=== PATIENT | male | born 1955 | race Caucasian/White ===

== ENCOUNTER 2016-09-17 04:06 | Outpatient (CLI) | payer BC | END 2016-09-17 04:07 | disposition critical access hospital (66) | DX: R06.02 Shortness of breath (principal) | CPT/HCPCS: A0425; A0427 ==

== ENCOUNTER 2016-09-17 04:28 | Observation (INO) | payer BC ==
[2016-09-17] MEDS ORDERED: NITROGLYCERIN 2% PASTE TOP STA (05:05)
[2016-09-17] MEDS ORDERED: FUROSEMIDE 40 MG/4 ML VIAL IVP STA (05:05)
[2016-09-17] MEDS ORDERED: SODIUM CHLORIDE FLUSH 0.9% 10 ML SYRINGE IVP PRN (07:44)
[2016-09-17] MEDS ORDERED: ONDANSETRON 4 MG/2 ML VIAL IVP PRN (07:44)
[2016-09-17] MEDS ORDERED: ZOLPIDEM 5 MG TABLET PO PRN (07:44)
[2016-09-17] MEDS ORDERED: ACETAMINOPHEN 325 MG TABLET PO PRN (07:44)
[2016-09-17] MEDS ORDERED: oxyCODONE 5 MG TABLET PO PRN (07:44)
[2016-09-17] MEDS: INSULIN ASPART 300 UNIT/3 ML PEN SUBQ SCH ×6 (09:00→21:22)
[2016-09-17] MEDS: METOPROLOL TARTRATE 50 MG TABLET PO SCH ×2 (09:17→21:21)
[2016-09-17] MEDS: cloNIDine 0.1 MG TABLET PO SCH ×2 (09:18→21:21)
[2016-09-17] MEDS: POLYETHYLENE GLYCOL 3350 17 GM PACKET PO SCH (09:18)
[2016-09-17] MEDS: FUROSEMIDE 40 MG/4 ML VIAL IVP SCH ×2 (09:19→13:16)
[2016-09-17] MEDS: SODIUM CHLORIDE FLUSH 0.9% 10 ML SYRINGE IVP SCH ×2 (09:19→13:16)
[2016-09-17] MEDS: ENOXAPARIN 40 MG/0.4 ML SYRINGE SUBQ SCH (09:23)
[2016-09-17] MEDS: LOSARTAN 50 MG TABLET PO SCH (09:30)
[2016-09-17] MEDS: POTASSIUM CHLORIDE 20 MEQ TABLET PO SCH (11:50)
[2016-09-17] MEDS: INSULIN GLARGINE 300 UNIT/3 ML PEN SUBQ SCH ×3 (14:46→21:22)
[2016-09-17] MEDS: amLODIPine 5 MG TABLET PO SCH (14:46)
[2016-09-17] MEDS ORDERED: INSULIN ASPART 300 UNIT/3 ML PEN SUBQ SCH (15:00)
[2016-09-17] MEDS ORDERED: INSULIN GLARGINE 300 UNIT/3 ML PEN SUBQ SCH (21:00)
[2016-09-18] MEDS: SODIUM CHLORIDE FLUSH 0.9% 10 ML SYRINGE IVP SCH (06:25)
[2016-09-18] MEDS ORDERED: PANTOPRAZOLE 40 MG TABLET PO SCH (07:00)
[2016-09-18] MEDS: INSULIN ASPART 300 UNIT/3 ML PEN SUBQ SCH (08:09)
[2016-09-18] MEDS: ENOXAPARIN 40 MG/0.4 ML SYRINGE SUBQ SCH (08:19)
[2016-09-18] MEDS: METOPROLOL TARTRATE 50 MG TABLET PO SCH (08:19)
[2016-09-18] MEDS: cloNIDine 0.1 MG TABLET PO SCH (08:19)
[2016-09-18] MEDS: amLODIPine 5 MG TABLET PO SCH (08:19)
[2016-09-18] MEDS: POTASSIUM CHLORIDE 20 MEQ TABLET PO SCH (08:20)
[2016-09-18] MEDS: LOSARTAN 50 MG TABLET PO SCH (08:20)
[2016-09-18] MEDS: POLYETHYLENE GLYCOL 3350 17 GM PACKET PO SCH (11:38)
== END 2016-09-18 11:29 | disposition home or self-care (01) ==
DX: I16.1 Hypertensive emergency (principal); I11.0 Hypertensive heart disease with heart failure; I50.33 Acute on chronic diastolic (congestive) heart failure; E11.65 Type 2 diabetes mellitus with hyperglycemia; E11.42 Type 2 diabetes mellitus with diabetic polyneuropathy; E87.6 Hypokalemia; R09.02 Hypoxemia; Z79.84 Long term (current) use of oral hypoglycemic drugs; Z77.22 Contact with and (suspected) exposure to environmental tobacco smoke (acute) (chronic)
CPT/HCPCS: 36415; 71010; 80048; 83036; 83880; 84484; 85025; 85379; 93005; 93010; 93306; 96372; 96374; 96376; 99217; 99218; 99284; 99285; A9270; J1650; J1815

== ENCOUNTER 2017-02-10 08:00 | Outpatient (CLI) | payer BC ==
[2017-02-10 12:42] LABS: BASOPHILS # (AUTO) 0.1 10^3/uL (0.0-0.1); BASOPHILS % (AUTO) 1.3 %; EOSINOPHILS # (AUTO) 0.1 10^3/uL (0.0-0.7); EOSINOPHILS % (AUTO) 2.1 %; HCT - HEMATOCRIT 33.3 % (42.0-52.0); HGB - HEMOGLOBIN 11.5 g/dL (14.0-18.0); LYMPHOCYTES # (AUTO) 1.3 10^3/uL (1.5-3.5); LYMPHOCYTES % (AUTO) 22.6 %; MEAN CORPUSCULAR HEMOGLOBIN 30.6 pg (27.0-31.0); MEAN CORPUSCULAR HGB CONC 34.5 g/dL (32.0-36.0); MEAN CORPUSCULAR VOLUME 88.9 fL (80.0-94.0); MEAN PLATELET VOLUME 11.4 fL (7.4-11.4); MONOCYTES # (AUTO) 0.4 10^3/uL (0.0-1.0); MONOCYTES % (AUTO) 7.4 %; NEUTROPHILS # (AUTO) 3.9 10^3/uL (1.5-6.6); NEUTROPHILS % (AUTO) 66.6 %; NUCLEATED RED BLOOD CELLS AUTO 0.1 /100WBC; RED BLOOD COUNT 3.75 10^6/uL (4.70-6.10); RED CELL DISTRIBUTION WIDTH 13.3 % (12.0-15.0); UNCORRECTED WHITE BLOOD COUNT 5.8 x10^3/uL; WHITE BLOOD COUNT 5.8 x10^3/uL (4.8-10.8)
[2017-02-10 13:09] LABS: ALBUMIN/GLOBULIN RATIO 1.6 (1.0-2.2); BILIRUBIN,TOTAL 0.6 mg/dL (0.2-1.0); BUN - BLOOD UREA NITROGEN 36 mg/dL (6-20); CALCIUM 9.4 mg/dL (8.5-10.3); CARBON DIOXIDE - CO2 29 mmol/L (21-32); CHLORIDE 102 mmol/L (101-111); CHOL/HDL RATIO 3.1 (<5.0); CHOLESTEROL 208 mg/dL; CREATININE 1.4 mg/dL (0.6-1.2); GFR - MDRD 51 (>89); GLUCOSE 231 mg/dL (70-100); HDL CHOLESTEROL 68 mg/dL; LDL/HDL RATIO 1.9 (<3.6); POTASSIUM 4.7 mmol/L (3.5-5.0); SODIUM 136 mmol/L (135-145); TOTAL PROTEIN 6.2 g/dL (6.7-8.2); TRIGLYCERIDES 54 mg/dL; VLDL CHOLESTEROL 11 mg/dL
[2017-02-10 13:28] LABS: HEMOGLOBIN A1C 0.92 g/dL
== END 2017-02-10 08:01 | disposition home or self-care (01) ==
LOC: LAB.N 08:00
PROVIDERS: ATTEND Family Medicine
DX: D64.9 Anemia, unspecified (principal); I10 Essential (primary) hypertension; E11.65 Type 2 diabetes mellitus with hyperglycemia; Z51.81 Encounter for therapeutic drug level monitoring; Z79.899 Other long term (current) drug therapy
CPT/HCPCS: 36415; 80053; 80061; 83036; 84443; 85025

== ENCOUNTER 2017-04-30 14:01 | Outpatient (CLI) | payer BC ==
[2017-04-30 19:42] LABS: CALCIUM 9.1 mg/dL (8.5-10.3); CREATININE 1.4 mg/dL (0.6-1.2); POTASSIUM 4.6 mmol/L (3.5-5.0)
== END 2017-04-30 14:02 | disposition home or self-care (01) ==
LOC: LAB.N 14:01
PROVIDERS: ATTEND Family Medicine
DX: J81.1 Chronic pulmonary edema (principal)
CPT/HCPCS: 36415; 80048

== ENCOUNTER 2017-07-13 08:00 | Outpatient (CLI) | payer BC ==
[2017-07-13 19:24] LABS: CALCIUM 8.7 mg/dL (8.5-10.3); CREATININE 1.3 mg/dL (0.6-1.2)
[2017-07-13 19:25] LABS: HB2 TOTAL 11.5 g/dL; HEMOGLOBIN A1C 0.78 g/dL; HEMOGLOBIN A1C % 8.4 % (4.6-6.2)
== END 2017-07-13 08:01 | disposition home or self-care (01) ==
LOC: LAB.N 08:00
PROVIDERS: ATTEND Family Medicine
DX: I10 Essential (primary) hypertension (principal); E11.9 Type 2 diabetes mellitus without complications
CPT/HCPCS: 36415; 80048; 83036

== ENCOUNTER 2017-07-16 10:00 | Outpatient (CLI) | payer BC | END 2017-07-16 10:15 | LOC: RT.N 10:00 | PROVIDERS: ATTEND Family Medicine | DX: I10 Essential (primary) hypertension (principal) | CPT/HCPCS: 93005 ==

== ENCOUNTER 2017-11-25 06:28 | Day surgery (SDC) | payer BC ==
[2017-11-25] MEDS ORDERED: KETOROLAC 0.45% OPHTH DROPS ONE (06:38)
[2017-11-25] MEDS ORDERED: PROPARACAINE 0.5% OPHTH DROPS 15 ML ONE (06:38)
[2017-11-25] MEDS ORDERED: CYCLOPENTOLATE 1% OPHTH DROPS 2 ML ONE (06:38)
[2017-11-25] MEDS ORDERED: PHENYLEPHRINE 2.5% OPHTH 2 ML DROPS ONE (06:38)
[2017-11-25] MEDS ORDERED: EPINEPHrine 1 MG/ML AMP ONE (07:09)
[2017-11-25] MEDS ORDERED: TRIAMCIN/MOXIFLOX OPHTHALMIC 0.6 ML VIAL IO ONE (07:09)
[2017-11-25] MEDS ORDERED: BRIMONIDINE 0.2% OPHTH DROPS 5 ML ONE (07:10)
[2017-11-25] MEDS ORDERED: BSS/LIDOCAINE/EPINEPHRINE 1 ML SYRINGE ONE (07:10)
[2017-11-25] MEDS ORDERED: VANCOMYCIN OPHTHALMI 8MG/0.8ML 8 MG/0.8 ML SYRINGE IO ONE (07:10)
[2017-11-25] MEDS ORDERED: TIMOLOL 0.5% OPHTH DROPS ONE (07:10)
[2017-11-25] MEDS: PROPARACAINE 0.5% OPHTH DROPS 15 ML LEFTEYE ONE ×2 (07:20→07:58)
[2017-11-25] MEDS: PHENYLEPHRINE 2.5% OPHTH 2 ML DROPS LEFTEYE ONE (07:20)
[2017-11-25] MEDS: KETOROLAC 0.45% OPHTH DROPS LEFTEYE ONE (07:20)
[2017-11-25] MEDS: CYCLOPENTOLATE 1% OPHTH DROPS 2 ML LEFTEYE ONE (07:20)
[2017-11-25] MEDS: LACTATED RINGERS 500 ML IV ONE (07:29)
[2017-11-25] MEDS: EPINEPHrine 1 MG/ML AMP IVP ONE (08:01)
[2017-11-25] MEDS: BRIMONIDINE 0.2% OPHTH DROPS 5 ML OPTH ONE (08:01)
[2017-11-25] MEDS: CHONDR SULF/HYALURONATE SYRINGE IO ONE (08:02)
[2017-11-25] MEDS: TIMOLOL 0.5% OPHTH DROPS OPTH ONE (08:02)
[2017-11-25] MEDS: BSS/LIDOCAINE/EPINEPHRINE 1 ML SYRINGE IO ONE (08:02)
[2017-11-25] MEDS ORDERED: hydrALAZINE INJ 20 MG/ML VIAL IVP ONE (08:03)
[2017-11-25] MEDS: TRIAMCIN/MOXIFLOX/VANCO 1 ML VIAL IO ONE ×2 (08:03)
[2017-11-25] MEDS ORDERED: MIDAZOLAM 2 MG/2 ML VIAL IVP ONE (08:03)
[2017-11-25 08:22] VITALS: BP 139/72
--- NOTE | 2017-11-25 09:34 | OPERATIVE REPORT ---
DATE OF SERVICE: 11/25/2017 Physician: Wyatt Rothman MD PREOPERATIVE DIAGNOSIS: Visually significant cataract, left eye. This was his first cataract surgery. 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 He is a high myope with -12 refraction, however, due to the density of the cataract, fully characterizing his retina was difficult, which is part of the reason for cataract surgery. This was also complex cataract due to small pupil requiring pupil expansion with a Malyugin ring. POSTOPERATIVE DIAGNOSIS: Visually significant cataract, left eye. This was his first cataract surgery. 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 He is a high myope with -12 refraction, however, due to the density of the cataract, fully characterizing his retina was difficult, which is part of the reason for cataract surgery. This was also complex cataract due to small pupil requiring pupil expansion with a Malyugin ring. PROCEDURE: Phacoemulsification with posterior chamber intraocular lens implant, left eye. SURGEON: Wyatt Rothman M.D. ANESTHESIA: Monitored anesthesia care. COMPLICATIONS: None. INDICATIONS: The patient is a 62-year-old male with progressive vision loss in the left eye due to 4+ nuclear sclerotic cataract. Best corrected visual acuity was 20/60, with glare to hand motion vision in the left eye. INDICATIONS FOR SURGERY: Overall decrease in vision, difficulty seeing words on a computer screen, difficulty reading, difficulty seeing words, closed captions or games scores on TV, difficulty seeing street signs, difficulty driving in low light or at night, and difficulty driving at night because of head lights from other vehicles, difficulty with glare or bright lights in any situation, and difficulty tracking a golf ball. He was consented at length concerning risks and benefits of cataract surgery, after which he expressed a desire to proceed with surgery. OPERATIVE PROCEDURE: The patient was taken to OR #3 and placed under monitored anesthesia care. A surgical timeout was conducted to confirm the correct patient and correct procedure, and correct surgical site. He was given topical anesthesia, and then prepped and draped in the usual sterile fashion. The eye was entered at the 6 and 3 o'clock positions. Intracameral Shugarcaine was injected into the anterior chamber, followed by Viscoat. A Malyugin ring was inserted into the anterior chamber, and engaged the pupil at 4 points to expand the pupil. Then, a continuous-tear curvilinear capsulorrhexis was performed. The nucleus was hydrodissected and phacoemulsified. The cortex was evacuated using automated infusion and aspiration. Provisc was injected in the capsular bag, and a 13.5 diopter intraocular lens inserted in the bag. The Malyugin ring was then disengaged from the pupil margin, and removed from the anterior chamber. I and A was used to evacuate the viscoelastic materials. Approximately 0.7 mL of a mixture of triamcinolone, moxifloxacin and vancomycin was injected subconjunctivally in the superior quadrant for infection and inflammation prophylaxis. The eye was inflated to physiologic pressure using balanced salt solution, and found to be watertight. The patient was taken from the operating room in good condition and given postop instructions. TD: 11/25/2017 08:39
== END 2017-11-25 06:29 | disposition home or self-care (01) ==
LOC: SDS 06:28
PROVIDERS: ATTEND Ophthalmology
PROC: 08RK3JZ Replacement of Left Lens with Synthetic Substitute, Percutaneous Approach (ICD-10-PCS; principal; 2017-11-25 08:30)
DX: H25.12 Age-related nuclear cataract, left eye (principal); E11.3291 Type 2 diabetes mellitus with mild nonproliferative diabetic retinopathy without macular edema, right eye; Z79.84 Long term (current) use of oral hypoglycemic drugs; I10 Essential (primary) hypertension; H40.9 Unspecified glaucoma
CPT/HCPCS: 66982; A9270; J3490; V2632

== ENCOUNTER 2017-12-02 06:20 | Day surgery (SDC) | payer BC ==
[2017-12-02] MEDS ORDERED: PROPARACAINE 0.5% OPHTH DROPS 15 ML ONE (06:53)
[2017-12-02] MEDS ORDERED: CYCLOPENTOLATE 1% OPHTH DROPS 2 ML ONE (06:53)
[2017-12-02] MEDS ORDERED: PHENYLEPHRINE 2.5% OPHTH 2 ML DROPS ONE (06:53)
[2017-12-02] MEDS ORDERED: KETOROLAC 0.45% OPHTH DROPS ONE (06:53)
[2017-12-02] MEDS ORDERED: PROPARACAINE 0.5% OPHTH DROPS 15 ML RIGHTEYE ONE ×2 (07:05→08:35)
[2017-12-02] MEDS ORDERED: CYCLOPENTOLATE 1% OPHTH DROPS 2 ML RIGHTEYE ONE (07:05)
[2017-12-02] MEDS ORDERED: PHENYLEPHRINE 2.5% OPHTH 2 ML DROPS RIGHTEYE ONE (07:05)
[2017-12-02] MEDS ORDERED: KETOROLAC 0.45% OPHTH DROPS RIGHTEYE ONE (07:05)
[2017-12-02] MEDS ORDERED: BRIMONIDINE 0.2% OPHTH DROPS 5 ML ONE (07:14)
[2017-12-02] MEDS ORDERED: VANCOMYCIN OPHTHALMI 8MG/0.8ML 8 MG/0.8 ML SYRINGE IO ONE (07:14)
[2017-12-02] MEDS ORDERED: EPINEPHrine 1 MG/ML AMP ONE (07:14)
[2017-12-02] MEDS ORDERED: TRIAMCIN/MOXIFLOX OPHTHALMIC 0.6 ML VIAL IO ONE (07:14)
[2017-12-02] MEDS ORDERED: BSS/LIDOCAINE/EPINEPHRINE 1 ML SYRINGE ONE (07:14)
[2017-12-02] MEDS ORDERED: TIMOLOL 0.5% OPHTH DROPS ONE (07:14)
[2017-12-02] MEDS ORDERED: LACTATED RINGERS 500 ML IV ONE (07:21)
[2017-12-02] MEDS ORDERED: MIDAZOLAM 2 MG/2 ML VIAL IVP ONE (08:15)
[2017-12-02] MEDS ORDERED: BRIMONIDINE 0.2% OPHTH DROPS 5 ML OPTH ONE (08:35)
[2017-12-02] MEDS ORDERED: TIMOLOL 0.5% OPHTH DROPS OPTH ONE (08:35)
[2017-12-02] MEDS ORDERED: CHONDR SULF/HYALURONATE SYRINGE IO ONE (08:35)
[2017-12-02] MEDS ORDERED: EPINEPHrine 1 MG/ML AMP IR ONE (08:35)
[2017-12-02] MEDS ORDERED: BSS/LIDOCAINE/EPINEPHRINE 1 ML SYRINGE IO ONE (08:35)
[2017-12-02 08:52] VITALS: BP 208/96
--- NOTE | 2017-12-02 10:41 | OPERATIVE REPORT ---
DATE OF SERVICE: 12/02/2017 Physician: Wyatt Rothman MD PREOPERATIVE DIAGNOSIS: Visually significant cataract, right eye. Cataract surgery was performed on the left eye on 11/25/2017. POSTOPERATIVE DIAGNOSIS: Visually significant cataract, right eye. Cataract surgery was performed on the left eye on 11/25/2017. PROCEDURE: Phacoemulsification with posterior chamber intraocular lens implant , right eye. SURGEON: Wyatt Rothman MD ANESTHESIA: Monitored anesthesia care. COMPLICATIONS: On trying to inject the preloaded lens, no lens came out of the cartridge, so we went to another 13.5 preloaded J&J (formerly JESSE) lens, and again no lens came out of the cartridge. Since there were no more 13.5 preloaded IOLs, I opted to go with the backup lens, a J&J [id number] with a power of 13.0 instead of 13.5, which I loaded in the proper cartridge and injector and injected into the capsular bag. OPERATIVE INDICATIONS: This is a 62-year-old man with progressive vision loss in the right eye due to 4+ nuclear sclerotic cataract. Best corrected visual acuity was 20/60 with glare to hand motion vision in the right eye. Overall decrease in vision, difficulty seeing words on the computer screen, difficulty reading, difficulty seeing words on closed captions or game scores on TV, difficulty seeing street signs, difficulty driving in low light or night, difficulty driving at night because of head lights from other vehicles, difficulty with glare or bright lights in any situation, and difficulty tracking a golf ball. He was consented at length concerning risks and benefits of cataract surgery, after which, he expressed a desire to proceed with surgery. OPERATIVE PROCEDURE: The patient was taken to OR #3 and placed under monitored anesthesia care. A surgical timeout was conducted confirming correct patient, correct procedure, and correct surgical site. He was given topical anesthesia and prepped and draped in the usual sterile fashion. The eye was entered at the 12 and 9 o'clock positions. Intracameral Shugarcaine was injected into the anterior chamber, followed by Viscoat. A continuous-tear curvilinear capsulorrhexis was performed. The nucleus was hydrodissected and phacoemulsified. The cortex was evacuated using automated infusion and aspiration. Provisc was injected in the capsular bag and a 13.0 diopter 3-piece intraocular lens was inserted into the bag. That was after 2 attempts to load a 13.5 diopter single piece lens, where no lens came out of the cartridges. Approximately 0.9 mL of a mixture of triamcinolone, moxifloxacin, vancomycin was injected subconjunctivally in the superior quadrant for infection and inflammation prophylaxis. I and A was used to evacuate the viscoelastic material. The eye was inflated to physiologic pressure using balanced salt solution, and found to be watertight. The patient was taken from the Operating Room in good condition, given postoperative instructions, and advised of the IOL change. TD: 12/02/2017 09:05 BOWEN
== END 2017-12-02 06:21 | disposition home or self-care (01) ==
LOC: SDS 06:20
PROVIDERS: ATTEND Ophthalmology
PROC: 08RJ3JZ Replacement of Right Lens with Synthetic Substitute, Percutaneous Approach (ICD-10-PCS; principal; 2017-12-02 08:00)
DX: H25.11 Age-related nuclear cataract, right eye (principal); I10 Essential (primary) hypertension; E11.42 Type 2 diabetes mellitus with diabetic polyneuropathy; E11.3293 Type 2 diabetes mellitus with mild nonproliferative diabetic retinopathy without macular edema, bilateral
CPT/HCPCS: 66984; A9270; J3490; V2632

== ENCOUNTER 2018-01-19 11:34 | Outpatient (CLI) | payer BC ==
[2018-01-19 19:00] LABS: CALCIUM 9.2 mg/dL (8.5-10.3); CREATININE 1.9 mg/dL (0.6-1.2)
[2018-01-19 19:15] LABS: HB2 TOTAL 10.2 g/dL; HEMOGLOBIN A1C 0.73 g/dL; HEMOGLOBIN A1C % 8.7 % (4.6-6.2)
== END 2018-01-19 11:35 | disposition home or self-care (01) ==
LOC: LAB.N 11:34
PROVIDERS: ATTEND Family Medicine
DX: E11.65 Type 2 diabetes mellitus with hyperglycemia (principal)
CPT/HCPCS: 36415; 80048; 83036

== ENCOUNTER 2018-06-29 16:20 | Emergency (ER) | payer MEDICAID ==
[2018-06-29] MEDS ORDERED: TROPICAMIDE 1% OPHTH 2 ML DROPS LEFTEYE STA (16:47)
[2018-06-29] MEDS ORDERED: PROPARACAINE 0.5% OPHTH DROPS 15 ML LEFTEYE STA (17:31)
--- NOTE | 2018-06-29 17:56 | ED Physician Documentation ---
PD HPI OPHTHO - Stated complaint Stated Complaint: VISION CHANGES - Chief complaint Chief Complaint: Heent - History obtained from History obtained from: Patient, Family (spouse) - History of Present Illness Timing - onset: How many days ago (several) Timing - details: Gradual onset Location: Both Associated symptoms: Decreased vision - Additional information Additional information: The patient is a 62-year-old male with a history of hypertension, type 2 diabetes, glaucoma, and vitreous edema, who presents with visual impairment that has gradually become worse over the past several days. He was seen by his quiller hand 9 days ago at which time his steroid medication was stopped because of elevated intraocular pressures of 42. He continues to take timolol and brimonidine ophthalmic drops. His visual acuity 9 days ago was 20/40 in his left eye and 20/200 in his right. He states that the visual acuity in his left eye currently is now even worse than that in his right. He denies headache, nausea or vomiting. He is status post bilateral cataract surgery in October 2017. Review of Systems Constitutional: denies: Fever Eyes: reports: Decreased vision Nose: denies: Congestion Cardiac: denies: Chest pain / pressure Respiratory: denies: Dyspnea, Cough GI: denies: Nausea, Vomiting Skin: denies: Rash Neurologic: denies: Focal weakness, Numbness, Headache PD PAST MEDICAL HISTORY - Past Medical History Past Medical History: Yes Cardiovascular: Hypertension, Other Respiratory: Other Neuro: None Endocrine/Autoimmune: Type 2 diabetes GI: None : Frequency HEENT: Chronic vision loss, Glaucoma Psych: Claustrophobia Musculoskeletal: None Derm: Other - Past Surgical History Past Surgical History: Yes HEENT: Cataracts - Present Medications Home Medications: Ambulatory Orders Medication Instructions Recorded Confirmed Losartan [Cozaar] 50 mg PO BID 09/17/16 06/29/18 Metformin HCl [Metformin HCl ER] 1,000 mg PO BID 09/17/16 06/29/18 cloNIDine [Catapres] 0.2 mg PO BID 09/17/16 06/29/18 Furosemide [Lasix] 20 mg PO DAILY 11/25/17 06/29/18 Brimonidine 0.2% Ophth Drops 1 drops OPTH TID 06/29/18 06/29/18 [Alphagan P 0.2% Ophth Drops] Carvedilol 25 mg PO DAILY 06/29/18 06/29/18 Timolol Maleate 5 ml OP DAILY 06/29/18 06/29/18 acetaZOLAMIDE [Diamox] 500 mg PO DAILY #10 tablet 06/29/18 - Allergies Allergies/Adverse Reactions: Allergies Allergy/AdvReac Type Severity Reaction Status Date / Time No Known Drug Allergies Allergy Verified 06/29/18 16:27 - Social History Does the pt smoke?: No Smoking Status: Never smoker Does the pt drink ETOH?: No Does the pt have substance abuse?: No - Immunizations Immunizations are current?: Yes Immunizations: TDAP >10years/unknown - POLST Patient has POLST: No PD ED PE NORMAL - Vitals Vital signs reviewed: Yes (hypertensive) - General General: Alert and oriented X 3, Well developed/nourished - HEENT HEENT: Atraumatic, EOMI, Other (Pupils equal round, and minimally reactive to light. Visual acuity is count fingers in the right eye and motion detection in the left. Extraocular pressures are elevated at 55 in the right eye and 51 in the left.) - Neck Neck: No adenopathy - Cardiac Cardiac: RRR - Respiratory Respiratory: No respiratory distress - Derm Derm: No rash - Extremities Extremities: No edema, No calf tenderness / cord - Neuro Neuro: Alert and oriented X 3, No motor deficit, No sensory deficit Results - Vitals Vitals: Vital Signs - 24 hr 06/29/18 06/29/18 06/29/18 16:23 16:57 19:07 Temperature 36.1 C L Heart Rate 81 73 Respiratory 20 16 Rate Blood Pressure 228/115 H 197/88 H 220/98 H O2 Saturation 99 98 06/29/18 19:44 Temperature Heart Rate 73 Respiratory 18 Rate Blood Pressure 211/102 H O2 Saturation 98 Oxygen O2 Source Room air - Labs Labs: Laboratory Tests 06/29/18 18:46 POC Whole Bld Glucose 230 H Procedures - Bedside sono Bedside sono by EMP: Bedside ocular ultrasound reveals no evidence of vitreous hemorrhage. PD MEDICAL DECISION MAKING - ED course Complexity details: reviewed old records, reviewed results, re-evaluated patient, considered differential, d/w patient, d/w family, d/w [employer] sales consultant ED course: The patient's presentation is significant for exacerbation of chronically elevated intraocular pressures, with vitreous edema. Retinal vessels were not able to be visualized on funduscopic exam due to edema. Mydriacyl was instilled in the left eye, but there was minimal mydriatic response. I discussed his condition with Dr. Huynh who is on-call for Dr. Rothman, the patient's quiller hand. She advises resuming steroid ophthalmic drops, ensuring that the patient continues to take timolol drops twice daily and brimonidine 3 times daily, and adding Diamox. Each of these drops was administered bilaterally, and Diamox 500 mg is administered orally. Fingerstick blood sugar is elevated at 230. He was observed in the emergency department for an additional 30 minutes during which time his blood pressure was monitored, and his blood sugar was rechecked. He is being discharged with prescription for Diamox. I discussed with him and his the dosing for his medication, the importance of follow-up with ophthalmology tomorrow, as well as potentially worrisome signs or symptoms that should prompt reevaluation in the emergency department. Departure - Departure Disposition: Home, Self Care Clinical Impression: Visual impairment Glaucoma (increased eye pressure) Qualifiers: Glaucoma type: unspecified Laterality: bilateral Qualified Code(s): H40.9 - Unspecified glaucoma Diabetes mellitus with hyperglycemia Qualifiers: Diabetes mellitus type: type 2 Diabetes mellitus residential insulin use: without residential use Qualified Code(s): E11.65 - Type 2 diabetes mellitus with hyperglycemia Hypertension Qualifiers: Hypertension type: unspecified Qualified Code(s): I10 - Essential (primary) hypertension Condition: Stable Instructions: ED Glaucoma Open Angle Chronic Follow-Up: Wyatt Rothman MD [Provider Admit Priv/Credential] - Prescriptions: acetaZOLAMIDE [Diamox] 500 mg PO DAILY #10 tablet Comments: Take your timolol drops (the yellow cap bottle) twice daily. Take the brimonidine drops (the purple cap bottle) 3 times daily. Take the steroid medication (the pink cap bottle) twice daily. Take Diamox daily as prescribed. Follow-up with Dr. Rothman tomorrow if possible. If not, you should contact the [place] office. Return to the emergency department if you develop significant headache, persistent nausea or vomiting, or otherwise worsening symptoms. Discharge Date/Time: 06/29/18 19:48
[2018-06-29] MEDS ORDERED: acetaZOLAMIDE 250 MG TABLET PO STA (18:59)
[2018-06-29 19:48] VITALS: BP 211/102
[2018-06-30] MEDS ORDERED: acetaZOLAMIDE 250 MG TABLET PO SCH (09:00)
== END 2018-06-29 19:48 | disposition home or self-care (01) ==
LOC: ED 16:20
DX: H54.7 Unspecified visual loss (principal); H40.9 Unspecified glaucoma; E11.65 Type 2 diabetes mellitus with hyperglycemia; I10 Essential (primary) hypertension; Z79.84 Long term (current) use of oral hypoglycemic drugs
CPT/HCPCS: 99283; A9270; J3490

== ENCOUNTER 2018-09-07 09:01 | Outpatient (CLI) | payer MEDICAID ==
[2018-09-07 13:06] LABS: BASOPHILS # (AUTO) 0.1 10^3/uL (0.0-0.1); BASOPHILS % (AUTO) 2.1 %; EOSINOPHILS # (AUTO) 0.5 10^3/uL (0.0-0.7); HGB - HEMOGLOBIN 9.9 g/dL (14.0-18.0); LYMPHOCYTES % (AUTO) 14.8 %; MEAN CORPUSCULAR HEMOGLOBIN 29.5 pg (27.0-31.0); MEAN CORPUSCULAR HGB CONC 32.6 g/dL (32.0-36.0); MEAN CORPUSCULAR VOLUME 90.5 fL (80.0-94.0); MEAN PLATELET VOLUME 11.3 fL (7.4-11.4); MONOCYTES # (AUTO) 0.5 10^3/uL (0.0-1.0); MONOCYTES % (AUTO) 7.7 %; NEUTROPHILS # (AUTO) 4.6 10^3/uL (1.5-6.6); NEUTROPHILS % (AUTO) 67.4 %; PLT - PLATELET COUNT 256 10^3/uL (130-450); RED BLOOD COUNT 3.35 10^6/uL (4.70-6.10); RED CELL DISTRIBUTION WIDTH 15.1 % (12.0-15.0); WHITE BLOOD COUNT 6.8 x10^3/uL (4.8-10.8)
[2018-09-07 13:30] LABS: ALBUMIN 3.3 g/dL (3.2-5.5); BILIRUBIN,TOTAL 0.5 mg/dL (0.2-1.0); CALCIUM 9.1 mg/dL (8.5-10.3); TOTAL PROTEIN 6.5 g/dL (6.7-8.2)
[2018-09-07 13:34] LABS: HB2 TOTAL 10.1 g/dL; HEMOGLOBIN A1C 0.76 g/dL
[2018-09-07 13:37] LABS: THYROID STIMULATING HORMONE 2.57 uIU/mL (0.34-5.60)
[2018-09-07 13:45] LABS: FOLATE 23.34 ng/mL (5.90 - >24.8)
[2018-09-07 15:21] LABS: CREATININE,URINE 97.1 mg/dL; MICROALBUM/CREATININE RATIO,UR 1300.7 ug/mg (<30.0); MICROALBUMIN,URINE 126.3 mg/dL (0-300.0)
== END 2018-09-07 23:59 | disposition home or self-care (01) ==
LOC: LAB.N 09:01
PROVIDERS: ATTEND Nurse Practitioner
DX: E11.65 Type 2 diabetes mellitus with hyperglycemia (principal); E55.9 Vitamin D deficiency, unspecified; R53.83 Other fatigue
CPT/HCPCS: 36415; 80050; 82043; 82306; 82570; 82607; 82746; 83036; 83721

== ENCOUNTER 2018-11-01 15:14 | Outpatient (CLI) | payer MEDICARE ==
--- NOTE | 2018-11-02 10:47 | Ultrasound Report ---
Reason: CHRONIC KIDNEY DISEASE, STAGE 3 (MODERATE) Procedure Date: 11/01/2018 Accession Number: [id number] / [id number] Procedure: US - Retroperitoneal CPT Code: FULL RESULT: EXAM: RENAL ULTRASOUND EXAM DATE: 11/01/2018 03:28 PM. CLINICAL HISTORY: Chronic kidney disease, stage 3 (moderate). COMPARISON: None. TECHNIQUE: Real-time scanning was performed with static images obtained. FINDINGS: Right Kidney: 11.0 cm. Normal echotexture with no stones, contour-deforming masses, or hydronephrosis. Left Kidney: 10.2 cm. Normal echotexture with no stones, contour-deforming masses, or hydronephrosis. Bladder: Bilateral jets seen. The prevoid bladder volume was 256 cc. The postvoid bladder volume was 192 cc. Other: None. IMPRESSION: Bilateral increased cortical echogenicity. RADIA
== END 2018-11-01 15:15 | disposition home or self-care (01) ==
LOC: DI 15:14
PROVIDERS: ATTEND Internal Medicine Nephrology
DX: N18.3 Chronic kidney disease, stage 3 (moderate) (principal)
CPT/HCPCS: 76770

== ENCOUNTER 2019-02-02 08:00 | Outpatient (CLI) | payer MEDICARE ==
[2019-02-02 19:13] LABS: HB2 TOTAL 9.1 g/dL; HEMOGLOBIN A1C 0.42 g/dL; HEMOGLOBIN A1C % 6.4 % (4.6-6.2)
== END 2019-02-02 23:59 | disposition home or self-care (01) ==
LOC: LAB.N 08:00
PROVIDERS: ATTEND Nurse Practitioner Gerontology
DX: E11.65 Type 2 diabetes mellitus with hyperglycemia (principal)
CPT/HCPCS: 36415; 83036

== ENCOUNTER 2019-05-27 16:00 | Outpatient (CLI) | payer MEDICARE | END 2019-05-27 16:01 | disposition critical access hospital (66) | LOC: EMS 16:00 | PROVIDERS: ATTEND Surgery | DX: R46.89 Other symptoms and signs involving appearance and behavior (principal); R47.81 Slurred speech; R73.09 Other abnormal glucose | CPT/HCPCS: A0425; A0427 ==

== ENCOUNTER 2019-05-27 16:16 | Inpatient (IN) | payer MEDICARE ==
[2019-05-27] MEDS ORDERED: DEXTROSE 5%-0.45% NACL 1,000 ML IV ONE (16:21)
[2019-05-27] MEDS ORDERED: SODIUM CHLORIDE 0.9% 1,000 ML IV ONE (16:21)
[2019-05-27 16:51] LABS: BASOPHILS % (AUTO) 0.2 %; HGB - HEMOGLOBIN 10.5 g/dL (14.0-18.0); LYMPHOCYTES # (AUTO) 0.3 10^3/uL (1.5-3.5); LYMPHOCYTES % (AUTO) 2.3 %; MEAN CORPUSCULAR HEMOGLOBIN 30.3 pg (27.0-31.0); MEAN CORPUSCULAR HGB CONC 32.5 g/dL (32.0-36.0); MEAN CORPUSCULAR VOLUME 93.4 fL (80.0-94.0); MEAN PLATELET VOLUME 12.3 fL (7.4-11.4); MONOCYTES # (AUTO) 0.8 10^3/uL (0.0-1.0); MONOCYTES % (AUTO) 6.4 %; NEUTROPHILS # (AUTO) 11.8 10^3/uL (1.5-6.6); NEUTROPHILS % (AUTO) 90.6 %; PLT - PLATELET COUNT 264 10^3/uL (130-450); RED BLOOD COUNT 3.46 10^6/uL (4.70-6.10); RED CELL DISTRIBUTION WIDTH 14.1 % (12.0-15.0); WHITE BLOOD COUNT 13.1 x10^3/uL (4.8-10.8)
--- NOTE | 2019-05-27 17:01 | ED Physician Documentation ---
History of Present Illness - Stated complaint Stated Complaint: AMS/HYPOGLYCEMIA - Chief complaint Chief Complaint: Neuro - History obtained from History obtained from: Patient, Family, EMS - History of Present Illness Timing: Today Pain level max: 0 Pain level now: 0 - Additonal information Additional information: Patient was altered at home today, called 911. EMS found him to have a blood sugar in the 40s upon arrival. He takes Lantus at home. He states he took 10 units today. He improved with D50. 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 Left pupil is normally enlarged. Review of Systems Unable to obtain: AMS Constitutional: denies: Fever, Chills GI: denies: Vomiting, Diarrhea Skin: denies: Rash Musculoskeletal: denies: Neck pain, Back pain Neurologic: reports: Confused. denies: Seizure PD PAST MEDICAL HISTORY - Past Medical History Cardiovascular: Hypertension, Other Respiratory: Other Neuro: None Endocrine/Autoimmune: Type 2 diabetes GI: GERD : Frequency HEENT: Chronic vision loss, Glaucoma Psych: Claustrophobia Musculoskeletal: None Derm: Other - Past Surgical History Past Surgical History: Yes HEENT: Cataracts - Present Medications Home Medications: Ambulatory Orders Medication Instructions Recorded Confirmed Losartan [Cozaar] 100 mg PO DAILY 09/17/16 05/27/19 Metformin HCl [Metformin HCl ER] 1,000 mg PO BID 09/17/16 05/27/19 Brimonidine 0.2% Ophth Drops 1 drops OPTH TID 06/29/18 05/27/19 [Alphagan P 0.2% Ophth Drops] Timolol Maleate 5 ml OP DAILY 06/29/18 05/27/19 Amlodipine Besylate 10 mg PO DAILY 05/27/19 05/27/19 Carvedilol Phosphate [Carvedilol 40 mg PO DAILY PM 05/27/19 05/27/19 ER] Insulin Glargine [Lantus Solostar] 10 units SQ DAILY 05/27/19 05/27/19 acetaZOLAMIDE [Diamox] 500 mg PO BID 05/27/19 05/27/19 hydroCHLOROthiazide 25 mg PO DAILY 05/27/19 05/27/19 [Hydrochlorothiazide] - Allergies Allergies/Adverse Reactions: Allergies Allergy/AdvReac Type Severity Reaction Status Date / Time No Known Drug Allergies Allergy Verified 06/29/18 16:27 - Social History Does the pt smoke?: No Smoking Status: Never smoker Does the pt drink ETOH?: No Does the pt have substance abuse?: No - Immunizations Immunizations are current?: Yes Immunizations: TDAP >10years/unknown - POLST Patient has POLST: No PD ED PE NORMAL - Vitals Vital signs reviewed: Yes - General General: No acute distress, Other (drowsy, but arousable) - HEENT HEENT: Atraumatic, Ears normal, Other (dry lips and tongue. L pupil is fully dilated (chronic per )) - Neck Neck: Supple, no meningeal sign - Cardiac Cardiac: RRR - Respiratory Respiratory: No respiratory distress, Clear bilaterally - Abdomen Abdomen: Soft, Non tender, Non distended - Derm Derm: Warm and dry - Extremities Extremities: No edema - Neuro Neuro: Other (drowsy) Results - Vitals Vitals: Vital Signs - 24 hr 05/27/19 05/27/19 05/27/19 16:26 16:50 17:14 Temperature 37.0 C 37.2 C Heart Rate 91 90 90 Respiratory 20 12 14 Rate Blood Pressure 174/81 H 157/90 H 145/79 H O2 Saturation 98 98 99 05/27/19 05/27/19 05/27/19 17:58 18:32 19:15 Temperature 36.9 C Heart Rate 91 86 88 Respiratory 17 11 L 16 Rate Blood Pressure 157/77 H 139/73 H 141/76 H O2 Saturation 98 98 97 Oxygen O2 Source Room air - Labs Labs: Laboratory Tests 05/27/19 05/27/19 05/27/19 16:30 16:30 16:30 WBC 13.1 H RBC 3.46 L Hgb 10.5 L Hct 32.3 L MCV 93.4 MCH 30.3 MCHC 32.5 RDW 14.1 Plt Count 264 MPV 12.3 H Neut # (Auto) 11.8 H Lymph # (Auto) 0.3 L [place] # (Auto) 0.8 Eos # (Auto) 0.0 Baso # (Auto) 0.0 Absolute Nucleated RBC 0.00 Nucleated RBC % 0.0 VBG pH VBG pCO2 VBG pO2 VBG HCO3 VBG Total CO2 VBG O2 Saturation VBG Base Excess Sodium 141 Potassium 3.7 Chloride 115 H Carbon Dioxide 11 L* Anion Gap 15.0 H BUN 85 H* Creatinine 2.9 H Estimated GFR (MDRD) 22 L Glucose 104 H Calcium 8.5 Total Bilirubin 0.8 AST 30 ALT 15 Alkaline Phosphatase 46 Ammonia Total Protein 6.1 L Albumin 3.4 Globulin 2.7 Albumin/Globulin Ratio 1.3 Lipase 22 Urine Color Urine Clarity Urine pH Ur Specific [place] Urine Protein Urine Glucose (UA) Urine Ketones Urine Occult Blood Urine Nitrite Urine Bilirubin Urine Urobilinogen Ur Leukocyte Esterase Urine RBC Urine WBC Ur Squamous Epith Cells Urine Bacteria Ur Microscopic Review Urine Culture Comments Salicylates Urine Opiates Screen Ur Oxycodone Screen Urine Methadone Screen Ur Propoxyphene Screen Acetaminophen Ur Barbiturates Screen Ur Tricyclics Screen Ur Phencyclidine Scrn Ur Amphetamine Screen U Methamphetamines Scrn U Benzodiazepines Scrn Urine Cocaine Screen U Cannabinoids Screen Ethyl Alcohol < 5.0 Serum Ketones NEGATIVE 05/27/19 05/27/19 05/27/19 16:30 17:30 17:30 WBC RBC Hgb Hct MCV MCH MCHC RDW Plt Count MPV Neut # (Auto) Lymph # (Auto) [place] # (Auto) Eos # (Auto) Baso # (Auto) Absolute Nucleated RBC Nucleated RBC % VBG pH VBG pCO2 VBG pO2 VBG HCO3 VBG Total CO2 VBG O2 Saturation VBG Base Excess Sodium Potassium Chloride Carbon Dioxide Anion Gap BUN Creatinine Estimated GFR (MDRD) Glucose Calcium Total Bilirubin AST ALT Alkaline Phosphatase Ammonia Total Protein Albumin Globulin Albumin/Globulin Ratio Lipase Urine Color YELLOW Urine Clarity HAZY Urine pH 5.0 Ur Specific [place] >=1.030 H Urine Protein 100 H Urine Glucose (UA) NEGATIVE Urine Ketones NEGATIVE Urine Occult Blood NEGATIVE Urine Nitrite NEGATIVE Urine Bilirubin NEGATIVE Urine Urobilinogen 0.2 (NORMAL) Ur Leukocyte Esterase SMALL H Urine RBC 0-5 Urine WBC 6-10 H Ur Squamous Epith Cells FEW Squamous Urine Bacteria Many H Ur Microscopic Review INDICATED Urine Culture Comments INDICATED Salicylates < 6.0 Urine Opiates Screen NEGATIVE Ur Oxycodone Screen NEGATIVE Urine Methadone Screen NEGATIVE Ur Propoxyphene Screen NEGATIVE Acetaminophen < 10 L Ur Barbiturates Screen NEGATIVE Ur Tricyclics Screen NEGATIVE Ur Phencyclidine Scrn NEGATIVE Ur Amphetamine Screen NEGATIVE U Methamphetamines Scrn NEGATIVE U Benzodiazepines Scrn NEGATIVE Urine Cocaine Screen NEGATIVE U Cannabinoids Screen NEGATIVE Ethyl Alcohol Serum Ketones 05/27/19 05/27/19 17:39 17:39 WBC RBC Hgb Hct MCV MCH MCHC RDW Plt Count MPV Neut # (Auto) Lymph # (Auto) [place] # (Auto) Eos # (Auto) Baso # (Auto) Absolute Nucleated RBC Nucleated RBC % VBG pH 7.255 L VBG pCO2 21.6 L VBG pO2 83.4 H VBG HCO3 9.4 L VBG Total CO2 10.0 L VBG O2 Saturation 95.4 H VBG Base Excess -16.0 L Sodium Potassium Chloride Carbon Dioxide Anion Gap BUN Creatinine Estimated GFR (MDRD) Glucose Calcium Total Bilirubin AST ALT Alkaline Phosphatase Ammonia 20.4 Total Protein Albumin Globulin Albumin/Globulin Ratio Lipase Urine Color Urine Clarity Urine pH Ur Specific [place] Urine Protein Urine Glucose (UA) Urine Ketones Urine Occult Blood Urine Nitrite Urine Bilirubin Urine Urobilinogen Ur Leukocyte Esterase Urine RBC Urine WBC Ur Squamous Epith Cells Urine Bacteria Ur Microscopic Review Urine Culture Comments Salicylates Urine Opiates Screen Ur Oxycodone Screen Urine Methadone Screen Ur Propoxyphene Screen Acetaminophen Ur Barbiturates Screen Ur Tricyclics Screen Ur Phencyclidine Scrn Ur Amphetamine Screen U Methamphetamines Scrn U Benzodiazepines Scrn Urine Cocaine Screen U Cannabinoids Screen Ethyl Alcohol Serum Ketones - Rads (name of study) head CT Radiology: Prelim report reviewed, EMP read contemporaneously, See rad report (No significant intracranial abnormality. ) PD MEDICAL DECISION MAKING - ED course Complexity details: reviewed old records, reviewed results, re-evaluated patient, considered differential, d/w family, d/w tax consultant ED course: Patient with altered mental status. He was hypoglycemic on scene. Appears to have a metabolic acidosis here with significant uremia and dehydration. Also has acute kidney injury. Was maintained on a D5 drip and given IV fluids. He does have a history of CHF, unknown what his ejection fraction is like currently. Therefore we will rehydrate slowly. He is on diuretics at home as well. Patient will require admission for further care. Discussed the case with Dr. Singer, hospitalist who accepts. This document was made in part using voice recognition software. While efforts are made to proofread this document, sound alike and grammatical errors may occur. Departure - Departure Disposition: 66 [facility] DC/Xfer Clinical Impression: Uremia, Hypoglycemia, Acute kidney injury, Dehydration, Metabolic acidosis Altered mental status Qualifiers: Altered mental status type: unspecified Qualified Code(s): R41.82 - Altered mental status, unspecified Condition: Stable Discharge Date/Time: 05/27/19 19:57
[2019-05-27 17:23] LABS: ALBUMIN 3.4 g/dL (3.2-5.5); ALBUMIN/GLOBULIN RATIO 1.3 (1.0-2.2); BILIRUBIN,TOTAL 0.8 mg/dL (0.2-1.0); CALCIUM 8.5 mg/dL (8.5-10.3); CREATININE 2.9 mg/dL (0.6-1.2); TOTAL PROTEIN 6.1 g/dL (6.7-8.2)
[2019-05-27 17:44] LABS: VBG PCO2 21.6 mmHg (41-51); VBG PH 7.255 (7.31-7.41); VBG PO2 83.4 mmHg (25-47)
[2019-05-27 17:49] LABS: MUDS CUTOFF CONCENTRATIONS CUTOFF CONC BELOW:
[2019-05-27 17:52] LABS: KETONES, SERUM (ACETEST) NEGATIVE (NEGATIVE)
[2019-05-27 18:00] LABS: BILIRUBIN,URINE NEGATIVE (NEGATIVE); GLUCOSE, URINE (UA) NEGATIVE (NEGATIVE); KETONES,URINE (UA) NEGATIVE (NEGATIVE); LEUKOCYTE ESTERASE, URINE SMALL (NEGATIVE); NITRITE,URINE NEGATIVE (NEGATIVE); OCCULT BLOOD,URINE NEGATIVE (NEGATIVE); PROTEIN,URINE 100 mg/dL (NEGATIVE); UROBILINOGEN,URINE 0.2 (NORMAL) E.U./dL (NORMAL)
[2019-05-27 18:01] LABS: CLARITY,URINE HAZY (CLEAR)
[2019-05-27 18:08] LABS: COCAINE SCREEN URINE NEGATIVE (NEGATIVE)
[2019-05-27 18:09] LABS: AMPHETAMINE SCREEN,URINE NEGATIVE (NEGATIVE); BENZODIAZEPINES SCREEN, URINE NEGATIVE (NEGATIVE); METHADONE SCREEN, URINE NEGATIVE (NEGATIVE); METHAMPHETAMINES SCREEN, URINE NEGATIVE (NEGATIVE); OPIATE SCREEN, URINE NEGATIVE (NEGATIVE); OXYCODONE SCREEN, URINE NEGATIVE (NEGATIVE); PROPOXYPHENE SCREEN, URINE NEGATIVE (NEGATIVE); TRICYCLIC ANTIDEPRESSANT,URINE NEGATIVE (NEGATIVE)
[2019-05-27 18:14] LABS: BACTERIA,URINE Many /HPF (None Seen); RBC,URINE 0-5 /HPF (0-5); SQUAMOUS EPITHELIAL CELL,UR FEW Squamous (<= Few)
[2019-05-27 18:18] LABS: ACETAMINOPHEN < 10 ug/mL (10-30); SALICYLATE < 6.0 mg/dL
--- NOTE | 2019-05-27 18:30 | CT Report ---
Reason: altered mental status Procedure Date: 05/27/2019 Accession Number: [id number] / [id number] Procedure: CT - HEAD WO CPT Code: Final Report FULL RESULT: EXAM: CT HEAD EXAM DATE: 05/27/2019 05:57 PM. CLINICAL HISTORY: Altered mental status. COMPARISON: None. TECHNIQUE: Multiaxial CT images were obtained from the foramen magnum to the vertex. Reformats: Sagittal and coronal. IV contrast: None. In accordance with CT protocol optimization, one or more of the following dose reduction techniques were utilized for this exam: automated exposure control, adjustment of mA and/or KV based on patient size, or use of iterative reconstructive technique. FINDINGS: Parenchyma: No intraparenchymal hemorrhage. No evidence of mass, midline shift, or CT findings of infarction. Flaherty-white differentiation is distinct. Extraaxial Spaces: Normal for age. No subdural or epidural collections identified. Ventricles: Normal in size and position. Sinuses and Orbits: Imaged paranasal sinuses, orbits, and mastoids show no significant abnormality. Bones: No evidence of fracture or calvarial defect. Other: None. IMPRESSION: No significant intracranial abnormality. RADIA
[2019-05-27] MEDS ORDERED: cefTRIAXone 1 GM in SODIUM CHLORIDE 0.9% MINIBAG 100 ML IV SCH (19:25)
[2019-05-27] MEDS ORDERED: SODIUM CHLORIDE FLUSH 0.9% 10 ML SYRINGE IVP PRN (19:26)
--- NOTE | 2019-05-27 19:53 | HISTORY & PHYSICAL EXAMINATION ---
Chief Complaint - Chief Complaint Chief Complaint: Altered mental status History of Present Illness - Admitted From Admitted From:: Home - History Obtained From Records Reviewed: Yes History obtained from: Patient, Family, ER Physician, EMR Exam Limitations: Patient is altered and poor historian - History of Present Illness HPI Comment/Other: This is a 63-year-old male with a past medical history significant for hypertension, type 2 diabetes on insulin, heart failure with preserved ejection fraction, glaucoma who presents today due to worsening mental status. Most of the history is obtained from his who is at bedside as the patient is altered and currently a poor historian with delayed speech. His tells me that he had been in his usual state of health up until about a few days ago. She said a couple days ago he was more confused than usual and was being quite vulgar to her which was new and not his usual behavior. She states he has become increasingly more fatigued and lethargic and that he has been sleeping a lot. Yesterday he was also more confused than usual but today she became concerned when he had difficulty speaking and so she called EMS. Upon arrival, EMS found him to have a blood glucose in the 40s. The patient does take insulin which he is able to confirm. He does take 10 units of Lantus and he took it last night. He does not check his blood glucose but continues to take insulin and metformin. His states his appetite has been okay this past few days. He reports no nausea or vomiting although his states he did have a couple episodes of vomiting a few days ago. He reports no chest pain, dyspnea, dysuria, abdominal pain. He also states he is also taking all of his home medications as previously prescribed. His is concerned that his speech is quite delayed and that he is quite tremulous which is new. Patient does report feeling thirsty and that he has a metallic taste in his mouth. His also states that he has been complaining of rotten egg taste in his mouth. Both he and his deny alcohol or tobacco use. In the emergency department, he was found to be afebrile temperature of 37.2. Heart rate was in the 90s. Blood pressure was 157/90. He was not tachypneic and saturating well on room air. Labs were significant for a chloride of 115, bicarbonate of 11, anion gap of 15, BUN of 85, and creatinine of 2.9. VBG showed a pH 7.255, PCO2 of 21.6 and HCO3 of 9.4. Salicylates, acetaminophen, alcohol level were all negative. His urine toxicology screen was also negative. Given his altered mental status and lab abnormalities, medicine was consulted for admission. I did discuss goals of care with both the patient and his and he would like to be a full code. History - Past Medical History Cardiovascular: reports: Congestive heart failure, Hypertension Neuro: reports: None Endocrine/Autoimmune: reports: Type 2 diabetes GI: reports: GERD : reports: Frequency HEENT: reports: Chronic vision loss, Glaucoma Psych: reports: Claustrophobia Musculoskeletal: reports: None Derm: reports: Other MRSA Hx?: No - Past Surgical History HEENT: reports: Cataracts - Family & Social History Family History Comment/Other: He reports both of his parents from cancer. He believes his mother had pancreatic cancer and his father had lung cancer. Living arrangement: At home Living Situation: With spouse/s.o. Social History Notes: He lives at home with his . He is not currently employed. He was unable to tell me what he did for living in the past. Both he and his deny alcohol or tobacco use. - Substance History Use: Uses substance without health or social issues: NONE - POLST Patient has POLST: No Meds/Allgy - Home Medications Home Medications: Ambulatory Orders Medication Instructions Recorded Confirmed Losartan [Cozaar] 100 mg PO DAILY 09/17/16 05/27/19 Metformin HCl [Metformin HCl ER] 1,000 mg PO BID 09/17/16 05/27/19 Brimonidine 0.2% Ophth Drops 1 drops OPTH TID 06/29/18 05/27/19 [Alphagan P 0.2% Ophth Drops] Timolol Maleate 5 ml OP DAILY 06/29/18 05/27/19 Amlodipine Besylate 10 mg PO DAILY 05/27/19 05/27/19 Carvedilol Phosphate [Carvedilol 40 mg PO DAILY PM 05/27/19 05/27/19 ER] Insulin Glargine [Lantus Solostar] 10 units SQ DAILY 05/27/19 05/27/19 acetaZOLAMIDE [Diamox] 500 mg PO BID 05/27/19 05/27/19 hydroCHLOROthiazide 25 mg PO DAILY 05/27/19 05/27/19 [Hydrochlorothiazide] - Allergies Allergies/Adverse Reactions: Allergies Allergy/AdvReac Type Severity Reaction Status Date / Time No Known Drug Allergies Allergy Verified 06/29/18 16:27 Review of Systems - Constitutional Constitutional: reports: Weakness. denies: Poor appetite - Cardiovascular Cariovascular: denies: Chest pain - Respiratory Respiratory: denies: SOB at rest - Gastrointestinal Gastrointestinal: denies: Abdominal pain, Nausea, Vomiting - Genitourinary Genitourinary: denies: Dysuria - Neurological Neurological: reports: General weakness. denies: Numbness - All Other Systems All Other Systems: reports: Other (Review of systems is limited given his altered mental status.) Prior Level of Functionality: His states he has had difficulty ambulating for the past year but that he ambulates on his own with her assistance. He does not use a cane or walker. Exam - Vital Signs Reviewed Vital Signs: Yes Vital Signs: Vital Signs x48h Temp Pulse Resp BP Pulse Ox 05/27/19 19:15 88 16 141/76 H 97 05/27/19 18:32 86 11 L 139/73 H 98 05/27/19 17:58 36.9 C 91 17 157/77 H 98 05/27/19 17:14 90 14 145/79 H 99 05/27/19 16:50 37.2 C 90 12 157/90 H 98 05/27/19 16:26 37.0 C 91 20 174/81 H 98 - Physical Exam General Appearance: positive: Alert, Mild distress Eyes Bilateral: positive: Normal inspection, Conjunctivae nml, No scleral icterus ENT: positive: ENT inspection nml, Dry mucous membranes Neck: positive: Nml inspection Respiratory: positive: No respiratory distress. negative: Wheezes, Rales Cardiovascular: positive: Regular rate & rhythm, No murmur. negative: Tachycardia, Bradycardia, Systolic murmur, Diastolic murmur Abdomen: positive: Non-tender, No distention. negative: Tenderness, Guarding, Rebound Skin: positive: No rash, Warm, Dry Extremities: positive: No pedal edema Neurologic/Psychiatric: positive: Disoriented to place, Disoriented to time (He is oriented to month and knows it is [place] but cannot tell me the year), Slurred/abnml speech (His speech is slowed and delayed but not slurred.), Other (He has no focal motor deficits and is able to move all 4 extremities. He is quite tremulous when extending his upper extremities. No clonus present.). negative: Disoriented to person Conclusion/Plan - Problem List (1) Encephalopathy Conclusion/Plan: Suspect this is secondary to uremia given his elevated BUN. He was initially hypoglycemic but this has improved with dextrose but his mental status has remained stable. He is oriented to self, his , month and he knows it is [place]. His speech is quite delayed. His ammonia level was normal and the CT of the head was unremarkable. His urine toxicology was also negative. At this time, we will avoid medications which may worsen his delirium. We are hopeful that his mental status will improve as he is hydrated and his renal function improves. (2) Metabolic acidosis Conclusion/Plan: He has a mixed anion gap acidosis as well as a non-anion gap acidosis. His delta-delta is negative 10. His anion gap may be elevated secondary to lactic acid or uremia given his elevated BUN. Lactic acid is pending. He does not appear to have DKA as he is hypoglycemic and he is not on any oral hypoglycemics which may cause DKA without hyperglycemia. His non-anion gap acidosis is likely exacerbated from the use of Diamox. We will hydrate him with D5 half-normal and monitor his basic metabolic panel. Hold Diamox. (3) Acute kidney injury superimposed on CKD Conclusion/Plan: His creatinine is elevated at 2.9 from a baseline of 1.5-2. Suspect this is prerenal injury given he appears hypovolemic. Continue to hydrate him with IV fluids and monitor his renal function. His BUN is elevated in the 80s and suspect this is contributing to his altered mental status. His BUN should decrease as his renal function improves with IV hydration. Hold Losartan in setting of CON. If there is no improvement with IV hydration, will obtain urine electrolytes and renal ultrasound to rule out obstruction. (4) Uremia Conclusion/Plan: Suspect that this is the cause of his altered mental status given his BUN is elevated in the 80s and he has asterixis on exam as well as reporting a metallic taste in his mouth. This should improve with IV hydration as his renal function improves. Fortunately, there are no indications at this time for renal replacement therapy at this time. (5) Hypoglycemia Conclusion/Plan: He was initially found to have blood glucose in the 40s which improved to greater than 100 after receiving dextrose. He is on Lantus as well as metformin at home. Suspect hypoglycemia may have been secondary to his insulin use in the setting of acute kidney injury. We will hold his home Lantus and metformin for the time being. We will continue him on D5 half-normal and monitor his blood glucose. (6) Heart failure with preserved ejection fraction Conclusion/Plan: He has heart failure with preserved ejection fraction and grade 2 diastolic dysfunction on his last echocardiogram. He appears hypervolemic at this time and we will hold his home diuretics and continue with judicious IV hydration. We will monitor his respiratory status and volume status. As his renal function improves, we will reinitiate his diuretics. Qualifiers: Heart failure chronicity: chronic Qualified Code(s): I50.32 - Chronic diastolic (congestive) heart failure (7) Type 2 diabetes mellitus Conclusion/Plan: He has type 2 diabetes and his last hemoglobin A1c was 6.4%. He is on Lantus 10 units and metformin at home. He presented with hypoglycemia and therefore we will hold his home insulin regimen for the time being. We will recheck an hemoglobin A1c and if it is less than 7, will discontinue his Lantus on discharge. His metformin may potentially be need to be discontinued as well if his renal function does not return to baseline. Qualifiers: Diabetes mellitus care home insulin use: with care home use (8) Hypertension Conclusion/Plan: He is currently hypertensive with a systolic blood pressure in the 140s. He is on losartan, hydrochlorothiazide, Norvasc, carvedilol at home. We will resume these once he is taking p.o.Will use IV hydralazine as needed for the time being. (9) Glaucoma (increased eye pressure) Conclusion/Plan: We will resume his home eyedrops. Qualifiers: Glaucoma type: unspecified Laterality: bilateral Qualified Code(s): H40.9 - Unspecified glaucoma - Lab Results Lab results reviewed: Yes Giuseppe Bones: 05/28/19 05:25 05/28/19 05:25 - Diagnostic Imaging Results Diagnostic Imaging Results: positive: Final report reviewed Core Measures - Anticipated LOS I expect patient to be DC'd or transferred within 96 hours.: Yes - Issues Hospital Issues and Management Plan: 63-year-old male with altered mental status found to have metabolic acidosis, hypoglycemia, and acute kidney injury. He will be admitted for IV hydration and further work-up of his altered mental status.
[2019-05-27] MEDS ORDERED: DEXTROSE 5%-0.45% NACL 1,000 ML IV SCH (20:00)
[2019-05-27] MEDS: LACTATED RINGERS 1,000 ML IV SCH (23:25)
[2019-05-27] MEDS: SODIUM CHLORIDE FLUSH 0.9% 10 ML SYRINGE IVP SCH (23:25)
[2019-05-28 05:42] LABS: VBG BASE EXCESS -13.5 mmol/L (-2 - +2); VBG PCO2 22.8 mmHg (41-51); VBG PH 7.309 (7.31-7.41); VBG TOTAL CO2 11.9 mmol/L (24-29)
[2019-05-28 05:43] LABS: BASOPHILS % (AUTO) 0.2 %; EOSINOPHILS # (AUTO) 0.1 10^3/uL (0.0-0.7); EOSINOPHILS % (AUTO) 0.5 %; LYMPHOCYTES # (AUTO) 0.6 10^3/uL (1.5-3.5); LYMPHOCYTES % (AUTO) 3.2 %; MEAN CORPUSCULAR HEMOGLOBIN 30.6 pg (27.0-31.0); MEAN CORPUSCULAR HGB CONC 33.8 g/dL (32.0-36.0); MEAN CORPUSCULAR VOLUME 90.5 fL (80.0-94.0); MEAN PLATELET VOLUME 12.1 fL (7.4-11.4); MONOCYTES % (AUTO) 5.6 %; NEUTROPHILS # (AUTO) 15.4 10^3/uL (1.5-6.6); NEUTROPHILS % (AUTO) 89.9 %; PLT - PLATELET COUNT 252 10^3/uL (130-450); RED BLOOD COUNT 2.94 10^6/uL (4.70-6.10); RED CELL DISTRIBUTION WIDTH 14.3 % (12.0-15.0); WHITE BLOOD COUNT 17.2 x10^3/uL (4.8-10.8)
[2019-05-28 05:57] LABS: CALCIUM 8.1 mg/dL (8.5-10.3); CREATININE 2.7 mg/dL (0.6-1.2); HB2 TOTAL 9.1 g/dL; HEMOGLOBIN A1C 0.4 g/dL; HEMOGLOBIN A1C % 6.2 % (4.6-6.2); MAGNESIUM 1.9 mg/dL (1.7-2.8); PHOSPHORUS 5.1 mg/dL (2.5-4.6)
[2019-05-28] MEDS: LACTATED RINGERS 1,000 ML IV SCH ×3 (07:14→22:19)
--- NOTE | 2019-05-28 07:53 | PHARMACY PROGRESS NOTE ---
- Best Possible Medication History Admit Date and Time: 05/27/191925 Processed by: Pharmacy Medication History completed: Yes Patient Interview: Pt unable to participate Secondary Source(s): Spouse/Significant other, Pharmacy records, Insurance re cords As the person ultimately responsible for medication therapy, providers are able to order a medication from an existing home medication list in [facility] via the "Reconcile Routine" prior to Confirmation of that medication by support team member. Such practice is discouraged except when the physician, in their clinical judgment, deems that a medical need exists for a medication without regard to pr evious use.
[2019-05-28] MEDS: cefTRIAXone 1 GM in SODIUM CHLORIDE 0.9% MINIBAG 100 ML IV SCH (08:20)
[2019-05-28] MEDS: HEPARIN 5,000 UNIT/ML VIAL SUBQ SCH ×2 (08:26→20:59)
[2019-05-28] MEDS: SODIUM CHLORIDE FLUSH 0.9% 10 ML SYRINGE IVP SCH ×2 (08:26→17:30)
[2019-05-28] MEDS: POTASSIUM CHLOR 10 MEQ/100 ML 10 MEQ/100 ML BAG IV SCH ×3 (08:58→11:19)
--- NOTE | 2019-05-28 09:31 | XRAY Report ---
Reason: Leukocytosis. Altered. Procedure Date: 05/28/2019 Accession Number: [id number] / [id number] Procedure: XR - Chest 1 View X-Ray CPT Code: 54044 Final Report FULL RESULT: EXAM: CHEST RADIOGRAPHY EXAM DATE: 05/28/2019 07:42 AM. CLINICAL HISTORY: Leukocytosis. Altered. COMPARISON: Chest radiograph from 04/02/2017. TECHNIQUE: 1 view. FINDINGS: Lungs/Pleura: There are patchy left perihilar opacities, greatest in the left base. The right lung is clear. No pleural effusion or pneumothorax. Mediastinum: Cardiomediastinal silhouette is within normal limits for patient rotation. Other: None. IMPRESSION: Multifocal patchy left lung opacities, suspicious for pneumonia. RADIA
--- NOTE | 2019-05-28 12:12 | PROVIDER PROGRESS NOTE ---
Assessment/Plan - Problem List (1) Metabolic encephalopathy Assessment/Plan: He has very slow speech but it is clear, not slurred. He has very bradykinetic movements of his head and his arms. This is not his baseline according to the , who has his bedside. Continue to treat the acidosis, UTI and dehydration and follow with neuro checks (2) E. coli UTI Assessment/Plan: Urine culture turned positive on less than 12 hours. He was started on empiric iv Ceftriaxone. Await culture sensitivities He will need imaging to eval for obstr or stone, etc. Renal ultrasound will be obtained, if he needs CT scan, must wait til creat normalized. (3) Metabolic acidosis Assessment/Plan: pH on VBG was 7.3, up from 7.2 Continue IV rehydration. Remain off Diamox and other meds. Follow BMP daily (4) Acute kidney injury superimposed on CKD Assessment/Plan: Continue iv fluid for rehydration. Follow BMP daily (5) Uremia Assessment/Plan: Follow BUN/creat as rehydrating, which appears to be improving with fluids (6) Hypoglycemia Assessment/Plan: Continue glu supplements. Follow glu fingerstick checks. (7) Hypokalemia Assessment/Plan: Correct iv. follow BMP daily (8) Type 2 diabetes mellitus Qualifiers: Diabetes mellitus residential insulin use: with manager terminal use Assessment/Plan: His DM management needs adjusting. Will request a [place] consult. (9) Chronic diastolic heart failure Assessment/Plan: he is volume depleted, off diuretic currently. No Echo can be repeated here until a tech is available on 06/01/19, if needed. (10) Hx of essential hypertension Assessment/Plan: Meds on hold due to dehydration and "soft" BPs. (11) Glaucoma (increased eye pressure) Qualifiers: Glaucoma type: unspecified Laterality: bilateral Qualified Code(s): H40.9 - Unspecified glaucoma Assessment/Plan: Continue eye drops, when meds reconciled by Pharmacist. 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 - Current Meds Current Meds: Current Medications Generic Name Dose Route Start Last Admin Trade Name Freq PRN Reason Stop Dose Admin Heparin Sodium (Porcine) 5,000 unit 05/28/19 09:00 05/28/19 08:26 SUBQ 5,000 unit BID MATEUSZ Administration Lactated Ringer's 1,000 mls @ 125 mls/hr 05/27/19 23:00 05/28/19 07:14 Lr IV 125 mls/hr .Q8H MATEUSZ Administration Ceftriaxone Sodium 1 gm/ 100 mls @ 200 mls/hr 05/28/19 09:00 05/28/19 08:58 Sodium Chloride IV Infused DAILY MATEUSZ Infusion Sodium Chloride 10 ml 05/28/19 01:00 05/28/19 08:26 Normal Saline Flush 0.9% IVP 10 ml 0100,0900,1700 MATEUSZ Administration - Lab Result Fish Bone Diagrams: 05/28/19 05:25 05/28/19 05:25 - Additional Planning My Orders: My Active Orders 05/28/19 Breakfast Clear Liquid Diet [DIET] Subjective - Subjective Patient Reports: Resting Comfortably Objective Vital Signs: Vital Signs - 24 hr 05/27/19 05/27/19 05/27/19 16:26 16:50 17:14 Temperature 37.0 C 37.2 C Heart Rate 91 90 90 Heart Rate [ Brachial] Respiratory 20 12 14 Rate Blood Pressure 174/81 H 157/90 H 145/79 H Blood Pressure [Right Brachial artery] O2 Saturation 98 98 99 05/27/19 05/27/19 05/27/19 17:58 18:32 19:15 Temperature 36.9 C Heart Rate 91 86 88 Heart Rate [ Brachial] Respiratory 17 11 L 16 Rate Blood Pressure 157/77 H 139/73 H 141/76 H Blood Pressure [Right Brachial artery] O2 Saturation 98 98 97 05/27/19 05/27/19 05/28/19 20:00 23:28 04:53 Temperature 37.1 C 36.6 C 36.6 C Heart Rate 92 Heart Rate [ 93 92 Brachial] Respiratory 16 16 16 Rate Blood Pressure Blood Pressure 153/85 H 165/80 H [Right Brachial artery] O2 Saturation 97 96 96 05/28/19 05/28/19 05/28/19 05:00 07:50 11:40 Temperature 37.2 C 36.7 C 36.6 C Heart Rate Heart Rate [ 93 87 87 Brachial] Respiratory 18 11 L 11 L Rate Blood Pressure Blood Pressure 171/85 H 168/80 H 171/79 H [Right Brachial artery] O2 Saturation 98 96 97 Oxygen O2 Source Room air I&O (Last 24 Hrs): Intake and Output Totals x24h 05/26/19 05/27/19 05/28/19 23:59 23:59 23:59 Intake Total 2251.667 1277.083 Output Total 125 Balance 2251.667 1152.083 General: Other (Lethargic) HEENT: Atraumatic, Other (Dry mucosa) Neck: Supple, No JVD Neuro: Oriented Times 3, Other (Slow but clear speech, bradykinetic) Cardiovascular: Regular rate, No murmurs Respiratory: No respiratory distress, Breath sounds nml Abdomen: Soft Extremities: No edema, Other ((+) skin tenting) - Results Results: Laboratory Results WBC 17.2 x10^3/uL (4.8-10.8) H 05/28/19 05:25 RBC 2.94 10^6/uL (4.70-6.10) L 05/28/19 05:25 Hgb 9.0 g/dL (14.0-18.0) L 05/28/19 05:25 Hct 26.6 % (42.0-52.0) L 05/28/19 05:25 MCV 90.5 fL (80.0-94.0) 05/28/19 05:25 MCH 30.6 pg (27.0-31.0) 05/28/19 05:25 MCHC 33.8 g/dL (32.0-36.0) 05/28/19 05:25 RDW 14.3 % (12.0-15.0) 05/28/19 05:25 Plt Count 252 10^3/uL (130-450) 05/28/19 05:25 MPV 12.1 fL (7.4-11.4) H 05/28/19 05:25 Neut # (Auto) 15.4 10^3/uL (1.5-6.6) H 05/28/19 05:25 Lymph # (Auto) 0.6 10^3/uL (1.5-3.5) L 05/28/19 05:25 Sampson # (Auto) 1.0 10^3/uL (0.0-1.0) 05/28/19 05:25 Eos # (Auto) 0.1 10^3/uL (0.0-0.7) 05/28/19 05:25 Baso # (Auto) 0.0 10^3/uL (0.0-0.1) 05/28/19 05:25 Absolute Nucleated RBC 0.00 x10^3/uL 05/28/19 05:25 Nucleated RBC % 0.0 /100WBC 05/28/19 05:25 VBG pH 7.309 (7.31-7.41) L 05/28/19 05:25 VBG pCO2 22.8 mmHg (41-51) L 05/28/19 05:25 VBG pO2 121.0 mmHg (25-47) H 05/28/19 05:25 VBG HCO3 11.2 mmol/L (23-28) L 05/28/19 05:25 VBG Total CO2 11.9 mmol/L (24-29) L 05/28/19 05:25 VBG O2 Saturation 98.1 % (60-80) H 05/28/19 05:25 VBG Base Excess -13.5 mmol/L (-2 - +2) L 05/28/19 05:25 Sodium 139 mmol/L (135-145) 05/28/19 05:25 Potassium 3.3 mmol/L (3.5-5.0) L 05/28/19 05:25 Chloride 117 mmol/L (101-111) H 05/28/19 05:25 Carbon Dioxide 12 mmol/L (21-32) L* 05/28/19 05:25 Anion Gap 10.0 (6-13) 05/28/19 05:25 BUN 80 mg/dL (6-20) H* 05/28/19 05:25 Creatinine 2.7 mg/dL (0.6-1.2) H 05/28/19 05:25 Estimated GFR (MDRD) 24 (>89) L 05/28/19 05:25 Glucose 168 mg/dL (70-100) H 05/28/19 05:25 Glycated Hemoglobin 6.2 % (4.6-6.2) 05/28/19 05:25 Estim Average Glucose 131 (70-100) H 05/28/19 05:25 Lactic Acid 1.4 mmol/L (0.5-2.2) 05/27/19 19:35 Calcium 8.1 mg/dL (8.5-10.3) L 05/28/19 05:25 Phosphorus 5.1 mg/dL (2.5-4.6) H 05/28/19 05:25 Magnesium 1.9 mg/dL (1.7-2.8) 05/28/19 05:25 Total Bilirubin 0.8 mg/dL (0.2-1.0) 05/27/19 16:30 AST 30 IU/L (10-42) 05/27/19 16:30 ALT 15 IU/L (10-60) 05/27/19 16:30 Alkaline Phosphatase 46 IU/L (42-121) 05/27/19 16:30 Ammonia 20.4 umol/L (7-35) 05/27/19 17:39 Total Creatine Kinase 841 IU/L (22-269) H 05/27/19 19:35 Troponin I High Sens 41.2 ng/L (2.3-19.7) H* 05/28/19 10:10 Total Protein 6.1 g/dL (6.7-8.2) L 05/27/19 16:30 Albumin 3.4 g/dL (3.2-5.5) 05/27/19 16:30 Globulin 2.7 g/dL (2.1-4.2) 05/27/19 16:30 Albumin/Globulin Ratio 1.3 (1.0-2.2) 05/27/19 16:30 Lipase 22 U/L (22-51) 05/27/19 16:30 Urine Color YELLOW 05/27/19 17:30 Urine Clarity HAZY (CLEAR) 05/27/19 17:30 Urine pH 5.0 PH (5.0-7.5) 05/27/19 17:30 Ur Specific [place] >=1.030 (1.002-1.030) H 05/27/19 17:30 Urine Protein 100 mg/dL (NEGATIVE) H 05/27/19 17:30 Urine Glucose (UA) NEGATIVE mg/dL (NEGATIVE) 05/27/19 17:30 Urine Ketones NEGATIVE mg/dL (NEGATIVE) 05/27/19 17:30 Urine Occult Blood NEGATIVE (NEGATIVE) 05/27/19 17:30 Urine Nitrite NEGATIVE (NEGATIVE) 05/27/19 17:30 Urine Bilirubin NEGATIVE (NEGATIVE) 05/27/19 17:30 Urine Urobilinogen 0.2 (NORMAL) E.U./dL (NORMAL) 05/27/19 17:30 Ur Leukocyte Esterase SMALL (NEGATIVE) H 05/27/19 17:30 Urine RBC 0-5 /HPF (0-5) 05/27/19 17:30 Urine WBC 6-10 /HPF (0-3) H 05/27/19 17:30 Ur Squamous Epith Cells FEW Squamous (<= Few) 05/27/19 17:30 Urine Bacteria Many /HPF (None Seen) H 05/27/19 17:30 Ur Microscopic Review INDICATED 05/27/19 17:30 Urine Culture Comments INDICATED 05/27/19 17:30 Ur Random Chloride 53 mmol/L 05/28/19 06:45 Urine Sodium 41.0 mmol/L 05/28/19 06:45 Salicylates < 6.0 mg/dL 05/27/19 16:30 Urine Opiates Screen NEGATIVE (NEGATIVE) 05/27/19 17:30 Ur Oxycodone Screen NEGATIVE (NEGATIVE) 05/27/19 17:30 Urine Methadone Screen NEGATIVE (NEGATIVE) 05/27/19 17:30 Ur Propoxyphene Screen NEGATIVE (NEGATIVE) 05/27/19 17:30 Acetaminophen < 10 ug/mL (10-30) L 05/27/19 16:30 Ur Barbiturates Screen NEGATIVE (NEGATIVE) 05/27/19 17:30 Ur Tricyclics Screen NEGATIVE (NEGATIVE) 05/27/19 17:30 Ur Phencyclidine Scrn NEGATIVE (NEGATIVE) 05/27/19 17:30 Ur Amphetamine Screen NEGATIVE (NEGATIVE) 05/27/19 17:30 U Methamphetamines Scrn NEGATIVE (NEGATIVE) 05/27/19 17:30 U Benzodiazepines Scrn NEGATIVE (NEGATIVE) 05/27/19 17:30 Urine Cocaine Screen NEGATIVE (NEGATIVE) 05/27/19 17:30 U Cannabinoids Screen NEGATIVE (NEGATIVE) 05/27/19 17:30 Ethyl Alcohol < 5.0 mg/dL 05/27/19 16:30 Serum Ketones NEGATIVE (NEGATIVE) 05/27/19 16:30 - Procedures Procedures: Procedures REPLACEMENT OF LEFT LENS WITH SYNTH SUB, PERC APPROACH (11/25/17) REPLACEMENT OF RIGHT LENS WITH SYNTH SUB, PERC APPROACH (12/02/17)
[2019-05-28] MEDS: amLODIPine 5 MG TABLET PO SCH (19:34)
[2019-05-29] MEDS: SODIUM CHLORIDE FLUSH 0.9% 10 ML SYRINGE IVP SCH ×3 (00:42→17:41)
[2019-05-29] MEDS: LACTATED RINGERS 1,000 ML IV SCH ×2 (06:09→19:29)
[2019-05-29 06:31] LABS: BASOPHILS # (AUTO) 0.1 10^3/uL (0.0-0.1); BASOPHILS % (AUTO) 0.5 %; EOSINOPHILS # (AUTO) 0.1 10^3/uL (0.0-0.7); EOSINOPHILS % (AUTO) 1.1 %; HGB - HEMOGLOBIN 8.6 g/dL (14.0-18.0); LYMPHOCYTES # (AUTO) 1.3 10^3/uL (1.5-3.5); LYMPHOCYTES % (AUTO) 10.4 %; MEAN CORPUSCULAR HGB CONC 32.5 g/dL (32.0-36.0); MEAN CORPUSCULAR VOLUME 92.3 fL (80.0-94.0); MEAN PLATELET VOLUME 12.3 fL (7.4-11.4); MONOCYTES # (AUTO) 0.7 10^3/uL (0.0-1.0); MONOCYTES % (AUTO) 5.8 %; NEUTROPHILS # (AUTO) 10.1 10^3/uL (1.5-6.6); NEUTROPHILS % (AUTO) 81.7 %; PLT - PLATELET COUNT 248 10^3/uL (130-450); RED BLOOD COUNT 2.87 10^6/uL (4.70-6.10); RED CELL DISTRIBUTION WIDTH 14.6 % (12.0-15.0); WHITE BLOOD COUNT 12.4 x10^3/uL (4.8-10.8)
[2019-05-29 06:45] LABS: CALCIUM 8.7 mg/dL (8.5-10.3); CREATININE 1.8 mg/dL (0.6-1.2); MAGNESIUM 1.9 mg/dL (1.7-2.8); PHOSPHORUS 3.3 mg/dL (2.5-4.6)
[2019-05-29] MEDS: amLODIPine 5 MG TABLET PO SCH (08:33)
[2019-05-29] MEDS: cefTRIAXone 1 GM in SODIUM CHLORIDE 0.9% MINIBAG 100 ML IV SCH (08:36)
[2019-05-29] MEDS: HEPARIN 5,000 UNIT/ML VIAL SUBQ SCH ×2 (08:41→21:46)
[2019-05-29] MEDS ORDERED: TIMOLOL MALEATE OP SCH (09:00)
[2019-05-29] MEDS: POTASSIUM CHLOR 10 MEQ/100 ML 10 MEQ/100 ML BAG IV SCH ×4 (10:08→12:14)
[2019-05-29] MEDS: TIMOLOL 0.5% OPHTH DROPS EACHEYE SCH ×2 (10:20→21:51)
[2019-05-29] MEDS: BRIMONIDINE 0.2% OPHTH DROPS 5 ML EACHEYE SCH ×2 (10:26→21:51)
[2019-05-29] MEDS: INSULIN ASPART 300 UNIT/3 ML PEN SUBQ SCH ×3 (13:26→21:48)
[2019-05-29] MEDS: MULTIVITAMIN W/MINERALS TABLET PO SCH (17:40)
[2019-05-29] MEDS: LACTOBACILLUS RHAMNOSUS GG CAPSULE PO SCH (17:41)
[2019-05-29] MEDS: LOSARTAN 50 MG TABLET PO SCH (18:03)
--- NOTE | 2019-05-29 18:33 | PROVIDER PROGRESS NOTE ---
Assessment/Plan - Problem List (1) Metabolic encephalopathy Assessment/Plan: He is alert but appears sleepy. He is oriented x3. He swallowed well. He was able to stand with PT. Gait is poor, partly due to blindness. Continue rehydration, treating infection and working with PT. (2) E. coli UTI Assessment/Plan: He is on iv Ceftriaxone and is afebrile. (3) Metabolic acidosis Assessment/Plan: Serum bicarb imroving as he is getting iv rehydration. (4) Acute kidney injury superimposed on CKD Assessment/Plan: Daily improvement in BUN/creat with rehydration, plus resumption of some of his BP meds. (5) Uremia Assessment/Plan: The BUN is still elevated, but not severely, and uremia may be adding to bradykinesis. (6) Hypokalemia Assessment/Plan: Replace gently since the creat is improving. Follow BMP daily (7) Type 2 diabetes mellitus Qualifiers: Diabetes mellitus intermediate card tender insulin use: with intermediate card tender use Assessment/Plan: Diet is advancing to solid. Will add ss Insulin. (8) Chronic diastolic heart failure Assessment/Plan: No volume overload, in fact severe dehydration this admission. No diuretics restarted yet. he will not be put on Diamox at all. (9) Malnutrition of moderate degree Assessment/Plan: The patient has reduced functional capacity and has had a weight loss of over 1 to 2% in 1 week (He has lost 18% in the last 11 months) as documented by the RD, who saw him today. (10) Hx of essential hypertension Assessment/Plan: BP is climbing into 170-180' as he is rehydrating. Will start resuming his BP meds: amldipine first, then Losartan, then (generic) Carvedilol (11) Glaucoma (increased eye pressure) Qualifiers: Glaucoma type: unspecified Laterality: bilateral Qualified Code(s): H40.9 - Unspecified glaucoma Assessment/Plan: Continue eye drops (12) Visual impairment Assessment/Plan: He is legally blind in L eye and the R eye needs glasses and he reads but has poor distance and peripheral vision. (13) Hypoglycemia Assessment/Plan: Resolved. It was likely due to poor po intake for the 3 days that he was weak and not talking. - Current Meds Current Meds: Current Medications Generic Name Dose Route Start Last Admin Trade Name Freq PRN Reason Stop Dose Admin Brimonidine Tartrate 1 drops 05/29/19 09:00 05/29/19 10:26 Alphagan P 0.2% Ophth Drops EACHEYE 1 drops BID MATEUSZ Administration Heparin Sodium (Porcine) 5,000 unit 05/28/19 09:00 05/29/19 08:41 SUBQ 5,000 unit BID MATEUSZ Administration Lactated Ringer's 1,000 mls @ 125 mls/hr 05/27/19 23:00 05/29/19 06:09 Lr IV 125 mls/hr .Q8H MATEUSZ Administration Ceftriaxone Sodium 1 gm/ 100 mls @ 200 mls/hr 05/28/19 09:00 05/29/19 09:30 Sodium Chloride IV Infused DAILY MATEUSZ Infusion Insulin Aspart 1 - 5 unit 05/29/19 12:50 05/29/19 17:42 Novolog SUBQ 1 unit 0800,1200,1700,2100 MATEUSZ Administration Protocol Lactobacillus Rhamnosus 1 cap 05/29/19 16:00 05/29/19 17:41 Culturelle PO 1 cap DAILY MATEUSZ Administration Losartan Potassium 100 mg 05/29/19 17:30 05/29/19 18:03 Cozaar PO 100 mg DAILY MATEUSZ Administration Multivitamins/Minerals 1 tab 05/29/19 16:00 05/29/19 17:40 Theragran M PO 1 tab DAILYWM MATEUSZ Administration Sodium Chloride 10 ml 05/28/19 01:00 05/29/19 17:41 Normal Saline Flush 0.9% IVP 10 ml 0100,0900,1700 MATEUSZ Administration Timolol Maleate 1 drops 05/29/19 09:30 05/29/19 10:20 Timoptic 0.5% Ophth Drops EACHEYE 1 drops BID MATEUSZ Administration - Lab Result Fish Bone Diagrams: 05/30/19 05:36 05/30/19 05:36 - Additional Planning My Orders: My Active Orders 05/29/19 Evaluate and Treat OT [OT] Routine Evaluate and Treat PT [PT] Routine 05/29/19 09:00 Brimonidine 0.2% Ophth Drops [Alphagan P 0.2% Ophth Drops] 1 drops EACHEYE BID 05/29/19 09:09 Telemetry-Discontinue [RC] .ONCE 05/29/19 09:30 Timolol 0.5% Ophth Drops [Timoptic 0.5% Ophth Drops] 1 drops EACHEYE BID 05/29/19 12:31 Blood Glucose Checks - Eating [RC] 0800,1200,1700,2100 Initiate Hypoglycemia Protocol [RC] .protocol 05/29/19 12:50 Insulin Aspart [NovoLOG] 1 - 5 unit SUBQ 0800,1200,1700,2100 05/29/19 16:00 Lactobacillus Rhamnosus GG [Culturelle] 1 cap PO DAILY Multivitamin W/Minerals [Theragran M] 1 tab PO DAILYWM 05/29/19 17:30 Losartan [Cozaar] 100 mg PO DAILY 05/29/19 Lunch Dysphagia Mechanically Altered Diet [DIET] 05/30/19 05:00 A1C [CHEM] Routine 05/30/19 09:00 Insulin Glargine [Lantus Solostar] 5 unit SUBQ DAILY amLODIPine [Norvasc] 10 mg PO DAILY Subjective - Subjective Patient Reports: Feeling Better, Resting Comfortably Nursing Reports: Other (He still has very slow however clear speech) Objective Vital Signs: Vital Signs - 24 hr 05/28/19 05/28/19 05/29/19 18:57 21:32 00:05 Temperature 37.0 C 37.3 C Heart Rate [ 85 85 Brachial] Heart Rate [ Sitting] Heart Rate [ Supine] Respiratory 12 16 Rate Blood Pressure 196/87 H 169/85 H 159/79 H [Right Brachial artery] Blood Pressure [Sitting] Blood Pressure [Supine] O2 Saturation 96 96 05/29/19 05/29/19 05/29/19 05:00 09:00 11:40 Temperature 36.9 C 36.9 C 36.6 C Heart Rate [ 84 87 76 Brachial] Heart Rate [ Sitting] Heart Rate [ Supine] Respiratory 16 16 14 Rate Blood Pressure 163/80 H 171/82 H 159/84 H [Right Brachial artery] Blood Pressure [Sitting] Blood Pressure [Supine] O2 Saturation 96 99 97 05/29/19 05/29/19 05/29/19 11:45 11:47 16:18 Temperature 36.5 C Heart Rate [ 83 Brachial] Heart Rate [ 78 78 Sitting] Heart Rate [ 77 77 Supine] Respiratory 20 Rate Blood Pressure 172/95 H [Right Brachial artery] Blood Pressure 148/83 H 148/83 H [Sitting] Blood Pressure 161/81 H 161/81 H [Supine] O2 Saturation 98 Oxygen O2 Source Room air I&O (Last 24 Hrs): Intake and Output Totals x24h 05/27/19 05/28/19 05/29/19 23:59 23:59 23:59 Intake Total 2251.667 3962.500 2030.834 Output Total 125 Balance 2251.667 3837.500 2030.834 General: Alert, Oriented x3 HEENT: Other (Dry mucosa, poor dentition) Neck: Supple, No JVD Neuro: Alert, Other (Very slow but clear speech, not slurred. He was able to stand with physical therapy today) Cardiovascular: Regular rate Respiratory: No respiratory distress, Breath sounds nml Abdomen: Normal bowel sounds, Soft Extremities: No edema, Other (Still has skin tenting) - Results Results: Laboratory Results WBC 12.4 x10^3/uL (4.8-10.8) H 05/29/19 06:05 RBC 2.87 10^6/uL (4.70-6.10) L 05/29/19 06:05 Hgb 8.6 g/dL (14.0-18.0) L 05/29/19 06:05 Hct 26.5 % (42.0-52.0) L 05/29/19 06:05 MCV 92.3 fL (80.0-94.0) 05/29/19 06:05 MCH 30.0 pg (27.0-31.0) 05/29/19 06:05 MCHC 32.5 g/dL (32.0-36.0) 05/29/19 06:05 RDW 14.6 % (12.0-15.0) 05/29/19 06:05 Plt Count 248 10^3/uL (130-450) 05/29/19 06:05 MPV 12.3 fL (7.4-11.4) H 05/29/19 06:05 Neut # (Auto) 10.1 10^3/uL (1.5-6.6) H 05/29/19 06:05 Lymph # (Auto) 1.3 10^3/uL (1.5-3.5) L 05/29/19 06:05 [place] # (Auto) 0.7 10^3/uL (0.0-1.0) 05/29/19 06:05 Eos # (Auto) 0.1 10^3/uL (0.0-0.7) 05/29/19 06:05 Baso # (Auto) 0.1 10^3/uL (0.0-0.1) 05/29/19 06:05 Absolute Nucleated RBC 0.00 x10^3/uL 05/29/19 06:05 Nucleated RBC % 0.0 /100WBC 05/29/19 06:05 VBG pH 7.309 (7.31-7.41) L 05/28/19 05:25 VBG pCO2 22.8 mmHg (41-51) L 05/28/19 05:25 VBG pO2 121.0 mmHg (25-47) H 05/28/19 05:25 VBG HCO3 11.2 mmol/L (23-28) L 05/28/19 05:25 VBG Total CO2 11.9 mmol/L (24-29) L 05/28/19 05:25 VBG O2 Saturation 98.1 % (60-80) H 05/28/19 05:25 VBG Base Excess -13.5 mmol/L (-2 - +2) L 05/28/19 05:25 Sodium 143 mmol/L (135-145) 05/29/19 06:05 Potassium 3.2 mmol/L (3.5-5.0) L 05/29/19 06:05 Chloride 119 mmol/L (101-111) H 05/29/19 06:05 Carbon Dioxide 16 mmol/L (21-32) L 05/29/19 06:05 Anion Gap 8.0 (6-13) 05/29/19 06:05 BUN 61 mg/dL (6-20) H 05/29/19 06:05 Creatinine 1.8 mg/dL (0.6-1.2) H 05/29/19 06:05 Estimated GFR (MDRD) 38 (>89) L 05/29/19 06:05 Glucose 137 mg/dL (70-100) H 05/29/19 06:05 Glycated Hemoglobin 6.2 % (4.6-6.2) 05/28/19 05:25 Estim Average Glucose 131 (70-100) H 05/28/19 05:25 Lactic Acid 1.4 mmol/L (0.5-2.2) 05/27/19 19:35 Calcium 8.7 mg/dL (8.5-10.3) 05/29/19 06:05 Phosphorus 3.3 mg/dL (2.5-4.6) 05/29/19 06:05 Magnesium 1.9 mg/dL (1.7-2.8) 05/29/19 06:05 Total Bilirubin 0.8 mg/dL (0.2-1.0) 05/27/19 16:30 AST 30 IU/L (10-42) 05/27/19 16:30 ALT 15 IU/L (10-60) 05/27/19 16:30 Alkaline Phosphatase 46 IU/L (42-121) 05/27/19 16:30 Ammonia 20.4 umol/L (7-35) 05/27/19 17:39 Total Creatine Kinase 841 IU/L (22-269) H 05/27/19 19:35 Troponin I High Sens 41.2 ng/L (2.3-19.7) H* 05/28/19 10:10 Total Protein 6.1 g/dL (6.7-8.2) L 05/27/19 16:30 Albumin 3.4 g/dL (3.2-5.5) 05/27/19 16:30 Globulin 2.7 g/dL (2.1-4.2) 05/27/19 16:30 Albumin/Globulin Ratio 1.3 (1.0-2.2) 05/27/19 16:30 Lipase 22 U/L (22-51) 05/27/19 16:30 Urine Color YELLOW 05/27/19 17:30 Urine Clarity HAZY (CLEAR) 05/27/19 17:30 Urine pH 5.0 PH (5.0-7.5) 05/27/19 17:30 Ur Specific [place] >=1.030 (1.002-1.030) H 05/27/19 17:30 Urine Protein 100 mg/dL (NEGATIVE) H 05/27/19 17:30 Urine Glucose (UA) NEGATIVE mg/dL (NEGATIVE) 05/27/19 17:30 Urine Ketones NEGATIVE mg/dL (NEGATIVE) 05/27/19 17:30 Urine Occult Blood NEGATIVE (NEGATIVE) 05/27/19 17:30 Urine Nitrite NEGATIVE (NEGATIVE) 05/27/19 17:30 Urine Bilirubin NEGATIVE (NEGATIVE) 05/27/19 17:30 Urine Urobilinogen 0.2 (NORMAL) E.U./dL (NORMAL) 05/27/19 17:30 Ur Leukocyte Esterase SMALL (NEGATIVE) H 05/27/19 17:30 Urine RBC 0-5 /HPF (0-5) 05/27/19 17:30 Urine WBC 6-10 /HPF (0-3) H 05/27/19 17:30 Ur Squamous Epith Cells FEW Squamous (<= Few) 05/27/19 17:30 Urine Bacteria Many /HPF (None Seen) H 05/27/19 17:30 Ur Microscopic Review INDICATED 05/27/19 17:30 Urine Culture Comments INDICATED 05/27/19 17:30 Ur Random Chloride 53 mmol/L 05/28/19 06:45 Urine Sodium 41.0 mmol/L 05/28/19 06:45 Salicylates < 6.0 mg/dL 05/27/19 16:30 Urine Opiates Screen NEGATIVE (NEGATIVE) 05/27/19 17:30 Ur Oxycodone Screen NEGATIVE (NEGATIVE) 05/27/19 17:30 Urine Methadone Screen NEGATIVE (NEGATIVE) 05/27/19 17:30 Ur Propoxyphene Screen NEGATIVE (NEGATIVE) 05/27/19 17:30 Acetaminophen < 10 ug/mL (10-30) L 05/27/19 16:30 Ur Barbiturates Screen NEGATIVE (NEGATIVE) 05/27/19 17:30 Ur Tricyclics Screen NEGATIVE (NEGATIVE) 05/27/19 17:30 Ur Phencyclidine Scrn NEGATIVE (NEGATIVE) 05/27/19 17:30 Ur Amphetamine Screen NEGATIVE (NEGATIVE) 05/27/19 17:30 U Methamphetamines Scrn NEGATIVE (NEGATIVE) 05/27/19 17:30 U Benzodiazepines Scrn NEGATIVE (NEGATIVE) 05/27/19 17:30 Urine Cocaine Screen NEGATIVE (NEGATIVE) 05/27/19 17:30 U Cannabinoids Screen NEGATIVE (NEGATIVE) 05/27/19 17:30 Ethyl Alcohol < 5.0 mg/dL 05/27/19 16:30 Serum Ketones NEGATIVE (NEGATIVE) 05/27/19 16:30 - Procedures Procedures: Procedures REPLACEMENT OF LEFT LENS WITH SYNTH SUB, PERC APPROACH (11/25/17) REPLACEMENT OF RIGHT LENS WITH SYNTH SUB, PERC APPROACH (12/02/17)
[2019-05-29] MEDS ORDERED: MIN OIL/DIMETHICON/COCONUT OIL 92 GM TUBE TOP PRN (22:22)
[2019-05-30] MEDS: carvediloL 12.5 MG TABLET PO SCH ×3 (00:33→21:13)
[2019-05-30] MEDS: SODIUM CHLORIDE FLUSH 0.9% 10 ML SYRINGE IVP SCH ×3 (00:33→17:18)
[2019-05-30] MEDS: LACTATED RINGERS 1,000 ML IV SCH ×3 (03:08→21:22)
[2019-05-30 05:57] LABS: BASOPHILS # (AUTO) 0.1 10^3/uL (0.0-0.1); BASOPHILS % (AUTO) 0.5 %; EOSINOPHILS # (AUTO) 0.2 10^3/uL (0.0-0.7); EOSINOPHILS % (AUTO) 2.3 %; HGB - HEMOGLOBIN 8.6 g/dL (14.0-18.0); LYMPHOCYTES # (AUTO) 1.1 10^3/uL (1.5-3.5); LYMPHOCYTES % (AUTO) 12.1 %; MEAN CORPUSCULAR HEMOGLOBIN 30.7 pg (27.0-31.0); MEAN CORPUSCULAR HGB CONC 33.1 g/dL (32.0-36.0); MEAN CORPUSCULAR VOLUME 92.9 fL (80.0-94.0); MEAN PLATELET VOLUME 12.3 fL (7.4-11.4); MONOCYTES # (AUTO) 0.5 10^3/uL (0.0-1.0); MONOCYTES % (AUTO) 5.4 %; NEUTROPHILS # (AUTO) 7.4 10^3/uL (1.5-6.6); NEUTROPHILS % (AUTO) 79.2 %; PLT - PLATELET COUNT 239 10^3/uL (130-450); WHITE BLOOD COUNT 9.3 x10^3/uL (4.8-10.8)
[2019-05-30 06:13] LABS: CALCIUM 8.4 mg/dL (8.5-10.3); CREATININE 1.5 mg/dL (0.6-1.2); MAGNESIUM 1.8 mg/dL (1.7-2.8); PHOSPHORUS 2.3 mg/dL (2.5-4.6)
[2019-05-30 06:18] LABS: HB2 TOTAL 8.4 g/dL; HEMOGLOBIN A1C 0.4 g/dL; HEMOGLOBIN A1C % 6.5 % (4.6-6.2)
[2019-05-30 08:23] LABS: ALBUMIN 2.8 g/dL (3.2-5.5); BILIRUBIN,DIRECT 0.1 mg/dL (0.1-0.5); BILIRUBIN,TOTAL 0.5 mg/dL (0.2-1.0); TOTAL PROTEIN 5.5 g/dL (6.7-8.2)
[2019-05-30] MEDS: HEPARIN 5,000 UNIT/ML VIAL SUBQ SCH ×2 (08:45→21:14)
[2019-05-30] MEDS: INSULIN ASPART 300 UNIT/3 ML PEN SUBQ SCH ×4 (08:45→21:15)
[2019-05-30] MEDS: amLODIPine 5 MG TABLET PO SCH (08:45)
[2019-05-30] MEDS: LOSARTAN 50 MG TABLET PO SCH (08:45)
[2019-05-30] MEDS: cefTRIAXone 1 GM in SODIUM CHLORIDE 0.9% MINIBAG 100 ML IV SCH (08:46)
[2019-05-30] MEDS: MULTIVITAMIN W/MINERALS TABLET PO SCH (08:46)
[2019-05-30] MEDS: LACTOBACILLUS RHAMNOSUS GG CAPSULE PO SCH (08:46)
[2019-05-30] MEDS: TIMOLOL 0.5% OPHTH DROPS EACHEYE SCH ×2 (08:47→21:15)
[2019-05-30] MEDS: BRIMONIDINE 0.2% OPHTH DROPS 5 ML EACHEYE SCH ×2 (08:47→21:16)
[2019-05-30] MEDS ORDERED: INSULIN GLARGINE 300 UNIT/3 ML PEN SUBQ SCH (09:00)
[2019-05-30] MEDS: INSULIN GLARGINE 300 UNIT/3 ML PEN SUBQ SCH (09:00)
--- NOTE | 2019-05-30 17:04 | PROVIDER PROGRESS NOTE ---
Assessment/Plan - Problem List (1) Metabolic encephalopathy Assessment/Plan: There is daily slow improvement. He continues to get gentle IV hydration because of the CON. No diuretics currently. The E. coli UTI is being treated Continue to work with PT and he will be a SNF candidate (2) E. coli UTI Assessment/Plan: Will transition from IV ceftriaxone to p.o. Cipro starting tomorrow and plan a 2 to 3-week course of this for good prostate penetration (3) Acute kidney injury superimposed on CKD Assessment/Plan: Continued slow improvement. Follow BMP daily (4) Uremia Assessment/Plan: There may still be a joe of the elevated BUN, causing the bradykinesis (5) Hypokalemia Assessment/Plan: Replace since the creatinine is improving. 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 He will not be on Diamox. We have no echo service available until 06/01/2019. We will plan transition to his usual cardiac meds in several more days (8) Malnutrition of moderate degree Assessment/Plan: Despite having malnutrition, he has a very good appetite here and states "I do not like wasting food", which makes me concerned about financial reasons for limited intake on the outside. (9) Hx of essential hypertension Assessment/Plan: His blood pressure is uncontrolled even as we are resuming amlodipine, losartan and carvedilol. This is probably related to the saline hydration that he is getting. Will add hydralazine as needed (10) Glaucoma (increased eye pressure) Qualifiers: Glaucoma type: unspecified Laterality: bilateral Qualified Code(s): H40.9 - Unspecified glaucoma Assessment/Plan: Eye drops continue (11) Visual impairment Assessment/Plan: PT aware, it impacts his walking (12) Hypoglycemia Assessment/Plan: Resolved (13) Metabolic acidosis Assessment/Plan: Resolved - Current Meds Current Meds: Current Medications Generic Name Dose Route Start Last Admin Trade Name Freq PRN Reason Stop Dose Admin Amlodipine Besylate 10 mg 05/30/19 09:00 05/30/19 08:45 Norvasc PO 10 mg DAILY MATEUSZ Administration Brimonidine Tartrate 1 drops 05/29/19 09:00 05/30/19 08:47 Alphagan P 0.2% Ophth Drops EACHEYE 1 drops BID MATEUSZ Administration Carvedilol 12.5 mg 05/29/19 23:45 05/30/19 08:46 Coreg PO 12.5 mg BID MATEUSZ Administration Heparin Sodium (Porcine) 5,000 unit 05/28/19 09:00 05/30/19 08:45 SUBQ 5,000 unit BID MATEUSZ Administration Lactated Ringer's 1,000 mls @ 125 mls/hr 05/27/19 23:00 05/30/19 16:12 Lr IV 125 mls/hr .Q8H MATEUSZ Infusion Ceftriaxone Sodium 1 gm/ 100 mls @ 200 mls/hr 05/28/19 09:00 05/30/19 13:49 Sodium Chloride IV Infused DAILY MATEUSZ Infusion Insulin Aspart 1 - 5 unit 05/29/19 12:50 05/30/19 13:00 Novolog SUBQ 3 unit 0800,1200,1700,2100 MATEUSZ Administration Protocol Insulin Glargine 5 unit 05/30/19 09:00 05/30/19 09:00 Lantus Solostar SUBQ 5 unit DAILY MATEUSZ Administration Lactobacillus Rhamnosus 1 cap 05/29/19 16:00 05/30/19 08:46 Culturelle PO 1 cap DAILY MATEUSZ Administration Losartan Potassium 100 mg 05/29/19 17:30 05/30/19 08:45 Cozaar PO 100 mg DAILY MATEUSZ Administration Multivitamins/Minerals 1 tab 05/29/19 16:00 05/30/19 08:46 Theragran M PO 1 tab DAILYWM MATEUSZ Administration Sodium Chloride 10 ml 05/28/19 01:00 05/30/19 09:01 Normal Saline Flush 0.9% IVP Not Given 0100,0900,1700 MATEUSZ Timolol Maleate 1 drops 05/29/19 09:30 05/30/19 08:47 Timoptic 0.5% Ophth Drops EACHEYE 1 drops BID MATEUSZ Administration - Lab Result Fish Bone Diagrams: 05/30/19 05:36 05/30/19 05:36 - Additional Planning My Orders: My Active Orders 05/31/19 05:00 BMP - BASIC METABOLIC PANEL [CHEM] DAILYLAB CBC - COMP BLD CT W/AUTO DIFF [HEME] DAILYLAB 06/01/19 05:00 BMP - BASIC METABOLIC PANEL [CHEM] DAILYLAB CBC - COMP BLD CT W/AUTO DIFF [HEME] DAILYLAB 05/29/19 17:30 Losartan [Cozaar] 100 mg PO DAILY 05/29/19 22:22 Min Oil/Dimeth/Coconut Oil Crm [Cavilon] 1 applic TOP PRN PRN 05/30/19 09:00 Insulin Glargine [Lantus Solostar] 5 unit SUBQ DAILY amLODIPine [Norvasc] 10 mg PO DAILY Subjective - Subjective Patient Reports: Feeling Better, Resting Comfortably Objective Vital Signs: Vital Signs - 24 hr 05/29/19 05/30/19 05/30/19 22:30 00:45 05:00 Temperature 36.9 C 36.9 C Heart Rate [ 80 82 76 Brachial] Respiratory 16 16 Rate Blood Pressure 191/88 H 186/87 H 164/88 H [Right Brachial artery] O2 Saturation 97 97 05/30/19 05/30/19 08:44 12:53 Temperature 36.7 C 36.4 C L Heart Rate [ 81 72 Brachial] Respiratory 16 18 Rate Blood Pressure 171/84 H 137/77 H [Right Brachial artery] O2 Saturation 97 99 Oxygen O2 Source Room air I&O (Last 24 Hrs): Intake and Output Totals x24h 05/28/19 05/29/19 05/30/19 23:59 23:59 23:59 Intake Total 3962.500 3030.834 3163.333 Output Total 125 Balance 3837.500 3030.834 3163.333 General: Alert, Oriented x3, Other (Cachectic) HEENT: Atraumatic, Mucous membr. moist/pink, Other (Disheveled) Neck: Supple, No JVD Neuro: Alert, Oriented Times 3, Other (Speech is clear and articulate but very bradykinetic) Cardiovascular: Regular rate, No murmurs Respiratory: No respiratory distress, Breath sounds nml Abdomen: Normal bowel sounds, Soft Extremities: No edema - Results Results: Laboratory Results WBC 9.3 x10^3/uL (4.8-10.8) 05/30/19 05:36 RBC 2.80 10^6/uL (4.70-6.10) L 05/30/19 05:36 Hgb 8.6 g/dL (14.0-18.0) L 05/30/19 05:36 Hct 26.0 % (42.0-52.0) L 05/30/19 05:36 MCV 92.9 fL (80.0-94.0) 05/30/19 05:36 MCH 30.7 pg (27.0-31.0) 05/30/19 05:36 MCHC 33.1 g/dL (32.0-36.0) 05/30/19 05:36 RDW 14.0 % (12.0-15.0) 05/30/19 05:36 Plt Count 239 10^3/uL (130-450) 05/30/19 05:36 MPV 12.3 fL (7.4-11.4) H 05/30/19 05:36 Neut # (Auto) 7.4 10^3/uL (1.5-6.6) H 05/30/19 05:36 Lymph # (Auto) 1.1 10^3/uL (1.5-3.5) L 05/30/19 05:36 [place] # (Auto) 0.5 10^3/uL (0.0-1.0) 05/30/19 05:36 Eos # (Auto) 0.2 10^3/uL (0.0-0.7) 05/30/19 05:36 Baso # (Auto) 0.1 10^3/uL (0.0-0.1) 05/30/19 05:36 Absolute Nucleated RBC 0.00 x10^3/uL 05/30/19 05:36 Nucleated RBC % 0.0 /100WBC 05/30/19 05:36 VBG pH 7.309 (7.31-7.41) L 05/28/19 05:25 VBG pCO2 22.8 mmHg (41-51) L 05/28/19 05:25 VBG pO2 121.0 mmHg (25-47) H 05/28/19 05:25 VBG HCO3 11.2 mmol/L (23-28) L 05/28/19 05:25 VBG Total CO2 11.9 mmol/L (24-29) L 05/28/19 05:25 VBG O2 Saturation 98.1 % (60-80) H 05/28/19 05:25 VBG Base Excess -13.5 mmol/L (-2 - +2) L 05/28/19 05:25 Sodium 139 mmol/L (135-145) 05/30/19 05:36 Potassium 3.6 mmol/L (3.5-5.0) 05/30/19 05:36 Chloride 116 mmol/L (101-111) H 05/30/19 05:36 Carbon Dioxide 18 mmol/L (21-32) L 05/30/19 05:36 Anion Gap 5.0 (6-13) L 05/30/19 05:36 BUN 40 mg/dL (6-20) H 05/30/19 05:36 Creatinine 1.5 mg/dL (0.6-1.2) H 05/30/19 05:36 Estimated GFR (MDRD) 47 (>89) L 05/30/19 05:36 Glucose 146 mg/dL (70-100) H 05/30/19 05:36 Glycated Hemoglobin 6.5 % (4.6-6.2) H 05/30/19 05:36 Estim Average Glucose 140 (70-100) H 05/30/19 05:36 Lactic Acid 1.4 mmol/L (0.5-2.2) 05/27/19 19:35 Calcium 8.4 mg/dL (8.5-10.3) L 05/30/19 05:36 Phosphorus 2.3 mg/dL (2.5-4.6) L 05/30/19 05:36 Magnesium 1.8 mg/dL (1.7-2.8) 05/30/19 05:36 Total Bilirubin 0.5 mg/dL (0.2-1.0) 05/30/19 05:36 Direct Bilirubin 0.1 mg/dL (0.1-0.5) 05/30/19 05:36 AST 23 IU/L (10-42) 05/30/19 05:36 ALT 17 IU/L (10-60) 05/30/19 05:36 Alkaline Phosphatase 48 IU/L (42-121) 05/30/19 05:36 Ammonia 20.4 umol/L (7-35) 05/27/19 17:39 Total Creatine Kinase 127 IU/L (22-269) 05/30/19 05:36 Troponin I High Sens 41.2 ng/L (2.3-19.7) H* 05/28/19 10:10 Total Protein 5.5 g/dL (6.7-8.2) L 05/30/19 05:36 Albumin 2.8 g/dL (3.2-5.5) L 05/30/19 05:36 Globulin 2.7 g/dL (2.1-4.2) 05/30/19 05:36 Albumin/Globulin Ratio 1.3 (1.0-2.2) 05/27/19 16:30 Lipase 22 U/L (22-51) 05/27/19 16:30 Urine Color YELLOW 05/27/19 17:30 Urine Clarity HAZY (CLEAR) 05/27/19 17:30 Urine pH 5.0 PH (5.0-7.5) 05/27/19 17:30 Ur Specific [place] >=1.030 (1.002-1.030) H 05/27/19 17:30 Urine Protein 100 mg/dL (NEGATIVE) H 05/27/19 17:30 Urine Glucose (UA) NEGATIVE mg/dL (NEGATIVE) 05/27/19 17:30 Urine Ketones NEGATIVE mg/dL (NEGATIVE) 05/27/19 17:30 Urine Occult Blood NEGATIVE (NEGATIVE) 05/27/19 17:30 Urine Nitrite NEGATIVE (NEGATIVE) 05/27/19 17:30 Urine Bilirubin NEGATIVE (NEGATIVE) 05/27/19 17:30 Urine Urobilinogen 0.2 (NORMAL) E.U./dL (NORMAL) 05/27/19 17:30 Ur Leukocyte Esterase SMALL (NEGATIVE) H 05/27/19 17:30 Urine RBC 0-5 /HPF (0-5) 05/27/19 17:30 Urine WBC 6-10 /HPF (0-3) H 05/27/19 17:30 Ur Squamous Epith Cells FEW Squamous (<= Few) 05/27/19 17:30 Urine Bacteria Many /HPF (None Seen) H 05/27/19 17:30 Ur Microscopic Review INDICATED 05/27/19 17:30 Urine Culture Comments INDICATED 05/27/19 17:30 Ur Random Chloride 53 mmol/L 05/28/19 06:45 Urine Sodium 41.0 mmol/L 05/28/19 06:45 Salicylates < 6.0 mg/dL 05/27/19 16:30 Urine Opiates Screen NEGATIVE (NEGATIVE) 05/27/19 17:30 Ur Oxycodone Screen NEGATIVE (NEGATIVE) 05/27/19 17:30 Urine Methadone Screen NEGATIVE (NEGATIVE) 05/27/19 17:30 Ur Propoxyphene Screen NEGATIVE (NEGATIVE) 05/27/19 17:30 Acetaminophen < 10 ug/mL (10-30) L 05/27/19 16:30 Ur Barbiturates Screen NEGATIVE (NEGATIVE) 05/27/19 17:30 Ur Tricyclics Screen NEGATIVE (NEGATIVE) 05/27/19 17:30 Ur Phencyclidine Scrn NEGATIVE (NEGATIVE) 05/27/19 17:30 Ur Amphetamine Screen NEGATIVE (NEGATIVE) 05/27/19 17:30 U Methamphetamines Scrn NEGATIVE (NEGATIVE) 05/27/19 17:30 U Benzodiazepines Scrn NEGATIVE (NEGATIVE) 05/27/19 17:30 Urine Cocaine Screen NEGATIVE (NEGATIVE) 05/27/19 17:30 U Cannabinoids Screen NEGATIVE (NEGATIVE) 05/27/19 17:30 Ethyl Alcohol < 5.0 mg/dL 05/27/19 16:30 Serum Ketones NEGATIVE (NEGATIVE) 05/27/19 16:30 - Procedures Procedures: Procedures REPLACEMENT OF LEFT LENS WITH SYNTH SUB, PERC APPROACH (11/25/17) REPLACEMENT OF RIGHT LENS WITH SYNTH SUB, PERC APPROACH (12/02/17)
[2019-05-30] MEDS: hydrALAZINE INJ 20 MG/ML VIAL IVP SCH (21:13)
[2019-05-31] MEDS: hydrALAZINE INJ 20 MG/ML VIAL IVP SCH ×3 (04:46→21:08)
[2019-05-31] MEDS: SODIUM CHLORIDE FLUSH 0.9% 10 ML SYRINGE IVP SCH ×3 (04:46→16:51)
[2019-05-31 05:07] LABS: BASOPHILS # (AUTO) 0.1 10^3/uL (0.0-0.1); BASOPHILS % (AUTO) 0.6 %; EOSINOPHILS # (AUTO) 0.3 10^3/uL (0.0-0.7); EOSINOPHILS % (AUTO) 3.3 %; HGB - HEMOGLOBIN 8.7 g/dL (14.0-18.0); LYMPHOCYTES # (AUTO) 0.9 10^3/uL (1.5-3.5); LYMPHOCYTES % (AUTO) 11.3 %; MEAN CORPUSCULAR HEMOGLOBIN 29.9 pg (27.0-31.0); MEAN CORPUSCULAR HGB CONC 32.1 g/dL (32.0-36.0); MEAN CORPUSCULAR VOLUME 93.1 fL (80.0-94.0); MEAN PLATELET VOLUME 11.9 fL (7.4-11.4); MONOCYTES # (AUTO) 0.5 10^3/uL (0.0-1.0); MONOCYTES % (AUTO) 6.6 %; NEUTROPHILS # (AUTO) 6.1 10^3/uL (1.5-6.6); NEUTROPHILS % (AUTO) 77.4 %; PLT - PLATELET COUNT 241 10^3/uL (130-450); RED BLOOD COUNT 2.91 10^6/uL (4.70-6.10); RED CELL DISTRIBUTION WIDTH 13.7 % (12.0-15.0); WHITE BLOOD COUNT 7.8 x10^3/uL (4.8-10.8)
[2019-05-31 05:16] LABS: CALCIUM 8.3 mg/dL (8.5-10.3); CREATININE 1.2 mg/dL (0.6-1.2)
[2019-05-31] MEDS: LACTATED RINGERS 1,000 ML IV SCH (06:25)
[2019-05-31] MEDS: CIPROFLOXACIN 250 MG TABLET PO SCH ×2 (08:29→21:09)
[2019-05-31] MEDS: carvediloL 12.5 MG TABLET PO SCH ×2 (08:29→21:10)
[2019-05-31] MEDS: BRIMONIDINE 0.2% OPHTH DROPS 5 ML EACHEYE SCH ×2 (08:29→21:09)
[2019-05-31] MEDS: TIMOLOL 0.5% OPHTH DROPS EACHEYE SCH ×2 (08:29→21:09)
[2019-05-31] MEDS: LACTOBACILLUS RHAMNOSUS GG CAPSULE PO SCH (08:29)
[2019-05-31] MEDS: LOSARTAN 50 MG TABLET PO SCH (08:29)
[2019-05-31] MEDS: amLODIPine 5 MG TABLET PO SCH (08:29)
[2019-05-31] MEDS: INSULIN ASPART 300 UNIT/3 ML PEN SUBQ SCH ×4 (08:29→21:12)
[2019-05-31] MEDS: HEPARIN 5,000 UNIT/ML VIAL SUBQ SCH ×2 (08:30→21:12)
[2019-05-31] MEDS: INSULIN GLARGINE 300 UNIT/3 ML PEN SUBQ SCH (08:30)
[2019-05-31] MEDS ORDERED: LACTATED RINGERS 1,000 ML IV SCH (09:02)
[2019-05-31 09:59] LABS: FOLATE 16.48 ng/mL (5.90 - >24.8)
[2019-05-31 10:44] LABS: % IRON SATURATION 18 % (20-50); IRON 35 ug/dL (45-182); TOTAL IRON BINDING CAPACITY 190 ug/dL (250-450); TRANSFERRIN 136 mg/dL (180-329)
[2019-05-31] MEDS: hydrALAZINE 25 MG TABLET PO SCH ×2 (11:18→21:10)
[2019-05-31] MEDS: MULTIVITAMIN W/MINERALS TABLET PO SCH (12:01)
--- NOTE | 2019-05-31 18:02 | PROVIDER PROGRESS NOTE ---
Assessment/Plan - Problem List (1) Metabolic encephalopathy Assessment/Plan: Etiology was felt to be multifactorial: From severe dehydration, uremia, infection and poor eyesight. His strength is better, he can walk down the [place] with with PT. He is eyesight is poor this is what makes feeding somewhat difficult. His speech remains slow but is articulate. I have not seen the to ask if he is back to his baseline yet with his speech (2) E. coli UTI Assessment/Plan: He has changed from IV antibiotics to Cipro p.o. and tolerating this, will plan a 21-day course (3) Acute kidney injury superimposed on CKD Assessment/Plan: He has continued further improvement in BUN and creatinine every day. 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 intake (7) Hx of essential hypertension Assessment/Plan: Blood pressure still elevated on his losartan dose, his amlodipine dose, the equivalent of his long-acting Coreg dose therefore we will add hydralazine (8) Glaucoma (increased eye pressure) Qualifiers: Glaucoma type: unspecified Laterality: bilateral Qualified Code(s): H40.9 - Unspecified glaucoma Assessment/Plan: Continue eyedrops (9) Visual impairment Assessment/Plan: As above (10) Hypoglycemia Assessment/Plan: resolved (11) Metabolic acidosis Assessment/Plan: Resolved (12) Uremia Assessment/Plan: resolved. The BUN is now in a range where he would not be uremic. (13) Hypokalemia Assessment/Plan: Resolved after replacement - Current Meds Current Meds: Current Medications Generic Name Dose Route Start Last Admin Trade Name Freq PRN Reason Stop Dose Admin Amlodipine Besylate 10 mg 05/30/19 09:00 05/31/19 08:29 Norvasc PO 10 mg DAILY MATEUSZ Administration Brimonidine Tartrate 1 drops 05/29/19 09:00 05/31/19 08:29 Alphagan P 0.2% Ophth Drops EACHEYE 1 drops BID MATEUSZ Administration Carvedilol 12.5 mg 05/29/19 23:45 05/31/19 08:29 Coreg PO 12.5 mg BID MATEUSZ Administration Ciprofloxacin 500 mg 05/31/19 09:00 05/31/19 08:29 Cipro PO 500 mg BID MATEUSZ Administration Heparin Sodium (Porcine) 5,000 unit 05/28/19 09:00 05/31/19 08:30 SUBQ 5,000 unit BID MATEUSZ Administration Hydralazine HCl 10 mg 05/30/19 20:00 05/31/19 11:54 Apresoline Inj IVP 10 mg Q8H MATEUSZ Administration Hydralazine HCl 25 mg 05/31/19 10:00 05/31/19 11:18 Apresoline PO 25 mg BID MATEUSZ Administration Lactated Ringer's 1,000 mls @ 60 mls/hr 05/31/19 09:02 05/31/19 09:50 Lr IV 60 mls/hr .[id number] MATEUSZ Administration Insulin Aspart 1 - 5 unit 05/29/19 12:50 05/31/19 17:18 Novolog SUBQ 2 unit 0800,1200,1700,2100 MATEUSZ Administration Protocol Insulin Glargine 5 unit 05/30/19 09:00 05/31/19 08:30 Lantus Solostar SUBQ 5 unit DAILY MATEUSZ Administration Lactobacillus Rhamnosus 1 cap 05/29/19 16:00 05/31/19 08:29 Culturelle PO 1 cap DAILY MATEUSZ Administration Losartan Potassium 100 mg 05/29/19 17:30 05/31/19 08:29 Cozaar PO 100 mg DAILY MATEUSZ Administration Multivitamins/Minerals 1 tab 05/31/19 12:00 05/31/19 12:01 Theragran M PO 1 tab DAILY@1200 MATEUSZ Administration Sodium Chloride 10 ml 05/28/19 01:00 05/31/19 16:51 Normal Saline Flush 0.9% IVP Not Given 0100,0900,1700 MATEUSZ Timolol Maleate 1 drops 05/29/19 09:30 05/31/19 08:29 Timoptic 0.5% Ophth Drops EACHEYE 1 drops BID MATEUSZ Administration - Lab Result Fish Bone Diagrams: 05/31/19 04:50 05/31/19 04:50 - Additional Planning My Orders: My Active Orders 05/31/19 09:00 Ciprofloxacin [Cipro] 500 mg PO BID 05/31/19 09:02 Lactated Ringers [Lr] 1,000 ml IV 60 mls/hr 05/31/19 10:00 hydrALAZINE [Apresoline] 25 mg PO BID 05/31/19 12:00 Multivitamin W/Minerals [Theragran M] 1 tab PO DAILY@1200 06/01/19 05:00 BMP - BASIC METABOLIC PANEL [CHEM] DAILYLAB CBC - COMP BLD CT W/AUTO DIFF [HEME] DAILYLAB 05/30/19 20:00 hydrALAZINE INJ [Apresoline Inj] 10 mg IVP Q8H Subjective - Subjective Patient Reports: Fatigue Objective Vital Signs: Vital Signs - 24 hr 05/30/19 05/30/19 05/31/19 21:07 21:13 00:54 Temperature 36.9 C 36.5 C Heart Rate [ 90 80 Brachial] Respiratory 18 16 Rate Blood Pressure 171/88 H Blood Pressure 167/88 H [Left Brachial artery] Blood Pressure 171/88 H [Right Brachial artery] O2 Saturation 97 97 05/31/19 05/31/19 05/31/19 04:35 04:45 04:46 Temperature 37 C Heart Rate [ 88 Brachial] Respiratory 18 Rate Blood Pressure 170/92 H Blood Pressure 186/91 H [Left Brachial artery] Blood Pressure 170/92 H [Right Brachial artery] O2 Saturation 96 05/31/19 05/31/19 05/31/19 08:05 11:54 16:00 Temperature 36.6 C 36.6 C Heart Rate [ 79 81 Brachial] Respiratory 11 L 16 Rate Blood Pressure 180/96 H Blood Pressure [Left Brachial artery] Blood Pressure 188/94 H 169/79 H [Right Brachial artery] O2 Saturation 97 97 Oxygen O2 Source Room air I&O (Last 24 Hrs): Intake and Output Totals x24h 05/29/19 05/30/19 05/31/19 23:59 23:59 23:59 Intake Total 3030.834 4186.666 2207.5 Balance 3030.834 4186.666 2207.5 General: Alert, Other (Sleeping most of day) HEENT: Mucous membr. moist/pink, Other (Poor dentition, L eye blind, R eye vision impaired) Neck: Supple Neuro: Other (Fatigued, speech still slow but is clear and articulate) Cardiovascular: Regular rate Respiratory: Chest non-tender, No respiratory distress Abdomen: Normal bowel sounds, Soft Extremities: No edema - Results Results: Laboratory Results WBC 7.8 x10^3/uL (4.8-10.8) 05/31/19 04:50 RBC 2.91 10^6/uL (4.70-6.10) L 05/31/19 04:50 Hgb 8.7 g/dL (14.0-18.0) L 05/31/19 04:50 Hct 27.1 % (42.0-52.0) L 05/31/19 04:50 MCV 93.1 fL (80.0-94.0) 05/31/19 04:50 MCH 29.9 pg (27.0-31.0) 05/31/19 04:50 MCHC 32.1 g/dL (32.0-36.0) 05/31/19 04:50 RDW 13.7 % (12.0-15.0) 05/31/19 04:50 Plt Count 241 10^3/uL (130-450) 05/31/19 04:50 MPV 11.9 fL (7.4-11.4) H 05/31/19 04:50 Neut # (Auto) 6.1 10^3/uL (1.5-6.6) 05/31/19 04:50 Lymph # (Auto) 0.9 10^3/uL (1.5-3.5) L 05/31/19 04:50 [place] # (Auto) 0.5 10^3/uL (0.0-1.0) 05/31/19 04:50 Eos # (Auto) 0.3 10^3/uL (0.0-0.7) 05/31/19 04:50 Baso # (Auto) 0.1 10^3/uL (0.0-0.1) 05/31/19 04:50 Absolute Nucleated RBC 0.00 x10^3/uL 05/31/19 04:50 Nucleated RBC % 0.0 /100WBC 05/31/19 04:50 VBG pH 7.309 (7.31-7.41) L 05/28/19 05:25 VBG pCO2 22.8 mmHg (41-51) L 05/28/19 05:25 VBG pO2 121.0 mmHg (25-47) H 05/28/19 05:25 VBG HCO3 11.2 mmol/L (23-28) L 05/28/19 05:25 VBG Total CO2 11.9 mmol/L (24-29) L 05/28/19 05:25 VBG O2 Saturation 98.1 % (60-80) H 05/28/19 05:25 VBG Base Excess -13.5 mmol/L (-2 - +2) L 05/28/19 05:25 Sodium 140 mmol/L (135-145) 05/31/19 04:50 Potassium 3.6 mmol/L (3.5-5.0) 05/31/19 04:50 Chloride 114 mmol/L (101-111) H 05/31/19 04:50 Carbon Dioxide 20 mmol/L (21-32) L 05/31/19 04:50 Anion Gap 6.0 (6-13) 05/31/19 04:50 BUN 28 mg/dL (6-20) H 05/31/19 04:50 Creatinine 1.2 mg/dL (0.6-1.2) 05/31/19 04:50 Estimated GFR (MDRD) 61 (>89) L 05/31/19 04:50 Glucose 154 mg/dL (70-100) H 05/31/19 04:50 Glycated Hemoglobin 6.5 % (4.6-6.2) H 05/30/19 05:36 Estim Average Glucose 140 (70-100) H 05/30/19 05:36 Lactic Acid 1.4 mmol/L (0.5-2.2) 05/27/19 19:35 Calcium 8.3 mg/dL (8.5-10.3) L 05/31/19 04:50 Phosphorus 2.3 mg/dL (2.5-4.6) L 05/30/19 05:36 Magnesium 1.8 mg/dL (1.7-2.8) 05/30/19 05:36 Iron 35 ug/dL (45-182) L 05/31/19 04:52 TIBC 190 ug/dL (250-450) L 05/31/19 04:52 % Saturation 18 % (20-50) L 05/31/19 04:52 Transferrin 136 mg/dL (180-329) L 05/31/19 04:52 Total Bilirubin 0.5 mg/dL (0.2-1.0) 05/30/19 05:36 Direct Bilirubin 0.1 mg/dL (0.1-0.5) 05/30/19 05:36 AST 23 IU/L (10-42) 05/30/19 05:36 ALT 17 IU/L (10-60) 05/30/19 05:36 Alkaline Phosphatase 48 IU/L (42-121) 05/30/19 05:36 Ammonia 20.4 umol/L (7-35) 05/27/19 17:39 Total Creatine Kinase 127 IU/L (22-269) 05/30/19 05:36 Troponin I High Sens 41.2 ng/L (2.3-19.7) H* 05/28/19 10:10 Total Protein 5.5 g/dL (6.7-8.2) L 05/30/19 05:36 Albumin 2.8 g/dL (3.2-5.5) L 05/30/19 05:36 Globulin 2.7 g/dL (2.1-4.2) 05/30/19 05:36 Albumin/Globulin Ratio 1.3 (1.0-2.2) 05/27/19 16:30 Lipase 22 U/L (22-51) 05/27/19 16:30 Vitamin B12 449 pg/mL (180-914) 05/31/19 04:52 Folate 16.48 ng/mL (5.90 - >24.8) 05/31/19 04:52 Urine Color YELLOW 05/27/19 17:30 Urine Clarity HAZY (CLEAR) 05/27/19 17:30 Urine pH 5.0 PH (5.0-7.5) 05/27/19 17:30 Ur Specific [place] >=1.030 (1.002-1.030) H 05/27/19 17:30 Urine Protein 100 mg/dL (NEGATIVE) H 05/27/19 17:30 Urine Glucose (UA) NEGATIVE mg/dL (NEGATIVE) 05/27/19 17:30 Urine Ketones NEGATIVE mg/dL (NEGATIVE) 05/27/19 17:30 Urine Occult Blood NEGATIVE (NEGATIVE) 05/27/19 17:30 Urine Nitrite NEGATIVE (NEGATIVE) 05/27/19 17:30 Urine Bilirubin NEGATIVE (NEGATIVE) 05/27/19 17:30 Urine Urobilinogen 0.2 (NORMAL) E.U./dL (NORMAL) 05/27/19 17:30 Ur Leukocyte Esterase SMALL (NEGATIVE) H 05/27/19 17:30 Urine RBC 0-5 /HPF (0-5) 05/27/19 17:30 Urine WBC 6-10 /HPF (0-3) H 05/27/19 17:30 Ur Squamous Epith Cells FEW Squamous (<= Few) 05/27/19 17:30 Urine Bacteria Many /HPF (None Seen) H 05/27/19 17:30 Ur Microscopic Review INDICATED 05/27/19 17:30 Urine Culture Comments INDICATED 05/27/19 17:30 Ur Random Chloride 53 mmol/L 05/28/19 06:45 Urine Sodium 41.0 mmol/L 05/28/19 06:45 Salicylates < 6.0 mg/dL 05/27/19 16:30 Urine Opiates Screen NEGATIVE (NEGATIVE) 05/27/19 17:30 Ur Oxycodone Screen NEGATIVE (NEGATIVE) 05/27/19 17:30 Urine Methadone Screen NEGATIVE (NEGATIVE) 05/27/19 17:30 Ur Propoxyphene Screen NEGATIVE (NEGATIVE) 05/27/19 17:30 Acetaminophen < 10 ug/mL (10-30) L 05/27/19 16:30 Ur Barbiturates Screen NEGATIVE (NEGATIVE) 05/27/19 17:30 Ur Tricyclics Screen NEGATIVE (NEGATIVE) 05/27/19 17:30 Ur Phencyclidine Scrn NEGATIVE (NEGATIVE) 05/27/19 17:30 Ur Amphetamine Screen NEGATIVE (NEGATIVE) 05/27/19 17:30 U Methamphetamines Scrn NEGATIVE (NEGATIVE) 05/27/19 17:30 U Benzodiazepines Scrn NEGATIVE (NEGATIVE) 05/27/19 17:30 Urine Cocaine Screen NEGATIVE (NEGATIVE) 05/27/19 17:30 U Cannabinoids Screen NEGATIVE (NEGATIVE) 05/27/19 17:30 Ethyl Alcohol < 5.0 mg/dL 05/27/19 16:30 Serum Ketones NEGATIVE (NEGATIVE) 05/27/19 16:30 - Procedures Procedures: Procedures REPLACEMENT OF LEFT LENS WITH SYNTH SUB, PERC APPROACH (11/25/17) REPLACEMENT OF RIGHT LENS WITH SYNTH SUB, PERC APPROACH (12/02/17)
[2019-05-31] MEDS ORDERED: diphenhydrAMINE 25 MG CAPSULE PO STA (21:37)
[2019-06-01] MEDS: SODIUM CHLORIDE FLUSH 0.9% 10 ML SYRINGE IVP SCH ×2 (01:01→09:12)
[2019-06-01] MEDS: hydrALAZINE INJ 20 MG/ML VIAL IVP SCH ×2 (04:23→11:58)
[2019-06-01 05:56] LABS: BASOPHILS # (AUTO) 0.1 10^3/uL (0.0-0.1); BASOPHILS % (AUTO) 0.7 %; EOSINOPHILS # (AUTO) 0.2 10^3/uL (0.0-0.7); EOSINOPHILS % (AUTO) 3.6 %; HGB - HEMOGLOBIN 8.3 g/dL (14.0-18.0); LYMPHOCYTES % (AUTO) 15.5 %; MEAN CORPUSCULAR HEMOGLOBIN 30.1 pg (27.0-31.0); MEAN CORPUSCULAR HGB CONC 32.9 g/dL (32.0-36.0); MEAN CORPUSCULAR VOLUME 91.3 fL (80.0-94.0); MEAN PLATELET VOLUME 12.4 fL (7.4-11.4); MONOCYTES # (AUTO) 0.6 10^3/uL (0.0-1.0); MONOCYTES % (AUTO) 8.6 %; NEUTROPHILS # (AUTO) 4.8 10^3/uL (1.5-6.6); NEUTROPHILS % (AUTO) 70.7 %; PLT - PLATELET COUNT 240 10^3/uL (130-450); RED BLOOD COUNT 2.76 10^6/uL (4.70-6.10); RED CELL DISTRIBUTION WIDTH 13.7 % (12.0-15.0); WHITE BLOOD COUNT 6.7 x10^3/uL (4.8-10.8)
[2019-06-01 06:03] LABS: CALCIUM 8.4 mg/dL (8.5-10.3); CREATININE 1.3 mg/dL (0.6-1.2)
[2019-06-01] MEDS ORDERED: FERROUS GLUCONATE 324 MG TABLET PO SCH (08:00)
--- NOTE | 2019-06-01 08:41 | Discharge Plan ---
"Discharge Plan for SNF / SUN - Discharge Plan And Transition Orders Problem Reviewed?: Yes Disposition: 03 SNF DC/Xfer Condition: Stable Allergies and Adverse Reactions: Allergies Allergy/AdvReac Type Severity Reaction Status Date / Time No Known Drug Allergies Allergy Verified 06/29/18 16:27 Health Concerns: Patient was admitted with confusion, severe weakness, severe dehydration, metabolic acidosis, CON and UTI in a diabetic. Plan of Treatment: Many medications have been adjusted after rehydration. He needs PT and OT before return home. Care Goals: Improvement in strength and stabilization are the goals. Assessment: The patient and are agreeable with the plan. - SNF / CUSTODIAL Transition Orders Admit to (Facility): [facility] Under the care of (Name): Dr Mani Pedroza or covering doctor Discharge Diagnosis: (1) Metabolic encephalopathy (2) Hypoglycemia (3) Metabolic acidosis (4) Uremia (5) Acute kidney injury superimposed on CKD (6) E. coli UTI (7) Hypokalemia (8) Type 2 diabetes mellitus (9) Hypertension (10) Malnutrition of moderate degree (11) Anemia, iron deficiency. (12) Chronic diastolic heart failure (13) Glaucoma (increased eye pressure) (14) Visual impairment (15) Code Status: Full Code Medicare Certification Statement: I certify that Post Hospital fpc care is medically necessary on a continuing basis for any of the conditions for which she/he is receiving care during hospitalization. Notify PCP of admission and forward orders to primary provider for signature. Weight on admission and: Weekly Call PCP immediately if weight increases by: 5 kg Other Notification Orders: Call PCP immediately if patient develops dyspnea, chest pain/tightness or edema. House Bowel Program: Yes Additional Bowel Program Orders: If no BM after 2 days, nurse may give M.O.M. 30ml PO PRN and/or ducolax Supp 1 DE and/or JORGE LUIS 250mg P.O., and/or senna 1-2 tabs PO. On day 3 nurse may give repeat above order until residents constipation is resolved. Annual Influenza Vaccine (between Jan 29 and August 28): Yes Two-step PPD per [facility] [id number] or approved exception documents: Yes Treatments & Other Orders: Daily PT, OT and Speech Therapy Lab Tests or X-ray Orders: Weekly BMP Medication Orders: PLEASE REFER TO THE DISCHARGE MEDICATION LIST. Insulin Orders?: Yes - Medications New Prescriptions: Ciprofloxacin [Cipro] 500 mg PO BID #56 tablet Ferrous Gluconate 240 mg PO DAILY #30 tablet hydrALAZINE [Apresoline] 25 mg PO BID #60 tablet Insulin Aspart [NovoLOG] 1 - 9 unit SUBQ 0800,1200,1700,2100 #2 pen Lactobacillus Rhamnosus GG [Culturelle] 1 cap PO DAILY #14 capsule Multivitamin W/Minerals [Theragran M] 1 tab PO DAILY@1200 #30 tablet - Diet Type: Geriatric Texture: Dysphagia mech Liquids: Thin May have monthly special meal: Yes - Therapies | Activity Therapy: Evaluation | Treat if indicated: Speech, PT, OT Rehabilitation Potential: Maximize functional status Activity: Activity as Tolerated Weight Bearing: Full Weight Assistance Devices: Walker Follow Up: See PCP after discharge from [facility]. Insulin Orders - SNF Basal | Correction | Custom Orders: Diagnosis: Diabetes Initiate hypo and hyperglycemia protocols for BG <70 and BG >375. May check BG PRN for signs/symptoms of dysglycemia. Frequency of BG checks: [AC/HS] Basal Insulin: [X] Lantus 5 units / ml inject subq as follows: daily in a.m. Correction Insulin: - Select the type of insulin below [Choose: Novolog/Humalog]100 units /ml insulin inject subq per orders indicate below [] LOW DOSE [X] MODERATE DOSE [] MODERATE/HIGH DOSE [] HIGH DOSE GB UNITS GB UNITS GB UNITS GB UNITS 61-140 0 UNITS 61-140 0 UNITS 61-140 0 UNITS 61-140 0 UNITS 141-175 1 UNITS 141-175 1 UNITS 141-175 2 UNITS 141-175 3 UNITS 176-225 2 UNITS 176-225 3 UNITS 176-225 4 UNITS 176-225 5 UNITS 226-275 3 UNITS 226-275 5 UNITS 226-275 6 UNITS 226-275 7 UNITS 276-325 4 UNITS 276-325 7 UNITS 276-325 8 UNITS 276-325 9 UNITS 326-375 5 UNITS 326-375 9 UNITS 326-375 10 UNITS 326-375 11 UNITS >375 CONTACT MD >375 CONTACT MD >375 CONTACT MD >375 CONTACT MD"
--- NOTE | 2019-06-01 08:42 | DISCHARGE SUMMARY ---
Discharge Summary Admit Date: 05/27/19 Discharge Date: 06/01/19 Discharging Provider: Dr Sima Leslie Primary Care Provider: Rosalie Victor NP Code Status: Attempt Resuscitation Condition at Discharge: Stable Discharge Disposition: 03 [facility] DC/Xfer - DIAGNOSES Admission Diagnoses: (1) Metabolic encephalopathy (2) Metabolic acidosis (3) Acute kidney injury superimposed on CKD (4) Uremia (5) Hypoglycemia (6) Heart failure with preserved ejection fraction (7) Type 2 diabetes mellitus (8) Hypertension (9) Glaucoma (increased eye pressure) Discharge Diagnoses with Status of Each Condition: See below - HPI History of Present Illness: Fro the admission H&P of Dr Loyd Singer: This is a 63-year-old male with a past medical history significant for hypertension, type 2 diabetes on insulin, heart failure with preserved ejection fraction, glaucoma who presents today due to worsening mental status. Most of the history is obtained from his who is at bedside as the patient is alter ed and currently a poor historian with delayed speech. His tells me that he had been in his usual state of health up until about a few days ago. She said a couple days ago he was more confused than usual and was being quite vulgar to her which was new and not his usual behavior. She states he has become increasingly more fatigued and lethargic and that he has been sleeping a lot. Yesterday he was also more confused than usual but today she became concerned when he had difficulty speaking and so she called EMS. Upon arrival, EMS found him to have a blood glucose in the 40s. The patient does take insulin which he is able to confirm. He does take 10 units of Lantus and he took it la night. He does not check his blood glucose but continues to take insulin and metformin. His states his appetite has been okay this past few days. He reports no nausea or vomiting although his states he did have a couple episodes of vomiting a few days ago. He reports no chest pain, dyspnea, dysuria, abdominal pain. He also states he is also taking all of his home medications as previously prescribed. His is concerned that his speech is quite delayed and that he is quite tremulous which is new. Patient does report feeling thirsty and that he has a metallic taste in his mouth. His also states that he has been complaining of rotten egg taste in his mouth. Both he and his deny alcohol or tobacco use. In the emergency department, he was found to be afebrile temperature of 37.2. Heart rate was in the 90s. Blood pressure was 157/90. He was not tachypneic and saturating well on room air. Labs were significant for a chloride of 115, bicarbonate of 11, anion gap of 15, BUN of 85, and creatinine of 2.9. VBG showed a pH 7.255, PCO2 of 21.6 and HCO3 of 9.4. Salicylates, acetaminophen, alcohol level were all negative. His urine toxicology screen was also negative. He was admitted due to altered mental status and metabolic derangements. - HOSPITAL COURSE Hospital Course: (1) Metabolic encephalopathy Etiology was felt to be multifactorial: from severe dehydration, uremia, infection and poor eyesight. His strength becam slowly better, he could walk down the [place] with with PT. His eyesight is poor and this is what made feeding somewhat difficult. His speech remained slow but is articulate. He was discharged to SNF for further PT, OT and speech therapy. (2) Hypoglycemia He received IV D5 solutions and D10 pushes. Eventually has fluids were stopped and he was able to eat with adequate glucose levels. (3) Metabolic acidosis He did not have ketones. His metabolic acidosis was felt to be on the basis of Diamox use. All his diuretics were stopped. Volume replacement with saline, corrected the metabolic acidosis after 1 day. (4) Uremia The significantly elevated BUN of 85 at admission, made uremia a likely cause of his confusion. He was kept on gentle fluids through the entire course and had a very slow improvement of BUN/creatinine. They were 30/1.3 on the day of discharge. (5) Acute kidney injury superimposed on CKD As above in #4 (6) E. coli UTI The urinalysis was abnormal. He was started on empiric IV ceftriaxone. Urine cultures quickly grew E. coli. This was changed from IV antibiotics to Cipro p.o. and he tolerated this. He was discharge with a plan for a 21-day total course, for good prostate penetration and probiotics. (7) Hypokalemia Resolved after replacement (8) Type 2 diabetes mellitus He was on low-dose of Lantus, a carb controlled diet and sliding scale insulin coverage. Metformin was stopped due to CON and acidosis and not restarted at discharge. (9) HTN After the first few days of treating his dehydration, blood pressure became hypertensive. His meds were resumed one by one. BP was still elevated on his losartan dose, his amlodipine dose, the equivalent of his long-acting Coreg dose therefore we added hydralazine, and continued this at discharge. He was not discharged on Lasix or Diamox. (10) Malnutrition of moderate degree Patient stated to me that "he does not like to see food go to waste" therefore I suspected there is financial problem as part of the reason for poor p.o. intake (11) Anemia, iron deficiency He had significant positive fluid balance since admission therefore hemodilution was partly the cause. Because of his malnutrition he was checked for B12, folate levels and iron stores. He was started on oral iron replacement because of poor iron stores. (12) Chronic diastolic heart failure No signs of volume overload, his home diuretic doses were on hold and IV hydration continued since admission, due to CKD. 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 - ALLERGIES Allergies/Adverse Reactions: Allergies Allergy/AdvReac Type Severity Reaction Status Date / Time No Known Drug Allergies Allergy Verified 06/29/18 16:27 - MEDICATIONS Home Medications: Ambulatory Orders Medication Instructions Recorded Confirmed Losartan [Cozaar] 100 mg PO DAILY 09/17/16 05/27/19 Brimonidine 0.2% Ophth Drops 1 drops EACHEYE BID 06/29/18 05/28/19 [Alphagan P 0.2% Ophth Drops] Timolol Maleate 5 ml OP DAILY 06/29/18 05/27/19 Amlodipine Besylate 10 mg PO DAILY 05/27/19 05/27/19 Carvedilol Phosphate [Carvedilol 40 mg PO QPM 05/27/19 05/28/19 ER] Insulin Glargine [Lantus Solostar] 10 units SQ DAILY 05/27/19 05/27/19 Ciprofloxacin [Cipro] 500 mg PO BID #56 tablet 06/01/19 Ferrous Gluconate 240 mg PO DAILY #30 tablet 06/01/19 Insulin Aspart [NovoLOG] 1 - 9 unit SUBQ 06/01/19 0800,1200,1700,2100 #2 pen Lactobacillus Rhamnosus GG 1 cap PO DAILY #14 capsule 06/01/19 [Culturelle] Multivitamin W/Minerals [Theragran 1 tab PO DAILY@1200 #30 tablet 06/01/19 M] hydrALAZINE [Apresoline] 25 mg PO BID #60 tablet 06/01/19 - PHYSICAL EXAM AT DISCHARGE General Appearance: positive: No acute distress, Alert, Other (Cachectic with temporal wasting) Eyes Bilateral: positive: Other (Blind in the left eye, marked impairment in the right eye) ENT: positive: ENT inspection nml, No signs of dehydration Neck: positive: Nml inspection, No JVD Respiratory: positive: No respiratory distress, Breath sounds nml Cardiovascular: positive: Regular rate & rhythm, No murmur Abdomen: positive: Non-tender, No organomegaly, Nml bowel sounds, No distention Skin: positive: Color nml, Warm Extremities: positive: No pedal edema Neurologic/Psychiatric: positive: Oriented x3, Other (Generalized weakness, poor vision.) - LABS Result Diagrams: 06/01/19 05:19 06/01/19 05:19 - DIAGNOSTIC IMAGING Diagnostic Imaging Results: Final report reviewed - FOLLOW UP Follow Up: This will be determined after his stay at SNF. - TIME SPENT Time Spent in Discharge (Minutes): 60
[2019-06-01] MEDS: INSULIN ASPART 300 UNIT/3 ML PEN SUBQ SCH ×2 (09:08→12:03)
[2019-06-01] MEDS: LACTOBACILLUS RHAMNOSUS GG CAPSULE PO SCH (09:09)
[2019-06-01] MEDS: amLODIPine 5 MG TABLET PO SCH (09:09)
[2019-06-01] MEDS: hydrALAZINE 25 MG TABLET PO SCH (09:11)
[2019-06-01] MEDS: carvediloL 12.5 MG TABLET PO SCH (09:11)
[2019-06-01] MEDS: LOSARTAN 50 MG TABLET PO SCH (09:11)
[2019-06-01] MEDS: INSULIN GLARGINE 300 UNIT/3 ML PEN SUBQ SCH (09:12)
[2019-06-01] MEDS: BRIMONIDINE 0.2% OPHTH DROPS 5 ML EACHEYE SCH (09:12)
[2019-06-01] MEDS: TIMOLOL 0.5% OPHTH DROPS EACHEYE SCH (09:14)
[2019-06-01] MEDS: CIPROFLOXACIN 250 MG TABLET PO SCH (09:18)
[2019-06-01] MEDS: HEPARIN 5,000 UNIT/ML VIAL SUBQ SCH (09:19)
[2019-06-01 11:58] VITALS: BP 171/74
[2019-06-01] MEDS: MULTIVITAMIN W/MINERALS TABLET PO SCH (11:59)
== END 2019-06-01 15:05 | DRG 682 ==
LOC: EDUNIT# → ED 16:16 → MS2 19:26
PROVIDERS: ADMIT Internal Medicine; ATTEND Internal Medicine
DX: N17.9 Acute kidney failure, unspecified (principal); G93.41 Metabolic encephalopathy; N39.0 Urinary tract infection, site not specified; I13.0 Hypertensive heart and chronic kidney disease with heart failure and stage 1 through stage 4 chronic kidney disease, or unspecified chronic kidney disease; I11.0 Hypertensive heart disease with heart failure; I50.9 Heart failure, unspecified; I50.32 Chronic diastolic (congestive) heart failure; H57.04 Mydriasis; E44.0 Moderate protein-calorie malnutrition; Z79.84 Long term (current) use of oral hypoglycemic drugs; Z68.1 Body mass index [BMI] 19.9 or less, adult; E87.2 Acidosis; E86.0 Dehydration; E86.1 Hypovolemia; E87.6 Hypokalemia; T50.2X5A Adverse effect of carbonic-anhydrase inhibitors, benzothiadiazides and other diuretics, initial encounter; Y92.009 Unspecified place in unspecified non-institutional (private) residence as the place of occurrence of the external cause; E11.649 Type 2 diabetes mellitus with hypoglycemia without coma; E11.22 Type 2 diabetes mellitus with diabetic chronic kidney disease; N18.9 Chronic kidney disease, unspecified; B96.20 Unspecified Escherichia coli [E. coli] as the cause of diseases classified elsewhere; R25.8 Other abnormal involuntary movements; D50.9 Iron deficiency anemia, unspecified; H54.8 Legal blindness, as defined in USA; H40.9 Unspecified glaucoma; Z79.4 Long term (current) use of insulin; Z79.899 Other long term (current) drug therapy; Z59.6 Low income
CPT/HCPCS: 36415; 70450; 71045; 80048; 80053; 80076; 81001; 82009; 82140; 82436; 82550; 82607; 82746; 82803; 83036; 83540; 83605; 83690; 83735; 84100; 84300; 84466; 84484; 85025; 87040; 87086; 87181; 96360; 96361; 97110; 97161; 97166; 97530; 99285; A6250; A9270; J1815; J7120; 80306; 80307; 80320; 80329; 81003

== ENCOUNTER 2019-06-05 11:15 | Outpatient (CLI) | payer MEDICARE ==
[2019-06-05 12:49] LABS: BASOPHILS # (AUTO) 0.1 10^3/uL (0.0-0.1); BASOPHILS % (AUTO) 0.9 %; EOSINOPHILS # (AUTO) 0.2 10^3/uL (0.0-0.7); EOSINOPHILS % (AUTO) 2.8 %; HGB - HEMOGLOBIN 7.6 g/dL (14.0-18.0); LYMPHOCYTES # (AUTO) 0.8 10^3/uL (1.5-3.5); LYMPHOCYTES % (AUTO) 15.5 %; MEAN CORPUSCULAR HEMOGLOBIN 30.5 pg (27.0-31.0); MEAN CORPUSCULAR HGB CONC 31.7 g/dL (32.0-36.0); MEAN CORPUSCULAR VOLUME 96.4 fL (80.0-94.0); MEAN PLATELET VOLUME 12.1 fL (7.4-11.4); MONOCYTES # (AUTO) 0.4 10^3/uL (0.0-1.0); NEUTROPHILS # (AUTO) 3.8 10^3/uL (1.5-6.6); NEUTROPHILS % (AUTO) 72.2 %; PLT - PLATELET COUNT 285 10^3/uL (130-450); RED BLOOD COUNT 2.49 10^6/uL (4.70-6.10); RED CELL DISTRIBUTION WIDTH 13.9 % (12.0-15.0); WHITE BLOOD COUNT 5.3 x10^3/uL (4.8-10.8)
[2019-06-05 13:12] LABS: CALCIUM 8.2 mg/dL (8.5-10.3); CREATININE 1.3 mg/dL (0.6-1.2)
== END 2019-06-05 11:16 | disposition home or self-care (01) ==
LOC: LAB.R 11:15
DX: D64.9 Anemia, unspecified (principal); B96.29 Other Escherichia coli [E. coli] as the cause of diseases classified elsewhere; G93.41 Metabolic encephalopathy; I50.32 Chronic diastolic (congestive) heart failure; E44.0 Moderate protein-calorie malnutrition
CPT/HCPCS: 80048; 82728; 85025

== ENCOUNTER 2019-06-23 21:25 | Outpatient (CLI) | payer MEDICARE | END 2019-06-23 21:26 | disposition critical access hospital (66) | LOC: EMS 21:25 | PROVIDERS: ATTEND Surgery | DX: R53.1 Weakness (principal); R53.83 Other fatigue; R46.4 Slowness and poor responsiveness | CPT/HCPCS: A0425; A0427 ==

== ENCOUNTER 2019-06-23 21:42 | Inpatient (IN) | payer MEDICARE ==
--- NOTE | 2019-06-23 21:46 | ED Physician Documentation ---
History of Present Illness - Stated complaint Stated Complaint: LETHARGIC - Chief complaint Chief Complaint: Neuro - History obtained from History obtained from: Family (The patient was brought in by EMS with a chief complaint of altered mental status the patient was found more altered and confused and lethargic and not responding per the patient's patient's report reports he recently was discharged from the hospital for C. diffi cile and hematogenous E. coli infection. EMS reports his blood sugar was 110 prior to arrival the remainder history is obtained from previous medical records looking at his most recent discharge summary he recently was admitted for #1 metabolic encephalopathy #2 metabolic acidosis #3 acute kidney injury #4 uremia #5 hyperglycemia #6 heart failure with preserved ejection fraction #7 type 2 diabetes #8 hypertension #9 glaucoma.) Review of Systems Unable to obtain: Unresponsive PD PAST MEDICAL HISTORY - Past Medical History Cardiovascular: Congestive heart failure, Hypertension Respiratory: Other Neuro: None Endocrine/Autoimmune: Type 2 diabetes GI: GERD : Frequency HEENT: Chronic vision loss, Glaucoma Psych: Claustrophobia Musculoskeletal: None Derm: Other - Past Surgical History Past Surgical History: Yes HEENT: Cataracts - Present Medications Home Medications: Ambulatory Orders Medication Instructions Recorded Confirmed Losartan [Cozaar] 100 mg PO DAILY 09/17/16 05/27/19 Brimonidine 0.2% Ophth Drops 1 drops EACHEYE BID 06/29/18 05/28/19 [Alphagan P 0.2% Ophth Drops] Timolol Maleate 5 ml OP DAILY 06/29/18 05/27/19 Amlodipine Besylate 10 mg PO DAILY 05/27/19 05/27/19 Insulin Glargine [Lantus Solostar] 4 units SQ DAILY 05/27/19 05/27/19 Ciprofloxacin [Cipro] 500 mg PO BID #56 tablet 06/01/19 Insulin Aspart [NovoLOG] 1 - 9 unit SUBQ 06/01/19 0800,1200,1700,2100 #2 pen Lactobacillus Rhamnosus GG 1 cap PO DAILY #14 capsule 06/01/19 [Culturelle] Multivitamin W/Minerals [Theragran 1 tab PO DAILY@1200 #30 tablet 06/01/19 M] hydrALAZINE [Apresoline] 25 mg PO BID #60 tablet 06/01/19 Metformin HCl 1 tab BID 06/23/19 06/23/19 acetaZOLAMIDE [Acetazolamide] 2 tab BID 06/23/19 06/23/19 hydroCHLOROthiazide 1 tab DAILY 06/23/19 06/23/19 [Hydrochlorothiazide] - Allergies Allergies/Adverse Reactions: Allergies Allergy/AdvReac Type Severity Reaction Status Date / Time No Known Drug Allergies Allergy Verified 06/29/18 16:27 - Social History Does the pt smoke?: No Smoking Status: Never smoker Does the pt drink ETOH?: No Does the pt have substance abuse?: No - Immunizations Immunizations are current?: Yes Immunizations: TDAP >10years/unknown - POLST Patient has POLST: No PD ED PE NORMAL - Vitals Vital signs reviewed: Yes - General General: Other (The patient's unresponsive) - HEENT HEENT: Other (The right pupil is abnormal compared to the left pupil there is anisocoria the patient's not following commands there is no signs of trauma there is no acute missing teeth currently he is protecting his airway is dry mucous membranes) - Neck Neck: Supple, no meningeal sign, No adenopathy, Thyroid normal - Cardiac Cardiac: RRR - Respiratory Respiratory: No respiratory distress - Abdomen Abdomen: Normal bowel sounds - Male Male : Deferred - Rectal Rectal: Deferred - Back Back: No CVA TTP, No spinal TTP - Derm Derm: Other (Pale cap refill less than 3 seconds) - Extremities Extremities: No deformity - Neuro Neuro: Other Eye Opening: To Voice Motor: Obeys Commands Verbal: Incomprehensible GCS Score: 11 Results - Vitals Vitals: Vital Signs - 24 hr 06/23/19 06/23/19 06/23/19 21:44 22:31 23:00 Temperature 34.5 C L 34.6 C L Heart Rate 58 L 60 Respiratory 12 10 L 11 L Rate Blood Pressure 84/56 L 113/62 113/59 L O2 Saturation 100 100 98 06/23/19 23:30 Temperature Heart Rate 65 Respiratory 13 Rate Blood Pressure 106/53 L O2 Saturation 99 Oxygen O2 Source Nasal cannula Oxygen Flow Rate 2 - EKG (time done) 21:45 Rate: Other (No STEMI Compared to previous EKGSimilar in appearance.There is rate of 61 FL interval 296 QRS 111 QTc 447 P waves are upright in leads I to III inverted in aVR no FL depression or elevation leads II aVR respectively there is normal axis there is poor R wave progression there is inverted T waves in leads V4, V5 and V6 that seen on prior EKG. There is no acute ST segment elevation or depression is a nonspecific and abnormal EKG.) - Labs Labs: Laboratory Tests 06/23/19 06/23/19 06/23/19 22:16 22:16 22:16 WBC 3.3 L RBC 2.66 L Hgb 8.1 L Hct 26.3 L MCV 98.9 H MCH 30.5 MCHC 30.8 L RDW 13.6 Plt Count 246 MPV 11.8 H Neut # (Auto) 2.1 Lymph # (Auto) 0.7 L [place] # (Auto) 0.4 Eos # (Auto) 0.1 Baso # (Auto) 0.1 Absolute Nucleated RBC 0.00 Nucleated RBC % 0.0 PT 11.0 INR 1.0 APTT 32.6 VBG pH VBG pCO2 VBG pO2 VBG HCO3 VBG Total CO2 VBG O2 Saturation VBG Base Excess Sodium 143 Potassium 3.3 L Chloride 117 H Carbon Dioxide 15 L Anion Gap 11.0 BUN 55 H Creatinine 2.4 H Estimated GFR (MDRD) 27 L Glucose 106 H Lactic Acid Calcium 8.4 L Phosphorus 4.5 Magnesium 2.2 Total Bilirubin 0.5 AST 14 ALT 10 Alkaline Phosphatase 44 Total Creatine Kinase 59 Troponin I High Sens B-Natriuretic Peptide Total Protein 5.8 L Albumin 3.0 L Globulin 2.8 Albumin/Globulin Ratio 1.1 Lipase 35 TSH Urine Color Urine Clarity Urine pH Ur Specific Page Urine Protein Urine Glucose (UA) Urine Ketones Urine Occult Blood Urine Nitrite Urine Bilirubin Urine Urobilinogen Ur Leukocyte Esterase Urine RBC Urine WBC Ur Squamous Epith Cells Amorphous Sediment Urine Bacteria Urine Casts Ur Microscopic Review Urine Culture Comments Salicylates < 6.0 Urine Opiates Screen Ur Oxycodone Screen Urine Methadone Screen Ur Propoxyphene Screen Acetaminophen < 10 L Ur Barbiturates Screen Ur Tricyclics Screen Ur Phencyclidine Scrn Ur Amphetamine Screen U Methamphetamines Scrn U Benzodiazepines Scrn Urine Cocaine Screen U Cannabinoids Screen Ethyl Alcohol < 5.0 Serum Ketones NEGATIVE 06/23/19 06/23/19 06/23/19 22:16 22:16 22:16 WBC RBC Hgb Hct MCV MCH MCHC RDW Plt Count MPV Neut # (Auto) Lymph # (Auto) [place] # (Auto) Eos # (Auto) Baso # (Auto) Absolute Nucleated RBC Nucleated RBC % PT INR APTT VBG pH VBG pCO2 VBG pO2 VBG HCO3 VBG Total CO2 VBG O2 Saturation VBG Base Excess Sodium Potassium Chloride Carbon Dioxide Anion Gap BUN Creatinine Estimated GFR (MDRD) Glucose Lactic Acid Calcium Phosphorus Magnesium Total Bilirubin AST ALT Alkaline Phosphatase Total Creatine Kinase Troponin I High Sens 9.3 B-Natriuretic Peptide 192 H Total Protein Albumin Globulin Albumin/Globulin Ratio Lipase TSH 1.26 Urine Color Urine Clarity Urine pH Ur Specific Page Urine Protein Urine Glucose (UA) Urine Ketones Urine Occult Blood Urine Nitrite Urine Bilirubin Urine Urobilinogen Ur Leukocyte Esterase Urine RBC Urine WBC Ur Squamous Epith Cells Amorphous Sediment Urine Bacteria Urine Casts Ur Microscopic Review Urine Culture Comments Salicylates Urine Opiates Screen Ur Oxycodone Screen Urine Methadone Screen Ur Propoxyphene Screen Acetaminophen Ur Barbiturates Screen Ur Tricyclics Screen Ur Phencyclidine Scrn Ur Amphetamine Screen U Methamphetamines Scrn U Benzodiazepines Scrn Urine Cocaine Screen U Cannabinoids Screen Ethyl Alcohol Serum Ketones 06/23/19 06/23/19 06/23/19 22:16 22:21 22:51 WBC RBC Hgb Hct MCV MCH MCHC RDW Plt Count MPV Neut # (Auto) Lymph # (Auto) [place] # (Auto) Eos # (Auto) Baso # (Auto) Absolute Nucleated RBC Nucleated RBC % PT INR APTT VBG pH 7.235 L VBG pCO2 35.4 L VBG pO2 61.7 H VBG HCO3 14.7 L VBG Total CO2 15.7 L VBG O2 Saturation 91.2 H VBG Base Excess -11.8 L Sodium Potassium Chloride Carbon Dioxide Anion Gap BUN Creatinine Estimated GFR (MDRD) Glucose Lactic Acid 3.1 H* Calcium Phosphorus Magnesium Total Bilirubin AST ALT Alkaline Phosphatase Total Creatine Kinase Troponin I High Sens B-Natriuretic Peptide Total Protein Albumin Globulin Albumin/Globulin Ratio Lipase TSH Urine Color YELLOW Urine Clarity CLEAR Urine pH 5.5 Ur Specific Page 1.025 Urine Protein 100 H Urine Glucose (UA) NEGATIVE Urine Ketones NEGATIVE Urine Occult Blood NEGATIVE Urine Nitrite NEGATIVE Urine Bilirubin NEGATIVE Urine Urobilinogen 0.2 (NORMAL) Ur Leukocyte Esterase NEGATIVE Urine RBC None Seen Urine WBC 0-3 Ur Squamous Epith Cells NONE SEEN Amorphous Sediment Rare Urine Bacteria None Seen Urine Casts 3-5 Hyaline Casts Ur Microscopic Review INDICATED Urine Culture Comments NOT INDICATED Salicylates Urine Opiates Screen NEGATIVE Ur Oxycodone Screen NEGATIVE Urine Methadone Screen NEGATIVE Ur Propoxyphene Screen NEGATIVE Acetaminophen Ur Barbiturates Screen NEGATIVE Ur Tricyclics Screen NEGATIVE Ur Phencyclidine Scrn NEGATIVE Ur Amphetamine Screen NEGATIVE U Methamphetamines Scrn NEGATIVE U Benzodiazepines Scrn POSITIVE H Urine Cocaine Screen NEGATIVE U Cannabinoids Screen NEGATIVE Ethyl Alcohol Serum Ketones Departure - Departure Disposition: 66 [facility] DC/Xfer Clinical Impression: Weakness, Lactic acidosis, CON (acute kidney injury), Hypothermia Altered mental status Qualifiers: Altered mental status type: disorientation Qualified Code(s): R41.0 - Dis orientation, unspecified Condition: Critical
[2019-06-23] MEDS ORDERED: PIPERACILLIN/TAZOBACTAM 3.375 GM in SODIUM CHLORIDE 0.9% MINIBAG 100 ML IV STA (22:02)
[2019-06-23] MEDS ORDERED: SODIUM CHLORIDE 0.9% 1,000 ML IV ONE ×3 (22:03→23:15)
[2019-06-23] MEDS ORDERED: VANCOMYCIN INJ 1 GM in SODIUM CHLORIDE 0.9% 500 ML IV STA (22:03)
[2019-06-23 22:32] LABS: BASOPHILS # (AUTO) 0.1 10^3/uL (0.0-0.1); BASOPHILS % (AUTO) 1.5 %; EOSINOPHILS # (AUTO) 0.1 10^3/uL (0.0-0.7); EOSINOPHILS % (AUTO) 2.1 %; HGB - HEMOGLOBIN 8.1 g/dL (14.0-18.0); LYMPHOCYTES # (AUTO) 0.7 10^3/uL (1.5-3.5); MEAN CORPUSCULAR HEMOGLOBIN 30.5 pg (27.0-31.0); MEAN CORPUSCULAR HGB CONC 30.8 g/dL (32.0-36.0); MEAN CORPUSCULAR VOLUME 98.9 fL (80.0-94.0); MEAN PLATELET VOLUME 11.8 fL (7.4-11.4); MONOCYTES # (AUTO) 0.4 10^3/uL (0.0-1.0); MONOCYTES % (AUTO) 10.8 %; NEUTROPHILS # (AUTO) 2.1 10^3/uL (1.5-6.6); NEUTROPHILS % (AUTO) 63.3 %; PLT - PLATELET COUNT 246 10^3/uL (130-450); RED BLOOD COUNT 2.66 10^6/uL (4.70-6.10); RED CELL DISTRIBUTION WIDTH 13.6 % (12.0-15.0); VBG BASE EXCESS -11.8 mmol/L (-2 - +2); VBG PCO2 35.4 mmHg (41-51); VBG PH 7.235 (7.31-7.41); VBG PO2 61.7 mmHg (25-47); VBG TOTAL CO2 15.7 mmol/L (24-29); WHITE BLOOD COUNT 3.3 x10^3/uL (4.8-10.8)
--- NOTE | 2019-06-23 22:33 | CT Report ---
Reason: ams Procedure Date: 06/23/2019 Accession Number: [id number] / [id number] Procedure: CT - HEAD WO CPT Code: Final Report FULL RESULT: EXAM: CT HEAD EXAM DATE: 06/23/2019 10:09 PM. CLINICAL HISTORY: Altered mental status. Lethargic a few days. Unresponsive for past few hours. COMPARISON: CT HEAD W/O 05/27/2019 5:47 PM. TECHNIQUE: Multiaxial CT images were obtained from the foramen magnum to the vertex. Reformats: Sagittal and coronal. IV contrast: None. In accordance with CT protocol optimization, one or more of the following dose reduction techniques were utilized for this exam: automated exposure control, adjustment of mA and/or KV based on patient size, or use of iterative reconstructive technique. FINDINGS: Parenchyma: No intraparenchymal hemorrhage. No evidence of mass, midline shift, or CT findings of infarction. Flaherty-white differentiation is distinct. Mild to moderate chronic microvascular change in the deep white matter appears stable. Small chronic lacunar infarcts in bilateral basal ganglia are unchanged. Extraaxial Spaces: Normal for age. No subdural or epidural collections identified. Ventricles: Normal in size and position. Sinuses and Orbits: Mild mucosal thickening is partially visualized in the left maxillary sinus. Visualized sinuses and mastoid air cells are otherwise clear. Orbits are unremarkable. Bones: No evidence of fracture or calvarial defect. Other: None. IMPRESSION: 1. No acute intracranial abnormality. No significant change compared to 05/27/2019. 2. No intracranial mass, mass-effect, or hydrocephalus. 3. Stable chronic microvascular ischemic change and small chronic bilateral basal ganglia lacunar infarcts. RADIA
--- NOTE | 2019-06-23 22:34 | XRAY Report ---
Reason: AMS Procedure Date: 06/23/2019 Accession Number: [id number] / [id number] Procedure: XR - Chest 1 View X-Ray CPT Code: 97124 Final Report FULL RESULT: EXAM: CHEST RADIOGRAPHY EXAM DATE: 06/23/2019 10:12 PM. CLINICAL HISTORY: Altered mental status. COMPARISON: CHEST 1 VIEW 05/28/2019 7:22 AM. TECHNIQUE: 1 view. FINDINGS: Lungs/Pleura: No focal opacities evident. No pleural effusion. No pneumothorax. Mediastinum: Within exam limitations, the cardiomediastinal contour is normal. Other: None. IMPRESSION: Normal single view chest. RADIA
[2019-06-23 22:39] LABS: KETONES, SERUM (ACETEST) NEGATIVE (NEGATIVE); PARTIAL THROMBOPLASTIN TIME 32.6 secs (24.9-33.3)
[2019-06-23 22:43] LABS: ACETAMINOPHEN < 10 ug/mL (10-30); ALBUMIN/GLOBULIN RATIO 1.1 (1.0-2.2); ALKALINE PHOSPHATASE 44 IU/L (42-121); ALT ALANINE AMINOTRANSFERASE 10 IU/L (10-60); AST ASPARTATE AMINOTRANSFERASE 14 IU/L (10-42); BILIRUBIN,TOTAL 0.5 mg/dL (0.2-1.0); BUN - BLOOD UREA NITROGEN 55 mg/dL (6-20); CALCIUM 8.4 mg/dL (8.5-10.3); CARBON DIOXIDE - CO2 15 mmol/L (21-32); CHLORIDE 117 mmol/L (101-111); CK- CREATINE KINASE 59 IU/L (22-269); CREATININE 2.4 mg/dL (0.6-1.2); GFR - MDRD 27 (>89); GLUCOSE 106 mg/dL (70-100); LIPASE 35 U/L (22-51); MAGNESIUM 2.2 mg/dL (1.7-2.8); PHOSPHORUS 4.5 mg/dL (2.5-4.6); SALICYLATE < 6.0 mg/dL; SODIUM 143 mmol/L (135-145); TOTAL PROTEIN 5.8 g/dL (6.7-8.2)
[2019-06-23 22:57] LABS: BILIRUBIN,URINE NEGATIVE (NEGATIVE); GLUCOSE, URINE (UA) NEGATIVE (NEGATIVE); KETONES,URINE (UA) NEGATIVE (NEGATIVE); LEUKOCYTE ESTERASE, URINE NEGATIVE (NEGATIVE); MUDS CUTOFF CONCENTRATIONS CUTOFF CONC BELOW:; NITRITE,URINE NEGATIVE (NEGATIVE); OCCULT BLOOD,URINE NEGATIVE (NEGATIVE); PH,URINE 5.5 PH (5.0-7.5); PROTEIN,URINE 100 mg/dL (NEGATIVE); UROBILINOGEN,URINE 0.2 (NORMAL) E.U./dL (NORMAL)
[2019-06-23 23:02] LABS: CLARITY,URINE CLEAR (CLEAR)
[2019-06-23 23:08] LABS: AMORPHOUS SEDIMENT,UR Rare /LPF; BACTERIA,URINE None Seen /HPF (None Seen); CASTS, URINE 3-5 Hyaline Casts /LPF; RBC,URINE None Seen /HPF (0-5); SQUAMOUS EPITHELIAL CELL,UR NONE SEEN (<= Few)
[2019-06-23 23:10] LABS: AMPHETAMINE SCREEN,URINE NEGATIVE (NEGATIVE); BENZODIAZEPINES SCREEN, URINE POSITIVE (NEGATIVE); COCAINE SCREEN URINE NEGATIVE (NEGATIVE); METHADONE SCREEN, URINE NEGATIVE (NEGATIVE); METHAMPHETAMINES SCREEN, URINE NEGATIVE (NEGATIVE); OPIATE SCREEN, URINE NEGATIVE (NEGATIVE); OXYCODONE SCREEN, URINE NEGATIVE (NEGATIVE); PROPOXYPHENE SCREEN, URINE NEGATIVE (NEGATIVE); TRICYCLIC ANTIDEPRESSANT,URINE NEGATIVE (NEGATIVE)
[2019-06-24] MEDS ORDERED: SODIUM CHLORIDE FLUSH 0.9% 10 ML SYRINGE IVP PRN (00:01)
[2019-06-24] MEDS ORDERED: ONDANSETRON 4 MG/2 ML VIAL IVP PRN (00:01)
[2019-06-24] MEDS ORDERED: ACETAMINOPHEN 325 MG TABLET PO PRN (00:01)
[2019-06-24] MEDS ORDERED: oxyCODONE 5 MG TABLET PO PRN (00:01)
[2019-06-24] MEDS ORDERED: ONDANSETRON ODT 4 MG TABLET TL PRN (00:01)
--- NOTE | 2019-06-24 00:23 | HISTORY & PHYSICAL EXAMINATION ---
Chief Complaint - Chief Complaint Chief Complaint: increasing lethargy >2 days History of Present Illness - Admitted From Admitted From:: home/ER - History Obtained From [facility] History obtained from: Dr. Khan and patient's Exam Limitations: lethargy - History of Present Illness HPI Comment/Other: After reviewing the medical record, this is a 63-year-old gentleman who is been gradually failing for 2 years. Probably closer to 3. He has had weight loss, fatigue, increasing leg weakness, falls. His maximum weight in 2016 was 160 and is down to 138 in March. There have been no fevers, sweats. Food has tasted bad and has had a "metallic" taste to it but his states he "has been eating good" with is frozen foods and meals on wheels. His diabetes has been uncontrolled and has resulted in chronic kidney disease, macular degeneration. He was 9% A1c in the past, and has come down to 6.4% this fall 2018. His feels that he has been minimizing his deterioration. She worries about them. But he keeps on telling her that "he is fine". She has noted his weight loss, weakness, but feels that they have never really directed themselves toward figuring out why. He was admitted May 27 with lethargy, confusion. He had severe dehydration, cachexia, and urine cultures grew out E. coli. Blood cultures were negative. He was sent home on prolonged ciprofloxacin therapy with the presumption that he may have prostate infection causing UTI. He was discharged to a long-term facility because of his weakness, inability to ambulate. He has been home for a few days, and now returns with another episode of confusion, lethargy, and having less and less response to his . When EMS got to the house, his glucose was 110. Since being here he is not really able to give a history to the emergency room physician. Temperature is 34.5 and he was placed in a bear hugger. Heart rate is bradycardic. Respirations are slow at 10-12. Initial blood pressure 84/56. White cell count is low at 3.3. BUN is again elevated at 55 and creatinine is again elevated at 2.4. With his last hospitalization in April his BUN was in the 80s and creatinine was 3. His u rine tox remain is negative other than for benzodiazepines. He does not have them on his discharge medication list from the hospital June 01. I will verify if he started those in the long-term facility. Lactic acid is elevated at 3.1. BNP is 192. He continues to be malnourished with a total protein of 5.8 and albumin of 3. Troponin is 9. He has a severely depressed white cell count of 3.3. His discharge white cell count was 6.7. He continues to have a chronic anemia of 8.1 g of hemoglobin with an MCV that is 98. Chest x-ray is negative for pneumonia. Patient is now admitted for his metabolic encephalopathy with con commitment renal failure, lactic acidosis.He has received 3 L of IV fluid resuscitation in the emergency room as well as empiric Zosyn and vancomycin. In speaking to his , he started deteriorating about 2 days ago. When he was at the long-term facility he really did not do a lot of exercising because "it just really was not offered". She also thinks that he may not have complied with what they did offer. When he got back home, he does use a walker. But there [employer] wheel hallways are too narrow for him to use a walker so he "hugs the valdez". He does not walk very far. His legs are too weak and numb to support him for any great distance. She gives him his medications. His pills are in a glass bowl with the plastic wrap over it. She also takes her pills in a similar bowl. She is adamant that he is not getting any of her medications. She takes clonazepam. He does not have any benzodiazepines on his list. History - Past Medical History Cardiovascular: reports: Congestive heart failure (flash pulmonary edema w HFpEF from uncontrolled HTN 2017, ECHO 2017), Hypertension Respiratory: reports: Other (extensive second hand smoke exposure in life) Neuro: reports: Peripheral neuropathy (and leg weakness for over 2 years. PT December 2018 for gait ataxia and gen muscle weakness. ) Endocrine/Autoimmune: reports: Type 2 diabetes, Other (Secondary hyperparathyroidism) GI: reports: GERD, Other (anorexia since summer 2018. Nephrology consuslt worried and noted severe cachexia and work up deferred to "Ms Rosalie Victor" Has had 20 lb weight loss from 9514-1230. Fall bc of it. ) : reports: Frequency, Other (CKD III w US 10/2018 showing b/l cortical echogenicity. Saw MD Bhargav at [facility] 09/2018. 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 Gets Avastin OD. ), Glaucoma Psych: reports: Claustrophobia Musculoskeletal: reports: None Derm: reports: Other MRSA Hx?: No Other Past Medical History: Anemia of chronic disease from CKD. Hbg is 9s. - Past Surgical History HEENT: reports: Cataracts (done), Other (wisdom teeth) - Family & Social History Family History Comment/Other: He reports both of his parents from cancer. He believes his mother had pancreatic cancer and diabetes. Father had lung cancer and diabetes. 1 sister in [place] is healthy. One brother in [place] is healthy. One brother in [place] is healthy. 2 sons. He has not seen one son in over 8 years and does not know how he is doing. The other son lives in [place] and is healthy. Living arrangement: At home Living Situation: With spouse/s.o. Social History Notes: He lives at home with his . They have been for 42 years. They met in a bus stop in [place] and have been inseparable ever since. He is not currently employed.His last job was working at the [employer] in the [place]. 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 His denies alcohol or tobacco use. Never smoked. No recreational substance use.They live in a [facility]. They are getting ready to leave it because the inside of the valdez are covered in mold. The kitchen sink no longer works. A bathroom pipe does not work. They have no heat. They were forced to wear winter close" all the time. They do have a new home health care case manager with [facility]. They are looking at new housing options. Meals are either frozen food, or Meals on Wheels. - Substance History Use: Uses substance without health or social issues: NONE Abuse: Recurrent use of substance despite neg consequences: NONE Dependence: Experiences withdrawal or developed tolerances: NONE - POLST Patient has POLST: No POLST Status: Full Code (She is speaking for her . She states that he would want everything done.) Meds/Allgy - Home Medications Home Medications: Ambulatory Orders Medication Instructions Recorded Confirmed Losartan [Cozaar] 100 mg PO DAILY 09/17/16 05/27/19 Brimonidine 0.2% Ophth Drops 1 drops EACHEYE BID 06/29/18 05/28/19 [Alphagan P 0.2% Ophth Drops] Timolol Maleate 5 ml OP DAILY 06/29/18 05/27/19 Amlodipine Besylate 10 mg PO DAILY 05/27/19 05/27/19 Insulin Glargine [Lantus Solostar] 4 units SQ DAILY 05/27/19 05/27/19 Ciprofloxacin [Cipro] 500 mg PO BID #56 tablet 06/01/19 Insulin Aspart [NovoLOG] 1 - 9 unit SUBQ 06/01/19 0800,1200,1700,2100 #2 pen Lactobacillus Rhamnosus GG 1 cap PO DAILY #14 capsule 06/01/19 [Culturelle] Multivitamin W/Minerals [Theragran 1 tab PO DAILY@1200 #30 tablet 06/01/19 M] hydrALAZINE [Apresoline] 25 mg PO BID #60 tablet 06/01/19 Metformin HCl 1 tab BID 06/23/19 06/23/19 acetaZOLAMIDE [Acetazolamide] 2 tab BID 06/23/19 06/23/19 hydroCHLOROthiazide 1 tab DAILY 06/23/19 06/23/19 [Hydrochlorothiazide] - Allergies Allergies/Adverse Reactions: Allergies Allergy/AdvReac Type Severity Reaction Status Date / Time No Known Drug Allergies Allergy Verified 06/29/18 16:27 Review of Systems - Constitutional Constitutional: reports: Fatigue, Weakness, Poor appetite (That is recently improved. She feels that he has been eating better since coming home from the long-term facility.), Weight loss (Weight 138 (11/2018), 141 (08/2018), 155 (03/2018), 166 (03/2017)) - Eyes Eyes: reports: Vision loss (Chronic And blind in both eyes. Right eye worse than left eye.) - Ears, Nose & Throat Ears, Nose & Throat: reports: Hearing loss, Tinnitus, Dental decay. denies: Nasal pain, Nasal discharge - Cardiovascular Cariovascular: reports: Exertional dyspnea, Decr. exercise tolerance. denies: Irregular heart rate, Palpitations, Chest pain, Edema - Respiratory Respiratory: reports: SOB with exertion. denies: Cough, Sputum production, Wheezing, SOB at rest - Gastrointestinal Gastrointestinal: reports: Reflux/heartburn, Poor appetite. denies: Abdominal pain, Abdominal distention, Constipation, Diarrhea, Change in bowel habits - Genitourinary Genitourinary: reports: Frequency, Urgency, Incontinence. denies: Dysuria, Hematuria, Flank pain, Nocturia, Urethral discharge - Musculoskeletal Musculoskeletal: reports: Muscle weakness (Mainly in his legs to the point that he has been falling off and on. Had physical therapy this summer 2018). denies: Muscle pain, Stiffness - Integumentary Integumentary: denies: Rash, Pruritis - Neurological Neurological: reports: General weakness, Numbness, Pre-existing deficit, Abnormal gait, Slurred speech. denies: Focal weakness, Headache, Memory problems, Seizures - Psychiatric Psychiatric: denies: Depression, Anxiety, Suicidal, Delusions, Hallucinations - Endocrine Endocrine: reports: Other (A1c was 9% 08/2018 and 6.4% 01/2019). denies: Polyuria, Polydypsia, Polyphagia - Hematologic/Lymphatic Hematologic/Lymphatic: reports: Anemia. denies: Bruising, Petechiae - All Other Systems All Other Systems: reports: Other (Review of systems obtained from the . He is unable to speak for himself.) Prior Level of Functionality: Uses a walker when outside of his trailer. Able to walk down the hallway hugging the wall. Able to dress himself and feed himself. feels he does not have any cognitive problems. Exam - Vital Signs Reviewed Vital Signs: Yes Vital Signs: Vital Signs x48h Temp Pulse Resp BP Pulse Ox 06/24/19 00:05 34.1 C L 06/23/19 23:30 65 13 106/53 L 99 06/23/19 23:00 34.6 C L 60 11 L 113/59 L 98 06/23/19 22:31 34.5 C L 58 L 10 L 113/62 100 06/23/19 21:44 12 84/56 L 100 - Physical Exam General Appearance: positive: No acute distress, Other (Cachectic white male with a mcfarland, mouth open breathing, poor dentition, responsive only to sternal rub. Seen in the emergency room. is currently not at the bedside) Eyes Bilateral: positive: PERRL, EOMI ENT: positive: Dry mucous membranes Neck: positive: No JVD, Lymphadenopathy (R) (Shotty), Lymphadenopathy (L) (Shotty). negative: Stiff neck Respiratory: positive: Chest non-tender, No respiratory distress, Other (Sonorous, mouth open breathing). negative: Wheezes, Rales, Rhonchi Cardiovascular: positive: Regular rate & rhythm, Systolic murmur. negative: Gallop/S4, Friction rub Abdomen: positive: Non-tender, No organomegaly, No distention, Other (Hypoactive bowel sounds). negative: Guarding, Rebound Skin: positive: Dry, Pallor, Other (Cold to touch) Extremities: positive: Non-tender, No pedal edema Neurologic/Psychiatric: positive: Disoriented to person, Disoriented to place, Disoriented to time Sepsis Event Note (H) - Evaluation Current Stage of Sepsis: Sepsis Possible source of Sepsis: positive: Unknown - Sepsis Criteria Sepsis Criteria: Recorded Temperature greater than 38.3C or Less than 36C, LIEN SEARCHER: altered consciousness (unrelated to primary neuro pathology), SBP less than 90 mmHg, Metabolic: lactate > 2 mmol/L Conclusion/Plan - Problem List (1) Toxic metabolic encephalopathy Conclusion/Plan: This will be the second admission for this gentleman for altered mental status. There is a notable history of failure to thrive over the last 2 years with weight loss, leg weakness, gait ataxia, falls. He has anemia of chronic disease. 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 To his 's knowledge, he has not had a colonoscopy, EGD, PSA. With his last admission we attributed his metabolic encephalopathy to his sepsis with UTI, and resultant acute on chronic kidney failure with uremia. With this admission there is no evidence of UTI. Chest x-ray is negative. Urine tox are negative except for benzodiazepines. He does not take benzodiazepines on his medication list, and the is pretty sure that she is not giving him any of hers (she takes clonazepam). This gentleman is on metformin with chronic kidney disease he may have lactic acidosis and encephalopathy from metformin induced toxicity in a patient with weight loss and CKD. Plan: Inpatient admission Withhold metformin Supportive care with IV fluids Verify his medication list to see where he got the benzos. Empiric therapy for infection (2) Lactic acidosis Conclusion/Plan: At this time I am going to attribute that to either sepsis with lactic acidosis versus lactic acidosis from metformin. Plan is as above.Normal anion gap. Repeat lactic acid in 4 hours (3) Sepsis associated hypotension Conclusion/Plan: He does meet criteria: hypothermia, altered mental status, hypotension. However this could be easily from metformin. Nevertheless he will get empiric therapy with broad-spectrum anabiotic's per sepsis protocol. WBC is low Already received 3 L in the emergency room, and antibiotics. Will repeat lactic acid in 4 hours to assess resuscitation Plan: ICU Levophed drip if his blood pressure continues to stay low If he needs Levophed drip, emergency room physician has agreed to put in a central line. (4) Weight loss, abnormal Conclusion/Plan: Once his pressure stabilized, he is more alert, I would recommend a CT of chest abdomen and pelvis. Also check CEA, PSA, stool for fecal occult blood There seems to be a disconnect with how much he is failing to thrive, and their desire to work it up. She said it has been a background problem but never really brought forward to the point that I am bringing it up to her. I have carefully explained to her that if he does not stop losing weight, get strength, he will continue to fail and his life expectancy will be much shorter. (5) Acute worsening of stage 3 chronic kidney disease Conclusion/Plan: Most likely due to prerenal azotemia from hypotension. As well as dehydration. A repeat of last admission. Monitor daily and his response to IV hydration. Avoid nephrotoxic medication such as metformin. He is also on Aceta Sulamyd for his glaucoma. Trying to verify of its drops or p.o. That may also need to be stopped. (6) Type 2 diabetes mellitus with complication, with group home current use of insulin pump Conclusion/Plan: Complications include retinopathy, nephropathy, and neuropathy. Plan: At this point he is normoglycemic. If his glucose starts to come up I will start sliding scale with meals. We will hold off on long-acting insulin and I have told his not to give him anymore metformin, even when he goes home. (7) Hypokalemia Conclusion/Plan: Initiate electrolyte protocol for supplementation (8) Anemia in chronic kidney disease (CKD) Conclusion/Plan: Usual hemoglobin is 9 to 9.9 g of hemoglobin. Starting this last hospitalization he has drifted below 9. No transfusion needed at this time. It is unclear, from his nephrology consult, if he is to be on iron or PhosLo. They were doing a secondary hyperparathyroid work-up, serum protein electrophoresis, etc. with his last visit. I do not have access to the final work-up or recommendations. Qualifiers: Chronic kidney disease stage: stage 3 (moderate) Qualified Code(s): N18.3 - Chronic kidney disease, stage 3 (moderate); D63.1 - Anemia in chronic kidney disease (9) Hx of essential hypertension Conclusion/Plan: His is startled about how his low blood pressure is present. She used to his blood pressure being high. He is usually on hydralazine, losartan, and amlodipine. At this time we will hold off on resuming those medications until his blood pressure has come up. (10) Full code status Conclusion/Plan: He is not able to speak for himself. She states that he would want everything done. I carefully explained that with his failure to thrive, he would have a poor prognosis with regards to recovery from a resuscitative event. Usually we resuscitate patients at the very end of their life. We have done everything possible up until that point including intubation, pressors, blood products, antibiotics, etc. In spite of that they go on to fail and eventually . In that moment in time we usually do not recommend full CODE STATUS. Nevertheless, she states that she is not ready to let them go. She loves him very much. And they have never really discussed this to understand what resuscitation means. She promises to sit down and have a discussion with him when he is more alert and awake. - Lab Results Lab results reviewed: Yes Fish Bones: 06/23/19 22:16 06/23/19 22:16 - Diagnostic Imaging Results Diagnostic Imaging Results: positive: Final report reviewed Diagnostic Imaging Results Comments: Chest x-ray negative for infiltrate Core Measures - Anticipated LOS I expect patient to be DC'd or transferred within 96 hours.: Yes - DVT/VTE - Prophylaxis VTE/DVT Device ordered at admit?: Yes
[2019-06-24] MEDS: CEFEPIME 2 GM in SODIUM CHLORIDE 0.9% MINIBAG 100 ML IV SCH ×2 (01:25→09:08)
[2019-06-24 05:20] LABS: BASOPHILS # (AUTO) 0.1 10^3/uL (0.0-0.1); BASOPHILS % (AUTO) 1.1 %; EOSINOPHILS # (AUTO) 0.1 10^3/uL (0.0-0.7); EOSINOPHILS % (AUTO) 1.7 %; HGB - HEMOGLOBIN 7.2 g/dL (14.0-18.0); LYMPHOCYTES # (AUTO) 1.2 10^3/uL (1.5-3.5); LYMPHOCYTES % (AUTO) 22.2 %; MEAN CORPUSCULAR HEMOGLOBIN 29.9 pg (27.0-31.0); MEAN CORPUSCULAR VOLUME 99.6 fL (80.0-94.0); MEAN PLATELET VOLUME 11.6 fL (7.4-11.4); MONOCYTES # (AUTO) 0.6 10^3/uL (0.0-1.0); MONOCYTES % (AUTO) 11.7 %; NEUTROPHILS # (AUTO) 3.3 10^3/uL (1.5-6.6); NEUTROPHILS % (AUTO) 62.9 %; PLT - PLATELET COUNT 231 10^3/uL (130-450); RED BLOOD COUNT 2.41 10^6/uL (4.70-6.10); RED CELL DISTRIBUTION WIDTH 13.7 % (12.0-15.0); WHITE BLOOD COUNT 5.3 x10^3/uL (4.8-10.8)
[2019-06-24 05:34] LABS: ALBUMIN 2.7 g/dL (3.2-5.5); ALBUMIN/GLOBULIN RATIO 1.1 (1.0-2.2); ALKALINE PHOSPHATASE 40 IU/L (42-121); ALT ALANINE AMINOTRANSFERASE < 10 IU/L (10-60); AST ASPARTATE AMINOTRANSFERASE 11 IU/L (10-42); BILIRUBIN,TOTAL 0.4 mg/dL (0.2-1.0); BUN - BLOOD UREA NITROGEN 51 mg/dL (6-20); CALCIUM 7.9 mg/dL (8.5-10.3); CARBON DIOXIDE - CO2 16 mmol/L (21-32); CREATININE 2.3 mg/dL (0.6-1.2); GFR - MDRD 29 (>89); GLUCOSE 110 mg/dL (70-100); SODIUM 144 mmol/L (135-145); TOTAL PROTEIN 5.2 g/dL (6.7-8.2)
[2019-06-24 05:36] LABS: CHLORIDE 123 mmol/L (101-111)
[2019-06-24] MEDS: SODIUM CHLORIDE FLUSH 0.9% 10 ML SYRINGE IVP SCH ×3 (06:56→16:56)
[2019-06-24 07:23] LABS: PHOSPHORUS 4.9 mg/dL (2.5-4.6)
--- NOTE | 2019-06-24 08:13 | PHARMACY PROGRESS NOTE ---
- Therapy Status Vancomycin regimen day #: 2 Therapy status: Awaiting steady state Basis for treatment: Empirical Treatment indication: SEPSIS Trough goal: 15-20 Concurrent antibiotics: CEFEPIME - CON Risk Acute Kidney Injury risk factors: Goal trough >15, Chronic baseline hypertension, Diabetes, Admission to ICU, Acute hypotensive event - Monitoring and Recommendation Clinical response to treatment: I&O Previous 24 hours 06/22/19 06/23/19 06/24/19 23:59 23:59 23:59 Intake Total 2100 1100 Output Total 290 Balance 2100 810 Lab Results 06/24/19 06/23/19 06/23/19 05:03 22:16 22:16 ESR 32 H BUN 51 H 55 H Creatinine 2.3 H 2.4 H Estimated GFR (MDRD) 29 L 27 L Monitoring plan: Daily serum creatinine Next trough due prior to maintenance dose #: 4 Areas for additional monitoring: IV to PO when appropriate, Therapy de- escalation based on culture results, Acute Kidney Injury Pharmacy recommendation: Continue current regime
[2019-06-24] MEDS: LACTATED RINGERS 1,000 ML IV SCH ×2 (09:24→16:55)
--- NOTE | 2019-06-24 12:28 | PHARMACY PROGRESS NOTE ---
- Best Possible Medication History Admit Date and Time: 06/24/19 0001 Processed by: Pharmacy Medication History completed: Yes Patient Interview: Pt unable to participate Secondary Source(s): Physician records, Pharmacy records, Insurance records, Previous admit records, Facility MAR as ONLY source As the person ultimately responsible for medication therapy, providers are able to order a medication from an existing home medication list in [facility] via the "Reconcile Routine" prior to Confirmation of that medication by director of operations support. Such practice is discouraged except when the physician, in their clinical judgment, deems that a medical need exists for a medication without regard to previous use.
--- NOTE | 2019-06-24 14:07 | PROVIDER PROGRESS NOTE ---
Hospitalist Cross-cover Note - Cross-Cover Note Cross-Cover Note: I evaluated the patient at bedside with his present. She states that the patient had been doing well after being discharged from a [facility] facility. She states he had no complaints and that he had been eating and drinking well. She reports yesterday he suddenly became unresponsive. She does not believe that he could have taken any of her medications as his urine drug screen shows benzodiazepines and she does take Klonopin. Total the patient was also found to be hypothermic initially and she is unsure why as she reports having heat at home. I did discuss with the patient's son regarding his medical condition. The son, Regulo, states that his parents did not have a very good living situation there have been episodes of time where they did not have heat at home. He states that also their home has pillboxes everywhere and given that his father is blind, he believes that he may have very well taken a medication by accident as his mother is on many sedatives at home. He states they did they do not know which medications they take and there is no organization of their medications. The patient is now a little more awake and does respond to sternal rub as well as to his name. He is able to open his eyes but he does not say any words when asked. He has not required vasopressors. Given there is no obvious source of infection, I discontinue the IV antibiotics. His lactic acid is now normal after IV hydration. His renal function is also improving. His hemoglobin was low this morning at 7.2 so a type and screen was obtained. We will trend his hemoglobin and transfuse if his hemoglobin decreases less than 7. At this time, we will continue with IV fluids with lactated Ringer's given his elevated chloride and low bicarbonate. We will trend his basic metabolic panel and adjust fluids as needed. I suspect his encephalopathy is multifactorial in nature and likely secondary to dehydration and medication use that is incorrect such as benzodiazepine or any other sedative. He will hopefully continue to improve with hydration and time.
[2019-06-24] MEDS ORDERED: VANCOMYCIN INJ 1 GM in SODIUM CHLORIDE 0.9% 250 ML IV SCH (22:00)
[2019-06-24] MEDS ORDERED: VANCOMYCIN PER PHARMACY 10 GM in SODIUM CHLORIDE 0.9% 250 ML IV SCH (22:00)
[2019-06-25] MEDS: SODIUM CHLORIDE FLUSH 0.9% 10 ML SYRINGE IVP SCH ×3 (00:53→16:25)
[2019-06-25] MEDS: LACTATED RINGERS 1,000 ML IV SCH ×3 (00:53→18:37)
[2019-06-25 04:59] LABS: BASOPHILS # (AUTO) 0.1 10^3/uL (0.0-0.1); BASOPHILS % (AUTO) 1.6 %; EOSINOPHILS # (AUTO) 0.2 10^3/uL (0.0-0.7); EOSINOPHILS % (AUTO) 5.5 %; HGB - HEMOGLOBIN 8.1 g/dL (14.0-18.0); LYMPHOCYTES # (AUTO) 0.9 10^3/uL (1.5-3.5); LYMPHOCYTES % (AUTO) 21.5 %; MEAN CORPUSCULAR HEMOGLOBIN 30.5 pg (27.0-31.0); MEAN CORPUSCULAR HGB CONC 31.6 g/dL (32.0-36.0); MEAN CORPUSCULAR VOLUME 96.2 fL (80.0-94.0); MEAN PLATELET VOLUME 11.4 fL (7.4-11.4); MONOCYTES # (AUTO) 0.5 10^3/uL (0.0-1.0); MONOCYTES % (AUTO) 10.3 %; NEUTROPHILS # (AUTO) 2.6 10^3/uL (1.5-6.6); NEUTROPHILS % (AUTO) 60.4 %; PLT - PLATELET COUNT 224 10^3/uL (130-450); RED BLOOD COUNT 2.66 10^6/uL (4.70-6.10); RED CELL DISTRIBUTION WIDTH 13.9 % (12.0-15.0); WHITE BLOOD COUNT 4.4 x10^3/uL (4.8-10.8)
[2019-06-25 05:56] LABS: PSA FREE 0.55 ng/mL (0.16-2.81)
[2019-06-25 05:57] LABS: PSA TOTAL 1.73 ng/mL (0.000-2.000)
[2019-06-25 07:37] LABS: CALCIUM 8.6 mg/dL (8.5-10.3); PHOSPHORUS 4.2 mg/dL (2.5-4.6)
[2019-06-25] MEDS: FERROUS SULFATE 325 MG TABLET PO SCH (08:27)
--- NOTE | 2019-06-25 09:19 | PROVIDER PROGRESS NOTE ---
Subjective - Prog Note Date Prog Note Date: 06/25/19 - Subjective Subjective: Patient is much more awake this morning. He reports feeling well and has no acute complaints. He denies chest pain, dyspnea, abdominal pain. He reports feeling a little thirsty. He is complaining of no weakness in his extremities. He states he cannot recall what brought him to the hospital. States had been eating well prior to admission but that he could have been drinking a little more water. He states he had been doing well since he was home from a longterm facility. Current Medications - Current Medications Current Medications: Active Medications Acetaminophen (Tylenol) 650 mg PO Q4HR PRN PRN Reason: Pain 1 to 4 Ferrous Sulfate (Feosol) 325 mg PO DAILYWM [facility] Last Admin: 06/25/19 08:27 Dose: 325 mg Lactated Ringer's (Lr) 1,000 mls @ 125 mls/hr IV .Q8H [facility] Last Admin: 06/25/19 08:27 Dose: 125 mls/hr Ondansetron HCl (Zofran Inj) 4 mg IVP Q6HR PRN PRN Reason: Nausea / Vomiting Ondansetron HCl (Zofran Odt) 4 mg TL Q6HR PRN PRN Reason: Nausea / Vomiting Oxycodone HCl (Roxicodone) 5 mg PO Q4HR PRN PRN Reason: Pain 5 to 7 Sodium Chloride (Normal Saline Flush 0.9%) 10 ml IVP PRN PRN PRN Reason: NEEDED PER PROVIDER ORDERS Last Admin: 06/24/19 10:09 Dose: 10 ml Sodium Chloride (Normal Saline Flush 0.9%) 10 ml IVP 0100,0900,1700 [facility] Last Admin: 06/25/19 00:53 Dose: 10 ml Losartan [Cozaar] 100 mg PO DAILY 09/17/16 Brimonidine 0.2% Ophth Drops [Alphagan P 0.2% Ophth Drops] 1 drops EACHEYE BID 06/29/18 Timolol Maleate 1 drops EACHEYE DAILY 06/29/18 Amlodipine Besylate 10 mg PO DAILY 05/27/19 Insulin Glargine [Lantus Solostar] 10 units SQ DAILY 05/27/19 Metformin HCl 1,000 mg PO BID 06/23/19 acetaZOLAMIDE [Acetazolamide] 500 tab BID 06/23/19 hydroCHLOROthiazide [Hydrochlorothiazide] 25 mg PO DAILY 06/23/19 Objective - Vital Signs/Intake & Output Vital Signs: Vital Signs x48h Temp Pulse Resp BP Pulse Ox 06/25/19 07:00 37.0 C 83 8 L 156/80 H 100 06/25/19 06:00 37.4 C 75 10 L 150/77 H 700 H 06/25/19 05:00 38.0 C H 85 8 L 159/89 H 100 06/25/19 04:00 37.8 C H 85 8 L 168/78 H 100 06/25/19 03:00 37.2 C 83 10 L 155/78 H 100 06/25/19 02:00 36.4 C L 74 9 L 134/65 H 100 Intake & Output: Intake & Output 06/22/19 06/23/19 06/24/19 06/25/19 23:59 23:59 23:59 23:59 Intake Total 2100 2900.000 1681.250 Output Total [id number] Balance 2100 980.000 -293.750 - Objective General Appearance: positive: No acute distress, Alert Eyes Bilateral: positive: Conjunctivae nml, Other (Anisocoria noted. Left pupil is dilated.) ENT: positive: ENT inspection nml, Dry mucous membranes. negative: No signs of dehydration Neck: positive: Nml inspection Respiratory: positive: No respiratory distress. negative: Wheezes, Rales, Rhonchi Cardiovascular: positive: Regular rate & rhythm, No murmur. negative: Tachycardia, Bradycardia, Systolic murmur Abdomen: positive: Non-tender, No distention. negative: Tenderness, Guarding, Rebound Skin: positive: No rash, Warm, Dry Extremities: positive: Full ROM, No pedal edema Neurologic/Psychiatric: positive: Oriented x3, Other (He has no focal motor deficits.). negative: Disoriented to person, Disoriented to place, Disoriented to time - Lab Results Fish Bones: 06/25/19 04:50 06/25/19 04:50 Other Labs: Lab Results x24hrs 06/25/19 06/25/19 06/25/19 Range/Units 04:50 04:50 04:50 WBC 4.4 L (4.8-10.8) x10^3/uL RBC 2.66 L (4.70-6.10) 10^6/uL Hgb 8.1 L (14.0-18.0) g/dL Hct 25.6 L (42.0-52.0) % MCV 96.2 H (80.0-94.0) fL MCH 30.5 (27.0-31.0) pg MCHC 31.6 L (32.0-36.0) g/dL RDW 13.9 (12.0-15.0) % Plt Count 224 (130-450) 10^3/uL MPV 11.4 (7.4-11.4) fL Neut # (Auto) 2.6 (1.5-6.6) 10^3/uL Lymph # (Auto) 0.9 L (1.5-3.5) 10^3/uL [place] # (Auto) 0.5 (0.0-1.0) 10^3/uL Eos # (Auto) 0.2 (0.0-0.7) 10^3/uL Baso # (Auto) 0.1 (0.0-0.1) 10^3/uL Absolute Nucleated RBC 0.00 x10^3/uL Nucleated RBC % 0.0 /100WBC Sodium 145 (135-145) mmol/L Potassium 3.6 (3.5-5.0) mmol/L Chloride 120 H* (101-111) mmol/L Carbon Dioxide 17 L (21-32) mmol/L Anion Gap 8.0 (6-13) BUN 39 H (6-20) mg/dL Creatinine 2.0 H (0.6-1.2) mg/dL Estimated GFR (MDRD) 34 L (>89) Glucose 89 (70-100) mg/dL Calcium 8.6 (8.5-10.3) mg/dL Phosphorus 4.2 (2.5-4.6) mg/dL Magnesium 2.0 (1.7-2.8) mg/dL Carcinoembryonic Ag 2.0 ng/mL Prostate Specific Ag 1.730 (0.000-2.000) ng/mL Free PSA 0.550 (0.16-2.81) ng/mL % Free PSA Calc 32 (25-100) % ABX Reporting Has patient been on IV antibiotics over the past 48 hours?: No Sepsis Event Note (H) - Evaluation Current Stage of Sepsis: Ruled out Possible source of Sepsis: positive: Unknown - Sepsis Criteria Sepsis Criteria: Recorded Temperature greater than 38.3C or Less than 36C, TRUST MANAGER: altered consciousness (unrelated to primary neuro pathology), SBP less than 90 mmHg, Metabolic: lactate > 2 mmol/L Assessment/Plan - Problem List (1) Encephalopathy Impression: This has since resolved. Suspect this was secondary to dehydration and accidental medication ingestion. His urine drug screen was positive for benzodiazepines which is not on his medication list. His does take Klonopin as well as other sedatives per her son. Given the patient is blind, there is concern he may have taken the wrong medication and given his acute kidney injury, he developed encephalopathy. Imaging of the head was unremarkable. He is now alert and oriented and back to baseline. We will consult PT to work with the patient today. (2) Hypothermia Impression: Temperature was 34.5 degrees and he was placed on a Radha hugger. Initial concern was for sepsis given his elevated lactic acid and borderline hypotension. There is no obvious source of infection at this time and so antibiotics were discontinued. It is thought that he was hypothermic at home because they do not have functioning heat. His TSH was within normal limits. He was slightly hypothermic last night a temperature of 35.4 C and he was placed on a Radha hugger once again. The cause of this is not clear at the moment. He has not been hypoglycemic. At this moment, we will monitor his temperature off of the Radha hugger. (3) Acute kidney injury superimposed on CKD Impression: The injury is likely prerenal in nature. His creatinine was elevated at 2.4 and his baseline is 1.2. His creatinine continues to decrease. We will continue with IV hydration and monitor his renal function. (4) Type 2 diabetes mellitus with complication, with long-term current use of insulin Impression: He is now alert and able to tolerate a diet. We will place him on a consistent carbohydrate diet and restart his home Lantus 10 units daily. His last A1c was 6.5% we will monitor his blood sugars closely and she may ultimately not require insulin on discharge. We will not discharge him on metformin given his labile renal function in the past. (5) Hypertension Impression: He is now hypertensive again systolic in the 150s. We will resume his home antihypertensives. We will hold the losartan given his acute kidney injury. (6) Anemia Impression: His anemia is likely multifactorial given his CKD and there is a component of iron deficiency. We will resume him on oral iron supplement. Hemoglobin did drop yesterday to low sevens this morning it is greater than 8. A component this is likely dilutional given amount of IV fluids received for his hypotension. There are no signs of bleeding at the moment. Continue to monitor his CBC on a daily basis. He has been typed and screened in case he does need a transfusion. (7) Lactic acidosis Impression: This has since resolved. Suspect this secondary to metformin in the setting of dehydration and acute kidney injury. 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 We will resume his home eyedrops for his glaucoma. Qualifiers: Glaucoma type: unspecified Laterality: bilateral Qualified Code(s): H40.9 - Unspecified glaucoma
[2019-06-25] MEDS: HEPARIN 5,000 UNIT/ML VIAL SUBQ SCH ×2 (11:04→21:36)
[2019-06-25] MEDS: INSULIN GLARGINE 300 UNIT/3 ML PEN SUBQ SCH (11:04)
[2019-06-25] MEDS: amLODIPine 5 MG TABLET PO SCH (11:05)
[2019-06-25] MEDS: SENNA 8.6 MG TABLET PO SCH (11:06)
[2019-06-25] MEDS: hydrALAZINE 25 MG TABLET PO SCH ×2 (11:06→21:36)
[2019-06-25] MEDS: DOCUSATE SODIUM 250 MG CAPSULE PO SCH (11:06)
[2019-06-25] MEDS: polyethylene glycoL 3350 17 GM PACKET PO SCH (11:07)
[2019-06-25] MEDS: BRIMONIDINE 0.2% OPHTH DROPS 5 ML EACHEYE SCH (21:36)
[2019-06-26] MEDS: LACTATED RINGERS 1,000 ML IV SCH (02:06)
[2019-06-26] MEDS: SODIUM CHLORIDE FLUSH 0.9% 10 ML SYRINGE IVP SCH ×2 (02:06→08:53)
[2019-06-26 05:15] LABS: BASOPHILS # (AUTO) 0.1 10^3/uL (0.0-0.1); BASOPHILS % (AUTO) 1.8 %; EOSINOPHILS # (AUTO) 0.3 10^3/uL (0.0-0.7); EOSINOPHILS % (AUTO) 8.3 %; HGB - HEMOGLOBIN 8.3 g/dL (14.0-18.0); LYMPHOCYTES # (AUTO) 0.9 10^3/uL (1.5-3.5); MEAN CORPUSCULAR HEMOGLOBIN 30.2 pg (27.0-31.0); MEAN CORPUSCULAR HGB CONC 31.1 g/dL (32.0-36.0); MEAN CORPUSCULAR VOLUME 97.1 fL (80.0-94.0); MEAN PLATELET VOLUME 11.6 fL (7.4-11.4); MONOCYTES # (AUTO) 0.5 10^3/uL (0.0-1.0); MONOCYTES % (AUTO) 11.6 %; NEUTROPHILS # (AUTO) 2.1 10^3/uL (1.5-6.6); PLT - PLATELET COUNT 245 10^3/uL (130-450); RED BLOOD COUNT 2.75 10^6/uL (4.70-6.10); RED CELL DISTRIBUTION WIDTH 13.7 % (12.0-15.0); WHITE BLOOD COUNT 3.9 x10^3/uL (4.8-10.8)
[2019-06-26 05:37] LABS: CALCIUM 8.4 mg/dL (8.5-10.3); CREATININE 1.6 mg/dL (0.6-1.2); MAGNESIUM 1.9 mg/dL (1.7-2.8); PHOSPHORUS 3.4 mg/dL (2.5-4.6)
[2019-06-26] MEDS: SENNA 8.6 MG TABLET PO SCH (08:48)
[2019-06-26] MEDS: DOCUSATE SODIUM 250 MG CAPSULE PO SCH (08:48)
[2019-06-26] MEDS: hydrALAZINE 25 MG TABLET PO SCH ×2 (08:49→14:09)
[2019-06-26] MEDS: amLODIPine 5 MG TABLET PO SCH (08:49)
[2019-06-26] MEDS: HEPARIN 5,000 UNIT/ML VIAL SUBQ SCH (08:49)
[2019-06-26] MEDS: FERROUS SULFATE 325 MG TABLET PO SCH (08:49)
[2019-06-26] MEDS: polyethylene glycoL 3350 17 GM PACKET PO SCH (08:53)
[2019-06-26] MEDS: INSULIN GLARGINE 300 UNIT/3 ML PEN SUBQ SCH (08:56)
[2019-06-26] MEDS: BRIMONIDINE 0.2% OPHTH DROPS 5 ML EACHEYE SCH (08:56)
--- NOTE | 2019-06-26 11:43 | PROVIDER PROGRESS NOTE ---
Subjective - Prog Note Date Prog Note Date: 06/26/19 - Subjective Pt reports feeling: Improved Subjective: He reports feeling better each day. He reports no chest pain or dyspnea. He feels he is getting stronger each day. He was able to walk with physical therapy yesterday. He denies fevers or chills. He continues to report feeling a little thirsty. Current Medications - Current Medications Current Medications: Active Medications Acetaminophen (Tylenol) 650 mg PO Q4HR PRN PRN Reason: Pain 1 to 4 Amlodipine Besylate (Norvasc) 10 mg PO DAILY [facility] Last Admin: 06/26/19 08:49 Dose: 10 mg Brimonidine Tartrate (Alphagan P 0.2% Ophth Drops) 1 drops EACHEYE BID [facility] Last Admin: 06/26/19 08:56 Dose: 1 ea Docusate Sodium (Colace 250mg Capsule) 250 - 500 mg PO DAILY [facility] Last Admin: 06/26/19 08:48 Dose: 250 mg Ferrous Sulfate (Feosol) 325 mg PO DAILYWM [facility] Last Admin: 06/26/19 08:49 Dose: 325 mg Heparin Sodium (Porcine) () 5,000 unit SUBQ BID [facility] Last Admin: 06/26/19 08:49 Dose: 5,000 unit Hydralazine HCl (Apresoline) 25 mg PO TID [facility] Last Admin: 06/26/19 08:49 Dose: 25 mg Insulin Glargine (Lantus Solostar) 10 unit SUBQ DAILY [facility] Last Admin: 06/26/19 08:56 Dose: 10 unit Ondansetron HCl (Zofran Inj) 4 mg IVP Q6HR PRN PRN Reason: Nausea / Vomiting Ondansetron HCl (Zofran Odt) 4 mg TL Q6HR PRN PRN Reason: Nausea / Vomiting Oxycodone HCl (Roxicodone) 5 mg PO Q4HR PRN PRN Reason: Pain 5 to 7 Polyethylene Glycol (Miralax) 17 gm PO DAILY [facility] Last Admin: 06/26/19 08:53 Dose: Not Given Senna (Senokot) 8.6 - 17.2 mg PO DAILY [facility] Last Admin: 06/26/19 08:48 Dose: 8.6 mg Sodium Chloride (Normal Saline Flush 0.9%) 10 ml IVP PRN PRN PRN Reason: NEEDED PER PROVIDER ORDERS Last Admin: 06/24/19 10:09 Dose: 10 ml Sodium Chloride (Normal Saline Flush 0.9%) 10 ml IVP 0100,0900,1700 [facility] Last Admin: 06/26/19 08:53 Dose: 10 ml Losartan [Cozaar] 100 mg PO DAILY 09/17/16 Brimonidine 0.2% Ophth Drops [Alphagan P 0.2% Ophth Drops] 1 drops EACHEYE BID 06/29/18 Timolol Maleate 1 drops EACHEYE DAILY 06/29/18 Amlodipine Besylate 10 mg PO DAILY 05/27/19 Insulin Glargine [Lantus Solostar] 10 units SQ DAILY 05/27/19 Metformin HCl 1,000 mg PO BID 06/23/19 acetaZOLAMIDE [Acetazolamide] 500 tab BID 06/23/19 hydroCHLOROthiazide [Hydrochlorothiazide] 25 mg PO DAILY 06/23/19 Objective - Vital Signs/Intake & Output Reviewed Vital Signs: Yes Vital Signs: Vital Signs x48h Temp Pulse Pulse Pulse Resp BP BP 06/26/19 10:20 75 151/80 H 06/26/19 07:36 36.9 C 77 16 163/68 H 06/26/19 05:00 37.0 C 80 18 170/82 H 06/26/19 03:49 36.8 C 80 18 Pulse Ox 06/26/19 10:20 06/26/19 07:36 96 06/26/19 05:00 95 06/26/19 03:49 96 Intake & Output: Intake & Output 06/23/19 06/24/19 06/25/19 06/26/19 23:59 23:59 23:59 23:59 Intake Total 2099 2900.000 4491.250 2052.417 Output Total 1920 2650 Balance 2100 246.613 1666.250 2052.417 - Objective General Appearance: positive: No acute distress, Alert Eyes Bilateral: positive: Conjunctivae nml, Other (Anisocoria noted.) ENT: positive: ENT inspection nml Neck: positive: Nml inspection Respiratory: positive: No respiratory distress. negative: Wheezes, Rales, Rhonchi Cardiovascular: positive: Regular rate & rhythm, No murmur. negative: Tachycardia, Bradycardia, Systolic murmur Abdomen: positive: Non-tender, No distention. negative: Tenderness, Guarding, Rebound Skin: positive: No rash, Warm, Dry Extremities: positive: No pedal edema Neurologic/Psychiatric: positive: Oriented x3, Other (No focal motor deficits.). negative: Disoriented to person, Disoriented to place, Disoriented to time - Lab Results Fish Bones: 06/26/19 05:07 06/26/19 05:07 Other Labs: Lab Results x24hrs 06/26/19 06/26/19 Range/Units 05:07 05:07 WBC 3.9 L (4.8-10.8) x10^3/uL RBC 2.75 L (4.70-6.10) 10^6/uL Hgb 8.3 L (14.0-18.0) g/dL Hct 26.7 L (42.0-52.0) % MCV 97.1 H (80.0-94.0) fL MCH 30.2 (27.0-31.0) pg MCHC 31.1 L (32.0-36.0) g/dL RDW 13.7 (12.0-15.0) % Plt Count 245 (130-450) 10^3/uL MPV 11.6 H (7.4-11.4) fL Neut # (Auto) 2.1 (1.5-6.6) 10^3/uL Lymph # (Auto) 0.9 L (1.5-3.5) 10^3/uL [place] # (Auto) 0.5 (0.0-1.0) 10^3/uL Eos # (Auto) 0.3 (0.0-0.7) 10^3/uL Baso # (Auto) 0.1 (0.0-0.1) 10^3/uL Absolute Nucleated RBC 0.00 x10^3/uL Nucleated RBC % 0.0 /100WBC Sodium 143 (135-145) mmol/L Potassium 3.6 (3.5-5.0) mmol/L Chloride 118 H (101-111) mmol/L Carbon Dioxide 18 L (21-32) mmol/L Anion Gap 7.0 (6-13) BUN 35 H (6-20) mg/dL Creatinine 1.6 H (0.6-1.2) mg/dL Estimated GFR (MDRD) 44 L (>89) Glucose 151 H (70-100) mg/dL Calcium 8.4 L (8.5-10.3) mg/dL Phosphorus 3.4 (2.5-4.6) mg/dL Magnesium 1.9 (1.7-2.8) mg/dL ABX Reporting Has patient been on IV antibiotics over the past 48 hours?: No Sepsis Event Note (H) - Evaluation Current Stage of Sepsis: Ruled out Possible source of Sepsis: positive: Unknown - Sepsis Criteria Sepsis Criteria: Recorded Temperature greater than 38.3C or Less than 36C, HEALTH COMPANION: altered consciousness (unrelated to primary neuro pathology), SBP less than 90 mmHg, Metabolic: lactate > 2 mmol/L Assessment/Plan - Problem List (1) Encephalopathy Impression: Resolved. This is likely multifactorial in nature and secondary to dehydration and likely accidental medical ingestion as his urine drug screen was positive for benzodiazepines which is not on his medication list. He was seen by physi leonarda therapy and they are recommending skilled nurse facility for physical therapy. (2) Hypothermia Impression: This has resolved. The etiology was likely the fact that he does not have heat at his home. TSH within normal limits. His temperature is currently within normal limits. (3) Acute kidney injury superimposed on CKD Impression: Improving and nearly resolved. His creatinine today is at 1.6 and his baseline is approximately 1.3. This was likely a prerenal injury given he was hypovolemic. We will discontinue his IV fluids today. We will restart his home losartan tomorrow. (4) Type 2 diabetes mellitus with complication, with long-term current use of insulin Impression: He has been restarted on his home Lantus and is tolerating a clear carb controlled diet. We will discontinue his metformin on discharge given his labile renal function. (5) Hypertension Impression: He remains hypertensive despite restarting his home antihypertensives including amlodipine and hydralazine. We will increase hydralazine to 25 mg 3 times daily from twice daily. Will restart his home losartan tomorrow as his creatinine is still slightly elevated. We will continue to hold his hydrochlorothiazide given he was just resuscitated with IV fluids. We will likely discontinue it on discharge as well given he has been admitted for hypovolemia a couple of times now. (6) Anemia Impression: Anemia is likely multifactorial given his CKD but there is a component of iron deficiency. He will continue his iron supplementation. His hemoglobin is stable with no signs of bleeding. (7) Glaucoma (increased eye pressure) Impression: Stable. Continue his home eyedrops. Qualifiers: Glaucoma type: unspecified Laterality: bilateral Qualified Code(s): H40.9 - Unspecified glaucoma (8) Lactic acidosis Impression: Resolved. This was likely secondary to metformin in the setting of dehydration and acute kidney injury.
--- NOTE | 2019-06-26 14:30 | Discharge Plan ---
"Discharge Plan for SNF / SUN - Discharge Plan And Transition Orders Problem Reviewed?: Yes Disposition: 03 SNF DC/Xfer Condition: Stable Allergies and Adverse Reactions: Allergies Allergy/AdvReac Type Severity Reaction Status Date / Time No Known Drug Allergies Allergy Verified 06/29/18 16:27 Health Concerns: Was admitted to the hospital because of encephalopathy and hypothermia. There is initial concern for sepsis and started on IV antibiotics with vancomycin and cefepime. There is no obvious source of infection and so they were discontinued. It was felt he was hypothermic because he has no heat at his home. It was felt his encephalopathy was likely due to accidental medication ingestion as his urine drug screen was positive for benzodiazepines and this is not on his medication list. This along with acute kidney injury was likely the contributing factors. His renal function has improved with IV hydration. PT evaluated the patient and recommended senior care facility. Plan of Treatment: He should have a basic metabolic panel checked in 3 days to ensure his renal function is stable. - SNF / SKILLED NURSING Transition Orders Admit to (Facility): [facility] Discharge Diagnosis: Encephalopathy Resolved. This is likely multifactorial in nature and secondary to dehydration and likely accidental medical ingestion as his urine drug screen was positive for benzodiazepines which is not on his medication list. He was seen by physical therapy and they are recommending skilled nurse facility for physical therapy. Hypothermia This has resolved. The etiology was likely the fact that he does not have heat at his home. TSH within normal limits. His temperature is currently within normal limits. Acute kidney injury superimposed on CKD Improving and nearly resolved. His creatinine today is at 1.6 and his baseline is approximately 1.3. This was likely a prerenal injury given he was hypo volemic. We will restart his home losartan tomorrow. Type 2 diabetes mellitus He has been restarted on his home Lantus and is tolerating a ccarb controlled diet. We will discontinue his metformin on discharge given his labile renal function. Hypertension He remains hypertensive despite restarting his home antihypertensives including amlodipine and hydralazine. We will increase hydralazine to 25 mg 3 times daily from twice daily. Will restart his home losartan tomorrow as his creatinine is still slightly elevated. We will continue to hold his hydrochlorothiazide given he was just resuscitated with IV fluids. We will likely discontinue it on discharge as well given he has been admitted for hypovolemia a couple of times now. Anemia Anemia is likely multifactorial given his CKD but there is a component of iron deficiency. He will continue his iron supplementation. His hemoglobin is stable with no signs of bleeding. Glaucoma Stable. Continue his home eyedrops. Lactic Acidosis Resolved. This was likely secondary to metformin in the setting of dehydration and acute kidney injury. Medicare Certification Statement: I certify that [facility] care is medically necessary on a continuing basis for any of the conditions for which she/he is receiving care during hospitalization. Notify PCP of admission and forward orders to primary provider for signature. Weight on admission and: Weekly Other Notification Orders: Call PCP immediately if patient develops dyspnea, chest pain/tightness or edema. Additional Bowel Program Orders: If no BM after 2 days, nurse may give M.O.M. 30ml PO PRN and/or ducolax Supp 1 IN and/or JORGE LUIS 250mg P.O., and/or senna 1-2 tabs PO. On day 3 nurse may give repeat above order until residents constipation is resolved. Lab Tests or X-ray Orders: Please obtain a basic metabolic panel on June 29 Medication Orders: PLEASE REFER TO THE DISCHARGE MEDICATION LIST. - Medications New Prescriptions: hydrALAZINE [Apresoline] 25 mg PO TID #90 tablet - Diet Type: No added sugar Texture: Regular Liquids: Thin - Therapies | Activity Therapy: Evaluation | Treat if indicated: PT Rehabilitation Potential: Return to independent living Activity: Activity as Tolerated Assistance Devices: Walker"
--- NOTE | 2019-06-26 14:39 | DISCHARGE SUMMARY ---
Discharge Summary Admit Date: 06/24/19 Discharge Date: 06/26/19 Discharging Provider: Loyd Singer Primary Care Provider: Rosalie Victor Code Status: Attempt Resuscitation Condition at Discharge: Stable Discharge Disposition: 03 SNF DC/Xfer Discharge Facility Name: [facility] - DIAGNOSES Admission Diagnoses: Toxic metabolic encephalopathy Lactic acidosis Sepsis associated hypotension Weight loss, abnormal Acute worsening of stage III chronic kidney disease Type 2 diabetes mellitus with complication with long-term current use of insulin Hypokalemia Anemia of chronic kidney disease History of essential hypertension Full CODE STATUS Discharge Diagnoses with Status of Each Condition: Encephalopathy Resolved. This is likely multifactorial in nature and secondary to dehydration and likely accidental medical ingestion as his urine drug screen was positive for benzodiazepines which is not on his medication list. He was seen by physical therapy and they are recommending skilled nurse facility for physical therapy. Hypothermia This has resolved. The etiology was likely the fact that he does not have heat at his home. TSH within normal limits. His temperature is currently within normal limits. Acute kidney injury superimposed on CKD Improving and nearly resolved. His creatinine today is at 1.6 and his baseline is approximately 1.3. This was likely a prerenal injury given he was hypovolemic. We will restart his home losartan tomorrow. Should have a basic metabolic panel obtained in 3 days to make sure his renal function is stable. Type 2 diabetes mellitus He has been restarted on his home Lantus and is tolerating a ccarb controlled diet. We will discontinue his metformin on discharge given his labile renal function. Hypertension He remains hypertensive despite restarting his home antihypertensives including amlodipine and hydralazine. We will increase hydralazine to 25 mg 3 times daily from twice daily. Will restart his home losartan tomorrow as his creatinine is still slightly elevated. We will continue to hold his hydrochlorothiazide given he was just resuscitated with IV fluids. We will likely discontinue it on discharge as well given he has been admitted for hypovolemia a couple of times now. Anemia Anemia is likely multifactorial given his CKD but there is a component of iron deficiency. He will continue his iron supplementation. His hemoglobin is stable with no signs of bleeding. Glaucoma Stable. Continue his home eyedrops. Lactic Acidosis Resolved. This was likely secondary to metformin in the setting of dehydration and acute kidney injury. - HPI History of Present Illness: H&P per Dr. Ortega on June 24: After reviewing the medical record, this is a 63-year-old gentleman who is been gradually failing for 2 years. Probably closer to 3. He has had weight loss, fatigue, increasing leg weakness, falls. His maximum weight in 2016 was 160 and is down to 138 in March. There have been no fevers, sweats. Food has tasted bad and has had a "metallic" taste to it but his states he "has been eating good" with is frozen foods and meals on wheels. His diabetes has been uncontrolled and has resulted in chronic kidney disease, macular degeneration. He was 9% A1c in the past, and has come down to 6.4% this fall 2018. His feels that he has been minimizing his deterioration. She worries about them. But he keeps on telling her that "he is fine". She has noted his weight loss, weakness, but feels that they have never really directed themselves toward figuring out why. He was admitted May 27 with lethargy, confusion. He had severe dehydration, cachexia, and urine cultures grew out E. coli. Blood cultures were negative. He was sent home on prolonged ciprofloxacin therapy with the presumption that he may have prostate infection causing UTI. He was discharged to a senior living facility because of his weakness, inability to ambulate. He has been home for a few days, and now returns with another episode of confusion, lethargy, and having less and less response to his . When EMS got to the house, his glucose was 110. Since being here he is not really able to give a history to the emergency room physician. Temperature is 34.5 and he was placed in a bear hugger. Heart rate is bradycardic. Respirations are slow at 10-12. Initial blood pressure 84/56. White cell count is low at 3.3. BUN is again elevated at 55 and creatinine is again elevated at 2.4. With his last hospitalization in April his BUN was in the 80s and creatinine was 3. His urine tox remain is negative other than for benzodiazepines. He does not have them on his discharge medication list from the hospital June 01. I will verify if he started those in the senior living facility. Lactic acid is elevated at 3.1. BNP is 192. He continues to be malnourished with a total protein of 5.8 and albumin of 3. Troponin is 9. He has a severely depressed white cell count of 3.3. His discharge white cell count was 6.7. He continues to have a chronic anemia of 8.1 g of hemoglobin with an MCV that is 98. Chest x-ray is negative for pneumonia. Patient is now admitted for his metabolic encephalopathy with con commitment renal failure, lactic acidosis.He has received 3 L of IV fluid resuscitation in the emergency room as well as empiric Zosyn and vancomycin. In speaking to his , he started deteriorating about 2 days ago. When he was at the senior living facility he really did not do a lot of exercising because "it just really was not offered". She also thinks that he may not have complied with what they did offer. When he got back home, he does use a walker. But there wagon wheel hallways are too narrow for him to use a walker so he "hugs the valdez". He does not walk very far. His legs are too weak and numb to support him for any great distance. She gives him his medications. His pills are in a glass bowl with the plastic wrap over it. She also takes her pills in a similar bowl. She is adamant that he is not getting any of her medications. She takes clonazepam. He does not have any benzodiazepines on his list. - CONSULTS | PROCEDURES Consultations: PT - HOSPITAL COURSE Hospital Course: He was admitted to the hospital because of encephalopathy and hypothermia. There is initial concern for sepsis and started on IV antibiotics with vancomycin and cefepime. There is no obvious source of infection and so they were discontinued. It was felt he was hypothermic because he has no heat at his home. It was felt his encephalopathy was likely due to accidental medication ingestion as his urine drug screen was positive for benzodiazepines and this is not on his medication list. CT the head was negative and ammonia was within normal limits. This along with acute kidney injury was likely the contributing factors. His renal function has improved with IV hydration. Mental status improved and returned to baseline within 24 hours. There was concern about weight loss and so a PSA was checked as well as CEA and both were negative. PT evaluated the patient and recommended senior living facility. He is now stable for discharge to [facility] for senior living needs. - ALLERGIES Allergies/Adverse Reactions: Allergies Allergy/AdvReac Type Severity Reaction Status Date / Time No Known Drug Allergies Allergy Verified 06/29/18 16:27 - MEDICATIONS Home Medications: Ambulatory Orders Medication Instructions Recorded Confirmed Losartan [Cozaar] 100 mg PO DAILY 09/17/16 06/24/19 Brimonidine 0.2% Ophth Drops 1 drops EACHEYE BID 06/29/18 06/24/19 [Alphagan P 0.2% Ophth Drops] Timolol Maleate 1 drops EACHEYE DAILY 06/29/18 06/24/19 Amlodipine Besylate 10 mg PO DAILY 05/27/19 06/24/19 Insulin Glargine [Lantus Solostar] 10 units SQ DAILY 05/27/19 06/24/19 Insulin Aspart [NovoLOG] 1 - 9 unit SUBQ 06/01/19 06/24/19 0800,1200,1700,2100 #2 pen Lactobacillus Rhamnosus GG 1 cap PO DAILY #14 capsule 06/01/19 06/24/19 [Culturelle] Multivitamin W/Minerals [Theragran 1 tab PO DAILY@1200 #30 tablet 06/01/19 06/24/19 M] hydrALAZINE [Apresoline] 25 mg PO TID #90 tablet 06/26/19 - PHYSICAL EXAM AT DISCHARGE General Appearance: positive: No acute distress, Alert, Mild distress Eyes Bilateral: positive: Conjunctivae nml, Other (Anisocoria.) ENT: positive: ENT inspection nml Neck: positive: Nml inspection Respiratory: positive: No respiratory distress. negative: Wheezes, Rales, Rhonchi Cardiovascular: positive: Regular rate & rhythm, No murmur. negative: Tachycardia, Bradycardia, Systolic murmur, Diastolic murmur Abdomen: positive: Non-tender, No distention. negative: Tenderness Skin: positive: No rash, Warm, Dry Extremities: positive: No pedal edema Neurologic/Psychiatric: positive: Oriented x3, Other (No focal motor deficits.). negative: Disoriented to person, Disoriented to place, Disoriented to time - LABS Result Diagrams: 06/26/19 05:07 06/26/19 05:07 - DIAGNOSTIC IMAGING Diagnostic Imaging Results: Final report reviewed - SEPSIS Current Stage of Sepsis: Ruled out Possible source of Sepsis: Unknown Sepsis Criteria: Recorded Temperature greater than 38.3C or Less than 36C, STERILISATION TECHNICIAN: altered consciousness (unrelated to primary neuro pathology), SBP less than 90 mmHg, Metabolic: lactate > 2 mmol/L - TIME SPENT Time Spent in Discharge (Minutes): 35
[2019-06-26 15:36] VITALS: BP 162/83
== END 2019-06-26 16:00 | DRG 391 ==
LOC: EDUNIT# → ED 21:42 → ICU 06-24 00:01 → MS2 06-25 14:07
PROVIDERS: ADMIT Specialist; ATTEND Internal Medicine
DX: R10.31 Right lower quadrant pain (principal); R11.2 Nausea with vomiting, unspecified; E11.65 Type 2 diabetes mellitus with hyperglycemia; K52.9 Noninfective gastroenteritis and colitis, unspecified; E11.10 Type 2 diabetes mellitus with ketoacidosis without coma; I12.9 Hypertensive chronic kidney disease with stage 1 through stage 4 chronic kidney disease, or unspecified chronic kidney disease; E11.22 Type 2 diabetes mellitus with diabetic chronic kidney disease; N18.3 Chronic kidney disease, stage 3 (moderate); R07.9 Chest pain, unspecified; K21.9 Gastro-esophageal reflux disease without esophagitis; G47.30 Sleep apnea, unspecified; E78.00 Pure hypercholesterolemia, unspecified; K44.9 Diaphragmatic hernia without obstruction or gangrene; G89.29 Other chronic pain; M54.9 Dorsalgia, unspecified; M19.90 Unspecified osteoarthritis, unspecified site; Z90.49 Acquired absence of other specified parts of digestive tract; Z72.89 Other problems related to lifestyle; Z79.4 Long term (current) use of insulin; Z79.891 Long term (current) use of opiate analgesic; Z79.52 Long term (current) use of systemic steroids; Z87.19 Personal history of other diseases of the digestive system; Z87.891 Personal history of nicotine dependence
CPT/HCPCS: 36415; 51702; 70450; 71045; 80048; 80053; 81001; 82009; 82378; 82550; 82803; 83605; 83690; 83735; 83880; 84100; 84153; 84154; 84443; 84484; 85025; 85610; 85651; 85730; 86140; 86850; 86900; 86901; 87040; 87150; 93005; 96365; 96367; 97116; 97162; 97165; 99285; A9270; J1815; J3370; J7120; 80306; 80307; 80320; 80329; 81003; 87086

== ENCOUNTER 2019-06-29 07:00 | Outpatient (CLI) | payer MEDICARE ==
[2019-06-29 18:49] LABS: CALCIUM 8.5 mg/dL (8.5-10.3); CREATININE 1.4 mg/dL (0.6-1.2)
== END 2019-06-29 23:59 | disposition home or self-care (01) ==
LOC: LAB.R 07:00
DX: N18.3 Chronic kidney disease, stage 3 (moderate) (principal); D63.1 Anemia in chronic kidney disease
CPT/HCPCS: 80048

== ENCOUNTER 2019-07-20 12:02 | Outpatient (CLI) | payer MEDICARE ==
--- NOTE | 2019-07-21 03:24 | XRAY Report ---
Reason: SOB AND DECREASED LUNG SOUNDS Procedure Date: 07/20/2019 Accession Number: [id number] / [id number] Procedure: XR - Chest 2 View X-Ray CPT Code: 85494 Final Report FULL RESULT: EXAM: CHEST RADIOGRAPHY EXAM DATE: 07/20/2019 12:25 PM. CLINICAL HISTORY: SOB AND DECREASED LUNG SOUNDS. COMPARISON: CHEST 1 VIEW 06/23/2019 9:56 PM. TECHNIQUE: 2 views. FINDINGS: The mediastinal and cardiac silhouettes are normal. Bibasilar airspace opacities have developed with small bilateral pleural effusions, right greater than left. There is no or pneumothorax. IMPRESSION: New bibasilar airspace opacities, likely atelectasis. New bilateral pleural effusions, right greater than left. RADIA
== END 2019-07-20 12:03 | disposition home or self-care (01) ==
LOC: DI 12:02
PROVIDERS: ATTEND Nurse Practitioner
DX: R91.8 Other nonspecific abnormal finding of lung field (principal); J90 Pleural effusion, not elsewhere classified
CPT/HCPCS: 71046

== ENCOUNTER 2019-07-23 15:30 | Outpatient (CLI) | payer MEDICARE ==
[2019-07-23 16:11] LABS: CHOL/HDL RATIO 2.5 (<5.0); CHOLESTEROL 160 mg/dL; HDL CHOLESTEROL 65 mg/dL; LDL CHOLESTEROL,CALCULATED 86 mg/dL; LDL/HDL RATIO 1.3 (<3.6); VLDL CHOLESTEROL 9 mg/dL
== END 2019-07-23 23:59 | disposition home or self-care (01) ==
LOC: LAB.R 15:30
PROVIDERS: ATTEND Family Medicine
DX: E44.0 Moderate protein-calorie malnutrition (principal)
CPT/HCPCS: 80061; 83721

== ENCOUNTER 2019-08-16 17:25 | Outpatient (CLI) | payer MEDICARE, OTHER | END 2019-08-16 23:59 | disposition home or self-care (01) | LOC: LAB.R 17:25 | DX: J11.1 Influenza due to unidentified influenza virus with other respiratory manifestations (principal) | CPT/HCPCS: 87275; 87276 ==

== ENCOUNTER 2019-08-19 04:39 | Outpatient (CLI) | payer MEDICARE | END 2019-08-19 04:40 | disposition critical access hospital (66) | LOC: EMS 04:39 | PROVIDERS: ATTEND Surgery | DX: R06.02 Shortness of breath (principal) | CPT/HCPCS: A0425; A0429 ==

== ENCOUNTER 2019-08-19 05:07 | Inpatient (IN) | payer MEDICARE, OTHER ==
[2019-08-19] MEDS ORDERED: methylPREDNISolone SUCCINATE 125 MG/2 ML VIAL IVP STA (05:20)
[2019-08-19] MEDS ORDERED: ALBUTEROL NEB 2.5 MG/3 ML INH STA (05:20)
[2019-08-19] MEDS ORDERED: SODIUM CHLORIDE 0.9% 1,000 ML IV ONE (05:20)
[2019-08-19] MEDS ORDERED: cefTRIAXone 1 GM in SODIUM CHLORIDE 0.9% MINIBAG 100 ML IV STA (05:20)
--- NOTE | 2019-08-19 05:21 | ED Physician Documentation ---
PD HPI DYSPNEA - Stated complaint Stated Complaint: CP - History obtained from History obtained from: Patient (the patient is a 58 y/o m who arrives via ems w a cc of dyspnea, fever and cough. reports sob, denies chest pain, syncope, h/a, neck pain or rashes. denies travel outside the country in the last 14 days, lives at a SNF. denies any hx of DVT/PE. stays at [facility], was tested for flu and covid there 2 days ago, we are awaiting results to be faxed over. nursing staff at [facility] reports he was hypoxic at 86% on room air.) Review of Systems Constitutional: reports: Fever, Chills, Myalgias Eyes: reports: Reviewed and negative Ears: reports: Reviewed and negative Nose: reports: Reviewed and negative Throat: reports: Sore throat Cardiac: reports: Palpitations, Reviewed and negative Respiratory: reports: Dyspnea, Cough, Wheezing GI: reports: Reviewed and negative : reports: Reviewed and negative Skin: reports: Reviewed and negative Musculoskeletal: reports: Reviewed and negative Neurologic: reports: Reviewed and negative Psychiatric: reports: Reviewed and negative Endocrine: reports: Reviewed and negative Immunocompromised: reports: Reviewed and negative PD PAST MEDICAL HISTORY - Past Medical History Cardiovascular: Congestive heart failure, Hypertension Respiratory: Other (extensive second hand smoke exposure in life) Neuro: Peripheral neuropathy Endocrine/Autoimmune: Type 2 diabetes, Other GI: GERD, Other (anorexia since summer 2018. Nephrology consuslt worried and noted severe cachexia and work up deferred to "Ms Rosalie Victor" Has had 20 lb weight loss from [id number]. Fall bc of it. ) : Frequency, Other (CKD III w US 10/2018 showing b/l cortical echogenicity. Saw MD Bhargav at [facility] 09/2018. 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 Gets Avastin OD. ), Glaucoma Psych: Claustrophobia Musculoskeletal: None Derm: Other - Past Surgical History Past Surgical History: Yes HEENT: Cataracts (done), Other (wisdom teeth) - Present Medications Home Medications: Ambulatory Orders Medication Instructions Recorded Confirmed Losartan [Cozaar] 100 mg PO DAILY 09/17/16 06/24/19 Brimonidine 0.2% Ophth Drops 1 drops EACHEYE BID 06/29/18 06/24/19 [Alphagan P 0.2% Ophth Drops] Amlodipine Besylate 10 mg PO DAILY 05/27/19 06/24/19 Insulin Glargine [Lantus Solostar] 10 units SQ DAILY 05/27/19 06/24/19 Insulin Aspart [NovoLOG] 1 - 9 unit SUBQ 06/01/19 06/24/19 0800,1200,1700,2100 #2 pen Lactobacillus Rhamnosus GG 1 cap PO DAILY #14 capsule 06/01/19 06/24/19 [Culturelle] Multivitamin W/Minerals [Theragran 1 tab PO DAILY@1200 #30 tablet 06/01/19 06/24/19 M] hydrALAZINE [Apresoline] 25 mg PO TID #90 tablet 06/26/19 Atorvastatin Calcium 10 mg DAILY 08/19/19 08/19/19 hydroCHLOROthiazide 25 mg DAILY 08/19/19 08/19/19 [Hydrochlorothiazide] - Allergies Allergies/Adverse Reactions: Allergies Allergy/AdvReac Type Severity Reaction Status Date / Time No Known Drug Allergies Allergy Verified 08/19/19 05:24 - Social History Does the pt smoke?: No Smoking Status: Never smoker Does the pt drink ETOH?: No Does the pt have substance abuse?: No - Immunizations Immunizations are current?: Yes Immunizations: TDAP >10years/unknown - POLST Patient has POLST: No POLST Status: Full Code (She is speaking for her . She states that he would want everything done.) PD ED PE NORMAL - Vitals Vital signs reviewed: Yes - General General: Alert and oriented X 3, Other (appears older than stated age. tachypneic and sob, trachea midline.) - HEENT HEENT: Atraumatic, PERRL, Moist mucous membranes, Pharynx benign - Neck Neck: Supple, no meningeal sign, No JVD - Cardiac Cardiac: RRR, No murmur, Strong equal pulses - Respiratory Respiratory: Other (tachypneis, trachea midline, diffuse wheezing in b/l lung ashley, diffuse crackles in b/l lung ashley, intercostal retractions. ) - Abdomen Abdomen: Normal bowel sounds, Soft, Non tender, Non distended - Back Back: No CVA TTP, No spinal TTP - Derm Derm: Normal color, Warm and dry, No rash - Extremities Extremities: No deformity, No tenderness to palpate, Normal ROM s pain, No calf tenderness / cord, Other (1+ edema to b/l le, symettric) - Neuro Neuro: Alert and oriented X 3, preschool education director 2-12 intact, No motor deficit, No sensory deficit, Normal speech - Psych Psych: Normal mood, Normal affect Results - Vitals Vitals: Vital Signs - 24 hr 08/19/19 08/19/19 05:16 05:34 Temperature 36.5 C Heart Rate 96 92 Respiratory 24 24 Rate Blood Pressure 193/77 H O2 Saturation 93 Oxygen O2 Source Nasal cannula Oxygen Flow Rate 2 - EKG (time done) 05:13 Rate: Other (no stemi) - Labs Labs: Laboratory Tests 08/19/19 08/19/19 08/19/19 05:50 05:50 05:50 WBC 5.3 RBC 2.47 L Hgb 7.2 L Hct 23.3 L MCV 94.3 H MCH 29.1 MCHC 30.9 L RDW 13.7 Plt Count 187 MPV 12.0 H Neut # (Auto) 4.5 Lymph # (Auto) 0.3 L [place] # (Auto) 0.4 Eos # (Auto) 0.0 Baso # (Auto) 0.0 Absolute Nucleated RBC 0.00 Nucleated RBC % 0.0 PT 12.9 H INR 1.1 APTT 35.8 H Sodium Potassium Chloride Carbon Dioxide Anion Gap BUN Creatinine Estimated GFR (MDRD) Glucose Lactic Acid Calcium Magnesium Total Bilirubin Direct Bilirubin AST ALT Alkaline Phosphatase B-Natriuretic Peptide 2159 H Total Protein Albumin Globulin Lipase Ethyl Alcohol 08/19/19 08/19/19 05:50 05:50 WBC RBC Hgb Hct MCV MCH MCHC RDW Plt Count MPV Neut # (Auto) Lymph # (Auto) [place] # (Auto) Eos # (Auto) Baso # (Auto) Absolute Nucleated RBC Nucleated RBC % PT INR APTT Sodium 137 Potassium 4.2 Chloride 107 Carbon Dioxide 19 L Anion Gap 11.0 BUN 57 H Creatinine 2.0 H Estimated GFR (MDRD) 34 L Glucose 95 Lactic Acid 0.7 Calcium 7.9 L Magnesium 2.4 Total Bilirubin 0.8 Direct Bilirubin 0.1 AST 28 ALT 20 Alkaline Phosphatase 64 B-Natriuretic Peptide Total Protein 6.4 L Albumin 3.5 Globulin 2.9 Lipase 27 Ethyl Alcohol < 5.0 PD MEDICAL DECISION MAKING - ED course Complexity details: considered differential (pna, influenza, bronchitis, pulmonary edema, acs, chf, covid, ards, pe, pnthx, pleural effusions, renal failure) - Consults Consults: Consulted (name) (dr. lozano), Request pharmacy consultant admit patient (will admit for pna, con, chf) - Critical Care Time(min): 30 Time Includes: Direct patient care, Review records, Reassess patient, Document care, Coordinate care, Medical consult, Family consult for tx dec Data interpretation: Labs, CXR Procedures included in critical care time: Peripheral IV Procedures excluded from critical care time: EKG Departure - Departure Disposition: 66 [facility] DC/Xfer Clinical Impression: CON (acute kidney injury) Pneumonia Qualifiers: Pneumonia type: due to unspecified organism Laterality: bilateral Lung location: lower lobe of lung Qualified Code(s): J18.9 - Pneumonia, unspecified organism CHF (congestive heart failure) Qualifiers: Heart failure type: unspecified Heart failure chronicity: unspecified Qualified Code(s): I50.9 - Heart failure, unspecified Condition: Stable
[2019-08-19] MEDS ORDERED: AZITHROMYCIN INJ 500 MG in SODIUM CHLORIDE 0.9% 250 ML IV STA (05:57)
--- NOTE | 2019-08-19 05:58 | XRAY Report ---
Reason: sob Procedure Date: 08/19/2019 Accession Number: [id number] / [id number] Procedure: XR - Chest 1 View X-Ray CPT Code: 64833 Final Report FULL RESULT: EXAM: CHEST RADIOGRAPHY EXAM DATE: 08/19/2019 05:47 AM. CLINICAL HISTORY: Shortness of breath. COMPARISON: CHEST 2 VIEW 07/20/2019 12:14 PM. TECHNIQUE: 1 view. FINDINGS: Lungs/Pleura: Peripheral airspace opacity at right lung base and interstitial and peripheral airspace opacities in left lung. No significant pleural effusion or pneumothorax. Mediastinum: Moderate enlargement of cardiac silhouette. Other: None. IMPRESSION: 1. Bilateral pulmonary opacities in a pattern concerning for pneumonia, possibly viral or atypical infection. Correlate clinically. 2. Moderate enlargement of cardiac silhouette. RADIA
[2019-08-19 06:02] LABS: BASOPHILS % (AUTO) 0.2 %; HGB - HEMOGLOBIN 7.2 g/dL (14.0-18.0); LYMPHOCYTES # (AUTO) 0.3 10^3/uL (1.5-3.5); LYMPHOCYTES % (AUTO) 4.8 %; MEAN CORPUSCULAR HEMOGLOBIN 29.1 pg (27.0-31.0); MEAN CORPUSCULAR HGB CONC 30.9 g/dL (32.0-36.0); MEAN CORPUSCULAR VOLUME 94.3 fL (80.0-94.0); MONOCYTES # (AUTO) 0.4 10^3/uL (0.0-1.0); MONOCYTES % (AUTO) 7.8 %; NEUTROPHILS # (AUTO) 4.5 10^3/uL (1.5-6.6); NEUTROPHILS % (AUTO) 85.9 %; PLT - PLATELET COUNT 187 10^3/uL (130-450); RED BLOOD COUNT 2.47 10^6/uL (4.70-6.10); RED CELL DISTRIBUTION WIDTH 13.7 % (12.0-15.0); WHITE BLOOD COUNT 5.3 x10^3/uL (4.8-10.8)
[2019-08-19 06:11] LABS: INR 1.1 (0.8-1.2); PT - PROTHROMBIN TIME 12.9 secs (9.9-12.6)
[2019-08-19 06:18] LABS: PARTIAL THROMBOPLASTIN TIME 35.8 secs (24.9-33.3)
[2019-08-19 06:22] LABS: ALBUMIN 3.5 g/dL (3.2-5.5); ALKALINE PHOSPHATASE 64 IU/L (42-121); ALT ALANINE AMINOTRANSFERASE 20 IU/L (10-60); AST ASPARTATE AMINOTRANSFERASE 28 IU/L (10-42); BILIRUBIN,DIRECT 0.1 mg/dL (0.1-0.5); BILIRUBIN,TOTAL 0.8 mg/dL (0.2-1.0); BUN - BLOOD UREA NITROGEN 57 mg/dL (6-20); CALCIUM 7.9 mg/dL (8.5-10.3); CARBON DIOXIDE - CO2 19 mmol/L (21-32); CHLORIDE 107 mmol/L (101-111); GLUCOSE 95 mg/dL (70-100); LIPASE 27 U/L (22-51); MAGNESIUM 2.4 mg/dL (1.7-2.8); SODIUM 137 mmol/L (135-145); TOTAL PROTEIN 6.4 g/dL (6.7-8.2)
[2019-08-19] MEDS ORDERED: ONDANSETRON 4 MG/2 ML VIAL IVP PRN (06:27)
[2019-08-19] MEDS ORDERED: FUROSEMIDE 40 MG/4 ML VIAL IVP STA (06:46)
[2019-08-19 08:10] LABS: BILIRUBIN,URINE NEGATIVE (NEGATIVE); GLUCOSE, URINE (UA) NEGATIVE (NEGATIVE); KETONES,URINE (UA) NEGATIVE (NEGATIVE); LEUKOCYTE ESTERASE, URINE NEGATIVE (NEGATIVE); NITRITE,URINE NEGATIVE (NEGATIVE); OCCULT BLOOD,URINE TRACE-INTA (NEGATIVE); PH,URINE 5.5 PH (5.0-7.5); PROTEIN,URINE 100 mg/dL (NEGATIVE); UROBILINOGEN,URINE 0.2 (NORMAL) E.U./dL (NORMAL)
[2019-08-19 08:16] LABS: CLARITY,URINE HAZY (CLEAR); MUDS CUTOFF CONCENTRATIONS CUTOFF CONC BELOW:
[2019-08-19 08:21] LABS: AMORPHOUS SEDIMENT,UR Rare /LPF; BACTERIA,URINE Rare /HPF (None Seen); RBC,URINE 0-5 /HPF (0-5); SQUAMOUS EPITHELIAL CELL,UR RARE Squamous (<= Few)
[2019-08-19 08:22] LABS: CASTS, URINE 6-10 Granular Casts /LPF
[2019-08-19 08:24] LABS: AMPHETAMINE SCREEN,URINE NEGATIVE (NEGATIVE); BENZODIAZEPINES SCREEN, URINE NEGATIVE (NEGATIVE); COCAINE SCREEN URINE NEGATIVE (NEGATIVE); METHADONE SCREEN, URINE NEGATIVE (NEGATIVE); METHAMPHETAMINES SCREEN, URINE NEGATIVE (NEGATIVE); OPIATE SCREEN, URINE NEGATIVE (NEGATIVE); OXYCODONE SCREEN, URINE NEGATIVE (NEGATIVE); PROPOXYPHENE SCREEN, URINE NEGATIVE (NEGATIVE); TRICYCLIC ANTIDEPRESSANT,URINE NEGATIVE (NEGATIVE)
[2019-08-19] MEDS: LACTATED RINGERS 1,000 ML IV SCH ×2 (08:26→20:54)
[2019-08-19] MEDS: SODIUM CHLORIDE FLUSH 0.9% 10 ML SYRINGE IVP SCH ×3 (08:27→23:40)
[2019-08-19] MEDS ORDERED: HEPARIN 5,000 UNIT/ML VIAL SUBQ SCH (09:00)
--- NOTE | 2019-08-19 09:00 | HISTORY & PHYSICAL EXAMINATION ---
Chief Complaint - Chief Complaint Chief Complaint: progressive shortness of breath History of Present Illness - Admitted From Admitted From:: ED, [facility] - History Obtained From Records Reviewed: yes History obtained from: chart review Exam Limitations: AMS - History of Present Illness HPI Comment/Other: The patient was brought in early this morning from [facility] for concerns of the novel smith virus, which a sample was sent on 08/15/2019. Imaging shows bilateral pneumonia. The patient is hypoxic requiring 2-3L nasal cannula with a baseline of room air, & for ongoing fevers. For the past few we eks, the patient states that his oxygen saturation was noted to be low, with shortness of breath. On Wednesday, while at [facility] rehab the patient was placed on isolation due to his symptoms, a fever of 101.8 F. Each day became worse regarding symptoms, and last night the patient states, "it was the worst feeling in the world, not being able to breath". He was put on oxygen, but he normally is not oxygen dependent. Initially, the patient states that he had chest pain related to being so short of breath. He described this as it was like, "something was on my chest and I could just not get air in". The patient has great suspicion of COVID given the course of illness, fever, cough, hypoxia and imaging to confirm bilateral pneumonia. He confirms his code status as FULL. He has been admitted to inpatient and we are awaiting the final COVID testing results. History - Past Medical History Cardiovascular: reports: Congestive heart failure, Hypertension, Peripheral Vascular Disease, Murmur Respiratory: reports: COPD, Pneumonia, Shortness of breath, Other (extensive second hand smoke exposure in life) Neuro: reports: Dementia, Headaches, Peripheral neuropathy Endocrine/Autoimmune: reports: Type 2 diabetes GI: reports: GERD, Other (anorexia since summer 2018. Nephrology consuslt worried and noted severe cachexia and work up deferred to "Ms Rosalie Victor" Has had 20 lb weight loss from [id number]. Fall bc of it. 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 Saw MD Bhargav at [facility] 09/2018. 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 Gets Avastin OD. ), Glaucoma Psych: reports: Depression, Claustrophobia Musculoskeletal: reports: Osteoarthritis Derm: reports: None MRSA Hx?: No Other Past Medical History: Toxic encephalopathy,Chronic kidney disease Stage 3, Severe Sepsis, moderate protein-calorie malnutrition, hypokalemia - Past Surgical History HEENT: reports: Cataracts (bilateral), Other (glaucoma, diabetic retanopathy, blindness about 1 year ago (2019)) - Family & Social History Family History: Mother: , Father: , Sister: Alive and Well, Brother: Alive and Well Family History Comment/Other: He reports both of his parents from cancer. He believes his mother had pancreatic cancer and diabetes. Father had lung cancer and diabetes. 1 sister in [place] is healthy. One brother in [place] is healthy. One brother in [place] is healthy. 2 grown children, they do not l lm close by. 2 sons. He has not seen one son in over 8 years and does not know how he is doing. The other son lives in [place] and is healthy. Living arrangement: alf (COW) Social History Notes: He was previously living with his , and have been for 42 years. They met in a bus stop in [place] and have been inseparable ever since. 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 His denies alcohol or tobacco use. Never smoked. No recreational substance use.They live in a [facility]. They are getting ready to leave it because the inside of the [place] are covered in mold. The kitchen sink no longer works. A bathroom pipe does not work. They have no heat. They were forced to wear winter close" all the time. They do have a new complex case manager with [facility]. They are looking at new housing options. Meals are either frozen food, or Meals on Wheels. The patient was exposed to excessive tobacco smoke, denies alcoholism, or illicit drug use. He wishes to be a FULL code. - Substance History Use: Uses substance without health or social issues: NONE Abuse: Recurrent use of substance despite neg consequences: NONE Dependence: Experiences withdrawal or developed tolerances: NONE - POLST Patient has POLST: No POLST Status: Full Code (She is speaking for her . She states that he would want everything done.) Meds/Allgy - Home Medications Home Medications: Ambulatory Orders Medication Instructions Recorded Confirmed Losartan [Cozaar] 100 mg PO DAILY 09/17/16 08/19/19 Brimonidine 0.2% Ophth Drops 1 drops EACHEYE BID 06/29/18 08/19/19 [Alphagan P 0.2% Ophth Drops] Amlodipine Besylate 10 mg PO DAILY 05/27/19 08/19/19 Insulin Glargine [Lantus Solostar] 10 units SQ DAILY 05/27/19 08/19/19 Insulin Aspart [NovoLOG] 1 - 9 unit SUBQ 06/01/19 08/19/19 0800,1200,1700,2100 #2 pen Lactobacillus Rhamnosus GG 1 cap PO DAILY #14 capsule 06/01/19 08/19/19 [Culturelle] Multivitamin W/Minerals [Theragran 1 tab PO DAILY@1200 #30 tablet 06/01/19 08/19/19 M] hydrALAZINE [Apresoline] 25 mg PO TID #90 tablet 06/26/19 08/19/19 Acetaminophen [Tylenol] 650 mg PO Q6H PRN 08/19/19 08/19/19 Atorvastatin Calcium 10 mg DAILY 08/19/19 08/19/19 Carvedilol [Coreg] 6.25 mg PO BID 08/19/19 08/19/19 Timolol 0.5% Ophth Drops [Timoptic 1 drops EACHEYE DAILY 08/19/19 08/19/19 0.5% Ophth Drops] hydroCHLOROthiazide 25 mg DAILY 08/19/19 08/19/19 [Hydrochlorothiazide] - Allergies Allergies/Adverse Reactions: Allergies Allergy/AdvReac Type Severity Reaction Status Date / Time No Known Drug Allergies Allergy Verified 08/19/19 05:24 Review of Systems - Constitutional Constitutional: reports: Fatigue, Fever, Chills, Malaise, Weakness, Poor appetite, Weight loss - Eyes Eyes: reports: Blurred vision, Vision loss, Other (blindness x1 year) - Ears, Nose & Throat Ears, Nose & Throat: reports: Tinnitus, Postnasal drainage - Cardiovascular Cariovascular: reports: Palpitations, Chest pain (present on admission, now improved), Edema, Lightheadedness, Exertional dyspnea, Decr. exercise tolerance, Orthopnea - Respiratory Respiratory: reports: Cough, Orthopnea, SOB at rest, SOB with exertion - Gastrointestinal Gastrointestinal: reports: Change in bowel habits, Nausea, Reflux/heartburn, Bloating, Poor appetite - Genitourinary Genitourinary: reports: Frequency, Urgency, Nocturia - Musculoskeletal Musculoskeletal: reports: Back pain, Muscle aches, Joint swelling - Integumentary Integumentary: reports: Dryness, Pigment changes, Nail changes (fungus on all 5 nail beds of right hand, fungus on all 10 toes (nail beds)) - Neurological Neurological: reports: General weakness, Dizziness, Memory problems, Pre- existing deficit, Abnormal gait - Hematologic/Lymphatic Hematologic/Lymphatic: reports: Petechiae (BUEs, scant, a few on mid-sternal chest), Recurrent infections - All Other Systems All Other Systems: reports: Reviewed and negative Prior Level of Functionality: Undergoing rehab at [facility], using a walker, no recent falls. Exam - Vital Signs Reviewed Vital Signs: Yes Vital Signs: Vital Signs x48h Temp Pulse Pulse Resp BP BP Pulse Ox 08/19/19 08:13 37.5 C 81 20 159/69 H 94 08/19/19 07:27 37.4 C 80 22 156/79 H 100 08/19/19 07:05 83 18 155/83 H 98 08/19/19 05:34 92 24 08/19/19 05:16 36.5 C 96 24 193/77 H 93 - Physical Exam General Appearance: positive: No acute distress, Alert Eyes Bilateral: positive: PERRL, No lid inflammation ENT: positive: Pharyngeal erythema, Dry mucous membranes Neck: positive: No JVD, Trachea midline Respiratory: positive: Chest non-tender, No respiratory distress, Breath sounds nml, Rhonchi Cardiovascular: positive: Regular rate & rhythm, No gallop, Systolic murmur, Decreased pulse(s) Peripheral Pulses: positive: 1+ Abdomen: positive: Non-tender, Nml bowel sounds Back: positive: Nml inspection Skin: positive: No rash, Warm, Dry Extremities: positive: Joint swelling Neurologic/Psychiatric: positive: CN's nml (2-12), Weakness, Sensory loss, Depressed mood/affect (flat) Reflexes: Bicep (R): 3+, Bicep (L): 3+ Conclusion/Plan - Problem List (1) Pneumonia due to 2019 novel coronavirus Conclusion/Plan: -Bilateral pneumonia noted on imaging -This episode started last Wednesday (08/14) while undergoing rehab at [facility], in which the patient began to require oxygen, fever, lethargy, and a generally poor overall feeling -Increased cough, decreased activity tolerance -Continues on Azithromycin and Rocephin -Started on recommended Plaquenil as currently the only FDA approved treatment for COVID-19 -Reduced dosing from TID to BID due to potential side effects involving QT prolongation, and seizures -Continue air borne precautions, contact isolation -Limit trips into the room, no further cardiac monitoring, changed BID heparin SQ to daily Lovenox Acute respiratory failure with hypoxia -Patient at baseline does not require oxygen -Now on 2-3L per nasal cannula -Continue to treat acute illness, monitor for the need for full ventilation Chest pain -Likely due to progressive respiratory distress d/t COVID-19 -No echocardiogram over the weekend due to staffing reasons -Consider further CT scans to evaluate for acute cardiomyopathy if indicated Elevated troponin -High sensitivity elevated at 22.0 -No chest pain on my exam -Likely due to demand ischemia -Taken off telemetry to reduce staff exposure -Elevated BNP at 2159 -+Pedal edema, enlarged abdominal girth, no scrotal swelling -Repeat troponin for chest pain, and in the AM Acute kidney injury superimposed on chronic kidney disease -Baseline serum creatinine of ~1.2 -Creatinine now elevated at 2.0 -Likely due to acute illness, dehydration, poor PO intake Chronic heart failure with preserved ejection fraction (HFpEF) -Known from prior echo -LV EF is preserved at 60-65%, no echo available on the weekend due to staffing -Continues on gentle IV fluids, daily weights, I/Os Type 2 diabetes mellitus with complication -Normal to low blood glucose checks -Stopped all further blood sugar checks to limit staff exposure -Check A1C in the AM Glaucoma (increased eye pressure) -Long standing, consequently now legally blind -Prepared COVID-19 teaching handouts, but unfortunately he cannot read it because he is still blind -No visitors are allowed HTN (hypertension) -Chronic, holding home meds -Monitor vital signs, resume as appropriate Moderate protein-calorie malnutrition -Cachectic on exam -Poor appetite leading up to this illness -Nutritional consult Weakness -Progressive, was previously in rehab to increase stamina and mobility with a goal to return home with his -PT/OT will not be ordered due to +COVID-19 and to decrease staff burden -Nursing to get patient up as tolerated Anemia, chronic disease -H/H low at 7.2/23.3 -Not bleeding on exam -Likely due to illness -Transfuse if hemoglobin becomes less than 7.0 -Routine labs Full code status -Patient answered "YES" to all 4 questions regarding resuscitation including: Chest compressions, shocking, cardiac medications and intubation -He confirms his code status as FULL code -He was told that given his COVID possibility, he does have a greater chance of being intubated - Lab Results Lab results reviewed: Yes Giuseppe Bones: 08/20/19 05:25 08/20/19 05:25 - Diagnostic Imaging Results Diagnostic Imaging Results: positive: Final report reviewed Diagnostic Imaging Results Comments: EXAM: CHEST RADIOGRAPHY 08/19/2019 05:47 AM FINDINGS: Lungs/Pleura: Peripheral airspace opacity at right lung base and interstitial and peripheral airspace opacities in left lung. No significant pleural effusion or pneumothorax. Mediastinum: Moderate enlargement of cardiac silhouette. IMPRESSION: 1. Bilateral pulmonary opacities in a pattern concerning for pneumonia, possibly viral or atypical infection. Correlate clinically. 2. Moderate enlargement of cardiac silhouette. Core Measures - Anticipated LOS I expect patient to be DC'd or transferred within 96 hours.: Yes - DVT/VTE - Prophylaxis VTE/DVT Device ordered at admit?: Yes VTE/DVT Prophylaxis med ordered at admit?: Yes - Stroke - Rehab Assessment Rehab services assessment to be ordered?: Yes - AMI - Statin at Admit Aspirin Prescribed on Admit: Yes
--- NOTE | 2019-08-19 10:47 | PHARMACY PROGRESS NOTE ---
- Best Possible Medication History Admit Date and Time: 08/19/19 0627 Processed by: Pharmacy Medication History completed: Yes Patient Interview: Pt unable to participate Secondary Source(s): Facility MAR as ONLY source As the person ultimately responsible for medication therapy, providers are able to order a medication from an existing home medication list in [facility] via the "Reconcile Routine" prior to Confirmation of that medication by fire support man. Such practice is discouraged except when the physician, in their clinical judgment, deems that a medical need exists for a medication without regard to previous use.
[2019-08-19] MEDS ORDERED: HYDROXYCHLOROQUINE 200 MG TABLET PO SCH (14:00)
[2019-08-19] MEDS: carvediloL 3.125 MG TABLET PO SCH (16:21)
[2019-08-19] MEDS: HYDROXYCHLOROQUINE 200 MG TABLET PO SCH (20:54)
[2019-08-19] MEDS: BRIMONIDINE 0.2% OPHTH DROPS 5 ML EACHEYE SCH (20:55)
[2019-08-20 05:51] LABS: BASOPHILS % (AUTO) 0.4 %; LYMPHOCYTES # (AUTO) 0.4 10^3/uL (1.5-3.5); LYMPHOCYTES % (AUTO) 15.4 %; MEAN CORPUSCULAR HEMOGLOBIN 28.2 pg (27.0-31.0); MEAN CORPUSCULAR HGB CONC 30.6 g/dL (32.0-36.0); MEAN PLATELET VOLUME 11.7 fL (7.4-11.4); MONOCYTES # (AUTO) 0.4 10^3/uL (0.0-1.0); MONOCYTES % (AUTO) 16.6 %; NEUTROPHILS # (AUTO) 1.7 10^3/uL (1.5-6.6); NEUTROPHILS % (AUTO) 66.8 %; PLT - PLATELET COUNT 168 10^3/uL (130-450); RED BLOOD COUNT 2.38 10^6/uL (4.70-6.10); RED CELL DISTRIBUTION WIDTH 13.8 % (12.0-15.0); WHITE BLOOD COUNT 2.6 x10^3/uL (4.8-10.8)
[2019-08-20 06:00] LABS: CALCIUM 7.7 mg/dL (8.5-10.3); CREATININE 2.2 mg/dL (0.6-1.2); MAGNESIUM 2.3 mg/dL (1.7-2.8); PHOSPHORUS 5.5 mg/dL (2.5-4.6)
[2019-08-20 06:12] LABS: HGB - HEMOGLOBIN 6.7 g/dL (14.0-18.0)
[2019-08-20] MEDS: LACTATED RINGERS 1,000 ML IV SCH (06:34)
[2019-08-20 06:44] LABS: HB2 TOTAL 6.9 g/dL; HEMOGLOBIN A1C 0.31 g/dL; HEMOGLOBIN A1C % 6.3 % (4.6-6.2)
[2019-08-20] MEDS ORDERED: INSULIN GLARGINE 300 UNIT/3 ML PEN SUBQ SCH (09:00)
[2019-08-20] MEDS ORDERED: TIMOLOL 0.5% OPHTH DROPS EACHEYE SCH (09:00)
[2019-08-20] MEDS: ENOXAPARIN 40 MG/0.4 ML SYRINGE SUBQ SCH (09:02)
[2019-08-20] MEDS: BRIMONIDINE 0.2% OPHTH DROPS 5 ML EACHEYE SCH ×2 (09:03→21:25)
[2019-08-20] MEDS: HYDROXYCHLOROQUINE 200 MG TABLET PO SCH ×2 (09:04→21:24)
[2019-08-20] MEDS: carvediloL 3.125 MG TABLET PO SCH ×2 (09:04→16:37)
[2019-08-20] MEDS: timoloL maleate 0.5% OPHTH DROPS (10ML) EACHEYE SCH (09:04)
[2019-08-20] MEDS: SODIUM CHLORIDE FLUSH 0.9% 10 ML SYRINGE IVP SCH ×3 (09:05→23:58)
[2019-08-20 09:51] LABS: ABG BASE EXCESS -3.5 mmol/L (-2.0-3.0); ABG HCO3 20.9 mmol/L (22.0-26.0); ABG OXYGEN SATURATION 96 % (94-98); ABG PCO2 34 mmHg (34-45); ABG PO2 90 mmHg (80-100); ABG TCO2 21.9 MMOL/L (21.0-29.0); ALLEN TEST POSITIVE
[2019-08-20] MEDS: cefTRIAXone 1 GM in SODIUM CHLORIDE 0.9% MINIBAG 100 ML IV SCH (10:09)
[2019-08-20] MEDS ORDERED: IPRATROPIUM/ALBUTEROL 3 ML NEB INH STA (10:16)
[2019-08-20] MEDS ORDERED: IPRATROPIUM/ALBUTEROL 3 ML NEB INH PRN (10:16)
[2019-08-20] MEDS: LACTULOSE 10 GM /15 ML UDC PO SCH (10:24)
[2019-08-20] MEDS: FUROSEMIDE 40 MG/4 ML VIAL IVP SCH (10:24)
--- NOTE | 2019-08-20 10:25 | XRAY Report ---
Reason: sob Procedure Date: 08/20/2019 Accession Number: [id number] / [id number] Procedure: XR - Chest 1 View X-Ray CPT Code: 92214 Final Report FULL RESULT: EXAM: CHEST RADIOGRAPHY EXAM DATE: 08/20/2019 10:03 AM. CLINICAL HISTORY: Sob. COMPARISON: CHEST 1 VIEW 08/19/2019 5:24 AM. TECHNIQUE: 1 view. FINDINGS: Lungs/Pleura: Increased consolidation in the right lower lobe along with increasing bilateral patchy foci of bony consolidation. No pneumothorax. Small right pleural effusion seen. Mediastinum: Stable heart size and mediastinum. Other: None. IMPRESSION: 1. Increased right lower lobe consolidation along with increased patchy bilateral pulmonary opacities could reflect increasing pneumonia. RADIA
--- NOTE | 2019-08-20 10:37 | PROVIDER PROGRESS NOTE ---
Subjective - Prog Note Date Prog Note Date: 08/20/19 Prog Note Time: 10:35 - Subjective Pt reports feeling: No change Subjective: Ascencion complains of chest pressure, without sharp chest pain, or radiation. This improves with position, but is constant. He denies a headache, sore throat, cough, or a new rash. He admits to sleeping very well last night. He remains firm on his FULL code status and if the time came, he would agree to intubation, but wishes to first see if todays treatments help. Current Medications - Current Medications Current Medications: Active Medications: Acetaminophen (Tylenol) 650 mg PO Q4HR PRN Albuterol/Ipratropium (Duoneb) 3 ml INH Q4HR PRN Brimonidine Tartrate (Alphagan P 0.2% Ophth Drops) 1 drops EACHEYE BID [facility] Carvedilol (Coreg) 6.25 mg PO BIDWM [facility] Enoxaparin Sodium (Lovenox) 40 mg SUBQ DAILY [facility] Furosemide (Lasix Inj 40 Mg Vial) 60 mg IVP DAILY [facility] Hydroxychloroquine Sulfate (Plaquenil) 200 mg PO BID [facility] Azithromycin 500 mg/ Sodium (Chloride) 250 mls @ 250 mls/hr IV DAILY [facility] Ceftriaxone Sodium 1 gm/ (Sodium Chloride) 100 mls @ 200 mls/hr IV DAILY [facility] Influenza Virus Vaccine Quadrival (Fluarix Quad [id number] Syringe) 60 mcg IM .ONCE Lactulose (Enulose) 30 gm PO DAILY [facility] Ondansetron HCl (Zofran Inj) 4 mg IVP Q6HR PRN Pneumococcal 13-Valent Conj Vacc (Prevnar) 0.5 ml IM .ONCE ONE Timolol Maleate (Timoptic 0.5% Ophth Drops) 1 drops EACHEYE DAILY [facility] HOME meds: Losartan [Cozaar] 100 mg PO DAILY 09/17/16 Brimonidine 0.2% Ophth Drops [Alphagan P 0.2% Ophth Drops] 1 drops EACHEYE BID 06/29/18 Amlodipine Besylate 10 mg PO DAILY 05/27/19 Insulin Glargine [Lantus Solostar] 10 units SQ DAILY 05/27/19 Acetaminophen [Tylenol] 650 mg PO Q6H PRN 08/19/19 Atorvastatin Calcium 10 mg DAILY 08/19/19 Carvedilol [Coreg] 6.25 mg PO BID 08/19/19 Timolol 0.5% Ophth Drops [Timoptic 0.5% Ophth Drops] 1 drops EACHEYE DAILY 08/19/19 hydroCHLOROthiazide [Hydrochlorothiazide] 25 mg DAILY 08/19/19 Objective - Vital Signs/Intake & Output Reviewed Vital Signs: Yes Vital Signs: Vital Signs x48h Temp Pulse Pulse Resp BP BP Pulse Ox 08/20/19 10:30 36.6 C 77 22 175/85 H 08/20/19 10:17 36.6 C 75 24 175/85 H 98 08/20/19 08:54 36.7 C 81 22 171/81 H 93 08/20/19 02:45 97 Intake & Output: Intake & Output 08/17/19 08/18/19 08/19/19 08/20/19 23:59 23:59 23:59 23:59 Intake Total 2770.000 1457.666 Balance 2770.000 1457.666 - Objective General Appearance: positive: Alert, Moderate distress, Severe distress, Anxious Eyes Bilateral: positive: PERRL, No lid inflammation ENT: positive: No signs of dehydration Neck: positive: Trachea midline, Stiff neck Respiratory: positive: Chest non-tender. negative: No respiratory distress (acute respiratory distress, absent, diminished to low bases bilaterally, shallow breathing, tachpnea, and tripoding on this exam, scant scattered crackles bilaterally) Cardiovascular: positive: JVD present, Systolic murmur, Gallop/S3, Decreased pulse(s) Peripheral Pulses: 1+ Radial (R), 1+ Radial (L) Abdomen: positive: Non-tender, Nml bowel sounds (hyperactive), Other (firm, rounded) Back: positive: Nml inspection Skin: positive: No rash, Warm, Dry, Cyanosis (slightly with pale mucous membranes, poor capillary refill), Other (pale, bronze toned skin) Extremities: positive: Non-tender, Pedal edema (pitting to BLEs, warm), Joint swelling Neurologic/Psychiatric: positive: Oriented x3, CN's nml (2-12), Motor nml, We akness, Depressed mood/affect (flat), Other (only speaking in few word sentances due to SOB, flat affect) Reflexes: Bicep (R): 3+, Bicep (L): 3+ - Lab Results Fish Bones: 08/20/19 05:25 08/20/19 05:25 Other Labs: Lab Results x24hrs 08/20/19 08/20/19 08/20/19 Range/Units 09:40 05:25 05:25 WBC (4.8-10.8) x10^3/uL RBC (4.70-6.10) 10^6/uL Hgb (14.0-18.0) g/dL Hct (42.0-52.0) % MCV (80.0-94.0) fL MCH (27.0-31.0) pg MCHC (32.0-36.0) g/dL RDW (12.0-15.0) % Plt Count (130-450) 10^3/uL MPV (7.4-11.4) fL Neut # (Auto) (1.5-6.6) 10^3/uL Lymph # (Auto) (1.5-3.5) 10^3/uL Thomas # (Auto) (0.0-1.0) 10^3/uL Eos # (Auto) (0.0-0.7) 10^3/uL Baso # (Auto) (0.0-0.1) 10^3/uL Absolute Nucleated RBC x10^3/uL Nucleated RBC % /100WBC Bld Gas Analysis Time 0944 Sample Site RIGHT RADIAL ABG pH 7.40 (7.35-7.45) ABG pCO2 34 (34-45) mmHg ABG pO2 90 (80-100) mmHg ABG HCO3 20.9 L (22.0-26.0) mmol/L ABG Total CO2 21.9 (21.0-29.0) MMOL/L ABG O2 Saturation 96 (94-98) % ABG Base Excess -3.5 L (-2.0-3.0) mmol/L Adin Test POSITIVE O2 Delivery Device SIMPLE MASK O2 Liters/Min 9.00 LPM Sodium (135-145) mmol/L Potassium (3.5-5.0) mmol/L Chloride (101-111) mmol/L Carbon Dioxide (21-32) mmol/L Anion Gap (6-13) BUN (6-20) mg/dL Creatinine (0.6-1.2) mg/dL Estimated GFR (MDRD) (>89) Glucose (70-100) mg/dL Glycated Hemoglobin (4.6-6.2) % Estim Average Glucose (70-100) Calcium (8.5-10.3) mg/dL Phosphorus (2.5-4.6) mg/dL Magnesium (1.7-2.8) mg/dL Troponin I High Sens 30.0 H* (2.3-19.7) ng/L B-Natriuretic Peptide 3544 H (5-100) pg/mL Blood Type Antibody Screen Crossmatch IS Only 08/20/19 08/20/19 08/20/19 Range/Units 05:25 05:25 05:25 WBC 2.6 L (4.8-10.8) x10^3/uL RBC 2.38 L (4.70-6.10) 10^6/uL Hgb 6.7 L* (14.0-18.0) g/dL Hct 21.9 L (42.0-52.0) % MCV 92.0 (80.0-94.0) fL MCH 28.2 (27.0-31.0) pg MCHC 30.6 L (32.0-36.0) g/dL RDW 13.8 (12.0-15.0) % Plt Count 168 (130-450) 10^3/uL MPV 11.7 H (7.4-11.4) fL Neut # (Auto) 1.7 (1.5-6.6) 10^3/uL Lymph # (Auto) 0.4 L (1.5-3.5) 10^3/uL Thomas # (Auto) 0.4 (0.0-1.0) 10^3/uL Eos # (Auto) 0.0 (0.0-0.7) 10^3/uL Baso # (Auto) 0.0 (0.0-0.1) 10^3/uL Absolute Nucleated RBC 0.00 x10^3/uL Nucleated RBC % 0.0 /100WBC Bld Gas Analysis Time Sample Site ABG pH (7.35-7.45) ABG pCO2 (34-45) mmHg ABG pO2 (80-100) mmHg ABG HCO3 (22.0-26.0) mmol/L ABG Total CO2 (21.0-29.0) MMOL/L ABG O2 Saturation (94-98) % ABG Base Excess (-2.0-3.0) mmol/L Adin Test O2 Delivery Device O2 Liters/Min LPM Sodium 138 (135-145) mmol/L Potassium 4.2 (3.5-5.0) mmol/L Chloride 108 (101-111) mmol/L Carbon Dioxide 20 L (21-32) mmol/L Anion Gap 10.0 (6-13) BUN 69 H (6-20) mg/dL Creatinine 2.2 H (0.6-1.2) mg/dL Estimated GFR (MDRD) 30 L (>89) Glucose 281 H (70-100) mg/dL Glycated Hemoglobin 6.3 H (4.6-6.2) % Estim Average Glucose 134 H (70-100) Calcium 7.7 L (8.5-10.3) mg/dL Phosphorus 5.5 H (2.5-4.6) mg/dL Magnesium 2.3 (1.7-2.8) mg/dL Troponin I High Sens (2.3-19.7) ng/L B-Natriuretic Peptide (5-100) pg/mL Blood Type Antibody Screen Crossmatch IS Only 08/19/19 Range/Units 07:38 WBC (4.8-10.8) x10^3/uL RBC (4.70-6.10) 10^6/uL Hgb (14.0-18.0) g/dL Hct (42.0-52.0) % MCV (80.0-94.0) fL MCH (27.0-31.0) pg MCHC (32.0-36.0) g/dL RDW (12.0-15.0) % Plt Count (130-450) 10^3/uL MPV (7.4-11.4) fL Neut # (Auto) (1.5-6.6) 10^3/uL Lymph # (Auto) (1.5-3.5) 10^3/uL Thomas # (Auto) (0.0-1.0) 10^3/uL Eos # (Auto) (0.0-0.7) 10^3/uL Baso # (Auto) (0.0-0.1) 10^3/uL Absolute Nucleated RBC x10^3/uL Nucleated RBC % /100WBC Bld Gas Analysis Time Sample Site ABG pH (7.35-7.45) ABG pCO2 (34-45) mmHg ABG pO2 (80-100) mmHg ABG HCO3 (22.0-26.0) mmol/L ABG Total CO2 (21.0-29.0) MMOL/L ABG O2 Saturation (94-98) % ABG Base Excess (-2.0-3.0) mmol/L Adin Test O2 Delivery Device O2 Liters/Min LPM Sodium (135-145) mmol/L Potassium (3.5-5.0) mmol/L Chloride (101-111) mmol/L Carbon Dioxide (21-32) mmol/L Anion Gap (6-13) BUN (6-20) mg/dL Creatinine (0.6-1.2) mg/dL Estimated GFR (MDRD) (>89) Glucose (70-100) mg/dL Glycated Hemoglobin (4.6-6.2) % Estim Average Glucose (70-100) Calcium (8.5-10.3) mg/dL Phosphorus (2.5-4.6) mg/dL Magnesium (1.7-2.8) mg/dL Troponin I High Sens (2.3-19.7) ng/L B-Natriuretic Peptide (5-100) pg/mL Blood Type A NEGATIVE Antibody Screen NEGATIVE Crossmatch IS Only See Detail ABX Reporting Has patient been on IV antibiotics over the past 48 hours?: Yes Assessment/Plan - Problem List (1) Pneumonia due to 2019 novel coronavirus Impression: -Bilateral pneumonia noted on imaging -This episode started last Wednesday (08/14) while undergoing rehab at [facility], in which the patient began to require oxygen, fever, lethargy, and a generally poor overall feeling -Results on 08/19/2019 were positive for COVID-19, so patient was started yesterday on recommended treatment -Increased cough, decreased activity tolerance -Continues on Azithromycin and Rocephin -Continues on recommended Plaquenil as currently the only FDA approved treatment for COVID-19 -Reduced dosing from TID to BID due to potential side effects involving QT pro longation, and seizures -Continue air borne precautions, contact isolation -Commode at the bedside due to respiratory decline -Monitor for improvement, cautiously keeping nursing staff up to date in the event the patient requires ICU level care Acute respiratory failure with hypoxia -Patient at baseline does not require oxygen -Came into the hospital requiring 2-3L, overnight was increased to 5L, now on a 10L oxymask due to hypoxia -Also with anemia, fluid overload and high stool burden per imaging -Getting PRBCs, lasix, duo-nebs and we will await a clinical improvement -On exam today, the patient does not want to jump straight to intubation, and wishes to see if the treatments help first -Besides his short term memory loss, he does not have any new profound con fusion, so we will continue this course and avoid ICU level care right now -Continue to treat acute illness, monitor for the need for full ventilation Volume overload -Chest x-ray today per my impression shows: pulmonary edema, increased lung space, and increased bowel burden, enlarged cardiac silhouette -Chest x-ray final impression notes increased right LL consolidation with small R pleural effusion -Patient is found to be in respiratory distress, tripoding, and with increased oxygen needs -Elevated BNP up to greater than 3000 -IV lasix x1 60mg, possibly will repeat after PRBCs -Lactulose daily for bowels -Duo-nebs x1, and PRN -Daily chest x-ray -Await echo for Wednesday AM -Follow labs, daily weights, I/Os, clinical condition Anemia, chronic disease -H/H low at 7.2/23.3 and today down to 6.7/21.9 and with symptoms of worsening respiratory status, hypoxia, dizziness -Not bleeding on exam -Likely due to illness -Transfuse 1 unit PRBCs x1, then recheck hemogram -Routine labs Constipation -Patient's bowel contents are noted on the chest x-ray -Lactulose daily added -Patient does not necessarily feel constipated, has normal to hyeractive BS, firm without tenderness -Monitor for output Chest pain -Likely due to progressive respiratory distress d/t COVID-19 -No echocardiogram over the weekend due to staffing reasons, now ordered for Wednesday -Enlarged cardiac silhouette on chest x-ray today, but due to volume overload -Consider further CT scans to evaluate for acute cardiomyopathy if indicated -Chest "pressure" described, constant, does not radiate, is not sharp and will not change with deep breaths -Somewhat improved when leaning forward -Differential may be acute Pericarditis, but treatment at this time may be contraindicated as it is high dose NSAIDs, which we know that steroid use during active COVID illness prolongs shedding -Repeat EKG Elevated troponin -High sensitivity elevated at 22.0 -No chest pain on my exam -Likely due to demand ischemia -Taken off telemetry to reduce staff exposure -Repeat troponin today remains flat in the 30 range -Patient has continued chest "pressure", no sharp pains, no radiation -Repeat troponin for chest pain, monitor cardiac status with intermittent EKGs Acute kidney injury superimposed on chronic kidney disease -Baseline serum creatinine of ~1.2 -Creatinine now elevated at 2.2 from 2.0 yesterday, GFR down to 30 -Likely due to worsening cardiac output, volume overload -Routine labs, monitor strict I/Os Acute on chronic heart failure with preserved ejection fraction (HFpEF) -Known from prior echo -LV EF is preserved at 60-65%, no echo available on the weekend due to staffing -New echo for Wednesday is ordered -Elevated BNP at 3422 -+Pedal edema, enlarged abdominal girth, no scrotal swelling -Lasix today, IV fluids turned off, now getting 1 unit of blood, so likely will have a repeat IV lasix post-transfusion -Continue routine labs, daily weights, I/Os Type 2 diabetes mellitus with complications, diet controlled -Diet controlled given low A1C in the setting of this patient's expected remaining life to be ~10 years -Risk of hypoglycemia is greater that the risk of intermittent hyperglycemia ESPECIALLY in the setting of this potentially fatal illness -Stopped all further blood sugar checks and insulin dosing to limit staff exposure -Hemoglobin A1C 6.3 %, stopped Lantus as blood sugars have been normal to low 94-132 -Routine labs, general diet Glaucoma (increased eye pressure) -Long standing, consequently now legally blind -Prepared COVID-19 teaching handouts, but unfortunately he cannot read it because he is still blind -No visitors are allowed HTN (hypertension) -Chronic, resumed a much lower dose of his ARB (losartan) from 100mg to 25mg daily for today -Some hypertension, due to volume overload -Monitor vital signs, resume as appropriate Moderate protein-calorie malnutrition -Cachectic on exam -Poor appetite leading up to this illness, still poor appetite, now with bowel overload on imaging -Nutritional consult Weakness -Progressive, was previously in rehab to increase stamina and mobility with a goal to return home with his -PT/OT will not be ordered due to +COVID-19 and to decrease staff burden -Nursing to get patient up as tolerated Full code status -Patient answered "YES" to all 4 questions regarding resuscitation including: Chest compressions, shocking, cardiac medications and intubation -He confirms his code status as FULL code -He was told that given his COVID possibility, he does have a greater chance of being intubated
[2019-08-20] MEDS ORDERED: LORazepam 0.5 MG TABLET PO PRN (10:39)
[2019-08-20] MEDS: AZITHROMYCIN INJ 500 MG in SODIUM CHLORIDE 0.9% 250 ML IV SCH (10:46)
[2019-08-20] MEDS: LOSARTAN 50 MG TABLET PO SCH (11:05)
[2019-08-20] MEDS ORDERED: FUROSEMIDE 40 MG/4 ML VIAL IVP ONE (13:07)
[2019-08-20] MEDS ORDERED: LIDOCAINE 2% URO-JET 5 ML SYRINGE UR PRN (13:11)
[2019-08-20] MEDS: SODIUM CHLORIDE FLUSH 0.9% 10 ML SYRINGE IVP PRN (14:04)
[2019-08-20] MEDS: MORPHINE 2 MG/ML CARPUJECT IVP PRN (14:40)
[2019-08-20] MEDS: ACETAMINOPHEN 325 MG TABLET PO PRN ×2 (16:37→21:24)
[2019-08-21] MEDS: MORPHINE 2 MG/ML CARPUJECT IVP PRN ×5 (03:01→23:48)
[2019-08-21] MEDS: SODIUM CHLORIDE FLUSH 0.9% 10 ML SYRINGE IVP PRN ×4 (05:09→21:53)
[2019-08-21 07:01] LABS: BASOPHILS % (AUTO) 0.4 %; HGB - HEMOGLOBIN 8.5 g/dL (14.0-18.0); LYMPHOCYTES # (AUTO) 0.5 10^3/uL (1.5-3.5); LYMPHOCYTES % (AUTO) 6.2 %; MEAN CORPUSCULAR HEMOGLOBIN 29.7 pg (27.0-31.0); MEAN CORPUSCULAR HGB CONC 31.8 g/dL (32.0-36.0); MEAN CORPUSCULAR VOLUME 93.4 fL (80.0-94.0); MEAN PLATELET VOLUME 12.2 fL (7.4-11.4); MONOCYTES # (AUTO) 0.4 10^3/uL (0.0-1.0); MONOCYTES % (AUTO) 5.3 %; NEUTROPHILS # (AUTO) 6.3 10^3/uL (1.5-6.6); NEUTROPHILS % (AUTO) 86.9 %; PLT - PLATELET COUNT 200 10^3/uL (130-450); RED BLOOD COUNT 2.86 10^6/uL (4.70-6.10); WHITE BLOOD COUNT 7.3 x10^3/uL (4.8-10.8)
[2019-08-21 07:35] LABS: CALCIUM 7.7 mg/dL (8.5-10.3); CREATININE 2.2 mg/dL (0.6-1.2); MAGNESIUM 2.1 mg/dL (1.7-2.8); PHOSPHORUS 4.8 mg/dL (2.5-4.6)
[2019-08-21] MEDS ORDERED: PNEUMOCOCCAL 13-VALENT CONJ 0.5 ML SYRINGE IM ONE (09:00)
[2019-08-21] MEDS ORDERED: FLU VACC QS2019-20(6MOS UP)/PF 60 MCG/0.5 ML SYRINGE IM ONE (09:00)
[2019-08-21] MEDS ORDERED: LACTATED RINGERS 1,000 ML IV ONE (09:34)
[2019-08-21] MEDS ORDERED: DEXMEDETOMIDINE 400 MCG/100 ML 100 ML IV ONE (09:52)
[2019-08-21] MEDS: DEXMEDETOMIDINE 400 MCG/100 ML 100 ML IV SCH ×2 (10:35→15:50)
--- NOTE | 2019-08-21 10:53 | XRAY Report ---
Reason: NG TUBE, ET TUBE, LINE PLACMENT Procedure Date: 08/21/2019 Accession Number: [id number] / [id number] Procedure: XR - Chest for Line Placement CPT Code: Final Report FULL RESULT: EXAM: CHEST RADIOGRAPHY EXAM DATE: 08/21/2019 10:35 AM. CLINICAL HISTORY: NG TUBE, ET TUBE, LINE PLACEMENT. COMPARISON: CHEST 1 VIEW 08/20/2019 9:49 AM. TECHNIQUE: Supine AP view. FINDINGS: Lungs/Pleura: Is now present, 5 cm above the fermin. There is increased moderate patchy airspace opacity greatest in the mid lungs bilaterally. No peripheral interstitial abnormality. No gross pleural fluid or gross pneumothorax on this supine study. Mediastinum: Within exam limitations, the cardiomediastinal contour is normal. Right IJ catheter now present with its tip in the upper SVC. Orogastric tube is now present, coursing into the fundus of the stomach. Other: Skin folds project over the upper right chest. IMPRESSION: 1. Endotracheal tube 5 cm above the fermin. 2. Orogastric tube in the gastric fundus. 3. Right IJ catheter in the upper SVC. 4. Increased moderate bilateral airspace opacities greatest in the mid lungs suggesting multifocal pneumonitis, possibly viral pneumonitis. RADIA
[2019-08-21 11:08] LABS: ABG BASE EXCESS -1.7 mmol/L (-2.0-3.0); ABG HCO3 22.4 mmol/L (22.0-26.0); ABG OXYGEN SATURATION 99 % (94-98); ABG PCO2 35 mmHg (34-45); ABG PH 7.42 (7.35-7.45); ABG TCO2 23.5 MMOL/L (21.0-29.0)
[2019-08-21 11:15] LABS: ABG PO2 253 mmHg (80-100)
[2019-08-21] MEDS: AZITHROMYCIN INJ 500 MG in SODIUM CHLORIDE 0.9% 250 ML IV SCH (11:59)
[2019-08-21] MEDS: cefTRIAXone 1 GM in SODIUM CHLORIDE 0.9% MINIBAG 100 ML IV SCH (12:06)
[2019-08-21] MEDS: BRIMONIDINE 0.2% OPHTH DROPS 5 ML EACHEYE SCH ×2 (12:08→21:45)
[2019-08-21] MEDS: ENOXAPARIN 40 MG/0.4 ML SYRINGE SUBQ SCH (12:30)
[2019-08-21] MEDS: HYDROXYCHLOROQUINE 200 MG TABLET PO SCH ×2 (12:31→21:39)
[2019-08-21] MEDS: LOSARTAN 50 MG TABLET PO SCH (12:31)
[2019-08-21] MEDS: FUROSEMIDE 40 MG/4 ML VIAL IVP SCH (12:32)
[2019-08-21] MEDS: LACTULOSE 10 GM /15 ML UDC PO SCH (12:32)
[2019-08-21] MEDS: SODIUM CHLORIDE FLUSH 0.9% 10 ML SYRINGE IVP SCH ×2 (12:32→17:18)
[2019-08-21] MEDS: timoloL maleate 0.5% OPHTH DROPS (10ML) EACHEYE SCH (12:34)
[2019-08-21] MEDS: METOPROLOL 5 MG/5 ML VIAL IVP SCH ×2 (13:38→18:13)
[2019-08-21] MEDS ORDERED: SODIUM CHLORIDE 0.9% IV SCH (15:00)
[2019-08-21] MEDS ORDERED: MIDAZOLAM IV SCH (15:00)
[2019-08-21] MEDS ORDERED: MIDAZOLAM DRIP 50 MG/100 ML BAG IV SCH (15:00)
--- NOTE | 2019-08-21 15:05 | PROVIDER PROGRESS NOTE ---
Subjective - Prog Note Date Prog Note Date: 08/21/19 Prog Note Time: 14:57 - Subjective Pt reports feeling: Worse Subjective: Ascencion complains of ongoing shortness of breath. He has been told that given his declining respiratory distress, and explained to how it is now time to allow the medical team to intubate as this is potentially life threatening. He agrees to intubation and wishes to remain a FULL code, but would like to speak to his over the phone first. A full report was given to Dr. Katherine Ortega so that she can assume care given his ICU status. Current Medications - Current Medications Current Medications: Active Medications: Acetaminophen (Tylenol) 650 mg PO Q4HR PRN Albuterol/Ipratropium (Duoneb) 3 ml INH Q4HR PRN Brimonidine Tartrate (Alphagan P 0.2% Ophth Drops) 1 drops EACHEYE BID MATEUSZ Enoxaparin Sodium (Lovenox) 40 mg SUBQ DAILY MATEUSZ Furosemide (Lasix Inj 40 Mg Vial) 60 mg IVP DAILY MATEUSZ Heparin Sodium (Beef Lung) 30 - 50 unit IVP PRN PRN Hydroxychloroquine Sulfate (Plaquenil) 200 mg PO BID MATEUSZ Azithromycin 500 mg/ Sodium (Chloride) 250 mls @ 250 mls/hr IV DAILY MATEUSZ Ceftriaxone Sodium 1 gm/ (Sodium Chloride) 100 mls @ 200 mls/hr IV DAILY MATEUSZ Norepinephrine Bitartrate 8 mg (/ Dextrose) 250 mls @ 15 mls/hr IV .[id number] MATEUSZ Dexmedetomidine/Sodium Chloride (Precedex Premix) 100 mls @ 9.375 mls/hr IV Sodium Chloride (Normal Saline 0.9%) 500 mls @ 0 mls/hr IV Q24H PRN Midazolam HCl 50 mg/ Sodium (Chloride) 100 mls @ 6 mls/hr IV .[id number] Influenza Virus Vaccine Quadrival (Fluarix Quad 6615-7695 Syringe) 60 mcg IM Lactulose (Enulose) 30 gm PO DAILY MATEUSZ Lidocaine HCl (Xylocaine Uro-Jet 2%) 2.5 ml UR Q6H PRN Lorazepam (Ativan) 0.5 mg PO Q6H PRN Losartan Potassium (Cozaar) 25 mg PO DAILY MATEUSZ Metoprolol Tartrate (Lopressor Inj) 2.5 mg IVP Q6HR MATEUSZ Morphine Sulfate (Morphine (Carpuject)) 2 mg IVP Q2HR PRN Ondansetron HCl (Zofran Inj) 4 mg IVP Q6HR PRN Pneumococcal 13-Valent Conj Vacc (Prevnar) 0.5 ml IM .ONCE ONE Timolol Maleate (Timoptic 0.5% Ophth Drops) 1 drops EACHEYE DAILY MATEUSZ HOME meds: Losartan [Cozaar] 100 mg PO DAILY 09/17/16 Brimonidine 0.2% Ophth Drops [Alphagan P 0.2% Ophth Drops] 1 drops EACHEYE BID 06/29/18 Amlodipine Besylate 10 mg PO DAILY 05/27/19 Insulin Glargine [Lantus Solostar] 10 units SQ DAILY 05/27/19 Acetaminophen [Tylenol] 650 mg PO Q6H PRN 08/19/19 Atorvastatin Calcium 10 mg DAILY 08/19/19 Carvedilol [Coreg] 6.25 mg PO BID 08/19/19 Timolol 0.5% Ophth Drops [Timoptic 0.5% Ophth Drops] 1 drops EACHEYE DAILY 08/19/19 hydroCHLOROthiazide [Hydrochlorothiazide] 25 mg DAILY 08/19/19 Objective - Vital Signs/Intake & Output Reviewed Vital Signs: Yes Vital Signs: Vital Signs x48h Temp Pulse Resp BP BP Pulse Ox 08/21/19 14:00 37.5 C 59 L 20 148/75 H 100 08/21/19 13:00 37.5 C 59 L 16 165/62 H 100 08/21/19 12:00 61 15 165/59 H 100 08/21/19 11:45 61 16 161/56 H 100 08/21/19 11:30 61 16 158/54 H 99 08/21/19 11:15 64 16 148/71 H 98 08/21/19 11:00 68 17 163/75 H 89 L 08/21/19 10:50 64 19 155/77 H 08/21/19 10:45 66 20 155/77 H 85 L 08/21/19 10:40 69 15 168/77 H 77 L 08/21/19 10:35 69 16 158/77 H 08/21/19 10:25 80 17 177/86 H 100 08/21/19 10:20 73 13 156/77 H 100 08/21/19 10:15 77 18 155/78 H 100 08/21/19 10:10 74 18 162/79 H 100 08/21/19 10:05 79 19 151/92 H 100 08/21/19 10:00 69 15 155/70 H 100 08/21/19 09:55 68 27 H 138/69 H 99 08/21/19 09:50 73 19 150/76 H 99 08/21/19 09:45 82 22 165/83 H 95 08/21/19 09:40 84 18 167/83 H 95 08/21/19 09:38 81 18 172/85 H 95 08/21/19 09:30 88 15 100 08/21/19 08:20 38.4 C H 82 20 176/78 H 98 Intake & Output: Intake & Output 08/18/19 08/19/19 08/20/19 08/21/19 23:59 23:59 23:59 23:59 Intake Total 2770.000 2459.666 854.062 Output Total 2450 2350 Balance 2770.000 9.666 -1495.938 - Objective General Appearance: positive: Alert (intermittent only when asking questions), Severe distress, Lethargic Eyes Bilateral: positive: No lid inflammation ENT: positive: Pharyngeal erythema, Dry mucous membranes Neck: positive: Trachea midline, Stiff neck Respiratory: positive: Chest non-tender, Rhonchi. negative: No respiratory distress (ongoing respiratory distress, accessory muscle use, no oxygen weaning) Cardiovascular: positive: Regular rate & rhythm, No gallop, Tachycardia, Systolic murmur, Decreased pulse(s) Peripheral Pulses: 1+ Radial (R), 1+ Radial (L) Abdomen: positive: Non-tender, Abnml bowel sounds (hypo BS x4 quad), Other (rounded, soft) Back: positive: Nml inspection Skin: positive: No rash, Diaphoresis, Pallor, Other (bronze toned skin, no jaundice, pale) Extremities: positive: Pedal edema, Joint swelling, Other (abdominal edema, BLE edema) Neurologic/Psychiatric: positive: Oriented x3, Weakness, Sensory loss, Slurred/abnml speech (sluggish speech), Depressed mood/affect (flat) Reflexes: Bicep (R): 2+, Bicep (L): 2+ - Lab Results Fish Bones: 08/21/19 06:40 08/21/19 06:40 Other Labs: Lab Results x24hrs 08/21/19 08/21/19 08/21/19 Range/Units 11:00 06:40 06:40 WBC (4.8-10.8) x10^3/uL RBC (4.70-6.10) 10^6/uL Hgb (14.0-18.0) g/dL Hct (42.0-52.0) % MCV (80.0-94.0) fL MCH (27.0-31.0) pg MCHC (32.0-36.0) g/dL RDW (12.0-15.0) % Plt Count (130-450) 10^3/uL MPV (7.4-11.4) fL Neut # (Auto) (1.5-6.6) 10^3/uL Lymph # (Auto) (1.5-3.5) 10^3/uL Craig # (Auto) (0.0-1.0) 10^3/uL Eos # (Auto) (0.0-0.7) 10^3/uL Baso # (Auto) (0.0-0.1) 10^3/uL Absolute Nucleated RBC x10^3/uL Nucleated RBC % /100WBC Bld Gas Analysis Time 1105 ABG pH 7.42 (7.35-7.45) ABG pCO2 35 (34-45) mmHg ABG pO2 253 H* (80-100) mmHg ABG HCO3 22.4 (22.0-26.0) mmol/L ABG Total CO2 23.5 (21.0-29.0) MMOL/L ABG O2 Saturation 99 H (94-98) % ABG Base Excess -1.7 (-2.0-3.0) mmol/L Adin Test NOT APPLICABLE Respiration Rate 18 b/min O2 Delivery Device VENTILATOR Vent Mode SIMV FiO2 100.00 Tidal Volume 400 mL PEEP 5 cmH2O Pressure Support Vent 12 cmH2O Sodium 137 (135-145) mmol/L Potassium 4.0 (3.5-5.0) mmol/L Chloride 104 (101-111) mmol/L Carbon Dioxide 22 (21-32) mmol/L Anion Gap 11.0 (6-13) BUN 67 H (6-20) mg/dL Creatinine 2.2 H (0.6-1.2) mg/dL Estimated GFR (MDRD) 30 L (>89) Glucose 167 H (70-100) mg/dL Calcium 7.7 L (8.5-10.3) mg/dL Phosphorus 4.8 H (2.5-4.6) mg/dL Magnesium 2.1 (1.7-2.8) mg/dL B-Natriuretic Peptide 2542 H (5-100) pg/mL 08/21/19 Range/Units 06:40 WBC 7.3 (4.8-10.8) x10^3/uL RBC 2.86 L (4.70-6.10) 10^6/uL Hgb 8.5 L (14.0-18.0) g/dL Hct 26.7 L (42.0-52.0) % MCV 93.4 (80.0-94.0) fL MCH 29.7 (27.0-31.0) pg MCHC 31.8 L (32.0-36.0) g/dL RDW 14.0 (12.0-15.0) % Plt Count 200 (130-450) 10^3/uL MPV 12.2 H (7.4-11.4) fL Neut # (Auto) 6.3 (1.5-6.6) 10^3/uL Lymph # (Auto) 0.5 L (1.5-3.5) 10^3/uL Craig # (Auto) 0.4 (0.0-1.0) 10^3/uL Eos # (Auto) 0.0 (0.0-0.7) 10^3/uL Baso # (Auto) 0.0 (0.0-0.1) 10^3/uL Absolute Nucleated RBC 0.00 x10^3/uL Nucleated RBC % 0.0 /100WBC Bld Gas Analysis Time ABG pH (7.35-7.45) ABG pCO2 (34-45) mmHg ABG pO2 (80-100) mmHg ABG HCO3 (22.0-26.0) mmol/L ABG Total CO2 (21.0-29.0) MMOL/L ABG O2 Saturation (94-98) % ABG Base Excess (-2.0-3.0) mmol/L Adin Test Respiration Rate b/min O2 Delivery Device Vent Mode FiO2 Tidal Volume mL PEEP cmH2O Pressure Support Vent cmH2O Sodium (135-145) mmol/L Potassium (3.5-5.0) mmol/L Chloride (101-111) mmol/L Carbon Dioxide (21-32) mmol/L Anion Gap (6-13) BUN (6-20) mg/dL Creatinine (0.6-1.2) mg/dL Estimated GFR (MDRD) (>89) Glucose (70-100) mg/dL Calcium (8.5-10.3) mg/dL Phosphorus (2.5-4.6) mg/dL Magnesium (1.7-2.8) mg/dL B-Natriuretic Peptide (5-100) pg/mL ABX Reporting Has patient been on IV antibiotics over the past 48 hours?: Yes Assessment/Plan - Problem List (1) Pneumonia due to 2019 novel coronavirus Impression: -Bilateral pneumonia noted on imaging, with worsening each day, this morning nearly fully chente out -This episode started last Wednesday (08/14) while undergoing rehab at [facility], in which the patient began to require oxygen, fever, lethargy, and a generally poor overall feeling -Results on 08/19/2019 were positive for COVID-19, so patient continues on recommended treatment, now per dubhoff feeding tube -Increased cough, decreased activity tolerance, tripod positioning at times, lethargic this morning prior to intubation -Continues on Azithromycin and Rocephin -Continues on recommended Plaquenil, which is the midst of a trial in the treatment for COVID-19 -Reduced dosing from TID to BID due to potential side effects involving QT prolongation, and seizures -Continue air borne precautions, contact isolation, now moved to the ICU due to ongoing respiratory distress -Commode at the bedside due to respiratory decline -Monitor for improvement, proceeding with ICU level care Acute respiratory failure with hypoxia -Patient at baseline does not require oxygen -Came into the hospital requiring 2-3L, but since being admitted, has needed 9- 15L via mask due to hypoxia -Status post one unit PRBCs on 08/20/2019 -Continues on IV lasix, duo-nebs and has been intubated since this AM -On exam today, the patient now understands that if his respiratory distress continues, this may lead to -Continue to treat acute illness, continue with intubation for ventilation, sedation Volume overload -Chest x-ray today per my impression shows: pulmonary edema, increased lung space, and increased bowel burden, enlarged cardiac silhouette -Chest x-ray final impression notes increased right LL consolidation with small R pleural effusion -Patient is found to be in respiratory distress, tripoding, and with increased oxygen needs -Elevated BNP up to greater than 3000, now down to 2342 -IV lasix x1 60mg daily -Lactulose daily for bowels -Duo-nebs x1, and PRN -Daily chest x-ray -Await echo today -Follow labs, daily weights, I/Os, clinical condition Anemia, chronic disease -H/H low at 7.2/23.3 and today down to 6.7/21.9 and with symptoms of worsening respiratory status, hypoxia, dizziness -H/H this AM 8.5/26.7 -Not bleeding on exam -Likely due to illness -Transfuse if hemoglobin is less than 7.0 -Routine labs Constipation -Patient's bowel contents are noted on the chest x-ray -Lactulose daily -Monitor for output Chest pain -Likely due to progressive respiratory distress d/t COVID-19 -No echocardiogram over the weekend due to staffing reasons, now ordered for Wednesday -Enlarged cardiac silhouette on chest x-ray today, but due to volume overload -Consider further CT scans to evaluate for acute cardiomyopathy if indicated -Chest "pressure" described, constant, does not radiate, is not sharp and will not change with deep breaths, denies chest pain this AM -Somewhat improved when leaning forward -Differential may be acute Pericarditis, but treatment at this time may be contraindicated as it is high dose NSAIDs, which we know that steroid use during active COVID illness prolongs shedding -Repeat EKG as appropriate Elevated troponin -High sensitivity elevated at 22.0, repeat is 30 -Likely due to demand ischemia -Patient denies chest pain this morning Acute kidney injury superimposed on chronic kidney disease -Baseline serum creatinine of ~1.2 -Creatinine remains elevated at 2.2, GFR at 30 -Likely due to worsening cardiac output, volume overload and is common in those patient with COVID-19 -Routine labs, monitor strict I/Os Acute on chronic heart failure with preserved ejection fraction (HFpEF) -Known from prior echo -LV EF is preserved at 60-65%, no echo available on the weekend due to staffing -New echo is pending today -Elevated BNP at 3422, now down to 2342 -+Pedal edema, enlarged abdominal girth, no scrotal swelling -Lasix IV at least daily -Continue routine labs, daily weights, I/Os Type 2 diabetes mellitus with complications, diet controlled -Diet controlled given low A1C in the setting of this patient's expected remaining life to be ~10 years -Risk of hypoglycemia is greater that the risk of intermittent hyperglycemia ESPECIALLY in the setting of this potentially fatal illness -Stopped all further blood sugar checks and insulin dosing to limit staff exposure -Hemoglobin A1C 6.3 %, stopped Lantus as blood sugars have been normal to low 94-132 -Blood sugar checks resumed per ICU protocol in the setting of critical illness -Routine labs, general diet Glaucoma (increased eye pressure) -Long standing, consequently now legally blind -Prepared COVID-19 teaching handouts, but unfortunately he cannot read it because he is still blind -No visitors are allowed HTN (hypertension) -Chronic, resumed a much lower dose of his ARB (losartan) from 100mg to 25mg daily -Some hypertension, due to volume overload -Monitor vital signs, resume as appropriate Moderate protein-calorie malnutrition -Cachectic on exam -Poor appetite leading up to this illness, still poor appetite, tube feeding per luke while in ICU -Nutritional consult Weakness -Progressive, was previously in rehab to increase stamina and mobility with a goal to return home with his -PT/OT will not be ordered due to +COVID-19 and to decrease staff burden -Nursing to get patient up as tolerated when appropriate Full code status -Patient answered "YES" to all 4 questions regarding resuscitation including: Chest compressions, shocking, cardiac medications and intubation -He confirms his code status as FULL code -Patient agrees to intubation this morning in the treatment of his respiratory failure caused by COVID-19
[2019-08-21] MEDS ORDERED: MIDAZOLAM 2 MG/2 ML VIAL IVP ONE (15:45)
[2019-08-21] MEDS ORDERED: MIDAZOLAM 2 MG/2 ML VIAL ONE (15:52)
[2019-08-21] MEDS: SODIUM CHLORIDE 0.9% 500 ML IV PRN (21:42)
[2019-08-22] MEDS: METOPROLOL 5 MG/5 ML VIAL IVP SCH ×4 (00:15→18:34)
[2019-08-22] MEDS: SODIUM CHLORIDE FLUSH 0.9% 10 ML SYRINGE IVP SCH ×4 (00:50→18:38)
[2019-08-22] MEDS: MORPHINE 2 MG/ML CARPUJECT IVP PRN ×2 (01:45→04:25)
[2019-08-22] MEDS: DEXMEDETOMIDINE 400 MCG/100 ML 100 ML IV SCH ×3 (02:26→17:25)
[2019-08-22 06:19] LABS: BASOPHILS % (AUTO) 0.3 %; HGB - HEMOGLOBIN 8.4 g/dL (14.0-18.0); LYMPHOCYTES # (AUTO) 0.4 10^3/uL (1.5-3.5); LYMPHOCYTES % (AUTO) 11.9 %; MEAN CORPUSCULAR HEMOGLOBIN 29.2 pg (27.0-31.0); MEAN CORPUSCULAR HGB CONC 31.8 g/dL (32.0-36.0); MEAN CORPUSCULAR VOLUME 91.7 fL (80.0-94.0); MEAN PLATELET VOLUME 11.9 fL (7.4-11.4); MONOCYTES # (AUTO) 0.2 10^3/uL (0.0-1.0); MONOCYTES % (AUTO) 5.8 %; NEUTROPHILS # (AUTO) 2.4 10^3/uL (1.5-6.6); NEUTROPHILS % (AUTO) 80.3 %; PLT - PLATELET COUNT 184 10^3/uL (130-450); RED BLOOD COUNT 2.88 10^6/uL (4.70-6.10); RED CELL DISTRIBUTION WIDTH 13.6 % (12.0-15.0); WHITE BLOOD COUNT 2.9 x10^3/uL (4.8-10.8)
[2019-08-22 06:32] LABS: ABG PCO2 34 mmHg (34-45); ABG PH 7.45 (7.35-7.45); ABG PO2 105 mmHg (80-100)
[2019-08-22 06:33] LABS: ABG BASE EXCESS -0.7 mmol/L (-2.0-3.0); ABG OXYGEN SATURATION 98 % (94-98); ABG TCO2 24.1 MMOL/L (21.0-29.0); ALLEN TEST POSITIVE
[2019-08-22 06:35] LABS: ALBUMIN 2.6 g/dL (3.2-5.5); ALBUMIN/GLOBULIN RATIO 0.9 (1.0-2.2); BILIRUBIN,TOTAL 0.5 mg/dL (0.2-1.0); CALCIUM 7.8 mg/dL (8.5-10.3); TOTAL PROTEIN 5.4 g/dL (6.7-8.2)
[2019-08-22 06:57] LABS: PHOSPHORUS 4.7 mg/dL (2.5-4.6)
[2019-08-22] MEDS: MIDAZOLAM DRIP 50 MG/100 ML BAG IV SCH ×2 (07:22→22:38)
[2019-08-22] MEDS: cefTRIAXone 1 GM in SODIUM CHLORIDE 0.9% MINIBAG 100 ML IV SCH (09:32)
[2019-08-22] MEDS: AZITHROMYCIN INJ 500 MG in SODIUM CHLORIDE 0.9% 250 ML IV SCH (09:41)
[2019-08-22] MEDS: ENOXAPARIN 40 MG/0.4 ML SYRINGE SUBQ SCH (09:57)
[2019-08-22] MEDS: timoloL maleate 0.5% OPHTH DROPS (10ML) EACHEYE SCH (09:58)
[2019-08-22] MEDS: BRIMONIDINE 0.2% OPHTH DROPS 5 ML EACHEYE SCH ×2 (10:00→20:32)
[2019-08-22] MEDS: SODIUM CHLORIDE FLUSH 0.9% 10 ML SYRINGE IVP PRN ×5 (10:10→19:59)
[2019-08-22] MEDS: hydrALAZINE INJ 20 MG/ML VIAL IVP PRN ×3 (10:56→23:50)
[2019-08-22] MEDS ORDERED: POTASSIUM CHLOR 10 MEQ/100 ML 10 MEQ/100 ML BAG IV ONE (11:00)
[2019-08-22] MEDS ORDERED: FUROSEMIDE 100 MG/10 ML VIAL IVP SCH (11:00)
[2019-08-22] MEDS: CHLORHEXIDINE GLUCONATE 15 ML UDC PO SCH ×2 (11:22→20:29)
[2019-08-22] MEDS: FAMOTIDINE 20 MG/2 ML VIAL IVP SCH ×2 (11:22→20:29)
--- NOTE | 2019-08-22 14:02 | PROVIDER PROGRESS NOTE ---
Assessment/Plan - Problem List (1) Pneumonia due to 2019 novel coronavirus Assessment/Plan: His CXR worsened rapidly and yesterday he needed intubation. The WBC is low, consistent with COVID infection. Continue supportive, aggressive care in ICU, with resp precautions. If CXR looks like ARDS, will start iv steroids, but we do not have ability to do prone positioning. (2) Bilateral pneumonia Assessment/Plan: He is on empiric antibx for CAP. (3) Acute respiratory failure with hypoxia Assessment/Plan: Continue ventilator support and treating underlying infection. No scheduled nebs and no iv steroids currently ordered, and his O2 needs are not worsening since intubation. (4) Hypertension Assessment/Plan: Since he cannot take his oral BP meds, will order Hydralazine iv, Metoprolol iv. (5) Acute kidney injury superimposed on CKD Assessment/Plan: Creat better, from 2.2>> 2 today. IV fluids for hydration and for some calories. (6) Heart failure with preserved ejection fraction Qualifiers: Heart failure chronicity: chronic Qualified Code(s): I50.32 - Chronic diast olic (congestive) heart failure Assessment/Plan: No overt CHF currently. Will decrease iv Lasix daily from 60 mg to 40 mg since he is not eating or drinking. (7) Anemia of chronic disease Assessment/Plan: Follow CBC daily. Transfuse if Hgb <7. (8) Type 2 diabetes mellitus with complication, with long-term current use of insulin Assessment/Plan: ss Insulin (9) Moderate protein-calorie malnutrition Assessment/Plan: He may be needing ng tube for nutrition if not easily extubatable. (10) Visual impairment Assessment/Plan: And he has glaucoma. (11) History of alcohol abuse Assessment/Plan: He was getting Lactulose before being intubated. - Current Meds Current Meds: Current Medications Generic Name Dose Route Start Last Admin Trade Name Freq PRN Reason Stop Dose Admin Brimonidine Tartrate 1 drops 08/19/19 21:00 08/22/19 10:00 Alphagan P 0.2% Ophth Drops EACHEYE 1 drops BID MATEUSZ Administration Chlorhexidine Gluconate 15 ml 08/22/19 11:00 08/22/19 11:22 Peridex PO 15 ml BID MATEUSZ Administration Enoxaparin Sodium 40 mg 08/20/19 09:00 08/22/19 09:57 Lovenox SUBQ 40 mg DAILY MATEUSZ Administration Famotidine 10 mg 08/22/19 11:00 08/22/19 11:22 Pepcid IVP 10 mg BID MATEUSZ Administration Furosemide 60 mg 08/22/19 11:00 08/22/19 10:55 Lasix Inj 100mg Vial IVP 60 mg DAILY MATEUSZ Administration Heparin Sodium (Beef Lung) 30 - 50 unit 08/21/19 13:58 08/21/19 18:29 IVP 100 unit PRN PRN Administration Central Line Protocol (<24 hr) Hydralazine HCl 10 mg 08/22/19 10:34 08/22/19 12:35 Apresoline Inj IVP 10 mg Q6H PRN Administration Hypertensive Emergency Ceftriaxone Sodium 1 gm/ 100 mls @ 200 mls/hr 08/20/19 09:00 08/22/19 10:02 Sodium Chloride IV 08/24/19 09:29 Infused DAILY MATEUSZ Infusion Dexmedetomidine/Sodium Chloride 100 mls @ 9.375 mls/hr 08/21/19 10:00 08/22/19 13:11 Precedex Premix IV 0.7 mcg/kg/hr .[id number] MATEUSZ 13.125 mls/hr Titration Protocol 0.5 MCG/KG/HR Sodium Chloride 500 mls @ 0 mls/hr 08/21/19 13:58 08/22/19 13:11 Normal Saline 0.9% IV 20 mls/hr Q24H PRN Infusion TKO RATE TKO Midazolam HCl 50 mg in 100 mls @ 6 mls/hr 08/22/19 07:00 08/22/19 13:11 Versed Drip IV 0.04 mg/kg/hr .[id number] MATEUSZ 6 mls/hr Titration Protocol 0.04 MG/KG/HR Lidocaine HCl 2.5 ml 08/20/19 13:11 08/20/19 14:41 Xylocaine Uro-Jet 2% UR 2.5 ml Q6H PRN Administration PAIN Metoprolol Tartrate 2.5 mg 08/21/19 12:00 08/22/19 12:37 Lopressor Inj IVP Not Given Q6HR MATEUSZ Morphine Sulfate 2 mg 08/20/19 10:39 08/22/19 04:25 Morphine (Carpuject) IVP 2 mg Q2HR PRN Administration PAIN Sodium Chloride 10 ml 08/19/19 06:27 08/22/19 11:26 Normal Saline Flush 0.9% IVP 10 ml PRN PRN Administration NEEDED PER PROVIDER ORDERS Sodium Chloride 10 ml 08/19/19 09:00 08/22/19 09:44 Normal Saline Flush 0.9% IVP 10 ml 0100,0900,1700 MATEUSZ Administration Timolol Maleate 1 drops 08/20/19 09:00 08/22/19 09:58 Timoptic 0.5% Ophth Drops EACHEYE 1 drops DAILY MATEUSZ Administration - Lab Result Fish Bone Diagrams: 08/22/19 05:45 08/22/19 05:45 - Additional Planning My Orders: My Active Orders 08/22/19 10:34 hydrALAZINE INJ [Apresoline Inj] 10 mg IVP Q6H PRN 08/22/19 10:45 Restraints Safety Check [RC] Q1H Restraints [RC] Q4H 08/22/19 11:00 Chlorhexidine [Peridex] 15 ml PO BID Famotidine [Pepcid] 10 mg IVP BID 08/22/19 13:08 Min Oil/Dimeth/Coconut Oil Crm [Cavilon] 1 applic TOP PRN PRN Subjective - Subjective Nursing Reports: Other (Pt sedated and intubated) Objective Vital Signs: Vital Signs - 24 hr 08/21/19 08/21/19 08/21/19 14:00 15:00 16:00 Temperature 37.5 C 37.4 C 37.0 C Heart Rate Heart Rate [ 59 L 58 L Brachial] Heart Rate [ 56 L Monitoring electrodes] Respiratory 20 20 20 Rate Blood Pressure Blood Pressure [Left Brachial artery] Blood Pressure 191/90 H [Left Radial artery] Blood Pressure 148/75 H 177/66 H [Right Brachial artery] O2 Saturation 100 100 100 08/21/19 08/21/19 08/21/19 16:18 17:00 18:00 Temperature 37.0 C 36.9 C Heart Rate 68 Heart Rate [ Brachial] Heart Rate [ 56 L 55 L Monitoring electrodes] Respiratory 20 20 Rate Blood Pressure Blood Pressure 171/72 H [Left Brachial artery] Blood Pressure 173/66 H [Left Radial artery] Blood Pressure 176/66 H [Right Brachial artery] O2 Saturation 100 100 08/21/19 08/21/19 08/21/19 19:00 20:00 20:25 Temperature 36.7 C 36.7 C Heart Rate 58 L Heart Rate [ Brachial] Heart Rate [ 55 L 59 L Monitoring electrodes] Respiratory 20 20 Rate Blood Pressure Blood Pressure [Left Brachial artery] Blood Pressure 162/75 H [Left Radial artery] Blood Pressure 171/87 H [Right Brachial artery] O2 Saturation 100 100 08/21/19 08/21/19 08/21/19 21:00 22:00 22:30 Temperature 36.9 C 37.0 C Heart Rate 62 Heart Rate [ Brachial] Heart Rate [ 59 L 65 Monitoring electrodes] Respiratory 20 14 Rate Blood Pressure Blood Pressure [Left Brachial artery] Blood Pressure [Left Radial artery] Blood Pressure 171/82 H 175/80 H [Right Brachial artery] O2 Saturation 100 100 08/21/19 08/22/19 08/22/19 23:00 00:00 00:30 Temperature 37.3 C 37.4 C Heart Rate 60 Heart Rate [ Brachial] Heart Rate [ 61 61 Monitoring electrodes] Respiratory 21 20 Rate Blood Pressure Blood Pressure [Left Brachial artery] Blood Pressure [Left Radial artery] Blood Pressure 171/81 H 169/83 H [Right Brachial artery] O2 Saturation 100 100 08/22/19 08/22/19 08/22/19 01:00 02:00 02:30 Temperature 37.4 C 37.4 C Heart Rate 61 Heart Rate [ Brachial] Heart Rate [ 60 59 L Monitoring electrodes] Respiratory 20 20 Rate Blood Pressure Blood Pressure [Left Brachial artery] Blood Pressure [Left Radial artery] Blood Pressure 183/87 H 185/86 H [Right Brachial artery] O2 Saturation 100 100 08/22/19 08/22/19 08/22/19 03:00 04:00 04:31 Temperature 37.4 C 37.5 C Heart Rate 61 Heart Rate [ Brachial] Heart Rate [ 60 60 Monitoring electrodes] Respiratory 20 20 Rate Blood Pressure Blood Pressure [Left Brachial artery] Blood Pressure [Left Radial artery] Blood Pressure 185/81 H 183/85 H [Right Brachial artery] O2 Saturation 100 100 08/22/19 08/22/19 08/22/19 05:00 05:49 06:00 Temperature 37.5 C 37.5 C Heart Rate Heart Rate [ Brachial] Heart Rate [ 61 61 Monitoring electrodes] Respiratory 20 20 Rate Blood Pressure 184/93 H Blood Pressure [Left Brachial artery] Blood Pressure [Left Radial artery] Blood Pressure 184/93 H 181/85 H [Right Brachial artery] O2 Saturation 100 100 08/22/19 08/22/19 08/22/19 06:20 07:00 07:57 Temperature 37.5 C Heart Rate 61 67 Heart Rate [ Brachial] Heart Rate [ 62 Monitoring electrodes] Respiratory 20 Rate Blood Pressure Blood Pressure [Left Brachial artery] Blood Pressure [Left Radial artery] Blood Pressure 186/86 H [Right Brachial artery] O2 Saturation 100 08/22/19 08/22/19 08/22/19 08:00 09:00 10:00 Temperature 37.5 C 37.5 C 37.4 C Heart Rate Heart Rate [ Brachial] Heart Rate [ 62 61 61 Monitoring electrodes] Respiratory 20 20 20 Rate Blood Pressure Blood Pressure [Left Brachial artery] Blood Pressure 191/75 H 195/76 H 180/69 H [Left Radial artery] Blood Pressure 189/89 H 188/84 H 183/79 H [Right Brachial artery] O2 Saturation 100 100 08/22/19 08/22/19 08/22/19 10:39 11:00 12:35 Temperature 37.4 C Heart Rate 72 Heart Rate [ Brachial] Heart Rate [ 65 Monitoring electrodes] Respiratory 22 Rate Blood Pressure 184/94 H Blood Pressure [Left Brachial artery] Blood Pressure 182/72 H [Left Radial artery] Blood Pressure 155/76 H [Right Brachial artery] O2 Saturation 08/22/19 08/22/19 08/22/19 12:37 12:39 12:42 Temperature Heart Rate Heart Rate [ Brachial] Heart Rate [ 61 Monitoring electrodes] Respiratory Rate Blood Pressure 184/94 H Blood Pressure [Left Brachial artery] Blood Pressure [Left Radial artery] Blood Pressure 164/80 H 154/77 H [Right Brachial artery] O2 Saturation 08/22/19 08/22/19 08/22/19 13:00 13:05 13:20 Temperature 37.5 C 37.5 C Heart Rate Heart Rate [ Brachial] Heart Rate [ 64 62 Monitoring electrodes] Respiratory 20 20 Rate Blood Pressure 150/73 H Blood Pressure [Left Brachial artery] Blood Pressure 151/68 H 137/71 H [Left Radial artery] Blood Pressure 150/73 H 143/76 H [Right Brachial artery] O2 Saturation 100 08/22/19 13:36 Temperature Heart Rate 68 Heart Rate [ Brachial] Heart Rate [ Monitoring electrodes] Respiratory Rate Blood Pressure Blood Pressure [Left Brachial artery] Blood Pressure [Left Radial artery] Blood Pressure [Right Brachial artery] O2 Saturation Oxygen O2 Source Mechanical ventilator Oxygen Flow Rate 2 I&O (Last 24 Hrs): Intake and Output Totals x24h 08/20/19 08/21/19 08/22/19 23:59 23:59 23:59 Intake Total 2459.666 6898.719 2727.514 Output Total 2450 3775 2080 Balance 9.666 -2536.983 -844.486 General: Other (Sedated) Comments/Notes: Pt not examined by me today, as it would not change medical management. - Results Results: Laboratory Results WBC 2.9 x10^3/uL (4.8-10.8) L 08/22/19 05:45 RBC 2.88 10^6/uL (4.70-6.10) L 08/22/19 05:45 Hgb 8.4 g/dL (14.0-18.0) L 08/22/19 05:45 Hct 26.4 % (42.0-52.0) L 08/22/19 05:45 MCV 91.7 fL (80.0-94.0) 08/22/19 05:45 MCH 29.2 pg (27.0-31.0) 08/22/19 05:45 MCHC 31.8 g/dL (32.0-36.0) L 08/22/19 05:45 RDW 13.6 % (12.0-15.0) 08/22/19 05:45 Plt Count 184 10^3/uL (130-450) 08/22/19 05:45 MPV 11.9 fL (7.4-11.4) H 08/22/19 05:45 Neut # (Auto) 2.4 10^3/uL (1.5-6.6) 08/22/19 05:45 Lymph # (Auto) 0.4 10^3/uL (1.5-3.5) L 08/22/19 05:45 [place] # (Auto) 0.2 10^3/uL (0.0-1.0) 08/22/19 05:45 Eos # (Auto) 0.0 10^3/uL (0.0-0.7) 08/22/19 05:45 Baso # (Auto) 0.0 10^3/uL (0.0-0.1) 08/22/19 05:45 Absolute Nucleated RBC 0.00 x10^3/uL 08/22/19 05:45 Nucleated RBC % 0.0 /100WBC 08/22/19 05:45 PT 12.9 secs (9.9-12.6) H 08/19/19 05:50 INR 1.1 (0.8-1.2) 08/19/19 05:50 APTT 35.8 secs (24.9-33.3) H 08/19/19 05:50 Bld Gas Analysis Time 0628 08/22/19 06:15 Sample Site A-LINE 08/22/19 06:15 ABG pH 7.45 (7.35-7.45) 08/22/19 06:15 ABG pCO2 34 mmHg (34-45) 08/22/19 06:15 ABG pO2 105 mmHg (80-100) H 08/22/19 06:15 ABG HCO3 23.0 mmol/L (22.0-26.0) 08/22/19 06:15 ABG Total CO2 24.1 MMOL/L (21.0-29.0) 08/22/19 06:15 ABG O2 Saturation 98 % (94-98) 08/22/19 06:15 ABG Base Excess -0.7 mmol/L (-2.0-3.0) 08/22/19 06:15 Adin Test POSITIVE 08/22/19 06:15 Respiration Rate 20 b/min 08/22/19 06:15 O2 Delivery Device VENTILATOR 08/21/19 11:00 O2 Liters/Min 9.00 LPM 08/20/19 09:40 Vent Mode ASSIST/CONTROL 08/22/19 06:15 FiO2 40.00 08/22/19 06:15 Tidal Volume 450 mL 08/22/19 06:15 PEEP 5 cmH2O 08/22/19 06:15 Pressure Support Vent 12 cmH2O 08/21/19 11:00 Sodium 139 mmol/L (135-145) 08/22/19 05:45 Potassium 3.4 mmol/L (3.5-5.0) L 08/22/19 05:45 Chloride 105 mmol/L (101-111) 08/22/19 05:45 Carbon Dioxide 24 mmol/L (21-32) 08/22/19 05:45 Anion Gap 10.0 (6-13) 08/22/19 05:45 BUN 62 mg/dL (6-20) H 08/22/19 05:45 Creatinine 2.0 mg/dL (0.6-1.2) H 08/22/19 05:45 Estimated GFR (MDRD) 34 (>89) L 08/22/19 05:45 Glucose 138 mg/dL (70-100) H 08/22/19 05:45 Glycated Hemoglobin 6.3 % (4.6-6.2) H 08/20/19 05:25 Estim Average Glucose 134 (70-100) H 08/20/19 05:25 Lactic Acid 0.7 mmol/L (0.5-2.2) 08/19/19 05:50 Calcium 7.8 mg/dL (8.5-10.3) L 08/22/19 05:45 Phosphorus 4.7 mg/dL (2.5-4.6) H 08/22/19 05:45 Magnesium 2.0 mg/dL (1.7-2.8) 08/22/19 05:45 Total Bilirubin 0.5 mg/dL (0.2-1.0) 08/22/19 05:45 Direct Bilirubin 0.1 mg/dL (0.1-0.5) 08/19/19 05:50 AST 24 IU/L (10-42) 08/22/19 05:45 ALT 17 IU/L (10-60) 08/22/19 05:45 Alkaline Phosphatase 50 IU/L (42-121) 08/22/19 05:45 Troponin I High Sens 30.0 ng/L (2.3-19.7) H* 08/20/19 05:25 B-Natriuretic Peptide 2542 pg/mL (5-100) H 08/21/19 06:40 Total Protein 5.4 g/dL (6.7-8.2) L 08/22/19 05:45 Albumin 2.6 g/dL (3.2-5.5) L 08/22/19 05:45 Globulin 2.8 g/dL (2.1-4.2) 08/22/19 05:45 Albumin/Globulin Ratio 0.9 (1.0-2.2) L 08/22/19 05:45 Prealbumin 15 mg/dL (18-45) L 08/22/19 05:45 Lipase 27 U/L (22-51) 08/19/19 05:50 TSH 3.11 uIU/mL (0.34-5.60) 08/19/19 05:50 Urine Color YELLOW 08/19/19 08:00 Urine Clarity HAZY (CLEAR) 08/19/19 08:00 Urine pH 5.5 PH (5.0-7.5) 08/19/19 08:00 Ur Specific [place] 1.020 (1.002-1.030) 08/19/19 08:00 Urine Protein 100 mg/dL (NEGATIVE) H 08/19/19 08:00 Urine Glucose (UA) NEGATIVE mg/dL (NEGATIVE) 08/19/19 08:00 Urine Ketones NEGATIVE mg/dL (NEGATIVE) 08/19/19 08:00 Urine Occult Blood TRACE-INTA (NEGATIVE) 08/19/19 08:00 Urine Nitrite NEGATIVE (NEGATIVE) 08/19/19 08:00 Urine Bilirubin NEGATIVE (NEGATIVE) 08/19/19 08:00 Urine Urobilinogen 0.2 (NORMAL) E.U./dL (NORMAL) 08/19/19 08:00 Ur Leukocyte Esterase NEGATIVE (NEGATIVE) 08/19/19 08:00 Urine RBC 0-5 /HPF (0-5) 08/19/19 08:00 Urine WBC 0-3 /HPF (0-3) 08/19/19 08:00 Ur Squamous Epith Cells RARE Squamous (<= Few) 08/19/19 08:00 Amorphous Sediment Rare /LPF 08/19/19 08:00 Urine Bacteria Rare /HPF (None Seen) 08/19/19 08:00 Urine Casts 6-10 Granular Casts /LPF 08/19/19 08:00 Ur Microscopic Review INDICATED 08/19/19 08:00 Urine Culture Comments NOT INDICATED 08/19/19 08:00 Nasal Screen MRSA (PCR) NEGATIVE (NEGATIVE) 08/21/19 11:43 Urine Opiates Screen NEGATIVE (NEGATIVE) 08/19/19 08:00 Ur Oxycodone Screen NEGATIVE (NEGATIVE) 08/19/19 08:00 Urine Methadone Screen NEGATIVE (NEGATIVE) 08/19/19 08:00 Ur Propoxyphene Screen NEGATIVE (NEGATIVE) 08/19/19 08:00 Ur Barbiturates Screen NEGATIVE (NEGATIVE) 08/19/19 08:00 Ur Tricyclics Screen NEGATIVE (NEGATIVE) 08/19/19 08:00 Ur Phencyclidine Scrn NEGATIVE (NEGATIVE) 08/19/19 08:00 Ur Amphetamine Screen NEGATIVE (NEGATIVE) 08/19/19 08:00 U Methamphetamines Scrn NEGATIVE (NEGATIVE) 08/19/19 08:00 U Benzodiazepines Scrn NEGATIVE (NEGATIVE) 08/19/19 08:00 Urine Cocaine Screen NEGATIVE (NEGATIVE) 08/19/19 08:00 U Cannabinoids Screen NEGATIVE (NEGATIVE) 08/19/19 08:00 Ethyl Alcohol < 5.0 mg/dL 08/19/19 05:50 Blood Type A NEGATIVE 08/19/19 07:38 Antibody Screen NEGATIVE 08/19/19 07:38 Crossmatch IS Only See Detail 08/19/19 07:38 - Procedures Procedures: Procedures REPLACEMENT OF LEFT LENS WITH SYNTH SUB, PERC APPROACH (11/25/17) REPLACEMENT OF RIGHT LENS WITH SYNTH SUB, PERC APPROACH (12/02/17)
[2019-08-22] MEDS: MIN OIL/DIMETHICON/COCONUT OIL 92 GM TUBE TOP PRN (14:13)
[2019-08-22] MEDS: SODIUM CHLORIDE 0.9% 500 ML IV PRN (16:57)
[2019-08-22] MEDS: INSULIN REGULAR HUMAN 300 UNIT/3 ML VIAL SUBQ SCH ×2 (18:28→23:57)
[2019-08-22] MEDS: METOCLOPRAMIDE 10 MG/2 ML VIAL IVP SCH ×2 (19:58→23:57)
[2019-08-22] MEDS ORDERED: PANTOPRAZOLE 40 MG VIAL IVP SCH (21:00)
[2019-08-23] MEDS: SODIUM CHLORIDE FLUSH 0.9% 10 ML SYRINGE IVP PRN ×6 (00:05→17:27)
[2019-08-23] MEDS: METOPROLOL 5 MG/5 ML VIAL IVP SCH ×4 (00:05→19:49)
[2019-08-23] MEDS: SODIUM CHLORIDE FLUSH 0.9% 10 ML SYRINGE IVP SCH ×3 (00:05→17:22)
[2019-08-23] MEDS: DEXMEDETOMIDINE 400 MCG/100 ML 100 ML IV SCH ×3 (00:19→16:55)
[2019-08-23 05:15] LABS: EOSINOPHILS % (AUTO) 1.1 %; HGB - HEMOGLOBIN 8.8 g/dL (14.0-18.0); LYMPHOCYTES % (AUTO) 14.2 %; MEAN CORPUSCULAR HEMOGLOBIN 29.2 pg (27.0-31.0); MEAN CORPUSCULAR HGB CONC 31.9 g/dL (32.0-36.0); MEAN CORPUSCULAR VOLUME 91.7 fL (80.0-94.0); MEAN PLATELET VOLUME 12.6 fL (7.4-11.4); MONOCYTES % (AUTO) 8.5 %; NEUTROPHILS % (AUTO) 75.6 %; PLT - PLATELET COUNT 190 10^3/uL (130-450); RED BLOOD COUNT 3.01 10^6/uL (4.70-6.10); RED CELL DISTRIBUTION WIDTH 13.6 % (12.0-15.0)
[2019-08-23 05:25] LABS: WHITE BLOOD COUNT 1.8 x10^3/uL (4.8-10.8)
[2019-08-23 05:26] LABS: CALCIUM 7.7 mg/dL (8.5-10.3); MAGNESIUM 2.1 mg/dL (1.7-2.8); PHOSPHORUS 4.3 mg/dL (2.5-4.6)
[2019-08-23 05:26] LABS: ABNORMAL LYMPHS % (MANUAL) 0 %
[2019-08-23] MEDS: INSULIN REGULAR HUMAN 300 UNIT/3 ML VIAL SUBQ SCH ×3 (05:30→17:30)
[2019-08-23 05:59] LABS: BAND NEUTROPHILS % (MANUAL) 3 %; DIFFERENTIAL COMMENT MANUAL DIFFERENTIAL; LYMPHOCYTES # (MANUAL) 0.3 10^3/uL (1.5-3.5); LYMPHOCYTES % (MANUAL) 14 %; MONOCYTES # (MANUAL) 0.1 10^3/uL (0.0-1.0); PLATELET ESTIMATE, MANUAL NORMAL (130-450,000) (NORMAL); RBC MORPHOLOGY (MULTIPLE) 1+ HYPOCHROMASIA (NORMAL)
[2019-08-23] MEDS: MIN OIL/DIMETHICON/COCONUT OIL 92 GM TUBE TOP PRN ×3 (06:16→16:15)
[2019-08-23] MEDS: METOCLOPRAMIDE 10 MG/2 ML VIAL IVP SCH ×3 (06:17→17:21)
[2019-08-23 06:55] LABS: ABG HCO3 21.2 mmol/L (22.0-26.0); ABG PCO2 34 mmHg (34-45); ABG PH 7.42 (7.35-7.45); ABG PO2 107 mmHg (80-100)
[2019-08-23 06:56] LABS: ABG BASE EXCESS -2.8 mmol/L (-2.0-3.0); ABG OXYGEN SATURATION 98 % (94-98); ABG TCO2 22.2 MMOL/L (21.0-29.0)
[2019-08-23] MEDS: cefTRIAXone 1 GM in SODIUM CHLORIDE 0.9% MINIBAG 100 ML IV SCH (09:12)
[2019-08-23] MEDS: FAMOTIDINE 20 MG/2 ML VIAL IVP SCH ×2 (09:26→21:07)
[2019-08-23] MEDS: FUROSEMIDE 40 MG/4 ML VIAL IVP SCH (09:31)
[2019-08-23] MEDS: ENOXAPARIN 40 MG/0.4 ML SYRINGE SUBQ SCH (09:32)
[2019-08-23] MEDS: timoloL maleate 0.5% OPHTH DROPS (10ML) EACHEYE SCH (09:36)
[2019-08-23] MEDS: BRIMONIDINE 0.2% OPHTH DROPS 5 ML EACHEYE SCH ×2 (09:36→21:18)
[2019-08-23] MEDS: POTASSIUM CHLOR 20 MEQ/100 ML 20 MEQ/100 ML BAG IV SCH ×2 (09:39→12:04)
[2019-08-23] MEDS: CHLORHEXIDINE GLUCONATE 15 ML UDC PO SCH ×2 (09:40→21:09)
--- NOTE | 2019-08-23 09:59 | XRAY Report ---
Reason: Pneumonia from COVID Procedure Date: 08/23/2019 Accession Number: [id number] / [id number] Procedure: XR - Chest 1 View X-Ray CPT Code: 76970 Final Report FULL RESULT: EXAM: CHEST RADIOGRAPHY EXAM DATE: 08/23/2019 09:51 AM. CLINICAL HISTORY: Pneumonia from COVID. COMPARISON: CHEST 1 VIEW 08/21/2019 10:07 AM. TECHNIQUE: Semi-upright AP view. FINDINGS: Lungs/Pleura: The endotracheal tube is 6 cm above the fermin, as before. Bilateral air space opacities are markedly improved. There is subtle right and mild left residual basilar airspace opacity. Skin folds project over the mid upper left chest. There are no tiny bilateral pleural effusions. No pneumothorax is identified. Mediastinum: Within exam limitations, the cardiomediastinal contour is normal. Right IJ catheter in the upper SVC and orogastric tube in the gastric fundus, as before. Other: None. IMPRESSION: 1. Markedly improved bilateral airspace opacities with minimal right and mild left basilar residual. 2. Tube positions are unchanged. RADIA
[2019-08-23] MEDS: MIDAZOLAM DRIP 50 MG/100 ML BAG IV SCH (12:33)
[2019-08-23] MEDS ORDERED: KETAMINE 500 MG/10 ML VIAL IVP ONE (15:32)
[2019-08-23] MEDS ORDERED: PROPOFOL 200 MG/20 ML VIAL IVP ONE (15:32)
[2019-08-23] MEDS ORDERED: MIDAZOLAM 2 MG/2 ML VIAL IVP ONE (15:32)
[2019-08-23] MEDS: SODIUM CHLORIDE 0.9% 500 ML IV PRN (17:12)
--- NOTE | 2019-08-23 17:12 | PROVIDER PROGRESS NOTE ---
Assessment/Plan - Problem List (1) Pneumonia due to 2019 novel coronavirus Assessment/Plan: CXR done today and it showed improvement. Continue present supportive care. Daily ABG and possible wean off vent in next several days if possible. (2) Bilateral pneumonia Assessment/Plan: Empiric treatment for a community acquired PNA with zithromax which is finished and iv Ceftriaxone which continues. (3) Acute respiratory failure with hypoxia Assessment/Plan: Vent support, on iv sedatives. NG feeds were started yesterday, ut alot of residual required Reglan and he still has alot so ng to wall suction. (4) Hypertension Assessment/Plan: Current iv meds are controlling BP. (5) Acute kidney injury superimposed on CKD Assessment/Plan: Abnormal but stable. Continue iv fluids. Follow BMP daily. (6) Heart failure with preserved ejection fraction Qualifiers: Heart failure chronicity: chronic Qualified Code(s): I50.32 - Chronic diastolic (congestive) heart failure Assessment/Plan: CXR showed slight improvement. Continue present meds and plan. (7) Anemia of chronic disease Assessment/Plan: Follow CBC daily. (8) Type 2 diabetes mellitus with complication, with long-term current use of in sulin Assessment/Plan: On ng feeds, if he can tolerate them. Getting POC fingersticks and ss Insulin coverage ordered. (9) Moderate protein-calorie malnutrition Assessment/Plan: Feeds per ng were started (10) Visual impairment Assessment/Plan: As per hx - Current Meds Current Meds: Current Medications Generic Name Dose Route Start Last Admin Trade Name Freq PRN Reason Stop Dose Admin Brimonidine Tartrate 1 drops 08/19/19 21:00 08/23/19 09:36 Alphagan P 0.2% Ophth Drops EACHEYE 1 drops BID MATEUSZ Administration Chlorhexidine Gluconate 15 ml 08/22/19 11:00 08/23/19 09:40 Peridex PO 15 ml BID MATEUSZ Administration Enoxaparin Sodium 40 mg 08/20/19 09:00 08/23/19 09:32 Lovenox SUBQ 40 mg DAILY MATEUSZ Administration Famotidine 10 mg 08/22/19 11:00 08/23/19 09:26 Pepcid IVP 10 mg BID MATEUSZ Administration Furosemide 40 mg 08/23/19 09:00 08/23/19 09:31 Lasix Inj 40 Mg Vial IVP 40 mg DAILY MATEUSZ Administration Heparin Sodium (Beef Lung) 30 - 50 unit 08/21/19 13:58 08/23/19 03:58 IVP 30 unit PRN PRN Administration Central Line Protocol (<24 hr) Hydralazine HCl 10 mg 08/22/19 10:34 08/22/19 23:50 Apresoline Inj IVP 10 mg Q6H PRN Administration Hypertensive Emergency Ceftriaxone Sodium 1 gm/ 100 mls @ 200 mls/hr 08/20/19 09:00 08/23/19 09:45 Sodium Chloride IV 08/24/19 09:29 Infused DAILY MATEUSZ Infusion Dexmedetomidine/Sodium Chloride 100 mls @ 9.375 mls/hr 08/21/19 10:00 08/23/19 13:04 Precedex Premix IV 0.5 mcg/kg/hr .[id number] MATEUSZ 9.375 mls/hr Titration Protocol 0.5 MCG/KG/HR Sodium Chloride 500 mls @ 0 mls/hr 08/21/19 13:58 08/23/19 12:35 Normal Saline 0.9% IV 20 mls/hr Q24H PRN Infusion TKO RATE TKO Midazolam HCl 50 mg in 100 mls @ 7.5 mls/hr 08/22/19 07:00 08/23/19 12:33 Versed Drip IV 0.05 mg/kg/hr .[id number] MATEUSZ 7.5 mls/hr Administration Protocol 0.05 MG/KG/HR Insulin Human Regular 1 - 5 unit 08/22/19 18:00 08/23/19 12:01 Humulin R SUBQ 1 unit Q6HR MATEUSZ Administration Protocol Lidocaine HCl 2.5 ml 08/20/19 13:11 08/20/19 14:41 Xylocaine Uro-Jet 2% UR 2.5 ml Q6H PRN Administration PAIN Metoclopramide HCl 5 mg 08/22/19 19:00 08/23/19 12:34 Reglan Inj IVP 5 mg Q6HR MATEUSZ Administration Metoprolol Tartrate 2.5 mg 08/21/19 12:00 08/23/19 12:16 Lopressor Inj IVP Not Given Q6HR MATEUSZ Mineral Oil 1 applic 08/22/19 13:08 08/23/19 09:00 Cavilon TOP 1 applic PRN PRN Administration Skin Care Morphine Sulfate 2 mg 08/20/19 10:39 08/22/19 04:25 Morphine (Carpuject) IVP 2 mg Q2HR PRN Administration PAIN Sodium Chloride 10 ml 08/19/19 06:27 08/23/19 12:37 Normal Saline Flush 0.9% IVP 10 ml PRN PRN Administration NEEDED PER PROVIDER ORDERS Sodium Chloride 10 ml 08/19/19 09:00 08/23/19 09:14 Normal Saline Flush 0.9% IVP 10 ml 0100,0900,1700 MATEUSZ Administration Timolol Maleate 1 drops 08/20/19 09:00 08/23/19 09:36 Timoptic 0.5% Ophth Drops EACHEYE 1 drops DAILY MATEUSZ Administration - Lab Result Fish Bone Diagrams: 08/23/19 05:00 08/23/19 04:00 - Additional Planning My Orders: My Active Orders 08/22/19 17:07 Blood Glucose POC [RC] 0000,0600,1200,1800 Initiate Hypoglycemia Protocol [RC] .protocol 08/22/19 18:00 Insulin Regular Human [Humulin R] 1 - 5 unit SUBQ Q6HR 08/22/19 19:00 Metoclopramide Inj [Reglan Inj] 5 mg IVP Q6HR 08/23/19 09:00 FUROSEMIDE INJ 40mg VIAL [LASIX INJ 40 mg VIAL] 40 mg IVP DAILY 08/23/19 11:15 Restraints [RC] Q24H Subjective - Subjective Nursing Reports: Sedated Objective Vital Signs: Vital Signs - 24 hr 08/22/19 08/22/19 08/22/19 17:21 18:00 18:34 Temperature 37.4 C Heart Rate 66 Heart Rate [ 62 Monitoring electrodes] Respiratory 21 Rate Blood Pressure 165/85 H Blood Pressure 179/67 H [Left Radial artery] Blood Pressure 165/85 H [Right Brachial artery] O2 Saturation 100 08/22/19 08/22/19 08/22/19 18:54 20:00 20:20 Temperature 37.5 C 37.7 C H Heart Rate 64 Heart Rate [ 60 61 Monitoring electrodes] Respiratory 20 20 Rate Blood Pressure Blood Pressure 182/71 H 168/65 H [Left Radial artery] Blood Pressure 174/81 H 144/79 H [Right Brachial artery] O2 Saturation 100 100 08/22/19 08/22/19 08/22/19 21:00 22:07 22:50 Temperature 37.6 C H 37.7 C H Heart Rate 60 Heart Rate [ 61 90 Monitoring electrodes] Respiratory 20 20 Rate Blood Pressure Blood Pressure 177/67 H [Left Radial artery] Blood Pressure 168/82 H 175/78 H [Right Brachial artery] O2 Saturation 100 100 08/22/19 08/22/19 08/23/19 23:00 23:50 00:00 Temperature 37.8 C H 37.7 C H Heart Rate Heart Rate [ 60 60 Monitoring electrodes] Respiratory 20 20 Rate Blood Pressure 181/69 H Blood Pressure 174/67 H 182/70 H [Left Radial artery] Blood Pressure 164/79 H 153/76 H [Right Brachial artery] O2 Saturation 100 100 08/23/19 08/23/19 08/23/19 00:05 00:20 01:00 Temperature 37.6 C H Heart Rate Heart Rate [ 61 Monitoring electrodes] Respiratory 20 Rate Blood Pressure 181/69 H 164/63 H Blood Pressure 158/63 H [Left Radial artery] Blood Pressure 139/70 H [Right Brachial artery] O2 Saturation 99 08/23/19 08/23/19 08/23/19 02:00 02:10 03:00 Temperature 37.4 C 37.5 C Heart Rate 64 Heart Rate [ 60 61 Monitoring electrodes] Respiratory 20 20 Rate Blood Pressure Blood Pressure 170/67 H 159/66 H [Left Radial artery] Blood Pressure 153/73 H 142/78 H [Right Brachial artery] O2 Saturation 99 100 08/23/19 08/23/19 08/23/19 04:00 05:00 05:45 Temperature 37.5 C 37.4 C Heart Rate 60 Heart Rate [ 60 61 Monitoring electrodes] Respiratory 16 20 Rate Blood Pressure Blood Pressure 173/66 H 174/67 H [Left Radial artery] Blood Pressure 154/71 H 158/74 H [Right Brachial artery] O2 Saturation 99 98 08/23/19 08/23/19 08/23/19 06:00 06:15 06:20 Temperature 37.3 C Heart Rate Heart Rate [ 61 Monitoring electrodes] Respiratory 20 Rate Blood Pressure 144/67 H Blood Pressure 150/56 H [Left Radial artery] Blood Pressure 144/67 H [Right Brachial artery] O2 Saturation 100 08/23/19 08/23/19 08/23/19 07:00 07:20 08:00 Temperature 37.2 C Heart Rate 66 Heart Rate [ 58 L 55 L Monitoring electrodes] Respiratory 20 20 Rate Blood Pressure Blood Pressure 146/57 H [Left Radial artery] Blood Pressure 129/70 148/72 H [Right Brachial artery] O2 Saturation 100 100 08/23/19 08/23/19 08/23/19 08:25 09:00 10:00 Temperature 37.2 C 36.7 C Heart Rate 65 Heart Rate [ 57 L 54 L Monitoring electrodes] Respiratory 20 20 Rate Blood Pressure Blood Pressure 169/69 H [Left Radial artery] Blood Pressure 154/74 H 151/76 H [Right Brachial artery] O2 Saturation 100 100 08/23/19 08/23/19 08/23/19 11:00 12:00 12:16 Temperature 36.7 C 36.8 C Heart Rate Heart Rate [ 55 L 54 L Monitoring electrodes] Respiratory 20 20 Rate Blood Pressure 156/84 H Blood Pressure 171/72 H 182/75 H [Left Radial artery] Blood Pressure 149/79 H 156/84 H [Right Brachial artery] O2 Saturation 100 100 08/23/19 08/23/19 08/23/19 13:00 13:15 13:26 Temperature 36.5 C Heart Rate 56 L Heart Rate [ 55 L 54 L Monitoring electrodes] Respiratory 20 Rate Blood Pressure Blood Pressure 176/73 H [Left Radial artery] Blood Pressure 158/83 H 162/76 H [Right Brachial artery] O2 Saturation 99 08/23/19 08/23/19 08/23/19 14:00 15:00 15:35 Temperature 36.4 C L 36.5 C Heart Rate 53 L Heart Rate [ 56 L 53 L Monitoring electrodes] Respiratory 20 20 Rate Blood Pressure Blood Pressure 184/76 H 193/79 H [Left Radial artery] Blood Pressure 155/75 H 170/75 H [Right Brachial artery] O2 Saturation 100 100 08/23/19 08/23/19 16:00 17:00 Temperature 36.3 C L 36.3 C L Heart Rate Heart Rate [ 57 L 57 L Monitoring electrodes] Respiratory 20 20 Rate Blood Pressure Blood Pressure 183/76 H 175/74 H [Left Radial artery] Blood Pressure 171/75 H 183/84 H [Right Brachial artery] O2 Saturation 99 100 Oxygen O2 Source Mechanical ventilator Oxygen Flow Rate 2 I&O (Last 24 Hrs): Intake and Output Totals x24h 08/21/19 08/22/19 08/23/19 23:59 23:59 23:59 Intake Total 7160.472 0516.115 787.170 Output Total 6227 8991 5151 Balance -1066.983 -3126.885 -1997.830 General: Other (Not examined, as exam woukld not change orders, but increase r isk of COVID transmission.) - Results Results: Laboratory Results WBC 1.8 x10^3/uL (4.8-10.8) L* 08/23/19 05:00 RBC 3.01 10^6/uL (4.70-6.10) L 08/23/19 05:00 Hgb 8.8 g/dL (14.0-18.0) L 08/23/19 05:00 Hct 27.6 % (42.0-52.0) L 08/23/19 05:00 MCV 91.7 fL (80.0-94.0) 08/23/19 05:00 MCH 29.2 pg (27.0-31.0) 08/23/19 05:00 MCHC 31.9 g/dL (32.0-36.0) L 08/23/19 05:00 RDW 13.6 % (12.0-15.0) 08/23/19 05:00 Plt Count 190 10^3/uL (130-450) 08/23/19 05:00 MPV 12.6 fL (7.4-11.4) H 08/23/19 05:00 Neut # (Auto) Not Reportable 08/23/19 05:00 Lymph # (Auto) Not Reportable 08/23/19 05:00 [place] # (Auto) Not Reportable 08/23/19 05:00 Eos # (Auto) Not Reportable 08/23/19 05:00 Baso # (Auto) Not Reportable 08/23/19 05:00 Absolute Nucleated RBC Not Reportable 08/23/19 05:00 Total Counted 100 08/23/19 05:00 Band Neuts % (Manual) 3 % (0-10) 08/23/19 05:00 Abnorm Lymph % (Manual) 0 % 08/23/19 05:00 Nucleated RBC % Not Reportable 08/23/19 05:00 Neutrophils # (Manual) 1.5 10^3/uL (1.5-6.6) 08/23/19 05:00 Lymphocytes # (Manual) 0.3 10^3/uL (1.5-3.5) L 08/23/19 05:00 Monocytes # (Manual) 0.1 10^3/uL (0.0-1.0) 08/23/19 05:00 Eosinophils # (Manual) 0.0 10^3/uL (0-0.7) 08/23/19 05:00 Basophils # (Manual) 0.0 10^3/uL (0-0.1) 08/23/19 05:00 Differential Comment MANUAL DIFFERENTIAL 08/23/19 05:00 Platelet Estimate NORMAL (130-450,000) (NORMAL) 08/23/19 05:00 RBC Morph Micro Appear 1+ HYPOCHROMASIA (NORMAL) 08/23/19 05:00 PT 12.9 secs (9.9-12.6) H 08/19/19 05:50 INR 1.1 (0.8-1.2) 08/19/19 05:50 APTT 35.8 secs (24.9-33.3) H 08/19/19 05:50 Bld Gas Analysis Time 0612 08/23/19 06:00 Sample Site A-LINE 08/23/19 06:00 ABG pH 7.42 (7.35-7.45) 08/23/19 06:00 ABG pCO2 34 mmHg (34-45) 08/23/19 06:00 ABG pO2 107 mmHg (80-100) H 08/23/19 06:00 ABG HCO3 21.2 mmol/L (22.0-26.0) L 08/23/19 06:00 ABG Total CO2 22.2 MMOL/L (21.0-29.0) 08/23/19 06:00 ABG O2 Saturation 98 % (94-98) 08/23/19 06:00 ABG Base Excess -2.8 mmol/L (-2.0-3.0) L 08/23/19 06:00 Adin Test NOT APPLICABLE 08/23/19 06:00 Respiration Rate 20 b/min 08/23/19 06:00 O2 Delivery Device VENTILATOR 08/23/19 06:00 O2 Liters/Min 9.00 LPM 08/20/19 09:40 Vent Mode ASSIST/CONTROL 08/23/19 06:00 FiO2 0.40 08/23/19 06:00 Tidal Volume 450 mL 08/23/19 06:00 PEEP 5 cmH2O 08/23/19 06:00 Pressure Support Vent 12 cmH2O 08/21/19 11:00 Sodium 140 mmol/L (135-145) 08/23/19 04:00 Potassium 3.4 mmol/L (3.5-5.0) L 08/23/19 04:00 Chloride 107 mmol/L (101-111) 08/23/19 04:00 Carbon Dioxide 24 mmol/L (21-32) 08/23/19 04:00 Anion Gap 9.0 (6-13) 08/23/19 04:00 BUN 58 mg/dL (6-20) H 08/23/19 04:00 Creatinine 2.0 mg/dL (0.6-1.2) H 08/23/19 04:00 Estimated GFR (MDRD) 34 (>89) L 08/23/19 04:00 Glucose 154 mg/dL (70-100) H 08/23/19 04:00 Glycated Hemoglobin 6.3 % (4.6-6.2) H 08/20/19 05:25 Estim Average Glucose 134 (70-100) H 08/20/19 05:25 Lactic Acid 0.7 mmol/L (0.5-2.2) 08/19/19 05:50 Calcium 7.7 mg/dL (8.5-10.3) L 08/23/19 04:00 Phosphorus 4.3 mg/dL (2.5-4.6) 08/23/19 04:00 Magnesium 2.1 mg/dL (1.7-2.8) 08/23/19 04:00 Total Bilirubin 0.5 mg/dL (0.2-1.0) 08/22/19 05:45 Direct Bilirubin 0.1 mg/dL (0.1-0.5) 08/19/19 05:50 AST 24 IU/L (10-42) 08/22/19 05:45 ALT 17 IU/L (10-60) 08/22/19 05:45 Alkaline Phosphatase 50 IU/L (42-121) 08/22/19 05:45 Troponin I High Sens 30.0 ng/L (2.3-19.7) H* 08/20/19 05:25 B-Natriuretic Peptide 2542 pg/mL (5-100) H 08/21/19 06:40 Total Protein 5.4 g/dL (6.7-8.2) L 08/22/19 05:45 Albumin 2.6 g/dL (3.2-5.5) L 08/22/19 05:45 Globulin 2.8 g/dL (2.1-4.2) 08/22/19 05:45 Albumin/Globulin Ratio 0.9 (1.0-2.2) L 08/22/19 05:45 Prealbumin 15 mg/dL (18-45) L 08/22/19 05:45 Lipase 27 U/L (22-51) 08/19/19 05:50 TSH 3.11 uIU/mL (0.34-5.60) 08/19/19 05:50 Urine Color YELLOW 08/19/19 08:00 Urine Clarity HAZY (CLEAR) 08/19/19 08:00 Urine pH 5.5 PH (5.0-7.5) 08/19/19 08:00 Ur Specific [place] 1.020 (1.002-1.030) 08/19/19 08:00 Urine Protein 100 mg/dL (NEGATIVE) H 08/19/19 08:00 Urine Glucose (UA) NEGATIVE mg/dL (NEGATIVE) 08/19/19 08:00 Urine Ketones NEGATIVE mg/dL (NEGATIVE) 08/19/19 08:00 Urine Occult Blood TRACE-INTA (NEGATIVE) 08/19/19 08:00 Urine Nitrite NEGATIVE (NEGATIVE) 08/19/19 08:00 Urine Bilirubin NEGATIVE (NEGATIVE) 08/19/19 08:00 Urine Urobilinogen 0.2 (NORMAL) E.U./dL (NORMAL) 08/19/19 08:00 Ur Leukocyte Esterase NEGATIVE (NEGATIVE) 08/19/19 08:00 Urine RBC 0-5 /HPF (0-5) 08/19/19 08:00 Urine WBC 0-3 /HPF (0-3) 08/19/19 08:00 Ur Squamous Epith Cells RARE Squamous (<= Few) 08/19/19 08:00 Amorphous Sediment Rare /LPF 08/19/19 08:00 Urine Bacteria Rare /HPF (None Seen) 08/19/19 08:00 Urine Casts 6-10 Granular Casts /LPF 08/19/19 08:00 Ur Microscopic Review INDICATED 08/19/19 08:00 Urine Culture Comments NOT INDICATED 08/19/19 08:00 Nasal Screen MRSA (PCR) NEGATIVE (NEGATIVE) 08/21/19 11:43 Urine Opiates Screen NEGATIVE (NEGATIVE) 08/19/19 08:00 Ur Oxycodone Screen NEGATIVE (NEGATIVE) 08/19/19 08:00 Urine Methadone Screen NEGATIVE (NEGATIVE) 08/19/19 08:00 Ur Propoxyphene Screen NEGATIVE (NEGATIVE) 08/19/19 08:00 Ur Barbiturates Screen NEGATIVE (NEGATIVE) 08/19/19 08:00 Ur Tricyclics Screen NEGATIVE (NEGATIVE) 08/19/19 08:00 Ur Phencyclidine Scrn NEGATIVE (NEGATIVE) 08/19/19 08:00 Ur Amphetamine Screen NEGATIVE (NEGATIVE) 08/19/19 08:00 U Methamphetamines Scrn NEGATIVE (NEGATIVE) 08/19/19 08:00 U Benzodiazepines Scrn NEGATIVE (NEGATIVE) 08/19/19 08:00 Urine Cocaine Screen NEGATIVE (NEGATIVE) 08/19/19 08:00 U Cannabinoids Screen NEGATIVE (NEGATIVE) 08/19/19 08:00 Ethyl Alcohol < 5.0 mg/dL 08/19/19 05:50 Blood Type A NEGATIVE 08/19/19 07:38 Antibody Screen NEGATIVE 08/19/19 07:38 Crossmatch IS Only See Detail 08/19/19 07:38 - Procedures Procedures: Procedures REPLACEMENT OF LEFT LENS WITH SYNTH SUB, PERC APPROACH (11/25/17) REPLACEMENT OF RIGHT LENS WITH SYNTH SUB, PERC APPROACH (12/02/17)
[2019-08-23] MEDS: hydrALAZINE INJ 20 MG/ML VIAL IVP PRN (17:18)
[2019-08-24] MEDS: INSULIN REGULAR HUMAN 300 UNIT/3 ML VIAL SUBQ SCH ×5 (00:03→23:16)
[2019-08-24] MEDS: METOCLOPRAMIDE 10 MG/2 ML VIAL IVP SCH ×5 (00:07→23:18)
[2019-08-24] MEDS: METOPROLOL 5 MG/5 ML VIAL IVP SCH ×5 (00:09→23:22)
[2019-08-24] MEDS: hydrALAZINE INJ 20 MG/ML VIAL IVP PRN ×3 (01:35→23:19)
[2019-08-24] MEDS: SODIUM CHLORIDE FLUSH 0.9% 10 ML SYRINGE IVP SCH ×4 (01:44→23:21)
[2019-08-24] MEDS ORDERED: ACETAMINOPHEN 1,000 MG/100 ML 100 ML IV PRN ×2 (03:06→10:00)
[2019-08-24] MEDS: MIDAZOLAM DRIP 50 MG/100 ML BAG IV SCH ×2 (06:48→19:47)
[2019-08-24 06:52] LABS: BASOPHILS % (AUTO) 0.4 %; EOSINOPHILS % (AUTO) 1.6 %; HGB - HEMOGLOBIN 8.7 g/dL (14.0-18.0); LYMPHOCYTES # (AUTO) 0.3 10^3/uL (1.5-3.5); LYMPHOCYTES % (AUTO) 13.1 %; MEAN CORPUSCULAR HEMOGLOBIN 29.5 pg (27.0-31.0); MEAN CORPUSCULAR VOLUME 92.2 fL (80.0-94.0); MEAN PLATELET VOLUME 11.8 fL (7.4-11.4); MONOCYTES # (AUTO) 0.2 10^3/uL (0.0-1.0); MONOCYTES % (AUTO) 8.8 %; NEUTROPHILS # (AUTO) 1.9 10^3/uL (1.5-6.6); NEUTROPHILS % (AUTO) 75.7 %; PLT - PLATELET COUNT 206 10^3/uL (130-450); RED BLOOD COUNT 2.95 10^6/uL (4.70-6.10); RED CELL DISTRIBUTION WIDTH 13.7 % (12.0-15.0); WHITE BLOOD COUNT 2.5 x10^3/uL (4.8-10.8)
[2019-08-24 07:02] LABS: ALBUMIN 2.1 g/dL (3.2-5.5); ALBUMIN/GLOBULIN RATIO 0.8 (1.0-2.2); BILIRUBIN,TOTAL 0.5 mg/dL (0.2-1.0); CALCIUM 7.3 mg/dL (8.5-10.3); CREATININE 1.8 mg/dL (0.6-1.2); MAGNESIUM 1.9 mg/dL (1.7-2.8); PHOSPHORUS 3.6 mg/dL (2.5-4.6); TOTAL PROTEIN 4.8 g/dL (6.7-8.2)
[2019-08-24 07:39] LABS: PLATELET ESTIMATE, MANUAL NORMAL (130-450,000) (NORMAL); PLATELET MORPHOLOGY NORMAL APPEARANCE (NORMAL); RBC MORPHOLOGY (MULTIPLE) 1+ HYPOCHROMASIA (NORMAL)
[2019-08-24] MEDS: cefTRIAXone 1 GM in SODIUM CHLORIDE 0.9% MINIBAG 100 ML IV SCH (08:36)
[2019-08-24] MEDS: FUROSEMIDE 40 MG/4 ML VIAL IVP SCH (08:39)
[2019-08-24] MEDS: CHLORHEXIDINE GLUCONATE 15 ML UDC PO SCH ×2 (08:43→21:21)
[2019-08-24] MEDS: ENOXAPARIN 40 MG/0.4 ML SYRINGE SUBQ SCH (08:49)
[2019-08-24] MEDS: FAMOTIDINE 20 MG/2 ML VIAL IVP SCH ×2 (09:10→21:21)
[2019-08-24] MEDS: timoloL maleate 0.5% OPHTH DROPS (10ML) EACHEYE SCH (09:31)
[2019-08-24] MEDS: BRIMONIDINE 0.2% OPHTH DROPS 5 ML EACHEYE SCH ×2 (09:32→21:20)
[2019-08-24] MEDS: MORPHINE 2 MG/ML CARPUJECT IVP PRN ×2 (12:25→21:23)
[2019-08-24] MEDS: DEXMEDETOMIDINE 400 MCG/100 ML 100 ML IV SCH ×2 (13:35→21:30)
[2019-08-24] MEDS ORDERED: PNEUMOCOCCAL 13-VALENT CONJ 0.5 ML SYRINGE IM ONE (15:00)
[2019-08-24] MEDS ORDERED: FLU VACC QS2019-20(6MOS UP)/PF 60 MCG/0.5 ML SYRINGE IM ONE (15:00)
[2019-08-24] MEDS: SODIUM CHLORIDE 0.9% 500 ML IV PRN ×2 (16:03→17:58)
--- NOTE | 2019-08-24 19:01 | PROVIDER PROGRESS NOTE ---
Assessment/Plan - Problem List (1) Pneumonia due to 2019 novel coronavirus Assessment/Plan: Fever to 38C or greater for 6 hours. Tylenol supp ordered to treat pain or fever. Ventilator and sedation continue, no weaning tried today in light of the fever. (2) Bilateral pneumonia Assessment/Plan: Empiric iv antibx continue. (3) Acute respiratory failure with hypoxia Assessment/Plan: As in #1, on vent. Retry ng feeds. (4) Hypertension Assessment/Plan: BP stable in current meds and management (5) Acute kidney injury superimposed on CKD Assessment/Plan: Abnormal but stable Continue iv fluids and retry ng feeds (6) Heart failure with preserved ejection fraction Qualifiers: Heart failure chronicity: chronic Qualified Code(s): I50.32 - Chronic diastolic (congestive) heart failure Assessment/Plan: He has some third spacing in his feet and hands but overall appears euvolemic. Continue present meds and plan (7) Anemia of chronic disease Assessment/Plan: Continue present supplements and plan to follow H/H daily, transfuse if <7. (8) Type 2 diabetes mellitus with complication, with long-term current use of insulin Assessment/Plan: ss Insulin and fingerstick checks (9) Moderate protein-calorie malnutrition Assessment/Plan: NG tubes to restart (10) Visual impairment Assessment/Plan: As per Hx. - Current Meds Current Meds: Current Medications Generic Name Dose Route Start Last Admin Trade Name Freq PRN Reason Stop Dose Admin Brimonidine Tartrate 1 drops 08/19/19 21:00 08/24/19 09:32 Alphagan P 0.2% Ophth Drops EACHEYE 1 drops BID MATEUSZ Administration Chlorhexidine Gluconate 15 ml 08/22/19 11:00 08/24/19 08:43 Peridex PO 15 ml BID MATEUSZ Administration Enoxaparin Sodium 40 mg 08/20/19 09:00 08/24/19 08:49 Lovenox SUBQ 40 mg DAILY MATEUSZ Administration Famotidine 10 mg 08/22/19 11:00 08/24/19 09:10 Pepcid IVP 10 mg BID MATEUSZ Administration Furosemide 40 mg 08/23/19 09:00 08/24/19 08:39 Lasix Inj 40 Mg Vial IVP 40 mg DAILY MATEUSZ Administration Heparin Sodium (Beef Lung) 30 - 50 unit 08/21/19 13:58 08/23/19 03:58 IVP 30 unit PRN PRN Administration Central Line Protocol (<24 hr) Hydralazine HCl 10 mg 08/22/19 10:34 08/24/19 17:25 Apresoline Inj IVP 10 mg Q6H PRN Administration Hypertensive Emergency Dexmedetomidine/Sodium Chloride 100 mls @ 9.375 mls/hr 08/21/19 10:00 08/24/19 13:35 Precedex Premix IV 0.7 mcg/kg/hr .[id number] MATEUSZ 13.125 mls/hr Administration Protocol 0.5 MCG/KG/HR Sodium Chloride 500 mls @ 0 mls/hr 08/21/19 13:58 08/24/19 17:58 Normal Saline 0.9% IV 20 mls/hr Q24H PRN Administration TKO RATE TKO Midazolam HCl 50 mg in 100 mls @ 7.5 mls/hr 08/22/19 07:00 08/24/19 06:48 Versed Drip IV Not Given .[id number] MATEUSZ Protocol 0.05 MG/KG/HR Insulin Human Regular 1 - 5 unit 08/22/19 18:00 08/24/19 18:07 Humulin R SUBQ 1 unit Q6HR MATEUSZ Administration Protocol Lidocaine HCl 2.5 ml 08/20/19 13:11 08/20/19 14:41 Xylocaine Uro-Jet 2% UR 2.5 ml Q6H PRN Administration PAIN Metoclopramide HCl 5 mg 08/22/19 19:00 08/24/19 18:21 Reglan Inj IVP 5 mg Q6HR MATEUSZ Administration Metoprolol Tartrate 2.5 mg 08/21/19 12:00 08/24/19 12:41 Lopressor Inj IVP Not Given Q6HR [facility] Mineral Oil 1 applic 08/22/19 13:08 08/23/19 16:15 Cavilon TOP 1 applic PRN PRN Administration Skin Care Morphine Sulfate 2 mg 08/20/19 10:39 08/24/19 12:25 Morphine (Carpuject) IVP 2 mg Q2HR PRN Administration PAIN Sodium Chloride 10 ml 08/19/19 06:27 08/23/19 17:27 Normal Saline Flush 0.9% IVP 10 ml PRN PRN Administration NEEDED PER PROVIDER ORDERS Sodium Chloride 10 ml 08/19/19 09:00 08/24/19 18:05 Normal Saline Flush 0.9% IVP 10 ml 0100,0900,1700 MATEUSZ Administration Timolol Maleate 1 drops 08/20/19 09:00 08/24/19 09:31 Timoptic 0.5% Ophth Drops EACHEYE 1 drops DAILY MATEUSZ Administration - Lab Result Fish Bone Diagrams: 08/24/19 06:30 08/24/19 06:30 - Additional Planning My Orders: My Active Orders 08/24/19 00:12 Sodium Chloride Flush 0.9% [Normal Saline Flush 0.9%] 20 ml IVP PRN PRN 08/24/19 10:11 Acetaminophen [Tylenol] 650 mg UT Q6HR PRN 08/24/19 10:17 Miscellaenous Nursing Order [RC] QSHIFT 08/24/19 11:17 Restraints [RC] Q1H 08/25/19 05:00 CBC - COMP BLD CT W/AUTO DIFF [HEME] DAILYLAB 08/26/19 05:00 CBC - COMP BLD CT W/AUTO DIFF [HEME] DAILYLAB 08/27/19 05:00 CBC - COMP BLD CT W/AUTO DIFF [HEME] DAILYLAB Subjective - Subjective Nursing Reports: Other (No new reports by nursing) Objective Vital Signs: Vital Signs - 24 hr 08/23/19 08/23/19 08/23/19 19:00 19:11 20:00 Temperature 36.4 C L 36.4 C L Heart Rate 61 Heart Rate [ 60 60 Monitoring electrodes] Respiratory 20 18 Rate Blood Pressure Blood Pressure 171/64 H 176/65 H [Left Radial artery] Blood Pressure 145/72 H 154/75 H [Right Brachial artery] O2 Saturation 98 99 08/23/19 08/23/19 08/23/19 21:00 21:47 22:00 Temperature 36.8 C 36.8 C Heart Rate 59 L Heart Rate [ 58 L 58 L Monitoring electrodes] Respiratory 20 20 Rate Blood Pressure Blood Pressure 165/61 H 164/91 H [Left Radial artery] Blood Pressure 161/78 H 163/78 H [Right Brachial artery] O2 Saturation 99 99 08/23/19 08/24/19 08/24/19 23:00 00:00 00:09 Temperature 37.2 C 37.2 C Heart Rate Heart Rate [ 59 L 59 L Monitoring electrodes] Respiratory 20 20 Rate Blood Pressure 176/79 H Blood Pressure 177/81 H 172/72 H [Left Radial artery] Blood Pressure 171/82 H 176/79 H [Right Brachial artery] O2 Saturation 99 99 08/24/19 08/24/19 08/24/19 01:00 01:26 01:35 Temperature 37.3 C Heart Rate 66 Heart Rate [ 65 Monitoring electrodes] Respiratory 16 Rate Blood Pressure 189/77 H Blood Pressure 193/94 H [Left Radial artery] Blood Pressure 189/77 H [Right Brachial artery] O2 Saturation 99 08/24/19 08/24/19 08/24/19 02:00 02:05 03:00 Temperature 37.5 C 37.8 C H Heart Rate Heart Rate [ 70 83 Monitoring electrodes] Respiratory 18 17 Rate Blood Pressure 155/74 H Blood Pressure 171/70 H 182/72 H [Left Radial artery] Blood Pressure 155/74 H 166/84 H [Right Brachial artery] O2 Saturation 99 99 08/24/19 08/24/19 08/24/19 03:11 04:00 05:00 Temperature 37.9 C H 38.0 C H Heart Rate 80 Heart Rate [ 65 61 Monitoring electrodes] Respiratory 20 20 Rate Blood Pressure Blood Pressure 146/54 H 148/55 H [Left Radial artery] Blood Pressure 137/71 H 142/71 H [Right Brachial artery] O2 Saturation 99 99 08/24/19 08/24/19 08/24/19 06:00 06:50 07:00 Temperature 38.0 C H 38.1 C H Heart Rate Heart Rate [ 61 63 Monitoring electrodes] Respiratory 20 20 Rate Blood Pressure 148/72 H Blood Pressure 153/57 H 146/55 H [Left Radial artery] Blood Pressure 148/72 H 140/70 H [Right Brachial artery] O2 Saturation 100 99 08/24/19 08/24/19 08/24/19 08:00 08:32 09:00 Temperature 38 C H 37.6 C H Heart Rate 62 Heart Rate [ 61 59 L Monitoring electrodes] Respiratory 20 20 Rate Blood Pressure Blood Pressure 166/54 H 145/52 H [Left Radial artery] Blood Pressure 134/67 H 138/64 H [Right Brachial artery] O2 Saturation 99 99 08/24/19 08/24/19 08/24/19 10:00 11:00 12:00 Temperature 37.6 C H 37.5 C 37.4 C Heart Rate Heart Rate [ 60 58 L 59 L Monitoring electrodes] Respiratory 20 20 20 Rate Blood Pressure Blood Pressure 170/66 H 156/62 H 173/73 H [Left Radial artery] Blood Pressure 159/80 H 133/68 H 166/74 H [Right Brachial artery] O2 Saturation 99 100 100 08/24/19 08/24/19 08/24/19 12:37 13:00 14:00 Temperature 37.3 C 37.2 C Heart Rate 62 Heart Rate [ 63 67 Monitoring electrodes] Respiratory 20 20 Rate Blood Pressure Blood Pressure 186/64 H 188/68 H [Left Radial artery] Blood Pressure 165/74 H 151/76 H [Right Brachial artery] O2 Saturation 98 97 08/24/19 08/24/19 08/24/19 15:00 16:00 16:47 Temperature 37.2 C 37.2 C Heart Rate 56 L Heart Rate [ 58 L 58 L Monitoring electrodes] Respiratory 20 20 Rate Blood Pressure Blood Pressure 184/66 H 193/69 H [Left Radial artery] Blood Pressure 165/79 H 160/76 H [Right Brachial artery] O2 Saturation 97 98 08/24/19 08/24/19 08/24/19 17:00 17:35 17:43 Temperature 36.8 C Heart Rate Heart Rate [ 59 L 59 L 59 L Monitoring electrodes] Respiratory 20 Rate Blood Pressure Blood Pressure 197/70 H [Left Radial artery] Blood Pressure 194/85 H 197/78 H 172/75 H [Right Brachial artery] O2 Saturation 97 08/24/19 08/24/19 08/24/19 17:49 17:55 18:00 Temperature 36.7 C Heart Rate Heart Rate [ 58 L 59 L Monitoring electrodes] Respiratory 20 Rate Blood Pressure 174/78 H Blood Pressure 187/64 H [Left Radial artery] Blood Pressure 175/74 H 174/78 H [Right Brachial artery] O2 Saturation 98 08/24/19 08/24/19 18:22 18:41 Temperature Heart Rate Heart Rate [ 60 Monitoring electrodes] Respiratory 59 H Rate Blood Pressure Blood Pressure [Left Radial artery] Blood Pressure 175/73 H 155/71 H [Right Brachial artery] O2 Saturation Oxygen O2 Source Mechanical ventilator Oxygen Flow Rate 2 I&O (Last 24 Hrs): Intake and Output Totals x24h 08/22/19 08/23/19 08/24/19 23:59 23:59 23:59 Intake Total 2038.115 1152.971 832.302 Output Total 9919 6044 3639 Balance -2706.885 -2882.029 -1766.698 General: Other (sedated) HEENT: Mucous membr. moist/pink Neck: No JVD Neuro: Other (sedated) Cardiovascular: Regular rate Respiratory: Breath sounds nml Abdomen: Soft Extremities: Other (1+ hand and foot edema) - Results Results: Laboratory Results WBC 2.5 x10^3/uL (4.8-10.8) L 08/24/19 06:30 RBC 2.95 10^6/uL (4.70-6.10) L 08/24/19 06:30 Hgb 8.7 g/dL (14.0-18.0) L 08/24/19 06:30 Hct 27.2 % (42.0-52.0) L 08/24/19 06:30 MCV 92.2 fL (80.0-94.0) 08/24/19 06:30 MCH 29.5 pg (27.0-31.0) 08/24/19 06:30 MCHC 32.0 g/dL (32.0-36.0) 08/24/19 06:30 RDW 13.7 % (12.0-15.0) 08/24/19 06:30 Plt Count 206 10^3/uL (130-450) 08/24/19 06:30 MPV 11.8 fL (7.4-11.4) H 08/24/19 06:30 Neut # (Auto) 1.9 10^3/uL (1.5-6.6) 08/24/19 06:30 Lymph # (Auto) 0.3 10^3/uL (1.5-3.5) L 08/24/19 06:30 [place] # (Auto) 0.2 10^3/uL (0.0-1.0) 08/24/19 06:30 Eos # (Auto) 0.0 10^3/uL (0.0-0.7) 08/24/19 06:30 Baso # (Auto) 0.0 10^3/uL (0.0-0.1) 08/24/19 06:30 Absolute Nucleated RBC 0.00 x10^3/uL 08/24/19 06:30 Total Counted 100 08/23/19 05:00 Band Neuts % (Manual) 3 % (0-10) 08/23/19 05:00 Abnorm Lymph % (Manual) 0 % 08/23/19 05:00 Nucleated RBC % 0.0 /100WBC 08/24/19 06:30 Neutrophils # (Manual) 1.5 10^3/uL (1.5-6.6) 08/23/19 05:00 Lymphocytes # (Manual) 0.3 10^3/uL (1.5-3.5) L 08/23/19 05:00 Monocytes # (Manual) 0.1 10^3/uL (0.0-1.0) 08/23/19 05:00 Eosinophils # (Manual) 0.0 10^3/uL (0-0.7) 08/23/19 05:00 Basophils # (Manual) 0.0 10^3/uL (0-0.1) 08/23/19 05:00 Differential Comment MANUAL DIFFERENTIAL 08/23/19 05:00 Manual Slide Review Indicated 08/24/19 06:30 Platelet Estimate NORMAL (130-450,000) (NORMAL) 08/24/19 06:30 Platelet Morphology NORMAL APPEARANCE (NORMAL) 08/24/19 06:30 RBC Morph Micro Appear 1+ HYPOCHROMASIA (NORMAL) 08/24/19 06:30 PT 12.9 secs (9.9-12.6) H 08/19/19 05:50 INR 1.1 (0.8-1.2) 08/19/19 05:50 APTT 35.8 secs (24.9-33.3) H 08/19/19 05:50 Bld Gas Analysis Time 0612 08/23/19 06:00 Sample Site A-LINE 08/23/19 06:00 ABG pH 7.42 (7.35-7.45) 08/23/19 06:00 ABG pCO2 34 mmHg (34-45) 08/23/19 06:00 ABG pO2 107 mmHg (80-100) H 08/23/19 06:00 ABG HCO3 21.2 mmol/L (22.0-26.0) L 08/23/19 06:00 ABG Total CO2 22.2 MMOL/L (21.0-29.0) 08/23/19 06:00 ABG O2 Saturation 98 % (94-98) 08/23/19 06:00 ABG Base Excess -2.8 mmol/L (-2.0-3.0) L 08/23/19 06:00 Adin Test NOT APPLICABLE 08/23/19 06:00 Respiration Rate 20 b/min 08/23/19 06:00 O2 Delivery Device VENTILATOR 08/23/19 06:00 O2 Liters/Min 9.00 LPM 08/20/19 09:40 Vent Mode ASSIST/CONTROL 08/23/19 06:00 FiO2 0.40 08/23/19 06:00 Tidal Volume 450 mL 08/23/19 06:00 PEEP 5 cmH2O 08/23/19 06:00 Pressure Support Vent 12 cmH2O 08/21/19 11:00 Sodium 144 mmol/L (135-145) 08/24/19 06:30 Potassium 3.4 mmol/L (3.5-5.0) L 08/24/19 06:30 Chloride 112 mmol/L (101-111) H 08/24/19 06:30 Carbon Dioxide 22 mmol/L (21-32) 08/24/19 06:30 Anion Gap 10.0 (6-13) 08/24/19 06:30 BUN 50 mg/dL (6-20) H 08/24/19 06:30 Creatinine 1.8 mg/dL (0.6-1.2) H 08/24/19 06:30 Estimated GFR (MDRD) 38 (>89) L 08/24/19 06:30 Glucose 137 mg/dL (70-100) H 08/24/19 06:30 Glycated Hemoglobin 6.3 % (4.6-6.2) H 08/20/19 05:25 Estim Average Glucose 134 (70-100) H 08/20/19 05:25 Lactic Acid 0.7 mmol/L (0.5-2.2) 08/19/19 05:50 Calcium 7.3 mg/dL (8.5-10.3) L 08/24/19 06:30 Phosphorus 3.6 mg/dL (2.5-4.6) 08/24/19 06:30 Magnesium 1.9 mg/dL (1.7-2.8) 08/24/19 06:30 Total Bilirubin 0.5 mg/dL (0.2-1.0) 08/24/19 06:30 Direct Bilirubin 0.1 mg/dL (0.1-0.5) 08/19/19 05:50 AST 21 IU/L (10-42) 08/24/19 06:30 ALT 14 IU/L (10-60) 08/24/19 06:30 Alkaline Phosphatase 47 IU/L (42-121) 08/24/19 06:30 Troponin I High Sens 30.0 ng/L (2.3-19.7) H* 08/20/19 05:25 B-Natriuretic Peptide 693 pg/mL (5-100) H 08/24/19 06:30 Total Protein 4.8 g/dL (6.7-8.2) L 08/24/19 06:30 Albumin 2.1 g/dL (3.2-5.5) L 08/24/19 06:30 Globulin 2.7 g/dL (2.1-4.2) 08/24/19 06:30 Albumin/Globulin Ratio 0.8 (1.0-2.2) L 08/24/19 06:30 Prealbumin 10 mg/dL (18-45) L 08/24/19 06:30 Lipase 27 U/L (22-51) 08/19/19 05:50 TSH 3.11 uIU/mL (0.34-5.60) 08/19/19 05:50 Urine Color YELLOW 08/19/19 08:00 Urine Clarity HAZY (CLEAR) 08/19/19 08:00 Urine pH 5.5 PH (5.0-7.5) 08/19/19 08:00 Ur Specific [place] 1.020 (1.002-1.030) 08/19/19 08:00 Urine Protein 100 mg/dL (NEGATIVE) H 08/19/19 08:00 Urine Glucose (UA) NEGATIVE mg/dL (NEGATIVE) 08/19/19 08:00 Urine Ketones NEGATIVE mg/dL (NEGATIVE) 08/19/19 08:00 Urine Occult Blood TRACE-INTA (NEGATIVE) 08/19/19 08:00 Urine Nitrite NEGATIVE (NEGATIVE) 08/19/19 08:00 Urine Bilirubin NEGATIVE (NEGATIVE) 08/19/19 08:00 Urine Urobilinogen 0.2 (NORMAL) E.U./dL (NORMAL) 08/19/19 08:00 Ur Leukocyte Esterase NEGATIVE (NEGATIVE) 08/19/19 08:00 Urine RBC 0-5 /HPF (0-5) 08/19/19 08:00 Urine WBC 0-3 /HPF (0-3) 08/19/19 08:00 Ur Squamous Epith Cells RARE Squamous (<= Few) 08/19/19 08:00 Amorphous Sediment Rare /LPF 08/19/19 08:00 Urine Bacteria Rare /HPF (None Seen) 08/19/19 08:00 Urine Casts 6-10 Granular Casts /LPF 08/19/19 08:00 Ur Microscopic Review INDICATED 08/19/19 08:00 Urine Culture Comments NOT INDICATED 08/19/19 08:00 Nasal Screen MRSA (PCR) NEGATIVE (NEGATIVE) 08/21/19 11:43 Urine Opiates Screen NEGATIVE (NEGATIVE) 08/19/19 08:00 Ur Oxycodone Screen NEGATIVE (NEGATIVE) 08/19/19 08:00 Urine Methadone Screen NEGATIVE (NEGATIVE) 08/19/19 08:00 Ur Propoxyphene Screen NEGATIVE (NEGATIVE) 08/19/19 08:00 Ur Barbiturates Screen NEGATIVE (NEGATIVE) 08/19/19 08:00 Ur Tricyclics Screen NEGATIVE (NEGATIVE) 08/19/19 08:00 Ur Phencyclidine Scrn NEGATIVE (NEGATIVE) 08/19/19 08:00 Ur Amphetamine Screen NEGATIVE (NEGATIVE) 08/19/19 08:00 U Methamphetamines Scrn NEGATIVE (NEGATIVE) 08/19/19 08:00 U Benzodiazepines Scrn NEGATIVE (NEGATIVE) 08/19/19 08:00 Urine Cocaine Screen NEGATIVE (NEGATIVE) 08/19/19 08:00 U Cannabinoids Screen NEGATIVE (NEGATIVE) 08/19/19 08:00 Ethyl Alcohol < 5.0 mg/dL 08/19/19 05:50 Blood Type A NEGATIVE 08/19/19 07:38 Antibody Screen NEGATIVE 08/19/19 07:38 Crossmatch IS Only See Detail 08/19/19 07:38 - Procedures Procedures: Procedures REPLACEMENT OF LEFT LENS WITH SYNTH SUB, PERC APPROACH (11/25/17) REPLACEMENT OF RIGHT LENS WITH SYNTH SUB, PERC APPROACH (12/02/17)
[2019-08-24] MEDS ORDERED: SODIUM CHLORIDE 0.9% 500 ML ONE (19:24)
[2019-08-24] MEDS: cloNIDine 0.1 MG PATCH TOP SCH (22:00)
[2019-08-24] MEDS: SODIUM CHLORIDE FLUSH 0.9% 10 ML SYRINGE IVP PRN (23:21)
[2019-08-25] MEDS: DEXMEDETOMIDINE 400 MCG/100 ML 100 ML IV SCH ×3 (04:15→18:26)
[2019-08-25] MEDS: SODIUM CHLORIDE FLUSH 0.9% 10 ML SYRINGE IVP PRN ×6 (04:15→23:16)
[2019-08-25 04:47] LABS: BASOPHILS % (AUTO) 0.5 %; EOSINOPHILS # (AUTO) 0.1 10^3/uL (0.0-0.7); EOSINOPHILS % (AUTO) 2.3 %; HGB - HEMOGLOBIN 8.7 g/dL (14.0-18.0); LYMPHOCYTES # (AUTO) 0.6 10^3/uL (1.5-3.5); LYMPHOCYTES % (AUTO) 13.2 %; MEAN CORPUSCULAR HEMOGLOBIN 28.9 pg (27.0-31.0); MEAN CORPUSCULAR HGB CONC 30.5 g/dL (32.0-36.0); MEAN CORPUSCULAR VOLUME 94.7 fL (80.0-94.0); MEAN PLATELET VOLUME 11.8 fL (7.4-11.4); MONOCYTES # (AUTO) 0.3 10^3/uL (0.0-1.0); MONOCYTES % (AUTO) 7.6 %; NEUTROPHILS # (AUTO) 3.3 10^3/uL (1.5-6.6); NEUTROPHILS % (AUTO) 75.7 %; PLT - PLATELET COUNT 248 10^3/uL (130-450); RED BLOOD COUNT 3.01 10^6/uL (4.70-6.10); WHITE BLOOD COUNT 4.3 x10^3/uL (4.8-10.8)
--- NOTE | 2019-08-25 04:56 | XRAY Report ---
Reason: intubated Procedure Date: 08/25/2019 Accession Number: [id number] / [id number] Procedure: XR - Chest 1 View X-Ray CPT Code: 19917 Final Report FULL RESULT: EXAM: CHEST RADIOGRAPHY EXAM DATE: 08/25/2019 04:36 AM. CLINICAL HISTORY: Intubated. COMPARISON: CHEST 1 VIEW 08/23/2019 9:05 AM. TECHNIQUE: 1 view. FINDINGS: Support devices: Multiple support devices are stable. Lungs/Pleura: Mild bilateral opacities are stable. No gross pneumothorax. No increasing effusion. Mediastinum: Stable heart size. No mediastinal shift. Other: None. IMPRESSION: 1. Stable support devices. 2. Mild bilateral opacities are grossly stable. RADIA
[2019-08-25 05:02] LABS: ALBUMIN 2.3 g/dL (3.2-5.5); ALBUMIN/GLOBULIN RATIO 0.7 (1.0-2.2); BILIRUBIN,TOTAL 0.4 mg/dL (0.2-1.0); CALCIUM 7.7 mg/dL (8.5-10.3); CREATININE 1.8 mg/dL (0.6-1.2); TOTAL PROTEIN 5.4 g/dL (6.7-8.2)
[2019-08-25] MEDS: METOCLOPRAMIDE 10 MG/2 ML VIAL IVP SCH ×4 (05:45→23:16)
[2019-08-25] MEDS: INSULIN REGULAR HUMAN 300 UNIT/3 ML VIAL SUBQ SCH ×3 (05:51→18:18)
[2019-08-25] MEDS: METOPROLOL 5 MG/5 ML VIAL IVP SCH ×4 (05:53→23:35)
[2019-08-25] MEDS: hydrALAZINE INJ 20 MG/ML VIAL IVP PRN ×2 (06:59→20:41)
[2019-08-25 08:17] LABS: PHOSPHORUS 3.9 mg/dL (2.5-4.6)
--- NOTE | 2019-08-25 08:41 | PROVIDER PROGRESS NOTE ---
Assessment/Plan - Problem List (1) Fever Assessment/Plan: Fever was 6 hours yesterday and he spiked a fever today and was in distress (HTN and tachycardic) Since he is intubated 5 days, consider sinusitis, and oropharyngeal source of fever, consider aspiration or worsening of COVID infection Will re culture blood and any sputum that is suctioned and urine. Will check lactic acid Will broaden antibiotics to cover anaerobes: will start empiric Cefepime, Vanco and Metronidazole.. (2) Pneumonia due to 2019 novel coronavirus Assessment/Plan: As above (3) Acute respiratory failure with hypoxia Assessment/Plan: On ventilator Day #5. BNP down to 600's today from 2000's yesterday. Today he had a fever, tachy and hypertensive and a rapid response was called and Continue adequate sedation and fever control. No weaning today due to fever and distress. EKG done today and there is more ST depression in inferior leads. Will check troponins. (4) Hypertension Assessment/Plan: BP intermittently very elevated. Today he had a fever, tachy and hypertensive and a rapid response was called and a mucous plug was felt to be the etiology. Remain on iv Hydralazine and iv Metoprolol for management, and will and NTPaste Continue adequate sedation and fever control. No weaning today due to fever and distress. (5) Hypernatremia Assessment/Plan: With Lasix and hypertonic ng feeds, he has become hypernatremic. Will add iv D5 and free water per ng. (6) Acute kidney injury superimposed on CKD Assessment/Plan: Abnormal but stable. With Lasix and hypertonic ng feeds, he has become hypernatremic. Will add iv D5 and free water per ng. (7) Heart failure with preserved ejection fraction Qualifiers: Heart failure chronicity: chronic Qualified Code(s): I50.32 - Chronic diastolic (congestive) heart failure Assessment/Plan: He is on daily Lasix iv, but has anasarca. No pulmonary edema on CXR however. With Lasix and hypertonic ng feeds, he has become hypernatremic. Will add iv D5 and free water per ng. EKG done today and there is more ST depression in inferior leads. Will check troponins. (8) Anemia of chronic disease Assessment/Plan: Follow H/H daily Transfuse if Hgb <7 (9) Type 2 diabetes mellitus with complication, with long-term current use of insulin Assessment/Plan: On ng feeds and ss Insulin (10) Moderate protein-calorie malnutrition Assessment/Plan: As per Hx (11) Visual impairment Assessment/Plan: As per Hx Has glaucoma, on drops - Current Meds Current Meds: Current Medications Generic Name Dose Route Start Last Admin Trade Name Freq PRN Reason Stop Dose Admin Brimonidine Tartrate 1 drops 08/19/19 21:00 08/24/19 21:20 Alphagan P 0.2% Ophth Drops EACHEYE 1 drops BID MATEUSZ Administration Chlorhexidine Gluconate 15 ml 08/22/19 11:00 08/24/19 21:21 Peridex PO 15 ml BID MATEUSZ Administration Clonidine HCl 1 patch 08/24/19 22:00 08/24/19 22:00 [id number] TOP 1 patch Q7D MATEUSZ Administration Enoxaparin Sodium 40 mg 08/20/19 09:00 08/24/19 08:49 Lovenox SUBQ 40 mg DAILY MATEUSZ Administration Famotidine 10 mg 08/22/19 11:00 08/24/19 21:21 Pepcid IVP 10 mg BID MATEUSZ Administration Furosemide 40 mg 08/23/19 09:00 08/24/19 08:39 Lasix Inj 40 Mg Vial IVP 40 mg DAILY MATEUSZ Administration Heparin Sodium (Beef Lung) 30 - 50 unit 08/21/19 13:58 08/25/19 04:12 IVP 30 unit PRN PRN Administration Central Line Protocol (<24 hr) Hydralazine HCl 10 mg 08/22/19 10:34 08/25/19 06:59 Apresoline Inj IVP 10 mg Q6H PRN Administration Hypertensive Emergency Dexmedetomidine/Sodium Chloride 100 mls @ 9.375 mls/hr 08/21/19 10:00 08/25/19 07:00 Precedex Premix IV 0 mcg/kg/hr .[id number] MATEUSZ 0 mls/hr Titration Protocol 0.5 MCG/KG/HR Sodium Chloride 500 mls @ 0 mls/hr 08/21/19 13:58 08/25/19 07:33 Normal Saline 0.9% IV 20 mls/hr Q24H PRN Infusion TKO RATE TKO Midazolam HCl 50 mg in 100 mls @ 7.5 mls/hr 08/22/19 07:00 08/24/19 20:13 Versed Drip IV Infused .[id number] MATEUSZ Titration Protocol 0.05 MG/KG/HR Insulin Human Regular 1 - 5 unit 08/22/19 18:00 08/25/19 05:51 Humulin R SUBQ 3 unit Q6HR MATEUSZ Administration Protocol Lidocaine HCl 2.5 ml 08/20/19 13:11 08/20/19 14:41 Xylocaine Uro-Jet 2% UR 2.5 ml Q6H PRN Administration PAIN Metoclopramide HCl 5 mg 08/22/19 19:00 08/25/19 05:45 Reglan Inj IVP 5 mg Q6HR MATEUSZ Administration Metoprolol Tartrate 2.5 mg 08/21/19 12:00 08/25/19 05:53 Lopressor Inj IVP 2.5 mg Q6HR MATEUSZ Administration Mineral Oil 1 applic 08/22/19 13:08 08/23/19 16:15 Cavilon TOP 1 applic PRN PRN Administration Skin Care Morphine Sulfate 2 mg 08/20/19 10:39 08/24/19 21:23 Morphine (Carpuject) IVP 2 mg Q2HR PRN Administration PAIN Sodium Chloride 10 ml 08/19/19 06:27 08/24/19 23:21 Normal Saline Flush 0.9% IVP 10 ml PRN PRN Administration NEEDED PER PROVIDER ORDERS Sodium Chloride 10 ml 08/19/19 09:00 08/24/19 23:21 Normal Saline Flush 0.9% IVP 10 ml 0100,0900,1700 MATEUSZ Administration Sodium Chloride 20 ml 08/24/19 00:12 08/25/19 04:15 Normal Saline Flush 0.9% IVP 20 ml PRN PRN Administration After Blood Draw Timolol Maleate 1 drops 08/20/19 09:00 08/24/19 09:31 Timoptic 0.5% Ophth Drops EACHEYE 1 drops DAILY MATEUSZ Administration - Lab Result Fish Bone Diagrams: 08/25/19 04:00 08/25/19 04:00 - Additional Planning My Orders: My Active Orders 08/24/19 10:11 Acetaminophen [Tylenol] 650 mg AL Q6HR PRN 08/24/19 10:17 Miscellaenous Nursing Order [RC] QSHIFT 08/24/19 11:17 Restraints [RC] Q24H 08/25/19 08:38 Miscellaenous Nursing Order [RC] ONCE 08/25/19 09:00 Dextrose 5% [D5w] 1,000 ml IV 83.333 mls/hr 08/26/19 05:00 CBC - COMP BLD CT W/AUTO DIFF [HEME] DAILYLAB 08/27/19 05:00 CBC - COMP BLD CT W/AUTO DIFF [HEME] DAILYLAB Subjective - Subjective Patient Reports: Other (sedated on vent) Objective Vital Signs: Vital Signs - 24 hr 08/24/19 08/24/19 08/24/19 09:00 10:00 11:00 Temperature 37.6 C H 37.6 C H 37.5 C Heart Rate Heart Rate [ 59 L 60 58 L Monitoring electrodes] Respiratory 20 20 20 Rate Blood Pressure Blood Pressure 145/52 H 170/66 H 156/62 H [Left Radial artery] Blood Pressure 138/64 H 159/80 H 133/68 H [Right Brachial artery] O2 Saturation 99 99 100 08/24/19 08/24/19 08/24/19 12:00 12:37 13:00 Temperature 37.4 C 37.3 C Heart Rate 62 Heart Rate [ 59 L 63 Monitoring electrodes] Respiratory 20 20 Rate Blood Pressure Blood Pressure 173/73 H 186/64 H [Left Radial artery] Blood Pressure 166/74 H 165/74 H [Right Brachial artery] O2 Saturation 100 98 08/24/19 08/24/19 08/24/19 14:00 15:00 16:00 Temperature 37.2 C 37.2 C 37.2 C Heart Rate Heart Rate [ 67 58 L 58 L Monitoring electrodes] Respiratory 20 20 20 Rate Blood Pressure Blood Pressure 188/68 H 184/66 H 193/69 H [Left Radial artery] Blood Pressure 151/76 H 165/79 H 160/76 H [Right Brachial artery] O2 Saturation 97 97 98 08/24/19 08/24/19 08/24/19 16:47 17:00 17:35 Temperature 36.8 C Heart Rate 56 L Heart Rate [ 59 L 59 L Monitoring electrodes] Respiratory 20 Rate Blood Pressure Blood Pressure 197/70 H [Left Radial artery] Blood Pressure 194/85 H 197/78 H [Right Brachial artery] O2 Saturation 97 08/24/19 08/24/19 08/24/19 17:43 17:49 17:55 Temperature Heart Rate Heart Rate [ 59 L 58 L Monitoring electrodes] Respiratory Rate Blood Pressure 174/78 H Blood Pressure [Left Radial artery] Blood Pressure 172/75 H 175/74 H [Right Brachial artery] O2 Saturation 08/24/19 08/24/19 08/24/19 18:00 18:22 18:41 Temperature 36.7 C Heart Rate Heart Rate [ 59 L 60 Monitoring electrodes] Respiratory 20 59 H Rate Blood Pressure Blood Pressure 187/64 H [Left Radial artery] Blood Pressure 174/78 H 175/73 H 155/71 H [Right Brachial artery] O2 Saturation 98 08/24/19 08/24/19 08/24/19 19:00 19:36 20:00 Temperature 36.8 C 36.8 C Heart Rate 59 L Heart Rate [ 61 59 L Monitoring electrodes] Respiratory 16 20 Rate Blood Pressure Blood Pressure 178/63 H 189/66 H [Left Radial artery] Blood Pressure 155/70 H 181/76 H [Right Brachial artery] O2 Saturation 97 98 08/24/19 08/24/19 08/24/19 21:00 22:00 23:00 Temperature 36.8 C 36.8 C 36.8 C Heart Rate 56 L Heart Rate [ 57 L 56 L 56 L Monitoring electrodes] Respiratory 18 18 20 Rate Blood Pressure Blood Pressure 190/65 H 176/58 H 181/59 H [Left Radial artery] Blood Pressure 182/73 H 162/77 H 171/75 H [Right Brachial artery] O2 Saturation 98 98 98 08/24/19 08/24/19 08/24/19 23:19 23:20 23:22 Temperature Heart Rate Heart Rate [ 56 L Monitoring electrodes] Respiratory Rate Blood Pressure 187/62 H 182/60 H Blood Pressure 185/62 H [Left Radial artery] Blood Pressure 171/77 H [Right Brachial artery] O2 Saturation 08/24/19 08/24/19 08/24/19 23:25 23:30 23:35 Temperature Heart Rate Heart Rate [ 56 L 57 L 58 L Monitoring electrodes] Respiratory Rate Blood Pressure Blood Pressure 171/56 H 155/50 H 153/49 H [Left Radial artery] Blood Pressure 151/74 H 143/71 H 142/70 H [Right Brachial artery] O2 Saturation 08/24/19 08/24/19 08/25/19 23:40 23:45 00:00 Temperature 36.7 C Heart Rate Heart Rate [ 58 L 59 L 61 Monitoring electrodes] Respiratory 20 Rate Blood Pressure 168/66 H Blood Pressure 164/47 H 168/56 H 168/57 H [Left Radial artery] Blood Pressure 148/66 H 145/68 H 148/62 H [Right Brachial artery] O2 Saturation 98 08/25/19 08/25/19 08/25/19 00:15 00:20 00:30 Temperature Heart Rate 64 Heart Rate [ 63 63 Monitoring electrodes] Respiratory Rate Blood Pressure Blood Pressure 170/60 H 173/60 H [Left Radial artery] Blood Pressure 151/65 H 151/72 H [Right Brachial artery] O2 Saturation 08/25/19 08/25/19 08/25/19 01:00 02:00 02:27 Temperature 36.7 C 37 C Heart Rate 59 L Heart Rate [ 61 59 L Monitoring electrodes] Respiratory 20 19 Rate Blood Pressure Blood Pressure 179/70 H 172/56 H [Left Radial artery] Blood Pressure 160/70 H 157/70 H [Right Brachial artery] O2 Saturation 98 98 08/25/19 08/25/19 08/25/19 03:00 04:00 04:33 Temperature 37 C 37.1 C Heart Rate 71 Heart Rate [ 59 L 63 Monitoring electrodes] Respiratory 20 20 Rate Blood Pressure Blood Pressure 177/58 H 187/59 H [Left Radial artery] Blood Pressure 161/75 H 175/74 H [Right Brachial artery] O2 Saturation 99 98 08/25/19 08/25/19 08/25/19 05:00 05:53 06:00 Temperature 37.1 C 37.3 C Heart Rate 60 Heart Rate [ 72 60 Monitoring electrodes] Respiratory 20 16 Rate Blood Pressure 192/64 H Blood Pressure 191/66 H 180/59 H [Left Radial artery] Blood Pressure 178/86 H 162/71 H [Right Brachial artery] O2 Saturation 97 98 08/25/19 08/25/19 08/25/19 06:10 06:15 06:59 Temperature Heart Rate Heart Rate [ 62 63 Monitoring electrodes] Respiratory Rate Blood Pressure 193/65 H Blood Pressure 183/59 H 185/60 H [Left Radial artery] Blood Pressure 166/77 H 171/76 H [Right Brachial artery] O2 Saturation 08/25/19 08/25/19 08/25/19 07:00 07:05 07:06 Temperature Heart Rate 68 Heart Rate [ 66 66 Monitoring electrodes] Respiratory 13 Rate Blood Pressure Blood Pressure 192/65 H 188/61 H [Left Radial artery] Blood Pressure 175/77 H 175/77 H [Right Brachial artery] O2 Saturation 98 08/25/19 08/25/19 08/25/19 07:29 07:49 08:24 Temperature 38 C H Heart Rate 102 H Heart Rate [ 96 Monitoring electrodes] Respiratory 21 Rate Blood Pressure 198/87 H Blood Pressure 212/72 H [Left Radial artery] Blood Pressure 206/94 H [Right Brachial artery] O2 Saturation 96 Oxygen O2 Source Mechanical ventilator Oxygen Flow Rate 2 I&O (Last 24 Hrs): Intake and Output Totals x24h 08/23/19 08/24/19 08/25/19 23:59 23:59 23:59 Intake Total 0665.990 4071.657 843.156 Output Total 4035 2819 640 Balance -2882.029 -1586.343 203.156 General: Other (sedated) HEENT: Other (ET tube and ng tube in place) Neuro: Other (sedated) Cardiovascular: Other (distant heart sounds) Respiratory: Other (on vent) Abdomen: Soft Extremities: Other (1=2+ UE and LE edema) - Results Results: Laboratory Results WBC 4.3 x10^3/uL (4.8-10.8) L 08/25/19 04:00 RBC 3.01 10^6/uL (4.70-6.10) L 08/25/19 04:00 Hgb 8.7 g/dL (14.0-18.0) L 08/25/19 04:00 Hct 28.5 % (42.0-52.0) L 08/25/19 04:00 MCV 94.7 fL (80.0-94.0) H 08/25/19 04:00 MCH 28.9 pg (27.0-31.0) 08/25/19 04:00 MCHC 30.5 g/dL (32.0-36.0) L 08/25/19 04:00 RDW 14.0 % (12.0-15.0) 08/25/19 04:00 Plt Count 248 10^3/uL (130-450) 08/25/19 04:00 MPV 11.8 fL (7.4-11.4) H 08/25/19 04:00 Neut # (Auto) 3.3 10^3/uL (1.5-6.6) 08/25/19 04:00 Lymph # (Auto) 0.6 10^3/uL (1.5-3.5) L 08/25/19 04:00 Haines # (Auto) 0.3 10^3/uL (0.0-1.0) 08/25/19 04:00 Eos # (Auto) 0.1 10^3/uL (0.0-0.7) 08/25/19 04:00 Baso # (Auto) 0.0 10^3/uL (0.0-0.1) 08/25/19 04:00 Absolute Nucleated RBC 0.00 x10^3/uL 08/25/19 04:00 Total Counted 100 08/23/19 05:00 Band Neuts % (Manual) 3 % (0-10) 08/23/19 05:00 Abnorm Lymph % (Manual) 0 % 08/23/19 05:00 Nucleated RBC % 0.0 /100WBC 08/25/19 04:00 Neutrophils # (Manual) 1.5 10^3/uL (1.5-6.6) 08/23/19 05:00 Lymphocytes # (Manual) 0.3 10^3/uL (1.5-3.5) L 08/23/19 05:00 Monocytes # (Manual) 0.1 10^3/uL (0.0-1.0) 08/23/19 05:00 Eosinophils # (Manual) 0.0 10^3/uL (0-0.7) 08/23/19 05:00 Basophils # (Manual) 0.0 10^3/uL (0-0.1) 08/23/19 05:00 Differential Comment MANUAL DIFFERENTIAL 08/23/19 05:00 Manual Slide Review Indicated 08/24/19 06:30 Platelet Estimate NORMAL (130-450,000) (NORMAL) 08/24/19 06:30 Platelet Morphology NORMAL APPEARANCE (NORMAL) 08/24/19 06:30 RBC Morph Micro Appear 1+ HYPOCHROMASIA (NORMAL) 08/24/19 06:30 PT 12.9 secs (9.9-12.6) H 08/19/19 05:50 INR 1.1 (0.8-1.2) 08/19/19 05:50 APTT 35.8 secs (24.9-33.3) H 08/19/19 05:50 Bld Gas Analysis Time 0612 08/23/19 06:00 Sample Site A-LINE 08/23/19 06:00 ABG pH 7.42 (7.35-7.45) 08/23/19 06:00 ABG pCO2 34 mmHg (34-45) 08/23/19 06:00 ABG pO2 107 mmHg (80-100) H 08/23/19 06:00 ABG HCO3 21.2 mmol/L (22.0-26.0) L 08/23/19 06:00 ABG Total CO2 22.2 MMOL/L (21.0-29.0) 08/23/19 06:00 ABG O2 Saturation 98 % (94-98) 08/23/19 06:00 ABG Base Excess -2.8 mmol/L (-2.0-3.0) L 08/23/19 06:00 Adin Test NOT APPLICABLE 08/23/19 06:00 Respiration Rate 20 b/min 08/23/19 06:00 O2 Delivery Device VENTILATOR 08/23/19 06:00 O2 Liters/Min 9.00 LPM 08/20/19 09:40 Vent Mode ASSIST/CONTROL 08/23/19 06:00 FiO2 0.40 08/23/19 06:00 Tidal Volume 450 mL 08/23/19 06:00 PEEP 5 cmH2O 08/23/19 06:00 Pressure Support Vent 12 cmH2O 08/21/19 11:00 Sodium 147 mmol/L (135-145) H 08/25/19 04:00 Potassium 4.0 mmol/L (3.5-5.0) 08/25/19 04:00 Chloride 113 mmol/L (101-111) H 08/25/19 04:00 Carbon Dioxide 24 mmol/L (21-32) 08/25/19 04:00 Anion Gap 10.0 (6-13) 08/25/19 04:00 BUN 54 mg/dL (6-20) H 08/25/19 04:00 Creatinine 1.8 mg/dL (0.6-1.2) H 08/25/19 04:00 Estimated GFR (MDRD) 38 (>89) L 08/25/19 04:00 Glucose 275 mg/dL (70-100) H 08/25/19 04:00 Glycated Hemoglobin 6.3 % (4.6-6.2) H 08/20/19 05:25 Estim Average Glucose 134 (70-100) H 08/20/19 05:25 Lactic Acid 0.7 mmol/L (0.5-2.2) 08/19/19 05:50 Calcium 7.7 mg/dL (8.5-10.3) L 08/25/19 04:00 Phosphorus 3.9 mg/dL (2.5-4.6) 08/25/19 04:00 Magnesium 1.9 mg/dL (1.7-2.8) 08/24/19 06:30 Total Bilirubin 0.4 mg/dL (0.2-1.0) 08/25/19 04:00 Direct Bilirubin 0.1 mg/dL (0.1-0.5) 08/19/19 05:50 AST 22 IU/L (10-42) 08/25/19 04:00 ALT 16 IU/L (10-60) 08/25/19 04:00 Alkaline Phosphatase 53 IU/L (42-121) 08/25/19 04:00 Troponin I High Sens 30.0 ng/L (2.3-19.7) H* 08/20/19 05:25 B-Natriuretic Peptide 693 pg/mL (5-100) H 08/24/19 06:30 Total Protein 5.4 g/dL (6.7-8.2) L 08/25/19 04:00 Albumin 2.3 g/dL (3.2-5.5) L 08/25/19 04:00 Globulin 3.1 g/dL (2.1-4.2) 08/25/19 04:00 Albumin/Globulin Ratio 0.7 (1.0-2.2) L 08/25/19 04:00 Prealbumin 10 mg/dL (18-45) L 08/24/19 06:30 Lipase 27 U/L (22-51) 08/19/19 05:50 TSH 3.11 uIU/mL (0.34-5.60) 08/19/19 05:50 Urine Color YELLOW 08/19/19 08:00 Urine Clarity HAZY (CLEAR) 08/19/19 08:00 Urine pH 5.5 PH (5.0-7.5) 08/19/19 08:00 Ur Specific [place] 1.020 (1.002-1.030) 08/19/19 08:00 Urine Protein 100 mg/dL (NEGATIVE) H 08/19/19 08:00 Urine Glucose (UA) NEGATIVE mg/dL (NEGATIVE) 08/19/19 08:00 Urine Ketones NEGATIVE mg/dL (NEGATIVE) 08/19/19 08:00 Urine Occult Blood TRACE-INTA (NEGATIVE) 08/19/19 08:00 Urine Nitrite NEGATIVE (NEGATIVE) 08/19/19 08:00 Urine Bilirubin NEGATIVE (NEGATIVE) 08/19/19 08:00 Urine Urobilinogen 0.2 (NORMAL) E.U./dL (NORMAL) 08/19/19 08:00 Ur Leukocyte Esterase NEGATIVE (NEGATIVE) 08/19/19 08:00 Urine RBC 0-5 /HPF (0-5) 08/19/19 08:00 Urine WBC 0-3 /HPF (0-3) 08/19/19 08:00 Ur Squamous Epith Cells RARE Squamous (<= Few) 08/19/19 08:00 Amorphous Sediment Rare /LPF 08/19/19 08:00 Urine Bacteria Rare /HPF (None Seen) 08/19/19 08:00 Urine Casts 6-10 Granular Casts /LPF 08/19/19 08:00 Ur Microscopic Review INDICATED 08/19/19 08:00 Urine Culture Comments NOT INDICATED 08/19/19 08:00 Nasal Screen MRSA (PCR) NEGATIVE (NEGATIVE) 08/21/19 11:43 Urine Opiates Screen NEGATIVE (NEGATIVE) 08/19/19 08:00 Ur Oxycodone Screen NEGATIVE (NEGATIVE) 08/19/19 08:00 Urine Methadone Screen NEGATIVE (NEGATIVE) 08/19/19 08:00 Ur Propoxyphene Screen NEGATIVE (NEGATIVE) 08/19/19 08:00 Ur Barbiturates Screen NEGATIVE (NEGATIVE) 08/19/19 08:00 Ur Tricyclics Screen NEGATIVE (NEGATIVE) 08/19/19 08:00 Ur Phencyclidine Scrn NEGATIVE (NEGATIVE) 08/19/19 08:00 Ur Amphetamine Screen NEGATIVE (NEGATIVE) 08/19/19 08:00 U Methamphetamines Scrn NEGATIVE (NEGATIVE) 08/19/19 08:00 U Benzodiazepines Scrn NEGATIVE (NEGATIVE) 08/19/19 08:00 Urine Cocaine Screen NEGATIVE (NEGATIVE) 08/19/19 08:00 U Cannabinoids Screen NEGATIVE (NEGATIVE) 08/19/19 08:00 Ethyl Alcohol < 5.0 mg/dL 08/19/19 05:50 Blood Type A NEGATIVE 08/19/19 07:38 Antibody Screen NEGATIVE 08/19/19 07:38 Crossmatch IS Only See Detail 08/19/19 07:38 - Procedures Procedures: Procedures REPLACEMENT OF LEFT LENS WITH SYNTH SUB, PERC APPROACH (11/25/17) REPLACEMENT OF RIGHT LENS WITH SYNTH SUB, PERC APPROACH (12/02/17)
[2019-08-25] MEDS ORDERED: MIDAZOLAM 2 MG/2 ML VIAL IVP ONE (09:00)
[2019-08-25] MEDS ORDERED: MIDAZOLAM 2 MG/2 ML VIAL ONE (09:01)
[2019-08-25 09:23] LABS: ABG PCO2 49 mmHg (34-45); ABG PH 7.27 (7.35-7.45)
[2019-08-25 09:24] LABS: ABG BASE EXCESS -4.9 mmol/L (-2.0-3.0); ABG OXYGEN SATURATION 99 % (94-98); ABG TCO2 23.5 MMOL/L (21.0-29.0)
[2019-08-25 09:28] LABS: ABG PO2 431 mmHg (80-100)
[2019-08-25] MEDS: MIDAZOLAM DRIP 50 MG/100 ML BAG IV SCH ×2 (09:43→22:37)
--- NOTE | 2019-08-25 09:49 | XRAY Report ---
Reason: Sudden worsened SOB, HTN Procedure Date: 08/25/2019 Accession Number: [id number] / [id number] Procedure: XR - Chest 1 View X-Ray CPT Code: 92532 Final Report FULL RESULT: EXAM: CHEST RADIOGRAPHY EXAM DATE: 08/25/2019 09:37 AM. CLINICAL HISTORY: Sudden worsened shortness of breath, HTN. COMPARISON: CHEST 1 VIEW 08/25/2019 4:11 AM CHEST 1 VIEW 08/23/2019 9:05 AM CHEST 1 VIEW 08/21/2019 10:07 AM CHEST 1 VIEW 08/20/2019 9:49 AM CHEST 1 VIEW 08/19/2019 5:24 AM. TECHNIQUE: 1 view. FINDINGS: Support apparatus: Endotracheal tube tip is 5.3 cm above the fermin. Right IJ central venous catheter tip is in the mid SVC, similar to prior. Enteric tube extends below the diaphragm and off the inferior margin of the image. Lungs/Pleura: Mild hazy right basilar and minimal left basilar opacities are decreased in density compared to the prior exam. There is a small right pleural effusion, which was not apparent on the most recent prior exam but appears similar to 08/23/2019. No pneumothorax. Mediastinum: Within exam limitations, the cardiomediastinal contour is normal. There is mild atherosclerotic opacification of the aortic arch. Other: No acute osseous abnormality. IMPRESSION: 1. Mild hazy right basilar opacity and minimal left basilar opacity are decreased in density compared to the most recent prior exam. 2. Small right pleural effusion. This was not apparent on the most recent prior exam, but appears similar to 08/23/2019. 3. Support apparatus in similar position. RADIA
[2019-08-25] MEDS ORDERED: SODIUM CHLORIDE INHALATION 3 ML NEB ONE ×2 (10:06→16:16)
[2019-08-25] MEDS: FUROSEMIDE 40 MG/4 ML VIAL IVP SCH (10:07)
[2019-08-25] MEDS: FAMOTIDINE 20 MG/2 ML VIAL IVP SCH ×2 (10:10→20:41)
[2019-08-25] MEDS: SODIUM CHLORIDE FLUSH 0.9% 10 ML SYRINGE IVP SCH ×3 (10:12→20:41)
[2019-08-25] MEDS: DEXTROSE 5% 1,000 ML IV SCH ×2 (10:12→21:18)
[2019-08-25] MEDS: timoloL maleate 0.5% OPHTH DROPS (10ML) EACHEYE SCH (10:14)
[2019-08-25] MEDS: BRIMONIDINE 0.2% OPHTH DROPS 5 ML EACHEYE SCH ×2 (10:15→20:51)
[2019-08-25] MEDS: ENOXAPARIN 40 MG/0.4 ML SYRINGE SUBQ SCH (10:16)
[2019-08-25] MEDS: CHLORHEXIDINE GLUCONATE 15 ML UDC PO SCH ×2 (10:17→20:51)
[2019-08-25] MEDS: MIN OIL/DIMETHICON/COCONUT OIL 92 GM TUBE TOP PRN ×2 (11:00→23:22)
[2019-08-25 11:35] LABS: BILIRUBIN,URINE NEGATIVE (NEGATIVE); GLUCOSE, URINE (UA) 250 mg/dL (NEGATIVE); KETONES,URINE (UA) NEGATIVE (NEGATIVE); LEUKOCYTE ESTERASE, URINE TRACE (NEGATIVE); NITRITE,URINE NEGATIVE (NEGATIVE); OCCULT BLOOD,URINE TRACE-INTA (NEGATIVE); PH,URINE 5.5 PH (5.0-7.5); PROTEIN,URINE 100 mg/dL (NEGATIVE); UROBILINOGEN,URINE 0.2 (NORMAL) E.U./dL (NORMAL)
[2019-08-25 11:40] LABS: ABG BASE EXCESS -1.9 mmol/L (-2.0-3.0); ABG HCO3 21.9 mmol/L (22.0-26.0); ABG OXYGEN SATURATION 94 % (94-98); ABG PCO2 34 mmHg (34-45); ABG PH 7.43 (7.35-7.45); ABG PO2 75 mmHg (80-100); ABG TCO2 22.9 MMOL/L (21.0-29.0)
[2019-08-25 11:50] LABS: BACTERIA,URINE Few /HPF (None Seen); CLARITY,URINE CLOUDY (CLEAR); RBC,URINE 0-5 /HPF (0-5); SQUAMOUS EPITHELIAL CELL,UR NONE SEEN (<= Few)
[2019-08-25 11:51] LABS: AMORPHOUS SEDIMENT,UR Few /LPF
[2019-08-25] MEDS: NITROGLYCERIN 2% PASTE TOP SCH ×2 (12:04→19:07)
--- NOTE | 2019-08-25 12:32 | PHARMACY PROGRESS NOTE ---
- Therapy Status Vancomycin regimen day #: 1 Therapy status: Awaiting steady state Basis for treatment: Empirical Treatment indication: Patient is COVID-19 positive but has been empirically treated and completed therapy for community acquired pneumonia. Patient now being treated for suspected sepsis secondary to ventilator use. Trough goal: 15-20 Concurrent antibiotics: Cefepime and metronidazole. Patient still has azithromycin in his system due to the long half-life. Patient previously completed CAP treatment on 08/24/2019. - CON Risk Risk level for Acute Kidney Injury: High Acute Kidney Injury risk factors: Other nephrotoxic agents, Goal trough >15, Chronic baseline hypertension, Diabetes, Admission to ICU, Acute hypotensive event, Sepsis - Monitoring and Recommendation Clinical response to treatment: I&O Previous 24 hours 08/23/19 08/24/19 08/25/19 23:59 23:59 23:59 Intake Total 0824.732 0811.657 877.381 Output Total 4035 2819 853 Balance -2882.029 -1586.343 24.381 Lab Results 08/25/19 08/24/19 08/23/19 04:00 06:30 04:00 BUN 54 H 50 H 58 H Creatinine 1.8 H 1.8 H 2.0 H Estimated GFR (MDRD) 38 L 38 L 34 L 08/22/19 08/21/19 08/20/19 05:45 06:40 05:25 BUN 62 H 67 H 69 H Creatinine 2.0 H 2.2 H 2.2 H Estimated GFR (MDRD) 34 L 30 L 30 L 08/19/19 05:50 BUN 57 H Creatinine 2.0 H Estimated GFR (MDRD) 34 L Cultures 08/25/19 11:20 Sputum Aspirate Respiratory Culture - Preliminary 08/19/19 05:35 Blood Blood Culture - Final NO GROWTH AFTER 5 DAYS 08/19/19 05:50 Blood - Left Hand Blood Culture - Final NO GROWTH AFTER 5 DAYS Monitoring plan: Daily serum creatinine, Suggest ongoing fluid replacement Next trough due prior to maintenance dose #: 4 Next trough due (date/time): 08/28/2019 at 12:30 Areas for additional monitoring: Therapy de-escalation based on culture results Pharmacy recommendation: Continue current regime
[2019-08-25] MEDS ORDERED: VANCOMYCIN INJ 1 GM, VANCOMYCIN INJ 500 MG in SODIUM CHLORIDE 0.9% 500 ML IV ONE (13:00)
[2019-08-25] MEDS: CEFEPIME 2 GM in SODIUM CHLORIDE 0.9% MINIBAG 100 ML IV SCH ×2 (13:05→22:13)
[2019-08-25 13:42] LABS: MAGNESIUM 2.2 mg/dL (1.7-2.8)
[2019-08-25] MEDS: metroNIDAZOLE 500 MG/100 ML 500 MG/100 ML BAG IV SCH ×2 (14:58→21:13)
[2019-08-25] MEDS: SODIUM CHLORIDE 0.9% 500 ML IV PRN (17:09)
[2019-08-26] MEDS ORDERED: INSULIN REGULAR HUMAN 300 UNIT/3 ML VIAL SUBQ SCH
[2019-08-26] MEDS: DEXMEDETOMIDINE 400 MCG/100 ML 100 ML IV SCH ×3 (00:59→20:10)
[2019-08-26] MEDS: MIN OIL/DIMETHICON/COCONUT OIL 92 GM TUBE TOP PRN ×2 (01:02→20:09)
[2019-08-26] MEDS: NITROGLYCERIN 2% PASTE TOP SCH ×3 (02:52→18:47)
[2019-08-26] MEDS: SODIUM CHLORIDE FLUSH 0.9% 10 ML SYRINGE IVP PRN ×5 (04:27→20:45)
[2019-08-26 04:50] LABS: ABG PCO2 36 mmHg (34-45); ABG PH 7.41 (7.35-7.45)
[2019-08-26 04:51] LABS: ABG BASE EXCESS -2.2 mmol/L (-2.0-3.0); ABG HCO3 22.1 mmol/L (22.0-26.0); ABG OXYGEN SATURATION 99 % (94-98); ABG PO2 242 mmHg (80-100); ABG TCO2 23.2 MMOL/L (21.0-29.0); ALLEN TEST POSITIVE
[2019-08-26 05:33] LABS: BASOPHILS % (AUTO) 0.4 %; EOSINOPHILS # (AUTO) 0.1 10^3/uL (0.0-0.7); EOSINOPHILS % (AUTO) 1.5 %; HGB - HEMOGLOBIN 7.6 g/dL (14.0-18.0); LYMPHOCYTES # (AUTO) 0.4 10^3/uL (1.5-3.5); LYMPHOCYTES % (AUTO) 7.2 %; MEAN CORPUSCULAR HEMOGLOBIN 29.3 pg (27.0-31.0); MEAN CORPUSCULAR HGB CONC 30.8 g/dL (32.0-36.0); MEAN CORPUSCULAR VOLUME 95.4 fL (80.0-94.0); MEAN PLATELET VOLUME 12.1 fL (7.4-11.4); MONOCYTES # (AUTO) 0.3 10^3/uL (0.0-1.0); MONOCYTES % (AUTO) 6.1 %; NEUTROPHILS # (AUTO) 4.6 10^3/uL (1.5-6.6); NEUTROPHILS % (AUTO) 83.9 %; PLT - PLATELET COUNT 232 10^3/uL (130-450); RED BLOOD COUNT 2.59 10^6/uL (4.70-6.10); WHITE BLOOD COUNT 5.4 x10^3/uL (4.8-10.8)
[2019-08-26 05:44] LABS: VBG PH 7.35 (7.31-7.41)
[2019-08-26 05:45] LABS: CALCIUM 7.5 mg/dL (8.5-10.3); CREATININE 1.8 mg/dL (0.6-1.2)
[2019-08-26 05:46] LABS: MAGNESIUM 2.1 mg/dL (1.7-2.8); PHOSPHORUS 3.4 mg/dL (2.5-4.6)
[2019-08-26] MEDS: METOCLOPRAMIDE 10 MG/2 ML VIAL IVP SCH ×4 (05:46→23:21)
[2019-08-26] MEDS: METOPROLOL 5 MG/5 ML VIAL IVP SCH ×4 (05:52→23:40)
[2019-08-26] MEDS: metroNIDAZOLE 500 MG/100 ML 500 MG/100 ML BAG IV SCH ×3 (05:59→21:46)
[2019-08-26] MEDS: INSULIN REGULAR HUMAN 300 UNIT/3 ML VIAL SUBQ SCH ×4 (06:14→23:20)
[2019-08-26] MEDS: hydrALAZINE INJ 20 MG/ML VIAL IVP PRN (07:04)
--- NOTE | 2019-08-26 07:53 | XRAY Report ---
Reason: pneumonia Procedure Date: 08/26/2019 Accession Number: [id number] / [id number] Procedure: XR - Chest 1 View X-Ray CPT Code: 80282 Final Report FULL RESULT: EXAM: CHEST RADIOGRAPHY EXAM DATE: 08/26/2019 06:09 AM. CLINICAL HISTORY: Pneumonia. COMPARISON: CHEST 1 VIEW 08/25/2019 9:12 AM CHEST 1 VIEW 08/19/2019 5:24 AM CHEST 1 VIEW 08/20/2019 9:49 AM CHEST 1 VIEW 08/21/2019 10:07 AM CHEST 1 VIEW 08/23/2019 9:05 AM CHEST 1 VIEW 08/25/2019 4:11 AM. TECHNIQUE: 1 view. FINDINGS: Lungs/Pleura: Bandlike peripheral opacities in the left upper lobe and irregular opacities in the lung bases. Mediastinum: Within exam limitations, the cardiomediastinal contour is normal. Other: The ET tube is positioned 7.1 cm above the fermin. The remainder of the support lines and tubes are similar. IMPRESSION: 1. The ET tube is positioned 7.1 cm above the fermin. 2. Opacities in the left upper lobe and lung bases have improved significantly since the chest radiographs dated 08/21/2019, 08/20/2019 and 08/19/2019 but slightly increased from the most recent examination dated 08/25/2019. JENNIFERA
[2019-08-26] MEDS: BRIMONIDINE 0.2% OPHTH DROPS 5 ML EACHEYE SCH ×2 (08:50→20:11)
[2019-08-26] MEDS ORDERED: HYDROXYCHLOROQUINE 200 MG TABLET PO SCH ×3 (09:00→21:00)
[2019-08-26] MEDS ORDERED: AZITHROMYCIN 250 MG TABLET PO SCH (09:00)
--- NOTE | 2019-08-26 09:01 | PROVIDER PROGRESS NOTE ---
Assessment/Plan - Problem List (1) Pneumonia due to 2019 novel coronavirus Assessment/Plan: Hydroxychloroquin will be added Continue vent and supportive care (2) Acute respiratory failure with hypoxia Assessment/Plan: Today's CXR looks like ARDS (by my interpretation), but his O2 settings are noit worsening. He was proned overnight for the first time. Continue vent support. He does not meet criteria to prone again today: paO2/FIO2 ratio > 150, PEEP>7 and if FIO2 is >60 are criteria being followed. If O2 needs improve, will restart weaning trials, which were stopped yesterday after 2 days of fevers and when he needed proning. (3) Hypothermia, not associated with low environmental temperature Assessment/Plan: This bodes a poor prognosis. Continue warming methods. (4) Hypertension Assessment/Plan: He was hypotensive today, until his sedation was turned down. (5) Acute kidney injury superimposed on CKD Assessment/Plan: Abnormal but stable renal labs Follow BMP daily (6) Heart failure with preserved ejection fraction Qualifiers: Heart failure chronicity: chronic Qualified Code(s): I50.32 - Chronic diastolic (congestive) heart failure Assessment/Plan: Lasix used intermittently (7) Anemia of chronic disease Assessment/Plan: Follow H/H daily Transfuse if Hgb <7 (8) Type 2 diabetes mellitus with complication, with long-term current use of insulin Assessment/Plan: ss Insulin for glu checks NG tube feeds cont (9) Moderate protein-calorie malnutrition Assessment/Plan: As per Hx (10) Visual impairment Assessment/Plan: As per Hx he gets eye drops for glaucoma (11) Fever Assessment/Plan: Fever has resolved and now he is hypothermic (12) Hypernatremia Assessment/Plan: Resolved with increase in free water per ng - Current Meds Current Meds: Current Medications Generic Name Dose Route Start Last Admin Trade Name Freq PRN Reason Stop Dose Admin Brimonidine Tartrate 1 drops 08/19/19 21:00 08/26/19 08:50 Alphagan P 0.2% Ophth Drops EACHEYE 1 drops BID MATEUSZ Administration Chlorhexidine Gluconate 15 ml 08/22/19 11:00 08/25/19 20:51 Peridex PO 15 ml BID MATEUSZ Administration Clonidine HCl 1 patch 08/24/19 22:00 08/24/19 22:00 [id number] TOP 1 patch Q7D MATEUSZ Administration Enoxaparin Sodium 40 mg 08/20/19 09:00 08/25/19 10:16 Lovenox SUBQ 40 mg DAILY MATEUSZ Administration Famotidine 10 mg 08/22/19 11:00 08/25/19 20:41 Pepcid IVP 10 mg BID MATEUSZ Administration Furosemide 40 mg 08/23/19 09:00 08/25/19 10:07 Lasix Inj 40 Mg Vial IVP 40 mg DAILY MATEUSZ Administration Heparin Sodium (Beef Lung) 30 - 50 unit 08/21/19 13:58 08/25/19 04:12 IVP 30 unit PRN PRN Administration Central Line Protocol (<24 hr) Hydralazine HCl 10 mg 08/22/19 10:34 08/26/19 07:04 Apresoline Inj IVP 10 mg Q6H PRN Administration Hypertensive Emergency Dexmedetomidine/Sodium Chloride 100 mls @ 9.375 mls/hr 08/21/19 10:00 08/26/19 08:00 Precedex Premix IV 0.4 mcg/kg/hr .[id number] MATEUSZ 7.5 mls/hr Titration Protocol 0.5 MCG/KG/HR Sodium Chloride 500 mls @ 0 mls/hr 08/21/19 13:58 08/26/19 08:00 Normal Saline 0.9% IV 10 mls/hr Q24H PRN Infusion TKO RATE TKO Midazolam HCl 50 mg in 100 mls @ 7.5 mls/hr 08/22/19 07:00 08/26/19 08:00 Versed Drip IV 0.07 mg/kg/hr .[id number] MATEUSZ 10.5 mls/hr Titration Protocol 0.05 MG/KG/HR Cefepime HCl 2 gm/ Sodium 100 mls @ 200 mls/hr 08/25/19 13:00 08/25/19 22:55 Chloride IV Infused BID MATEUSZ Infusion Metronidazole 500 mg in 100 mls @ 100 mls/hr 08/25/19 14:00 08/26/19 07:03 Flagyl 500 Mg/100 Ml IV Infused Q8H MATEUSZ Infusion Insulin Human Regular 3 - 11 unit 08/26/19 07:00 08/26/19 06:14 Humulin R SUBQ 9 unit Q6HR MATEUSZ Administration Protocol Lidocaine HCl 2.5 ml 08/20/19 13:11 08/20/19 14:41 Xylocaine Uro-Jet 2% UR 2.5 ml Q6H PRN Administration PAIN Metoclopramide HCl 5 mg 08/22/19 19:00 08/26/19 05:46 Reglan Inj IVP 5 mg Q6HR MATEUSZ Administration Metoprolol Tartrate 2.5 mg 08/21/19 12:00 08/26/19 05:52 Lopressor Inj IVP 2.5 mg Q6HR MATEUSZ Administration Mineral Oil 1 applic 08/22/19 13:08 08/26/19 01:02 Cavilon TOP 1 applic PRN PRN Administration Skin Care Morphine Sulfate 2 mg 08/20/19 10:39 08/24/19 21:23 Morphine (Carpuject) IVP 2 mg Q2HR PRN Administration PAIN Nitroglycerin 1 inch 08/25/19 11:00 08/26/19 02:52 Nitro-Bid (Pkt) TOP 1 inch Q8H MATEUSZ Administration Sodium Chloride 10 ml 08/19/19 06:27 08/26/19 05:52 Normal Saline Flush 0.9% IVP 10 ml PRN PRN Administration NEEDED PER PROVIDER ORDERS Sodium Chloride 10 ml 08/19/19 09:00 08/25/19 20:41 Normal Saline Flush 0.9% IVP 10 ml 0100,0900,1700 MATEUSZ Administration Sodium Chloride 20 ml 08/24/19 00:12 08/26/19 04:27 Normal Saline Flush 0.9% IVP 20 ml PRN PRN Administration After Blood Draw Timolol Maleate 1 drops 08/20/19 09:00 08/25/19 10:14 Timoptic 0.5% Ophth Drops EACHEYE 1 drops DAILY MATEUSZ Administration - Lab Result Fish Bone Diagrams: 08/26/19 04:30 08/26/19 04:30 - Additional Planning My Orders: My Active Orders 08/25/19 09:12 ABG [Arterial Blood Gases - RT] [RC] .ONCE 08/25/19 10:15 Miscellaenous Nursing Order [RC] DAILY 08/25/19 11:00 Nitroglycerin 2% Paste (Pkt) [Nitro-Bid (Pkt)] 1 inch TOP Q8H 08/25/19 11:20 CUL, RESPIRATORY [RM] Urgent CUL, URINE [RM] Urgent CULTURE, BLOOD #1 [RM] Urgent 08/25/19 11:42 Restraints [RC] Q24H 08/25/19 11:44 Restraints Safety Check [RC] Q1H 08/25/19 13:00 Cefepime 2 gm Sodium Chloride 0.9% Minibag [Normal Saline 0.9% Minibag] 100 ml IV BID 08/25/19 14:00 metroNIDAZOLE 500 MG/100 ML [Flagyl 500 mg/100 ml] 500 mg in 100 ml IV Q8H 08/26/19 07:00 Insulin Regular Human [Humulin R] 3 - 11 unit SUBQ Q6HR 08/26/19 13:00 Vancomycin Inj [Vancomycin] 1 gm Sodium Chloride 0.9% [Normal Saline 0.9%] 250 ml IV Q24H 08/27/19 05:00 CBC - COMP BLD CT W/AUTO DIFF [HEME] DAILYLAB 08/28/19 12:30 VANCOMYCIN TROUGH [CHEM] Timed Subjective - Subjective Nursing Reports: No Complaints Objective Vital Signs: Vital Signs - 24 hr 08/25/19 08/25/19 08/25/19 09:10 09:13 09:36 Temperature 38.5 C H 38.4 C H Heart Rate 100 Heart Rate [ 130 H 119 H Monitoring electrodes] Respiratory 25 H Rate Blood Pressure Blood Pressure [Left Radial artery] Blood Pressure 134/78 H 134/78 H [Right Brachial artery] O2 Saturation 60 L 99 08/25/19 08/25/19 08/25/19 09:38 10:34 11:00 Temperature 38.2 C H 37.8 C H Heart Rate Heart Rate [ 100 83 Monitoring electrodes] Respiratory 18 20 Rate Blood Pressure Blood Pressure 190/75 H 147/64 H 176/64 H [Left Radial artery] Blood Pressure 194/86 H 129/72 158/79 H [Right Brachial artery] O2 Saturation 100 98 08/25/19 08/25/19 08/25/19 11:15 12:00 12:16 Temperature Heart Rate 81 Heart Rate [ 62 Monitoring electrodes] Respiratory 14 Rate Blood Pressure 131/69 H Blood Pressure [Left Radial artery] Blood Pressure 131/69 H [Right Brachial artery] O2 Saturation 99 08/25/19 08/25/19 08/25/19 12:59 13:44 14:31 Temperature 37.6 C H Heart Rate 56 L 60 Heart Rate [ 56 L Monitoring electrodes] Respiratory 20 Rate Blood Pressure Blood Pressure 169/58 H [Left Radial artery] Blood Pressure 152/73 H [Right Brachial artery] O2 Saturation 100 08/25/19 08/25/19 08/25/19 14:50 15:00 16:00 Temperature 37 C 36.9 C 36.2 C L Heart Rate Heart Rate [ 57 L 57 L 52 L Monitoring electrodes] Respiratory 20 20 20 Rate Blood Pressure Blood Pressure 172/66 H 173/65 H 178/71 H [Left Radial artery] Blood Pressure 149/74 H 147/73 H 166/79 H [Right Brachial artery] O2 Saturation 100 100 100 08/25/19 08/25/19 08/25/19 16:08 16:57 17:32 Temperature 35.9 C L 35.8 C L Heart Rate 54 L Heart Rate [ 54 L Monitoring electrodes] Respiratory 20 Rate Blood Pressure Blood Pressure 173/65 H [Left Radial artery] Blood Pressure 145/71 H [Right Brachial artery] O2 Saturation 100 08/25/19 08/25/19 08/25/19 18:00 18:23 19:00 Temperature 35.9 C L 36.3 C L Heart Rate Heart Rate [ 56 L 56 L Monitoring electrodes] Respiratory 20 20 Rate Blood Pressure 154/74 H Blood Pressure 182/68 H 184/68 H [Left Radial artery] Blood Pressure 153/76 H 165/76 H [Right Brachial artery] O2 Saturation 100 100 08/25/19 08/25/19 08/25/19 19:18 20:00 20:41 Temperature 36.3 C L Heart Rate 56 L Heart Rate [ 54 L Monitoring electrodes] Respiratory 20 Rate Blood Pressure 181/70 H Blood Pressure 187/69 H [Left Radial artery] Blood Pressure 185/76 H [Right Brachial artery] O2 Saturation 100 08/25/19 08/25/19 08/25/19 20:45 20:50 20:55 Temperature Heart Rate Heart Rate [ 52 L 52 L 52 L Monitoring electrodes] Respiratory Rate Blood Pressure Blood Pressure 179/69 H 163/61 H 152/57 H [Left Radial artery] Blood Pressure 167/73 H 141/68 H 132/66 H [Right Brachial artery] O2 Saturation 08/25/19 08/25/19 08/25/19 21:00 21:10 21:15 Temperature 36 C L Heart Rate Heart Rate [ 52 L 52 L Monitoring electrodes] Respiratory 20 Rate Blood Pressure 141/53 H Blood Pressure 148/56 H 139/53 H [Left Radial artery] Blood Pressure 128/64 122/60 [Right Brachial artery] O2 Saturation 100 08/25/19 08/25/19 08/25/19 21:30 22:00 22:25 Temperature 35.9 C L Heart Rate 53 L Heart Rate [ 52 L 53 L Monitoring electrodes] Respiratory 20 Rate Blood Pressure Blood Pressure 135/51 H 143/53 H [Left Radial artery] Blood Pressure 119/59 L 125/61 [Right Brachial artery] O2 Saturation 100 08/25/19 08/25/19 08/26/19 23:00 23:35 00:00 Temperature 36.1 C L 36.6 C Heart Rate Heart Rate [ 55 L 60 Monitoring electrodes] Respiratory 20 20 Rate Blood Pressure 157/55 H Blood Pressure 134/47 H 165/57 H [Left Radial artery] Blood Pressure 122/56 L 146/67 H [Right Brachial artery] O2 Saturation 100 100 08/26/19 08/26/19 08/26/19 00:27 01:00 02:00 Temperature 37 C 36.9 C Heart Rate 61 Heart Rate [ 60 60 Monitoring electrodes] Respiratory 20 16 Rate Blood Pressure Blood Pressure 171/60 H 175/65 H [Left Radial artery] Blood Pressure [Right Brachial artery] O2 Saturation 100 08/26/19 08/26/19 08/26/19 02:35 03:00 04:00 Temperature 36.8 C 36.5 C Heart Rate 48 L Heart Rate [ 57 L 57 L Monitoring electrodes] Respiratory 20 20 Rate Blood Pressure Blood Pressure 155/56 H 166/62 H [Left Radial artery] Blood Pressure 122/59 L [Right Brachial artery] O2 Saturation 100 100 08/26/19 08/26/19 08/26/19 04:58 05:00 05:52 Temperature 36.3 C L Heart Rate 66 Heart Rate [ 64 69 Monitoring electrodes] Respiratory 16 Rate Blood Pressure 195/83 H Blood Pressure 214/77 H [Left Radial artery] Blood Pressure 171/74 H 195/83 H [Right Brachial artery] O2 Saturation 100 08/26/19 08/26/19 08/26/19 06:00 06:15 06:20 Temperature 35.9 C L Heart Rate Heart Rate [ 61 64 65 Monitoring electrodes] Respiratory 18 Rate Blood Pressure Blood Pressure 210/70 H 206/67 H 206/67 H [Left Radial artery] Blood Pressure 198/95 H 195/84 H 197/80 H [Right Brachial artery] O2 Saturation 100 08/26/19 08/26/19 08/26/19 06:30 06:45 07:00 Temperature 36.4 C L Heart Rate Heart Rate [ 66 68 68 Monitoring electrodes] Respiratory 20 Rate Blood Pressure Blood Pressure 207/68 H 199/65 H 203/67 H [Left Radial artery] Blood Pressure 199/77 H 182/73 H 185/74 H [Right Brachial artery] O2 Saturation 100 08/26/19 08/26/19 08/26/19 07:04 07:06 07:10 Temperature Heart Rate Heart Rate [ 69 70 Monitoring electrodes] Respiratory 21 Rate Blood Pressure 185/74 H Blood Pressure 199/65 H [Left Radial artery] Blood Pressure 171/73 H 161/71 H [Right Brachial artery] O2 Saturation 100 08/26/19 08/26/19 08/26/19 07:15 07:20 07:34 Temperature Heart Rate Heart Rate [ 70 71 Monitoring electrodes] Respiratory 21 19 Rate Blood Pressure 161/71 H Blood Pressure [Left Radial artery] Blood Pressure 157/67 H 157/69 H [Right Brachial artery] O2 Saturation 100 100 08/26/19 08/26/19 07:58 08:18 Temperature Heart Rate 71 Heart Rate [ 70 Monitoring electrodes] Respiratory 20 Rate Blood Pressure Blood Pressure [Left Radial artery] Blood Pressure 124/68 [Right Brachial artery] O2 Saturation 100 Oxygen O2 Source Mechanical ventilator Oxygen Flow Rate 2 I&O (Last 24 Hrs): Intake and Output Totals x24h 08/24/19 08/25/19 08/26/19 23:59 23:59 23:59 Intake Total 7501.009 5519.569 1913.876 Output Total 2819 1723 480 Balance -7082.476 1314.569 1433.876 General: Other (sedated) HEENT: Mucous membr. moist/pink Neuro: Other (sedated) Cardiovascular: Regular rate Respiratory: No respiratory distress (on vent), Breath sounds nml Abdomen: Soft Extremities: No edema - Results Results: Laboratory Results WBC 5.4 x10^3/uL (4.8-10.8) 08/26/19 04:30 RBC 2.59 10^6/uL (4.70-6.10) L 08/26/19 04:30 Hgb 7.6 g/dL (14.0-18.0) L 08/26/19 04:30 Hct 24.7 % (42.0-52.0) L 08/26/19 04:30 MCV 95.4 fL (80.0-94.0) H 08/26/19 04:30 MCH 29.3 pg (27.0-31.0) 08/26/19 04:30 MCHC 30.8 g/dL (32.0-36.0) L 08/26/19 04:30 RDW 14.0 % (12.0-15.0) 08/26/19 04:30 Plt Count 232 10^3/uL (130-450) 08/26/19 04:30 MPV 12.1 fL (7.4-11.4) H 08/26/19 04:30 Neut # (Auto) 4.6 10^3/uL (1.5-6.6) 08/26/19 04:30 Lymph # (Auto) 0.4 10^3/uL (1.5-3.5) L 08/26/19 04:30 B[place] # (Auto) 0.3 10^3/uL (0.0-1.0) 08/26/19 04:30 Eos # (Auto) 0.1 10^3/uL (0.0-0.7) 08/26/19 04:30 Baso # (Auto) 0.0 10^3/uL (0.0-0.1) 08/26/19 04:30 Absolute Nucleated RBC 0.00 x10^3/uL 08/26/19 04:30 Total Counted 100 08/23/19 05:00 Band Neuts % (Manual) 3 % (0-10) 08/23/19 05:00 Abnorm Lymph % (Manual) 0 % 08/23/19 05:00 Nucleated RBC % 0.0 /100WBC 08/26/19 04:30 Neutrophils # (Manual) 1.5 10^3/uL (1.5-6.6) 08/23/19 05:00 Lymphocytes # (Manual) 0.3 10^3/uL (1.5-3.5) L 08/23/19 05:00 Monocytes # (Manual) 0.1 10^3/uL (0.0-1.0) 08/23/19 05:00 Eosinophils # (Manual) 0.0 10^3/uL (0-0.7) 08/23/19 05:00 Basophils # (Manual) 0.0 10^3/uL (0-0.1) 08/23/19 05:00 Differential Comment MANUAL DIFFERENTIAL 08/23/19 05:00 Manual Slide Review Indicated 08/24/19 06:30 Platelet Estimate NORMAL (130-450,000) (NORMAL) 08/24/19 06:30 Platelet Morphology NORMAL APPEARANCE (NORMAL) 08/24/19 06:30 RBC Morph Micro Appear 1+ HYPOCHROMASIA (NORMAL) 08/24/19 06:30 PT 12.9 secs (9.9-12.6) H 08/19/19 05:50 INR 1.1 (0.8-1.2) 08/19/19 05:50 APTT 35.8 secs (24.9-33.3) H 08/19/19 05:50 Bld Gas Analysis Time 0449 08/26/19 04:43 Sample Site A-LINE 08/26/19 04:43 ABG pH 7.41 (7.35-7.45) 08/26/19 04:43 ABG pCO2 36 mmHg (34-45) 08/26/19 04:43 ABG pO2 242 mmHg (80-100) H* 08/26/19 04:43 ABG HCO3 22.1 mmol/L (22.0-26.0) 08/26/19 04:43 ABG Total CO2 23.2 MMOL/L (21.0-29.0) 08/26/19 04:43 ABG O2 Saturation 99 % (94-98) H 08/26/19 04:43 ABG Base Excess -2.2 mmol/L (-2.0-3.0) L 08/26/19 04:43 Adin Test POSITIVE 08/26/19 04:43 VBG pH 7.350 (7.31-7.41) 08/26/19 04:30 Ionized Calcium 1.10 mmol/L (1.15-1.33) L 08/26/19 04:30 Respiration Rate 20 b/min 08/26/19 04:43 O2 Delivery Device VENTILATOR 08/26/19 04:43 O2 Liters/Min 9.00 LPM 08/20/19 09:40 Vent Mode SIMV 08/26/19 04:43 FiO2 50.00 08/26/19 04:43 Tidal Volume 450 mL 08/26/19 04:43 PEEP 10 cmH2O 08/26/19 04:43 Pressure Support Vent 15 cmH2O 08/26/19 04:43 Sodium 143 mmol/L (135-145) 08/26/19 04:30 Potassium 3.3 mmol/L (3.5-5.0) L 08/26/19 04:30 Chloride 113 mmol/L (101-111) H 08/26/19 04:30 Carbon Dioxide 24 mmol/L (21-32) 08/26/19 04:30 Anion Gap 6.0 (6-13) 08/26/19 04:30 BUN 54 mg/dL (6-20) H 08/26/19 04:30 Creatinine 1.8 mg/dL (0.6-1.2) H 08/26/19 04:30 Estimated GFR (MDRD) 38 (>89) L 08/26/19 04:30 Glucose 319 mg/dL (70-100) H 08/26/19 04:30 Glycated Hemoglobin 6.3 % (4.6-6.2) H 08/20/19 05:25 Estim Average Glucose 134 (70-100) H 08/20/19 05:25 Lactic Acid 1.1 mmol/L (0.5-2.2) 08/25/19 11:20 Calcium 7.5 mg/dL (8.5-10.3) L 08/26/19 04:30 Phosphorus 3.4 mg/dL (2.5-4.6) 08/26/19 04:30 Magnesium 2.1 mg/dL (1.7-2.8) 08/26/19 04:30 Total Bilirubin 0.4 mg/dL (0.2-1.0) 08/25/19 04:00 Direct Bilirubin 0.1 mg/dL (0.1-0.5) 08/19/19 05:50 AST 22 IU/L (10-42) 08/25/19 04:00 ALT 16 IU/L (10-60) 08/25/19 04:00 Alkaline Phosphatase 53 IU/L (42-121) 08/25/19 04:00 Troponin I High Sens 51.5 ng/L (2.3-19.7) H* 08/25/19 14:20 B-Natriuretic Peptide 693 pg/mL (5-100) H 08/24/19 06:30 Total Protein 5.4 g/dL (6.7-8.2) L 08/25/19 04:00 Albumin 2.3 g/dL (3.2-5.5) L 08/25/19 04:00 Globulin 3.1 g/dL (2.1-4.2) 08/25/19 04:00 Albumin/Globulin Ratio 0.7 (1.0-2.2) L 08/25/19 04:00 Prealbumin 10 mg/dL (18-45) L 08/24/19 06:30 Lipase 27 U/L (22-51) 08/19/19 05:50 TSH 3.11 uIU/mL (0.34-5.60) 08/19/19 05:50 Urine Color YELLOW 08/25/19 11:20 Urine Clarity CLOUDY (CLEAR) 08/25/19 11:20 Urine pH 5.5 PH (5.0-7.5) 08/25/19 11:20 Ur Specific Jeffers 1.020 (1.002-1.030) 08/25/19 11:20 Urine Protein 100 mg/dL (NEGATIVE) H 08/25/19 11:20 Urine Glucose (UA) 250 mg/dL (NEGATIVE) H 08/25/19 11:20 Urine Ketones NEGATIVE mg/dL (NEGATIVE) 08/25/19 11:20 Urine Occult Blood TRACE-INTA (NEGATIVE) 08/25/19 11:20 Urine Nitrite NEGATIVE (NEGATIVE) 08/25/19 11:20 Urine Bilirubin NEGATIVE (NEGATIVE) 08/25/19 11:20 Urine Urobilinogen 0.2 (NORMAL) E.U./dL (NORMAL) 08/25/19 11:20 Ur Leukocyte Esterase TRACE (NEGATIVE) H 08/25/19 11:20 Urine RBC 0-5 /HPF (0-5) 08/25/19 11:20 Urine WBC 4-5 /HPF (0-3) 03/27/20 11:20 Ur Squamous Epith Cells NONE SEEN (<= Few) 08/25/19 11:20 Amorphous Sediment Few /LPF 08/25/19 11:20 Urine Bacteria Few /HPF (None Seen) 08/25/19 11:20 Urine Casts 11-25 Granular Casts /LPF 08/25/19 11:20 Ur Microscopic Review INDICATED 08/19/19 08:00 Urine Culture Comments INDICATED 08/25/19 11:20 Nasal Screen MRSA (PCR) NEGATIVE (NEGATIVE) 08/21/19 11:43 Urine Opiates Screen NEGATIVE (NEGATIVE) 08/19/19 08:00 Ur Oxycodone Screen NEGATIVE (NEGATIVE) 08/19/19 08:00 Urine Methadone Screen NEGATIVE (NEGATIVE) 08/19/19 08:00 Ur Propoxyphene Screen NEGATIVE (NEGATIVE) 08/19/19 08:00 Ur Barbiturates Screen NEGATIVE (NEGATIVE) 08/19/19 08:00 Ur Tricyclics Screen NEGATIVE (NEGATIVE) 08/19/19 08:00 Ur Phencyclidine Scrn NEGATIVE (NEGATIVE) 08/19/19 08:00 Ur Amphetamine Screen NEGATIVE (NEGATIVE) 08/19/19 08:00 U Methamphetamines Scrn NEGATIVE (NEGATIVE) 08/19/19 08:00 U Benzodiazepines Scrn NEGATIVE (NEGATIVE) 08/19/19 08:00 Urine Cocaine Screen NEGATIVE (NEGATIVE) 08/19/19 08:00 U Cannabinoids Screen NEGATIVE (NEGATIVE) 08/19/19 08:00 Ethyl Alcohol < 5.0 mg/dL 08/19/19 05:50 Blood Type A NEGATIVE 08/19/19 07:38 Antibody Screen NEGATIVE 08/19/19 07:38 Crossmatch IS Only See Detail 08/19/19 07:38 - Procedures Procedures: Procedures REPLACEMENT OF LEFT LENS WITH SYNTH SUB, PERC APPROACH (11/25/17) REPLACEMENT OF RIGHT LENS WITH SYNTH SUB, PERC APPROACH (12/02/17)
[2019-08-26] MEDS: MIDAZOLAM DRIP 50 MG/100 ML BAG IV SCH ×2 (09:05→23:35)
[2019-08-26] MEDS ORDERED: AZITHROMYCIN 250 MG TABLET PO ONE (09:16)
[2019-08-26 09:33] LABS: ABG PCO2 32 mmHg (34-45); ABG PH 7.45 (7.35-7.45)
[2019-08-26 09:34] LABS: ABG BASE EXCESS -1.8 mmol/L (-2.0-3.0); ABG HCO3 31.8 mmol/L (22.0-26.0); ABG OXYGEN SATURATION 99 % (94-98); ABG TCO2 22.8 MMOL/L (21.0-29.0)
[2019-08-26 09:35] LABS: ABG PO2 167 mmHg (80-100)
[2019-08-26] MEDS: CEFEPIME 2 GM in SODIUM CHLORIDE 0.9% MINIBAG 100 ML IV SCH ×2 (09:40→20:17)
[2019-08-26] MEDS: ENOXAPARIN 40 MG/0.4 ML SYRINGE SUBQ SCH (09:42)
[2019-08-26] MEDS: SODIUM CHLORIDE FLUSH 0.9% 10 ML SYRINGE IVP SCH ×3 (09:43→23:22)
[2019-08-26] MEDS: timoloL maleate 0.5% OPHTH DROPS (10ML) EACHEYE SCH (10:00)
[2019-08-26] MEDS: CHLORHEXIDINE GLUCONATE 15 ML UDC PO SCH ×2 (10:00→20:09)
[2019-08-26] MEDS: FUROSEMIDE 40 MG/4 ML VIAL IVP SCH (10:00)
[2019-08-26] MEDS: FAMOTIDINE 20 MG/2 ML VIAL IVP SCH ×2 (10:00→20:17)
[2019-08-26] MEDS ORDERED: POTASSIUM CHLORIDE 20 MEQ/15 ML UDC PO SCH (12:33)
[2019-08-26] MEDS: VANCOMYCIN INJ 1 GM in SODIUM CHLORIDE 0.9% 250 ML IV SCH (13:10)
[2019-08-26] MEDS: MORPHINE 2 MG/ML CARPUJECT IVP PRN (16:00)
[2019-08-27] MEDS: NITROGLYCERIN 2% PASTE TOP SCH ×3 (03:36→19:23)
[2019-08-27] MEDS: SODIUM CHLORIDE 0.9% 500 ML IV PRN (03:39)
[2019-08-27] MEDS: SODIUM CHLORIDE FLUSH 0.9% 10 ML SYRINGE IVP PRN ×6 (03:57→19:28)
[2019-08-27 04:22] LABS: BASOPHILS % (AUTO) 0.2 %; EOSINOPHILS # (AUTO) 0.2 10^3/uL (0.0-0.7); EOSINOPHILS % (AUTO) 3.3 %; HGB - HEMOGLOBIN 7.2 g/dL (14.0-18.0); LYMPHOCYTES # (AUTO) 0.5 10^3/uL (1.5-3.5); MEAN CORPUSCULAR HEMOGLOBIN 28.8 pg (27.0-31.0); MEAN CORPUSCULAR HGB CONC 30.1 g/dL (32.0-36.0); MEAN CORPUSCULAR VOLUME 95.6 fL (80.0-94.0); MEAN PLATELET VOLUME 11.8 fL (7.4-11.4); MONOCYTES # (AUTO) 0.4 10^3/uL (0.0-1.0); MONOCYTES % (AUTO) 7.9 %; NEUTROPHILS # (AUTO) 4.3 10^3/uL (1.5-6.6); NEUTROPHILS % (AUTO) 77.9 %; PLT - PLATELET COUNT 243 10^3/uL (130-450); RED CELL DISTRIBUTION WIDTH 14.2 % (12.0-15.0); WHITE BLOOD COUNT 5.5 x10^3/uL (4.8-10.8)
[2019-08-27 04:36] LABS: ALBUMIN 2.1 g/dL (3.2-5.5); ALBUMIN/GLOBULIN RATIO 0.7 (1.0-2.2); BILIRUBIN,TOTAL 0.4 mg/dL (0.2-1.0); CALCIUM 7.6 mg/dL (8.5-10.3); CREATININE 2.1 mg/dL (0.6-1.2); TOTAL PROTEIN 5.1 g/dL (6.7-8.2)
[2019-08-27] MEDS: metroNIDAZOLE 500 MG/100 ML 500 MG/100 ML BAG IV SCH ×3 (05:35→21:23)
[2019-08-27 05:40] LABS: ABG PCO2 34 mmHg (34-45); ABG PH 7.45 (7.35-7.45)
[2019-08-27 05:41] LABS: ABG BASE EXCESS -0.8 mmol/L (-2.0-3.0); ABG OXYGEN SATURATION 99 % (94-98); ABG PO2 151 mmHg (80-100); ABG TCO2 24.1 MMOL/L (21.0-29.0)
[2019-08-27] MEDS: METOCLOPRAMIDE 10 MG/2 ML VIAL IVP SCH ×4 (05:44→23:39)
[2019-08-27] MEDS: METOPROLOL 5 MG/5 ML VIAL IVP SCH ×4 (05:48→23:40)
[2019-08-27] MEDS: INSULIN REGULAR HUMAN 300 UNIT/3 ML VIAL SUBQ SCH ×4 (06:04→23:36)
[2019-08-27] MEDS: DEXMEDETOMIDINE 400 MCG/100 ML 100 ML IV SCH (06:35)
--- NOTE | 2019-08-27 06:53 | XRAY Report ---
Reason: pneumonia Procedure Date: 08/27/2019 Accession Number: [id number] / [id number] Procedure: XR - Chest 1 View X-Ray CPT Code: 73408 Final Report FULL RESULT: EXAM: CHEST RADIOGRAPHY EXAM DATE: 08/27/2019 06:12 AM CLINICAL HISTORY: Pneumonia. COMPARISON: CHEST 1 VIEW 08/26/2019 5:32 AM. TECHNIQUE: 1 view. FINDINGS: Lungs/Pleura: Similar findings of multifocal interstitial and airspace opacities throughout both lungs. No pleural effusion. No pneumothorax. Mediastinum: Within exam limitations, the cardiomediastinal contour is normal. Other: Endotracheal tube tip located 5.1 cm above the fermin. Right IJ catheter tip located in the region of the junction of the SVC and right atrium. Enteric tube tip is located in the left upper quadrant in the region of the stomach. IMPRESSION: Similar appearance of the multifocal airspace disease which may reflect inflammation/infection. Support hardware are located in standard positions, as described above. RADIA
[2019-08-27] MEDS: CEFEPIME 2 GM in SODIUM CHLORIDE 0.9% MINIBAG 100 ML IV SCH ×2 (09:05→21:06)
[2019-08-27] MEDS: BRIMONIDINE 0.2% OPHTH DROPS 5 ML EACHEYE SCH ×2 (09:08→21:06)
[2019-08-27] MEDS: AZITHROMYCIN 250 MG TABLET PO SCH (09:08)
[2019-08-27] MEDS: HYDROXYCHLOROQUINE 200 MG TABLET PO SCH (09:09)
[2019-08-27] MEDS: SODIUM CHLORIDE FLUSH 0.9% 10 ML SYRINGE IVP SCH ×3 (09:09→23:41)
[2019-08-27] MEDS: CHLORHEXIDINE GLUCONATE 15 ML UDC PO SCH ×2 (09:09→21:05)
[2019-08-27] MEDS: timoloL maleate 0.5% OPHTH DROPS (10ML) EACHEYE SCH (09:10)
[2019-08-27] MEDS: ENOXAPARIN 40 MG/0.4 ML SYRINGE SUBQ SCH (09:15)
[2019-08-27] MEDS: FUROSEMIDE 40 MG/4 ML VIAL IVP SCH (09:15)
[2019-08-27] MEDS: FAMOTIDINE 20 MG/2 ML VIAL IVP SCH ×2 (09:18→21:10)
[2019-08-27] MEDS: VANCOMYCIN INJ 1 GM in SODIUM CHLORIDE 0.9% 250 ML IV SCH (12:45)
[2019-08-27] MEDS: MIDAZOLAM DRIP 50 MG/100 ML BAG IV SCH (15:00)
--- NOTE | 2019-08-27 16:11 | PROVIDER PROGRESS NOTE ---
Assessment/Plan - Problem List (1) Pneumonia due to 2019 novel coronavirus Assessment/Plan: Continue with supportive management: Hydroxychloroquine, vent support, IV fluids and nutrition (2) Acute respiratory failure with hypoxia Assessment/Plan: Continue with vent support. He did not eat prone yesterday, had at the day before. His FiO2 is 30%, will eventually transition him to pressure support and CPAP trials for potential extubation as IV sedatives decrease (3) Hypothermia, not associated with low environmental temperature Assessment/Plan: Today he had both hypothermia of 34 and fevers of 38. This is poor prognosis with inability to regulate core temperature. (4) Hypertension Assessment/Plan: BP stable on current meds. (5) Acute kidney injury superimposed on CKD Assessment/Plan: Abnormal but stable creat on current meds and management (6) Heart failure with preserved ejection fraction Qualifiers: Heart failure chronicity: chronic Qualified Code(s): I50.32 - Chronic diastolic (congestive) heart failure Assessment/Plan: He appears euvolemic clinically on curtrent meds and management (7) Anemia of chronic disease Assessment/Plan: As per Hx Follow CBC daily, transfuse if Hgb <7 (8) Type 2 diabetes mellitus with complication, with long-term current use of insulin Assessment/Plan: Cont ng feeds and Insulin coverage (9) Moderate protein-calorie malnutrition Assessment/Plan: As per Hx (10) Visual impairment Assessment/Plan: As per Hx, he has glaucoma and is getting eye drops (11) Fever Assessment/Plan: Resolved and became hypothermic (12) Hypernatremia Assessment/Plan: Resolved - Current Meds Current Meds: Current Medications Generic Name Dose Route Start Last Admin Trade Name Kd PRN Reason Stop Dose Admin Azithromycin 250 mg 08/27/19 09:00 08/27/19 09:08 Zithromax PO 08/30/19 09:01 250 mg DAILY MATEUSZ Administration Brimonidine Tartrate 1 drops 08/19/19 21:00 08/27/19 09:08 Alphagan P 0.2% Ophth Drops EACHEYE 1 drops BID MATEUSZ Administration Chlorhexidine Gluconate 15 ml 08/22/19 11:00 08/27/19 09:09 Peridex PO 15 ml BID MATEUSZ Administration Clonidine HCl 1 patch 08/24/19 22:00 08/24/19 22:00 [id number] TOP 1 patch Q7D MATEUSZ Administration Enoxaparin Sodium 40 mg 08/20/19 09:00 08/27/19 09:15 Lovenox SUBQ 40 mg DAILY MATEUSZ Administration Famotidine 10 mg 08/22/19 11:00 08/27/19 09:18 Pepcid IVP 10 mg BID MATEUSZ Administration Furosemide 40 mg 08/23/19 09:00 08/27/19 09:15 Lasix Inj 40 Mg Vial IVP 40 mg DAILY MATEUSZ Administration Heparin Sodium (Beef Lung) 30 - 50 unit 08/21/19 13:58 08/25/19 04:12 IVP 30 unit PRN PRN Administration Central Line Protocol (<24 hr) Hydralazine HCl 10 mg 08/22/19 10:34 08/26/19 07:04 Apresoline Inj IVP 10 mg Q6H PRN Administration Hypertensive Emergency Hydroxychloroquine Sulfate 200 mg 08/27/19 09:00 08/27/19 09:09 Plaquenil PO 08/30/19 09:01 200 mg DAILY MATEUSZ Administration Dexmedetomidine/Sodium Chloride 100 mls @ 9.375 mls/hr 08/21/19 10:00 08/27/19 15:00 Precedex Premix IV 0.3 mcg/kg/hr .[id number] MATEUSZ 5.625 mls/hr Titration Protocol 0.5 MCG/KG/HR Sodium Chloride 500 mls @ 0 mls/hr 08/21/19 13:58 08/27/19 15:00 Normal Saline 0.9% IV 20 mls/hr Q24H PRN Infusion TKO RATE TKO Midazolam HCl 50 mg in 100 mls @ 7.5 mls/hr 08/22/19 07:00 08/27/19 15:00 Versed Drip IV 0.04 mg/kg/hr .[id number] MATEUSZ 6 mls/hr Administration Protocol 0.05 MG/KG/HR Cefepime HCl 2 gm/ Sodium 100 mls @ 200 mls/hr 08/25/19 13:00 08/27/19 09:35 Chloride IV Infused BID MATEUSZ Infusion Metronidazole 500 mg in 100 mls @ 100 mls/hr 08/25/19 14:00 08/27/19 14:35 Flagyl 500 Mg/100 Ml IV 100 mls/hr Q8H MATEUSZ Administration Vancomycin HCl 1 gm/ Sodium 250 mls @ 167 mls/hr 08/26/19 13:00 08/27/19 14:30 Chloride IV Infused Q24H MATEUSZ Infusion Insulin Human Regular 3 - 11 unit 08/26/19 07:00 08/27/19 12:38 Humulin R SUBQ 3 unit Q6HR MATEUSZ Administration Protocol Lidocaine HCl 2.5 ml 08/20/19 13:11 08/20/19 14:41 Xylocaine Uro-Jet 2% UR 2.5 ml Q6H PRN Administration PAIN Metoclopramide HCl 5 mg 08/22/19 19:00 08/27/19 12:42 Reglan Inj IVP 5 mg Q6HR MATEUSZ Administration Metoprolol Tartrate 2.5 mg 08/21/19 12:00 08/27/19 12:43 Lopressor Inj IVP 2.5 mg Q6HR MATEUSZ Administration Mineral Oil 1 applic 08/22/19 13:08 08/26/19 20:09 Cavilon TOP 1 applic PRN PRN Administration Skin Care Morphine Sulfate 2 mg 08/20/19 10:39 08/26/19 16:00 Morphine (Carpuject) IVP 2 mg Q2HR PRN Administration PAIN Nitroglycerin 1 inch 08/25/19 11:00 08/27/19 10:55 Nitro-Bid (Pkt) TOP 1 inch Q8H MATEUSZ Administration Sodium Chloride 10 ml 08/19/19 06:27 08/27/19 12:48 Normal Saline Flush 0.9% IVP 10 ml PRN PRN Administration NEEDED PER PROVIDER ORDERS Sodium Chloride 10 ml 08/19/19 09:00 08/27/19 09:09 Normal Saline Flush 0.9% IVP 10 ml 0100,0900,1700 MATEUSZ Administration Sodium Chloride 20 ml 08/24/19 00:12 08/27/19 03:57 Normal Saline Flush 0.9% IVP 20 ml PRN PRN Administration After Blood Draw Timolol Maleate 1 drops 08/20/19 09:00 08/27/19 09:10 Timoptic 0.5% Ophth Drops EACHEYE 1 drops DAILY MATEUSZ Administration - Lab Result Fish Bone Diagrams: 08/27/19 04:00 08/28/19 04:55 - Additional Planning My Orders: My Active Orders 08/28/19 12:30 VANCOMYCIN TROUGH [CHEM] Timed Subjective - Subjective Patient Reports: Other (sedated on the vent) Objective Vital Signs: Vital Signs - 24 hr 08/26/19 08/26/19 08/26/19 17:00 17:30 17:35 Temperature 37.4 C 37.4 C Heart Rate 52 L Heart Rate [ 72 69 Monitoring electrodes] Respiratory 17 15 Rate Blood Pressure 153/80 H Blood Pressure 176/70 H 178/71 H [Left Radial artery] Blood Pressure 155/75 H 153/80 H [Right Brachial artery] O2 Saturation 100 99 08/26/19 08/26/19 08/26/19 18:00 19:00 19:20 Temperature 37.4 C Heart Rate 67 Heart Rate [ 68 69 Monitoring electrodes] Respiratory 14 12 Rate Blood Pressure Blood Pressure 172/67 H 180/69 H [Left Radial artery] Blood Pressure 143/73 H 163/69 H [Right Brachial artery] O2 Saturation 100 100 08/26/19 08/26/19 08/26/19 20:00 21:00 21:30 Temperature 37.4 C 37.2 C Heart Rate 60 Heart Rate [ 68 62 Monitoring electrodes] Respiratory 12 20 Rate Blood Pressure Blood Pressure 176/62 H 128/47 L [Left Radial artery] Blood Pressure 159/75 H 124/68 [Right Brachial artery] O2 Saturation 100 100 08/26/19 08/26/19 08/26/19 22:00 23:00 23:30 Temperature 37.1 C 36.9 C Heart Rate 63 Heart Rate [ 60 60 Monitoring electrodes] Respiratory 20 20 Rate Blood Pressure Blood Pressure 141/51 H 148/54 H [Left Radial artery] Blood Pressure 134/66 H 139/67 H [Right Brachial artery] O2 Saturation 100 100 08/26/19 08/27/19 08/27/19 23:40 00:00 01:00 Temperature 36.9 C 37.1 C Heart Rate Heart Rate [ 65 62 Monitoring electrodes] Respiratory 20 20 Rate Blood Pressure 139/67 H Blood Pressure 158/61 H 151/61 H [Left Radial artery] Blood Pressure 145/71 H 147/60 H [Right Brachial artery] O2 Saturation 100 100 08/27/19 08/27/19 08/27/19 01:30 02:00 03:00 Temperature 37.2 C 37.1 C Heart Rate 62 Heart Rate [ 61 64 Monitoring electrodes] Respiratory 20 16 Rate Blood Pressure Blood Pressure 152/59 H 169/63 H [Left Radial artery] Blood Pressure 136/66 H 154/68 H [Right Brachial artery] O2 Saturation 100 100 08/27/19 08/27/19 08/27/19 03:35 04:00 05:00 Temperature 37 C 37 C Heart Rate 64 Heart Rate [ 64 58 L Monitoring electrodes] Respiratory 16 20 Rate Blood Pressure Blood Pressure 169/64 H 146/57 H [Left Radial artery] Blood Pressure [Right Brachial artery] O2 Saturation 100 100 08/27/19 08/27/19 08/27/19 05:25 05:48 06:00 Temperature 36.9 C Heart Rate 59 L Heart Rate [ 62 Monitoring electrodes] Respiratory 20 Rate Blood Pressure 154/55 H Blood Pressure 166/60 H [Left Radial artery] Blood Pressure [Right Brachial artery] O2 Saturation 100 08/27/19 08/27/19 08/27/19 07:00 07:40 08:00 Temperature 36.8 C 36.9 C Heart Rate 66 Heart Rate [ 65 67 Monitoring electrodes] Respiratory 13 20 Rate Blood Pressure Blood Pressure 174/64 H 181/63 H [Left Radial artery] Blood Pressure 155/69 H [Right Brachial artery] O2 Saturation 100 100 08/27/19 08/27/19 08/27/19 09:00 10:00 10:32 Temperature 36.9 C 37 C Heart Rate 64 Heart Rate [ 57 L 64 Monitoring electrodes] Respiratory 20 21 Rate Blood Pressure Blood Pressure 163/56 H 164/60 H [Left Radial artery] Blood Pressure [Right Brachial artery] O2 Saturation 100 100 08/27/19 08/27/19 08/27/19 11:00 12:00 12:43 Temperature 37 C 37 C Heart Rate Heart Rate [ 65 64 Monitoring electrodes] Respiratory 20 20 Rate Blood Pressure 176/73 H Blood Pressure 176/65 H 169/57 H [Left Radial artery] Blood Pressure 170/75 H [Right Brachial artery] O2 Saturation 100 100 08/27/19 08/27/19 08/27/19 13:00 13:31 14:00 Temperature 37.1 C 37.2 C Heart Rate 65 Heart Rate [ 63 67 Monitoring electrodes] Respiratory 20 20 Rate Blood Pressure Blood Pressure 171/57 H 183/65 H [Left Radial artery] Blood Pressure [Right Brachial artery] O2 Saturation 100 100 03/29/20 03/29/20 03/29/20 15:00 15:38 16:00 Temperature 37.3 C 37.3 C Heart Rate 68 Heart Rate [ 67 67 Monitoring electrodes] Respiratory 20 20 Rate Blood Pressure Blood Pressure 181/63 H 185/65 H [Left Radial artery] Blood Pressure 161/73 H [Right Brachial artery] O2 Saturation 100 100 Oxygen O2 Source Mechanical ventilator Oxygen Flow Rate 2 I&O (Last 24 Hrs): Intake and Output Totals x24h 08/25/19 08/26/19 08/27/19 23:59 23:59 23:59 Intake Total 4155.569 4539.571 1854.500 Output Total 1723 1171 2061 Balance 2432.569 3368.571 -206.500 General: Other (sedated on the vent) HEENT: Mucous membr. moist/pink, Other (ET and ng tubes in place) Neuro: Other (Sedated) Cardiovascular: Regular rate Respiratory: No respiratory distress (on the vent) Abdomen: Soft Extremities: No edema - Results Results: Laboratory Results WBC 5.5 x10^3/uL (4.8-10.8) 08/27/19 04:00 RBC 2.50 10^6/uL (4.70-6.10) L 08/27/19 04:00 Hgb 7.2 g/dL (14.0-18.0) L 08/27/19 04:00 Hct 23.9 % (42.0-52.0) L 08/27/19 04:00 MCV 95.6 fL (80.0-94.0) H 08/27/19 04:00 MCH 28.8 pg (27.0-31.0) 08/27/19 04:00 MCHC 30.1 g/dL (32.0-36.0) L 08/27/19 04:00 RDW 14.2 % (12.0-15.0) 08/27/19 04:00 Plt Count 243 10^3/uL (130-450) 08/27/19 04:00 MPV 11.8 fL (7.4-11.4) H 08/27/19 04:00 Neut # (Auto) 4.3 10^3/uL (1.5-6.6) 08/27/19 04:00 Lymph # (Auto) 0.5 10^3/uL (1.5-3.5) L 08/27/19 04:00 Moore # (Auto) 0.4 10^3/uL (0.0-1.0) 08/27/19 04:00 Eos # (Auto) 0.2 10^3/uL (0.0-0.7) 08/27/19 04:00 Baso # (Auto) 0.0 10^3/uL (0.0-0.1) 08/27/19 04:00 Absolute Nucleated RBC 0.00 x10^3/uL 08/27/19 04:00 Total Counted 100 08/23/19 05:00 Band Neuts % (Manual) 3 % (0-10) 08/23/19 05:00 Abnorm Lymph % (Manual) 0 % 08/23/19 05:00 Nucleated RBC % 0.0 /100WBC 08/27/19 04:00 Neutrophils # (Manual) 1.5 10^3/uL (1.5-6.6) 08/23/19 05:00 Lymphocytes # (Manual) 0.3 10^3/uL (1.5-3.5) L 08/23/19 05:00 Monocytes # (Manual) 0.1 10^3/uL (0.0-1.0) 08/23/19 05:00 Eosinophils # (Manual) 0.0 10^3/uL (0-0.7) 08/23/19 05:00 Basophils # (Manual) 0.0 10^3/uL (0-0.1) 08/23/19 05:00 Differential Comment MANUAL DIFFERENTIAL 08/23/19 05:00 Manual Slide Review Indicated 08/24/19 06:30 Platelet Estimate NORMAL (130-450,000) (NORMAL) 08/24/19 06:30 Platelet Morphology NORMAL APPEARANCE (NORMAL) 08/24/19 06:30 RBC Morph Micro Appear 1+ HYPOCHROMASIA (NORMAL) 08/24/19 06:30 PT 12.9 secs (9.9-12.6) H 08/19/19 05:50 INR 1.1 (0.8-1.2) 08/19/19 05:50 APTT 35.8 secs (24.9-33.3) H 08/19/19 05:50 Bld Gas Analysis Time 0539 08/27/19 05:33 Sample Site A-LINE 08/27/19 05:33 ABG pH 7.45 (7.35-7.45) 08/27/19 05:33 ABG pCO2 34 mmHg (34-45) 08/27/19 05:33 ABG pO2 151 mmHg (80-100) H* 08/27/19 05:33 ABG HCO3 23.0 mmol/L (22.0-26.0) 08/27/19 05:33 ABG Total CO2 24.1 MMOL/L (21.0-29.0) 08/27/19 05:33 ABG O2 Saturation 99 % (94-98) H 08/27/19 05:33 ABG Base Excess -0.8 mmol/L (-2.0-3.0) 08/27/19 05:33 Adin Test NOT APPLICABLE 08/27/19 05:33 VBG pH 7.350 (7.31-7.41) 08/26/19 04:30 Ionized Calcium 1.10 mmol/L (1.15-1.33) L 08/26/19 04:30 Respiration Rate 20 b/min 08/27/19 05:33 O2 Delivery Device VENTILATOR 08/27/19 05:33 O2 Liters/Min 9.00 LPM 08/20/19 09:40 Vent Mode SIMV 08/27/19 05:33 FiO2 35.00 08/27/19 05:33 Tidal Volume 450 mL 08/27/19 05:33 PEEP 7 cmH2O 08/27/19 05:33 Pressure Support Vent 15 cmH2O 08/27/19 05:33 Sodium 144 mmol/L (135-145) 08/27/19 04:00 Potassium 4.1 mmol/L (3.5-5.0) 08/27/19 04:00 Chloride 115 mmol/L (101-111) H 08/27/19 04:00 Carbon Dioxide 24 mmol/L (21-32) 08/27/19 04:00 Anion Gap 5.0 (6-13) L 08/27/19 04:00 BUN 61 mg/dL (6-20) H 08/27/19 04:00 Creatinine 2.1 mg/dL (0.6-1.2) H 08/27/19 04:00 Estimated GFR (MDRD) 32 (>89) L 08/27/19 04:00 Glucose 199 mg/dL (70-100) H 08/27/19 04:00 POC Whole Bld Glucose 143 mg/dL (70 - 100) H 08/27/19 12:35 Glycated Hemoglobin 6.3 % (4.6-6.2) H 08/20/19 05:25 Estim Average Glucose 134 (70-100) H 08/20/19 05:25 Lactic Acid 1.1 mmol/L (0.5-2.2) 08/25/19 11:20 Calcium 7.6 mg/dL (8.5-10.3) L 08/27/19 04:00 Phosphorus 3.0 mg/dL (2.5-4.6) 08/27/19 04:00 Magnesium 2.0 mg/dL (1.7-2.8) 08/27/19 04:00 Total Bilirubin 0.4 mg/dL (0.2-1.0) 08/27/19 04:00 Direct Bilirubin 0.1 mg/dL (0.1-0.5) 08/19/19 05:50 AST 20 IU/L (10-42) 08/27/19 04:00 ALT 15 IU/L (10-60) 08/27/19 04:00 Alkaline Phosphatase 44 IU/L (42-121) 08/27/19 04:00 Troponin I High Sens 51.5 ng/L (2.3-19.7) H* 08/25/19 14:20 B-Natriuretic Peptide 693 pg/mL (5-100) H 08/24/19 06:30 Total Protein 5.1 g/dL (6.7-8.2) L 08/27/19 04:00 Albumin 2.1 g/dL (3.2-5.5) L 08/27/19 04:00 Globulin 3.0 g/dL (2.1-4.2) 08/27/19 04:00 Albumin/Globulin Ratio 0.7 (1.0-2.2) L 08/27/19 04:00 Prealbumin 13 mg/dL (18-45) L 08/27/19 04:00 Lipase 27 U/L (22-51) 08/19/19 05:50 TSH 3.11 uIU/mL (0.34-5.60) 08/19/19 05:50 Urine Color YELLOW 08/25/19 11:20 Urine Clarity CLOUDY (CLEAR) 08/25/19 11:20 Urine pH 5.5 PH (5.0-7.5) 08/25/19 11:20 Ur Specific [place] 1.020 (1.002-1.030) 08/25/19 11:20 Urine Protein 100 mg/dL (NEGATIVE) H 08/25/19 11:20 Urine Glucose (UA) 250 mg/dL (NEGATIVE) H 08/25/19 11:20 Urine Ketones NEGATIVE mg/dL (NEGATIVE) 08/25/19 11:20 Urine Occult Blood TRACE-INTA (NEGATIVE) 08/25/19 11:20 Urine Nitrite NEGATIVE (NEGATIVE) 08/25/19 11:20 Urine Bilirubin NEGATIVE (NEGATIVE) 08/25/19 11:20 Urine Urobilinogen 0.2 (NORMAL) E.U./dL (NORMAL) 08/25/19 11:20 Ur Leukocyte Esterase TRACE (NEGATIVE) H 08/25/19 11:20 Urine RBC 0-5 /HPF (0-5) 08/25/19 11:20 Urine WBC 4-5 /HPF (0-3) 08/25/19 11:20 Ur Squamous Epith Cells NONE SEEN (<= Few) 08/25/19 11:20 Amorphous Sediment Few /LPF 08/25/19 11:20 Urine Bacteria Few /HPF (None Seen) 08/25/19 11:20 Urine Casts 11-25 Granular Casts /LPF 08/25/19 11:20 Ur Microscopic Review INDICATED 08/19/19 08:00 Urine Culture Comments INDICATED 08/25/19 11:20 Nasal Screen MRSA (PCR) NEGATIVE (NEGATIVE) 08/21/19 11:43 Urine Opiates Screen NEGATIVE (NEGATIVE) 08/19/19 08:00 Ur Oxycodone Screen NEGATIVE (NEGATIVE) 08/19/19 08:00 Urine Methadone Screen NEGATIVE (NEGATIVE) 08/19/19 08:00 Ur Propoxyphene Screen NEGATIVE (NEGATIVE) 08/19/19 08:00 Ur Barbiturates Screen NEGATIVE (NEGATIVE) 08/19/19 08:00 Ur Tricyclics Screen NEGATIVE (NEGATIVE) 08/19/19 08:00 Ur Phencyclidine Scrn NEGATIVE (NEGATIVE) 08/19/19 08:00 Ur Amphetamine Screen NEGATIVE (NEGATIVE) 08/19/19 08:00 U Methamphetamines Scrn NEGATIVE (NEGATIVE) 08/19/19 08:00 U Benzodiazepines Scrn NEGATIVE (NEGATIVE) 08/19/19 08:00 Urine Cocaine Screen NEGATIVE (NEGATIVE) 08/19/19 08:00 U Cannabinoids Screen NEGATIVE (NEGATIVE) 08/19/19 08:00 Ethyl Alcohol < 5.0 mg/dL 08/19/19 05:50 Blood Type A NEGATIVE 08/19/19 07:38 Antibody Screen NEGATIVE 08/19/19 07:38 Crossmatch IS Only See Detail 08/19/19 07:38 - Procedures Procedures: Procedures REPLACEMENT OF LEFT LENS WITH SYNTH SUB, PERC APPROACH (11/25/17) REPLACEMENT OF RIGHT LENS WITH SYNTH SUB, PERC APPROACH (12/02/17)
[2019-08-28] MEDS: DEXMEDETOMIDINE 400 MCG/100 ML 100 ML IV SCH ×3 (00:30→15:30)
[2019-08-28] MEDS: hydrALAZINE INJ 20 MG/ML VIAL IVP PRN ×3 (00:45→15:26)
[2019-08-28] MEDS: NITROGLYCERIN 2% PASTE TOP SCH ×3 (02:17→19:06)
[2019-08-28 05:17] LABS: BUN - BLOOD UREA NITROGEN 61 mg/dL (6-20); CALCIUM 7.8 mg/dL (8.5-10.3); CARBON DIOXIDE - CO2 25 mmol/L (21-32); CHLORIDE 114 mmol/L (101-111); CREATININE 1.9 mg/dL (0.6-1.2); GLUCOSE 194 mg/dL (70-100); MAGNESIUM 2.3 mg/dL (1.7-2.8); PHOSPHORUS 3.1 mg/dL (2.5-4.6); SODIUM 145 mmol/L (135-145)
[2019-08-28 05:40] LABS: ABG PCO2 34 mmHg (34-45); ABG PH 7.45 (7.35-7.45); ABG PO2 105 mmHg (80-100)
[2019-08-28 05:41] LABS: ABG BASE EXCESS -0.7 mmol/L (-2.0-3.0); ABG HCO3 23.2 mmol/L (22.0-26.0); ABG OXYGEN SATURATION 98 % (94-98); ABG TCO2 24.2 MMOL/L (21.0-29.0)
[2019-08-28] MEDS: METOPROLOL 5 MG/5 ML VIAL IVP SCH ×3 (05:49→17:48)
[2019-08-28] MEDS: metroNIDAZOLE 500 MG/100 ML 500 MG/100 ML BAG IV SCH ×3 (05:50→21:16)
[2019-08-28] MEDS: METOCLOPRAMIDE 10 MG/2 ML VIAL IVP SCH ×3 (06:04→17:48)
[2019-08-28] MEDS: INSULIN REGULAR HUMAN 300 UNIT/3 ML VIAL SUBQ SCH ×3 (06:04→18:01)
[2019-08-28] MEDS: MIDAZOLAM DRIP 50 MG/100 ML BAG IV SCH ×3 (06:05→23:44)
[2019-08-28] MEDS: SODIUM CHLORIDE 0.9% 500 ML IV PRN (07:20)
[2019-08-28] MEDS: AZITHROMYCIN 250 MG TABLET PO SCH (09:05)
[2019-08-28] MEDS: CEFEPIME 2 GM in SODIUM CHLORIDE 0.9% MINIBAG 100 ML IV SCH ×2 (09:06→21:10)
[2019-08-28] MEDS: FUROSEMIDE 40 MG/4 ML VIAL IVP SCH (09:06)
[2019-08-28] MEDS: FAMOTIDINE 20 MG/2 ML VIAL IVP SCH ×2 (09:06→21:13)
[2019-08-28] MEDS: CHLORHEXIDINE GLUCONATE 15 ML UDC PO SCH ×2 (09:06→21:12)
[2019-08-28] MEDS: BRIMONIDINE 0.2% OPHTH DROPS 5 ML EACHEYE SCH ×2 (09:07→21:10)
[2019-08-28] MEDS: timoloL maleate 0.5% OPHTH DROPS (10ML) EACHEYE SCH (09:07)
[2019-08-28] MEDS: ENOXAPARIN 40 MG/0.4 ML SYRINGE SUBQ SCH (09:07)
[2019-08-28] MEDS: HYDROXYCHLOROQUINE 200 MG TABLET PO SCH ×2 (09:08→21:14)
[2019-08-28] MEDS: SODIUM CHLORIDE FLUSH 0.9% 10 ML SYRINGE IVP SCH ×2 (09:08→17:49)
--- NOTE | 2019-08-28 09:48 | XRAY Report ---
Reason: pneumonia Procedure Date: 08/28/2019 Accession Number: [id number] / [id number] Procedure: XR - Chest 1 View X-Ray CPT Code: 84306 Final Report FULL RESULT: EXAM: CHEST RADIOGRAPHY EXAM DATE: 08/28/2019 09:36 AM. CLINICAL HISTORY: Pneumonia. COMPARISON: CHEST 1 VIEW 08/27/2019 5:23 AM. TECHNIQUE: 1 view. FINDINGS: Lungs/Pleura: Endotracheal tube tip 5.5 cm above the fermin. Further mild interval increase in bilateral interstitial opacities and some probable consolidative left medial basilar infiltrate or atelectasis. New marginated density projecting over the right hemithorax is consistent with a skin fold. No toshia pneumothorax. No definite pleural effusion. Mediastinum: Within exam limitations, the cardiomediastinal contour is normal. Other: Right central venous catheter tip at the distal SVC. Nasogastric tube extends into the stomach. IMPRESSION: 1. Interval increase bilateral pulmonary infiltrates. 2. Catheter/tubes appear appropriately positioned. RADIA
[2019-08-28] MEDS: ACETAMINOPHEN 650 MG SUPP PR PRN (11:24)
[2019-08-28 12:55] LABS: VANCOMYCIN,TROUGH 21.3 ug/mL (10.0-20.0)
--- NOTE | 2019-08-28 14:32 | PROVIDER PROGRESS NOTE ---
Assessment/Plan - Problem List (1) Vomiting bile Assessment/Plan: Will stop ng feeds for a day. Give Zofran. Continue Pepcid iv. Will get KUB, eval for ileus. He is doing worse today, with this new problem. (2) Fever Assessment/Plan: The recurrent fever could be from VAP or aspiration PNA, or sinusitis or the natural unknown course of this COVID virus. His antibx were broadened already. (3) Pneumonia due to 2019 novel coronavirus Assessment/Plan: CXR shows worsening infiltrate since last CXR. He has a fever again, after was hypothermic intermittently. Continue supportive care, Hydroxychloroquine empiric. (4) Acute respiratory failure with hypoxia Assessment/Plan: Vent is still required, he could not tolerate weaning this morning. He had 1 course of proning several days ago for presumed ARDS, the next day te CXR looked worse but his O2 demands were better. He has now been intubated for 9 days. Usually, there would be discussion about a trach at this point, but his prognosis is poor and he is not a candidate to be transferred; this will be a topic for the Ethic Committee here to discuss. The recurrent fever could be from VAP or aspiration PNA, or sinusitis. His antibx were broadened already. Vent setting and ABGs ordered and Precedex plus Versed for sedation. (5) Hypertension Assessment/Plan: BP elevated during his distress today. IV meds for BP continue. (6) Acute kidney injury superimposed on CKD Assessment/Plan: The creat decreased from admission and is now abnormal but stable. Follow labs daily (7) Heart failure with preserved ejection fraction Qualifiers: Heart failure chronicity: chronic Qualified Code(s): I50.32 - Chronic diastolic (congestive) heart failure Assessment/Plan: Clinically he is euvolemic with current meds and management, except for third spacing in hands. (8) Anemia of chronic disease Assessment/Plan: As per Hx. He did get a transfusion early in the admission. Follow CBC daily. Transfusion if Hgb <7, unless it is determined that medical care is futile or if [facility] is chosen (by his ). (9) Type 2 diabetes mellitus with complication, with long-term current use of insulin Assessment/Plan: Ng feed and ss Insulin ordered. (10) Visual impairment Assessment/Plan: As per Hx He gets eye drops for glaucoma (11) Rash Assessment/Plan: Does not look like a DIC rash or a contact dermatitis rash (wher it is located). Poss of COVID rash. (12) Sacral decubitus ulcer Qualifiers: Pressure injury stage: stage 1 Qualified Code(s): L89.151 - Pressure ulcer of sacral region, stage 1 Assessment/Plan: Needs turn, reporsition and topical care. - Current Meds Current Meds: Current Medications Generic Name Dose Route Start Last Admin Trade Name Freq PRN Reason Stop Dose Admin Acetaminophen 650 mg 08/24/19 10:11 08/28/19 11:24 Tylenol NH 650 mg Q6HR PRN Administration Pain or Fever > 38C (100.4F) Azithromycin 250 mg 08/27/19 09:00 08/28/19 09:05 Zithromax PO 08/30/19 09:01 250 mg DAILY MATEUSZ Administration Brimonidine Tartrate 1 drops 08/19/19 21:00 08/28/19 09:07 Alphagan P 0.2% Ophth Drops EACHEYE 1 drops BID MATEUSZ Administration Chlorhexidine Gluconate 15 ml 08/22/19 11:00 08/28/19 09:06 Peridex PO 15 ml BID MATEUSZ Administration Clonidine HCl 1 patch 08/24/19 22:00 08/24/19 22:00 [id number] TOP 1 patch Q7D MATEUSZ Administration Enoxaparin Sodium 40 mg 08/20/19 09:00 08/28/19 09:07 Lovenox SUBQ 40 mg DAILY MATEUSZ Administration Famotidine 10 mg 08/22/19 11:00 08/28/19 09:06 Pepcid IVP 10 mg BID MATEUSZ Administration Furosemide 40 mg 08/23/19 09:00 08/28/19 09:06 Lasix Inj 40 Mg Vial IVP 40 mg DAILY MATEUSZ Administration Heparin Sodium (Beef Lung) 30 - 50 unit 08/21/19 13:58 08/25/19 04:12 IVP 30 unit PRN PRN Administration Central Line Protocol (<24 hr) Hydralazine HCl 10 mg 08/22/19 10:34 08/28/19 09:41 Apresoline Inj IVP 10 mg Q6H PRN Administration Hypertensive Emergency Hydroxychloroquine Sulfate 200 mg 08/27/19 09:00 08/28/19 09:08 Plaquenil PO 08/30/19 09:01 200 mg DAILY MATEUSZ Administration Dexmedetomidine/Sodium Chloride 100 mls @ 9.375 mls/hr 08/21/19 10:00 08/28/19 12:50 Precedex Premix IV 0.6 mcg/kg/hr .[id number] MATEUSZ 11.25 mls/hr Titration Protocol 0.5 MCG/KG/HR Sodium Chloride 500 mls @ 0 mls/hr 08/21/19 13:58 08/28/19 07:20 Normal Saline 0.9% IV 20 mls/hr Q24H PRN Administration TKO RATE TKO Midazolam HCl 50 mg in 100 mls @ 7.5 mls/hr 08/22/19 07:00 08/28/19 12:51 Versed Drip IV 0.05 mg/kg/hr .[id number] MATEUSZ 7.5 mls/hr Titration Protocol 0.05 MG/KG/HR Cefepime HCl 2 gm/ Sodium 100 mls @ 200 mls/hr 08/25/19 13:00 08/28/19 09:52 Chloride IV Infused BID MATEUSZ Infusion Metronidazole 500 mg in 100 mls @ 100 mls/hr 08/25/19 14:00 08/28/19 14:08 Flagyl 500 Mg/100 Ml IV 100 mls/hr Q8H MATEUSZ Administration Vancomycin HCl 1 gm/ Sodium 250 mls @ 167 mls/hr 08/26/19 13:00 08/27/19 14:30 Chloride IV Infused Q24H MATEUSZ Infusion Insulin Human Regular 3 - 11 unit 08/26/19 07:00 08/28/19 11:23 Humulin R SUBQ Not Given Q6HR MATEUSZ Protocol Lidocaine HCl 2.5 ml 08/20/19 13:11 08/20/19 14:41 Xylocaine Uro-Jet 2% UR 2.5 ml Q6H PRN Administration PAIN Metoclopramide HCl 5 mg 08/22/19 19:00 08/28/19 11:23 Reglan Inj IVP 5 mg Q6HR MATEUSZ Administration Metoprolol Tartrate 2.5 mg 08/21/19 12:00 08/28/19 11:23 Lopressor Inj IVP 2.5 mg Q6HR MATEUSZ Administration Mineral Oil 1 applic 08/22/19 13:08 08/26/19 20:09 Cavilon TOP 1 applic PRN PRN Administration Skin Care Morphine Sulfate 2 mg 08/20/19 10:39 08/26/19 16:00 Morphine (Carpuject) IVP 2 mg Q2HR PRN Administration PAIN Nitroglycerin 1 inch 08/25/19 11:00 08/28/19 10:36 Nitro-Bid (Pkt) TOP 1 inch Q8H MATESUZ Administration Sodium Chloride 10 ml 08/19/19 06:27 08/27/19 19:28 Normal Saline Flush 0.9% IVP 10 ml PRN PRN Administration NEEDED PER PROVIDER ORDERS Sodium Chloride 10 ml 08/19/19 09:00 08/28/19 09:08 Normal Saline Flush 0.9% IVP 10 ml 0100,0900,1700 MATEUSZ Administration Sodium Chloride 20 ml 08/24/19 00:12 08/27/19 03:57 Normal Saline Flush 0.9% IVP 20 ml PRN PRN Administration After Blood Draw Timolol Maleate 1 drops 08/20/19 09:00 08/28/19 09:07 Timoptic 0.5% Ophth Drops EACHEYE 1 drops DAILY MATEUSZ Administration - Lab Result Fish Bone Diagrams: 08/27/19 04:00 08/28/19 04:55 - Additional Planning My Orders: My Active Orders 08/27/19 17:37 Restraints [RC] Q24H 08/28/19 06:14 ABG [Arterial Blood Gases - RT] [RC] .ONCE 08/29/19 05:00 BMP, RFLX TO IONIZED CA IF [CHEM] DAILYLAB Subjective - Subjective Patient Reports: Other (Sedated but is wretching, ng draining bilous liquid) Nursing Reports: Other (He was tried on light sedation and vent rate lowered, did not tolerate it with dropping sats. Then had alot of residual in stomach and feeds stopped, ng to suction. Has a new papular rash on feet and calves. Has a new Grade1 decubitus ulcer.) Objective Vital Signs: Vital Signs - 24 hr 08/27/19 08/27/19 08/27/19 15:00 15:38 16:00 Temperature 37.3 C 37.3 C Heart Rate 68 Heart Rate [ 67 67 Monitoring electrodes] Respiratory 20 20 Rate Blood Pressure Blood Pressure 181/63 H 185/65 H [Left Radial artery] Blood Pressure 161/73 H [Right Brachial artery] O2 Saturation 100 100 08/27/19 08/27/19 08/27/19 17:00 17:52 18:00 Temperature 37.3 C Heart Rate 70 Heart Rate [ 69 68 Monitoring electrodes] Respiratory 20 17 Rate Blood Pressure Blood Pressure 189/68 H 193/69 H [Left Radial artery] Blood Pressure 164/78 H [Right Brachial artery] O2 Saturation 100 100 08/27/19 08/27/19 08/27/19 19:00 19:28 20:00 Temperature 37.2 C 37.3 C Heart Rate Heart Rate [ 64 68 Monitoring electrodes] Respiratory 20 19 Rate Blood Pressure 194/71 H Blood Pressure 187/67 H 191/68 H [Left Radial artery] Blood Pressure [Right Brachial artery] O2 Saturation 100 100 08/27/19 08/27/19 08/27/19 20:07 21:00 22:00 Temperature 37.3 C Heart Rate 66 Heart Rate [ 67 68 Monitoring electrodes] Respiratory 20 15 Rate Blood Pressure Blood Pressure 195/70 H 180/60 H [Left Radial artery] Blood Pressure [Right Brachial artery] O2 Saturation 100 99 08/27/19 08/27/19 08/27/19 22:10 23:00 23:40 Temperature Heart Rate 68 Heart Rate [ 68 Monitoring electrodes] Respiratory 18 Rate Blood Pressure 195/69 H Blood Pressure 182/63 H [Left Radial artery] Blood Pressure [Right Brachial artery] O2 Saturation 99 08/28/19 08/28/19 08/28/19 00:00 00:15 00:25 Temperature 36.8 C Heart Rate 72 Heart Rate [ 70 64 Monitoring electrodes] Respiratory 15 15 Rate Blood Pressure Blood Pressure 194/72 H 201/72 H [Left Radial artery] Blood Pressure 190/87 H 192/84 H [Right Brachial artery] O2 Saturation 100 100 08/28/19 08/28/19 08/28/19 00:30 00:45 00:52 Temperature Heart Rate Heart Rate [ 70 71 71 Monitoring electrodes] Respiratory 17 15 17 Rate Blood Pressure 199/74 H Blood Pressure 201/75 H 198/74 H 189/65 H [Left Radial artery] Blood Pressure 189/88 H 182/84 H [Right Brachial artery] O2 Saturation 100 100 100 08/28/19 08/28/19 08/28/19 01:00 01:15 02:00 Temperature 36.8 C 36.8 C Heart Rate 82 Heart Rate [ 79 82 Monitoring electrodes] Respiratory 11 L 15 Rate Blood Pressure 175/73 H Blood Pressure 188/67 H 185/67 H [Left Radial artery] Blood Pressure 180/82 H 175/73 H [Right Brachial artery] O2 Saturation 99 97 08/28/19 08/28/19 08/28/19 03:00 03:35 04:00 Temperature 37.1 C Heart Rate 83 Heart Rate [ 83 83 Monitoring electrodes] Respiratory 15 14 Rate Blood Pressure Blood Pressure 183/63 H 187/66 H [Left Radial artery] Blood Pressure 163/76 H 172/89 H [Right Brachial artery] O2 Saturation 99 99 08/28/19 08/28/19 08/28/19 05:00 05:20 05:49 Temperature Heart Rate 86 Heart Rate [ 86 Monitoring electrodes] Respiratory 15 Rate Blood Pressure 175/88 H Blood Pressure [Left Radial artery] Blood Pressure 175/88 H [Right Brachial artery] O2 Saturation 99 08/28/19 08/28/19 08/28/19 06:00 07:00 07:39 Temperature 37.4 C Heart Rate 99 Heart Rate [ 84 94 Monitoring electrodes] Respiratory 18 9 L Rate Blood Pressure Blood Pressure 203/80 H [Left Radial artery] Blood Pressure 180/82 H 184/89 H [Right Brachial artery] O2 Saturation 99 99 08/28/19 08/28/19 08/28/19 08:00 08:50 09:00 Temperature Heart Rate 106 H Heart Rate [ 100 105 H Monitoring electrodes] Respiratory 16 18 Rate Blood Pressure Blood Pressure 216/85 H 218/85 H [Left Radial artery] Blood Pressure 189/95 H 192/92 H [Right Brachial artery] O2 Saturation 99 100 08/28/19 08/28/19 08/28/19 09:41 09:45 09:47 Temperature Heart Rate Heart Rate [ Monitoring electrodes] Respiratory Rate Blood Pressure 192/92 H Blood Pressure 210/83 H 203/79 H [Left Radial artery] Blood Pressure [Right Brachial artery] O2 Saturation 08/28/19 08/28/19 08/28/19 09:51 09:53 10:00 Temperature Heart Rate 53 L Heart Rate [ Monitoring electrodes] Respiratory Rate Blood Pressure Blood Pressure 194/74 H 190/73 H [Left Radial artery] Blood Pressure [Right Brachial artery] O2 Saturation 08/28/19 08/28/19 08/28/19 10:09 10:11 10:48 Temperature Heart Rate Heart Rate [ Monitoring electrodes] Respiratory Rate Blood Pressure 175/84 H Blood Pressure 190/72 H 190/71 H [Left Radial artery] Blood Pressure [Right Brachial artery] O2 Saturation 08/28/19 08/28/19 08/28/19 11:00 11:23 12:00 Temperature 37.8 C H Heart Rate Heart Rate [ 106 H 98 Monitoring electrodes] Respiratory 17 21 Rate Blood Pressure 188/95 H Blood Pressure 175/84 H 193/70 H [Left Radial artery] Blood Pressure [Right Brachial artery] O2 Saturation 98 98 08/28/19 08/28/19 08/28/19 12:26 13:00 14:00 Temperature 37.8 C H 37.9 C H Heart Rate 104 H Heart Rate [ 99 97 Monitoring electrodes] Respiratory 21 17 Rate Blood Pressure Blood Pressure 193/77 H 188/94 H [Left Radial artery] Blood Pressure [Right Brachial artery] O2 Saturation 100 96 08/28/19 14:01 Temperature Heart Rate 98 Heart Rate [ Monitoring electrodes] Respiratory Rate Blood Pressure Blood Pressure [Left Radial artery] Blood Pressure [Right Brachial artery] O2 Saturation Oxygen O2 Source Mechanical ventilator Oxygen Flow Rate 2 I&O (Last 24 Hrs): Intake and Output Totals x24h 08/26/19 08/27/19 08/28/19 23:59 23:59 23:59 Intake Total 4539.571 3276.500 1323.369 Output Total 1171 2866 2436 Balance 3368.571 410.500 -1112.631 General: Other (sedated) HEENT: Mucous membr. moist/pink, Other Neck: Supple Neuro: Other (sedated) Cardiovascular: Regular rate Respiratory: Breath sounds nml Abdomen: Soft, Other (no bowel sounds) Extremities: Other (Hand edema. Maculo-papular red rash over dorsum of feet, and calves (under SCDs).) - Results Results: Laboratory Results WBC 5.5 x10^3/uL (4.8-10.8) 08/27/19 04:00 RBC 2.50 10^6/uL (4.70-6.10) L 08/27/19 04:00 Hgb 7.2 g/dL (14.0-18.0) L 08/27/19 04:00 Hct 23.9 % (42.0-52.0) L 08/27/19 04:00 MCV 95.6 fL (80.0-94.0) H 08/27/19 04:00 MCH 28.8 pg (27.0-31.0) 08/27/19 04:00 MCHC 30.1 g/dL (32.0-36.0) L 08/27/19 04:00 RDW 14.2 % (12.0-15.0) 08/27/19 04:00 Plt Count 243 10^3/uL (130-450) 08/27/19 04:00 MPV 11.8 fL (7.4-11.4) H 08/27/19 04:00 Neut # (Auto) 4.3 10^3/uL (1.5-6.6) 08/27/19 04:00 Lymph # (Auto) 0.5 10^3/uL (1.5-3.5) L 08/27/19 04:00 [place] # (Auto) 0.4 10^3/uL (0.0-1.0) 08/27/19 04:00 Eos # (Auto) 0.2 10^3/uL (0.0-0.7) 08/27/19 04:00 Baso # (Auto) 0.0 10^3/uL (0.0-0.1) 08/27/19 04:00 Absolute Nucleated RBC 0.00 x10^3/uL 08/27/19 04:00 Total Counted 100 08/23/19 05:00 Band Neuts % (Manual) 3 % (0-10) 08/23/19 05:00 Abnorm Lymph % (Manual) 0 % 08/23/19 05:00 Nucleated RBC % 0.0 /100WBC 08/27/19 04:00 Neutrophils # (Manual) 1.5 10^3/uL (1.5-6.6) 08/23/19 05:00 Lymphocytes # (Manual) 0.3 10^3/uL (1.5-3.5) L 08/23/19 05:00 Monocytes # (Manual) 0.1 10^3/uL (0.0-1.0) 08/23/19 05:00 Eosinophils # (Manual) 0.0 10^3/uL (0-0.7) 08/23/19 05:00 Basophils # (Manual) 0.0 10^3/uL (0-0.1) 08/23/19 05:00 Differential Comment MANUAL DIFFERENTIAL 08/23/19 05:00 Manual Slide Review Indicated 08/24/19 06:30 Platelet Estimate NORMAL (130-450,000) (NORMAL) 08/24/19 06:30 Platelet Morphology NORMAL APPEARANCE (NORMAL) 08/24/19 06:30 RBC Morph Micro Appear 1+ HYPOCHROMASIA (NORMAL) 08/24/19 06:30 PT 12.9 secs (9.9-12.6) H 08/19/19 05:50 INR 1.1 (0.8-1.2) 08/19/19 05:50 APTT 35.8 secs (24.9-33.3) H 08/19/19 05:50 Bld Gas Analysis Time 0525 08/28/19 05:25 Sample Site A-LINE 08/28/19 05:25 ABG pH 7.45 (7.35-7.45) 08/28/19 05:25 ABG pCO2 34 mmHg (34-45) 08/28/19 05:25 ABG pO2 105 mmHg (80-100) H 08/28/19 05:25 ABG HCO3 23.2 mmol/L (22.0-26.0) 08/28/19 05:25 ABG Total CO2 24.2 MMOL/L (21.0-29.0) 08/28/19 05:25 ABG O2 Saturation 98 % (94-98) 08/28/19 05:25 ABG Base Excess -0.7 mmol/L (-2.0-3.0) 08/28/19 05:25 Adin Test NOT APPLICABLE 08/28/19 05:25 VBG pH 7.350 (7.31-7.41) 08/26/19 04:30 Ionized Calcium 1.10 mmol/L (1.15-1.33) L 08/26/19 04:30 Respiration Rate 20 b/min 08/28/19 05:25 O2 Delivery Device VENTILATOR 08/28/19 05:25 O2 Liters/Min 9.00 LPM 08/20/19 09:40 Vent Mode SIMV 08/28/19 05:25 FiO2 30.00 08/28/19 05:25 Tidal Volume 450 mL 08/28/19 05:25 PEEP 5 cmH2O 08/28/19 05:25 Pressure Support Vent 15 cmH2O 08/28/19 05:25 Sodium 145 mmol/L (135-145) 08/28/19 04:55 Potassium 4.4 mmol/L (3.5-5.0) 08/28/19 04:55 Chloride 114 mmol/L (101-111) H 08/28/19 04:55 Carbon Dioxide 25 mmol/L (21-32) 08/28/19 04:55 Anion Gap 6.0 (6-13) 08/28/19 04:55 BUN 61 mg/dL (6-20) H 08/28/19 04:55 Creatinine 1.9 mg/dL (0.6-1.2) H 08/28/19 04:55 Estimated GFR (MDRD) 36 (>89) L 08/28/19 04:55 Glucose 194 mg/dL (70-100) H 08/28/19 04:55 POC Whole Bld Glucose 135 mg/dL (70 - 100) H 08/28/19 11:21 Glycated Hemoglobin 6.3 % (4.6-6.2) H 08/20/19 05:25 Estim Average Glucose 134 (70-100) H 08/20/19 05:25 Lactic Acid 1.1 mmol/L (0.5-2.2) 08/25/19 11:20 Calcium 7.8 mg/dL (8.5-10.3) L 08/28/19 04:55 Ionized Calcium YES 08/28/19 04:55 Phosphorus 3.1 mg/dL (2.5-4.6) 08/28/19 04:55 Magnesium 2.3 mg/dL (1.7-2.8) 08/28/19 04:55 Total Bilirubin 0.4 mg/dL (0.2-1.0) 08/27/19 04:00 Direct Bilirubin 0.1 mg/dL (0.1-0.5) 08/19/19 05:50 AST 20 IU/L (10-42) 08/27/19 04:00 ALT 15 IU/L (10-60) 08/27/19 04:00 Alkaline Phosphatase 44 IU/L (42-121) 08/27/19 04:00 Troponin I High Sens 51.5 ng/L (2.3-19.7) H* 08/25/19 14:20 B-Natriuretic Peptide 693 pg/mL (5-100) H 08/24/19 06:30 Total Protein 5.1 g/dL (6.7-8.2) L 08/27/19 04:00 Albumin 2.1 g/dL (3.2-5.5) L 08/27/19 04:00 Globulin 3.0 g/dL (2.1-4.2) 08/27/19 04:00 Albumin/Globulin Ratio 0.7 (1.0-2.2) L 08/27/19 04:00 Prealbumin 13 mg/dL (18-45) L 08/27/19 04:00 Lipase 27 U/L (22-51) 08/19/19 05:50 TSH 3.11 uIU/mL (0.34-5.60) 08/19/19 05:50 Urine Color YELLOW 08/25/19 11:20 Urine Clarity CLOUDY (CLEAR) 08/25/19 11:20 Urine pH 5.5 PH (5.0-7.5) 08/25/19 11:20 Ur Specific [place] 1.020 (1.002-1.030) 08/25/19 11:20 Urine Protein 100 mg/dL (NEGATIVE) H 08/25/19 11:20 Urine Glucose (UA) 250 mg/dL (NEGATIVE) H 08/25/19 11:20 Urine Ketones NEGATIVE mg/dL (NEGATIVE) 08/25/19 11:20 Urine Occult Blood TRACE-INTA (NEGATIVE) 08/25/19 11:20 Urine Nitrite NEGATIVE (NEGATIVE) 08/25/19 11:20 Urine Bilirubin NEGATIVE (NEGATIVE) 08/25/19 11:20 Urine Urobilinogen 0.2 (NORMAL) E.U./dL (NORMAL) 08/25/19 11:20 Ur Leukocyte Esterase TRACE (NEGATIVE) H 08/25/19 11:20 Urine RBC 0-5 /HPF (0-5) 08/25/19 11:20 Urine WBC 4-5 /HPF (0-3) 08/25/19 11:20 Ur Squamous Epith Cells NONE SEEN (<= Few) 08/25/19 11:20 Amorphous Sediment Few /LPF 08/25/19 11:20 Urine Bacteria Few /HPF (None Seen) 08/25/19 11:20 Urine Casts 11-25 Granular Casts /LPF 08/25/19 11:20 Ur Microscopic Review INDICATED 08/19/19 08:00 Urine Culture Comments INDICATED 08/25/19 11:20 Nasal Screen MRSA (PCR) NEGATIVE (NEGATIVE) 08/21/19 11:43 Last Dose Date 08/27/19 08/28/19 12:38 Last Dose Time 1430 08/28/19 12:38 Vancomycin Trough 21.3 ug/mL (10.0-20.0) H 08/28/19 12:38 Urine Opiates Screen NEGATIVE (NEGATIVE) 08/19/19 08:00 Ur Oxycodone Screen NEGATIVE (NEGATIVE) 08/19/19 08:00 Urine Methadone Screen NEGATIVE (NEGATIVE) 08/19/19 08:00 Ur Propoxyphene Screen NEGATIVE (NEGATIVE) 08/19/19 08:00 Ur Barbiturates Screen NEGATIVE (NEGATIVE) 08/19/19 08:00 Ur Tricyclics Screen NEGATIVE (NEGATIVE) 08/19/19 08:00 Ur Phencyclidine Scrn NEGATIVE (NEGATIVE) 08/19/19 08:00 Ur Amphetamine Screen NEGATIVE (NEGATIVE) 08/19/19 08:00 U Methamphetamines Scrn NEGATIVE (NEGATIVE) 08/19/19 08:00 U Benzodiazepines Scrn NEGATIVE (NEGATIVE) 08/19/19 08:00 Urine Cocaine Screen NEGATIVE (NEGATIVE) 08/19/19 08:00 U Cannabinoids Screen NEGATIVE (NEGATIVE) 08/19/19 08:00 Ethyl Alcohol < 5.0 mg/dL 08/19/19 05:50 Blood Type A NEGATIVE 08/19/19 07:38 Antibody Screen NEGATIVE 08/19/19 07:38 Crossmatch IS Only See Detail 08/19/19 07:38 - Procedures Procedures: Procedures REPLACEMENT OF LEFT LENS WITH SYNTH SUB, PERC APPROACH (11/25/17) REPLACEMENT OF RIGHT LENS WITH SYNTH SUB, PERC APPROACH (12/02/17)
--- NOTE | 2019-08-28 15:11 | PHARMACY PROGRESS NOTE ---
- Therapy Status Vancomycin regimen day #: 4 Therapy status: Trough supratherapeutic (Given supratherapeutic trough and CON on CKD; dose was held, and new dose regimen order placed to bring level to therapeutic range. Random level ordered for 08/28 prior to dose. Recommending continuing monitoring of renal function, vanco level, and clinical parameters and making any approp dosage adjustments as clinically inidcated to keep level at therapeutic range) Basis for treatment: Empirical Treatment indication: PENUMONIA Trough goal: 15-20 Concurrent antibiotics: CEFEPIME - CON Risk Risk level for Acute Kidney Injury: High Acute Kidney Injury risk factors: Other nephrotoxic agents, Baseline CrCl <50, Goal trough >15, Chronic baseline hypertension, Diabetes, Admission to ICU, Acute hypotensive event, Sepsis - Monitoring and Recommendation Clinical response to treatment: I&O Previous 24 hours 08/26/19 08/27/19 08/28/19 23:59 23:59 23:59 Intake Total 4539.571 3276.500 1293.369 Output Total 1171 2866 2486 Balance 3368.571 410.500 -1192.631 Lab Results 08/28/19 08/27/19 08/26/19 04:55 04:00 04:30 BUN 61 H 61 H 54 H Creatinine 1.9 H 2.1 H 1.8 H Estimated GFR (MDRD) 36 L 32 L 38 L 08/25/19 08/24/19 08/23/19 04:00 06:30 04:00 BUN 54 H 50 H 58 H Creatinine 1.8 H 1.8 H 2.0 H Estimated GFR (MDRD) 38 L 38 L 34 L 08/22/19 08/21/19 08/20/19 05:45 06:40 05:25 BUN 62 H 67 H 69 H Creatinine 2.0 H 2.2 H 2.2 H Estimated GFR (MDRD) 34 L 30 L 30 L 08/19/19 05:50 BUN 57 H Creatinine 2.0 H Estimated GFR (MDRD) 34 L Vancomycin Monitoring 08/28/19 12:38 Vancomycin Trough 21.3 H Cultures 08/25/19 11:20 Blood Blood Culture - Preliminary NO GROWTH AFTER 2 DAYS 08/25/19 11:20 Sputum Aspirate Respiratory Culture - Final 08/25/19 11:20 Urine,Catheterized Urine Culture - Final No growth 08/19/19 05:35 Blood Blood Culture - Final NO GROWTH AFTER 5 DAYS 08/19/19 05:50 Blood - Left Hand Blood Culture - Final NO GROWTH AFTER 5 DAYS Monitoring plan: Daily serum creatinine Next trough due (date/time): 08/28 at 0730 Areas for additional monitoring: IV to PO when appropriate, Therapy de- escalation based on culture results, Acute Kidney Injury
[2019-08-28] MEDS ORDERED: [UNRECOGNIZED DRUG - OTHER] TOP SCH (15:17)
[2019-08-28] MEDS ORDERED: WOUND TOP SCH (15:17)
[2019-08-28] MEDS: MORPHINE 2 MG/ML CARPUJECT IVP PRN (15:26)
[2019-08-28] MEDS: SODIUM CHLORIDE FLUSH 0.9% 10 ML SYRINGE IVP PRN (15:41)
--- NOTE | 2019-08-28 16:51 | XRAY Report ---
Reason: KUB to eval for ileus Procedure Date: 08/28/2019 Accession Number: [id number] / [id number] Procedure: XR - Abdomen 1 View X-Ray CPT Code: 09503 Final Report FULL RESULT: EXAM: ABDOMEN RADIOGRAPHY EXAM DATE: 08/28/2019 03:46 PM. CLINICAL HISTORY: KUB to eval for ileus. COMPARISON: CHEST 1 VIEW 08/28/2019 9:06 AM. TECHNIQUE: 1 view. FINDINGS IMPRESSION: Enteric tube projects in the upper stomach. A catheter projects in the pelvis. The bowel gas pattern is nonobstructive. No bowel dilation. There is gas in the rectum. Left lung base opacities are similar to prior.
[2019-08-29] MEDS: METOCLOPRAMIDE 10 MG/2 ML VIAL IVP SCH ×4 (00:15→18:28)
[2019-08-29] MEDS: INSULIN REGULAR HUMAN 300 UNIT/3 ML VIAL SUBQ SCH ×4 (00:41→18:44)
[2019-08-29] MEDS: METOPROLOL 5 MG/5 ML VIAL IVP SCH ×4 (00:42→18:37)
[2019-08-29] MEDS: SODIUM CHLORIDE FLUSH 0.9% 10 ML SYRINGE IVP SCH ×3 (03:24→18:18)
[2019-08-29] MEDS: NITROGLYCERIN 2% PASTE TOP SCH ×3 (03:24→18:41)
[2019-08-29] MEDS: DEXMEDETOMIDINE 400 MCG/100 ML 100 ML IV SCH (03:25)
[2019-08-29 05:18] LABS: BUN - BLOOD UREA NITROGEN 63 mg/dL (6-20); CALCIUM 7.9 mg/dL (8.5-10.3); CARBON DIOXIDE - CO2 26 mmol/L (21-32); CHLORIDE 116 mmol/L (101-111); CREATININE 2.1 mg/dL (0.6-1.2); GLUCOSE 129 mg/dL (70-100); SODIUM 149 mmol/L (135-145)
[2019-08-29 05:38] LABS: VBG PH 7.486 (7.31-7.41)
[2019-08-29 06:16] LABS: ABG BASE EXCESS 1.5 mmol/L (-2.0-3.0); ABG HCO3 24.4 mmol/L (22.0-26.0); ABG OXYGEN SATURATION 98 % (94-98); ABG PCO2 31 mmHg (34-45); ABG PH 7.52 (7.35-7.45); ABG PO2 107 mmHg (80-100); ABG TCO2 25.3 MMOL/L (21.0-29.0)
[2019-08-29] MEDS: metroNIDAZOLE 500 MG/100 ML 500 MG/100 ML BAG IV SCH ×3 (06:34→22:48)
[2019-08-29 08:13] LABS: VANCOMYCIN,TROUGH 16.7 ug/mL (10.0-20.0)
[2019-08-29] MEDS ORDERED: VANCOMYCIN 1 GM VIAL ONE (08:25)
[2019-08-29] MEDS: SODIUM CHLORIDE 0.9% 500 ML IV PRN (09:05)
[2019-08-29] MEDS: FAMOTIDINE 20 MG/2 ML VIAL IVP SCH ×2 (09:08→20:20)
[2019-08-29] MEDS: HYDROXYCHLOROQUINE 200 MG TABLET PO SCH ×2 (09:08→20:21)
[2019-08-29] MEDS: AZITHROMYCIN 250 MG TABLET PO SCH (09:08)
[2019-08-29] MEDS: FUROSEMIDE 40 MG/4 ML VIAL IVP SCH (09:13)
[2019-08-29] MEDS: timoloL maleate 0.5% OPHTH DROPS (10ML) EACHEYE SCH (09:15)
[2019-08-29] MEDS: BRIMONIDINE 0.2% OPHTH DROPS 5 ML EACHEYE SCH ×2 (09:15→20:40)
[2019-08-29] MEDS: ENOXAPARIN 40 MG/0.4 ML SYRINGE SUBQ SCH (09:19)
--- NOTE | 2019-08-29 09:19 | PROVIDER PROGRESS NOTE ---
Subjective - Prog Note Date Prog Note Date: 08/29/19 Prog Note Time: 12:28 - Subjective Subjective: Failing for probably close to 3 years. Has had weight loss, fatigue, leg weakness, falls. Maximum weight was 160 pounds in 2016, and was 138 pounds by March 2019. Admitted April 2019 with metabolic encephalopathy, renal failure, lactic acidosis. Urine cultures grew out E. coli, treated as presumptive prostate infection. Went to senior living facility. Went home for a few days and then returned June 24, 2019 with another episode of let hargy. Again with renal failure, metabolic encephalopathy with benzodiazepine on tox screen but no benzodiazepine on prescription, anorexia. Poor home conditions. He and his live in a trailer that has been condemned. The [place] are covered in mold. There is no running water. Discharge to senior living facility June 26. Became ill at the senior living facility with fevers, cough, bilateral pneumonia. August 15, 2019 viral sample positive for novel coronavirus. Gradually worsening hypoxia. Admitted to our hospital August 18. By August 20 he had respiratory failure and wanted to remain a full code. As such he was intubated and placed in the ICU. He has had a mariana course. He will be febrile and within hours will be hypothermic. Blood pressure will be normal and then go to over 200 systolic. All of this is being managed with medication. 1 day chest x-ray will improve, and the next day chest x-ray will worsen. We attempted to extubate him yesterday after weaning him off the vent but he became tachycardic, tachypneic. As such he is back on ventilatory support with an FiO2 of 25%. This morning sedation is off as we attempted to extubate him but he failed again. Weight on June 24, 2019 was 63.5 kg. When we admitted him he was 75 kg. Today is 73.5 kg. Current Medications - Current Medications Current Medications: Active Medications Acetaminophen (Tylenol) 650 mg DC Q6HR PRN PRN Reason: Pain or Fever > 38C (100.4F) Last Admin: 08/28/19 11:24 Dose: 650 mg Albuterol/Ipratropium (Duoneb) 3 ml INH Q4HR PRN PRN Reason: Wheezing Azithromycin (Zithromax) 250 mg PO DAILY [facility] Stop: 08/30/19 09:01 Last Admin: 08/29/19 09:08 Dose: 250 mg Brimonidine Tartrate (Alphagan P 0.2% Ophth Drops) 1 drops EACHEYE BID [facility] Last Admin: 08/29/19 09:15 Dose: 1 drops Chlorhexidine Gluconate (Peridex) 15 ml PO BID [facility] Last Admin: 08/28/19 21:12 Dose: 15 ml Clonidine HCl (Aqlinurh-Utd-4) 1 patch TOP Q7D [facility] Last Admin: 08/24/19 22:00 Dose: 1 patch Enoxaparin Sodium (Lovenox) 40 mg SUBQ DAILY [facility] Last Admin: 08/28/19 09:07 Dose: 40 mg Famotidine (Pepcid) 10 mg IVP BID [facility] Last Admin: 08/29/19 09:08 Dose: 10 mg Furosemide (Lasix Inj 40 Mg Vial) 40 mg IVP DAILY [facility] Last Admin: 08/29/19 09:13 Dose: 40 mg Heparin Sodium (Beef Lung) () 30 - 50 unit IVP PRN PRN PRN Reason: Central Line Protocol (<24 hr) Last Admin: 08/25/19 04:12 Dose: 30 unit Hydralazine HCl (Apresoline Inj) 10 mg IVP Q6H PRN PRN Reason: Hypertensive Emergency Last Admin: 08/28/19 15:26 Dose: 10 mg Hydroxychloroquine Sulfate (Plaquenil) 200 mg PO BID [facility] Stop: 08/31/19 09:01 Last Admin: 08/29/19 09:08 Dose: 200 mg Dexmedetomidine/Sodium Chloride (Precedex Premix) 100 mls @ 9.375 mls/hr IV .[id number] [facility]; Protocol Last Titration: 08/29/19 06:59 Dose: Infused Sodium Chloride (Normal Saline 0.9%) 500 mls @ 0 mls/hr IV Q24H PRN PRN Reason: TKO RATE Last Admin: 08/29/19 09:05 Dose: 20 mls/hr Midazolam HCl (Versed Drip) 50 mg in 100 mls @ 7.5 mls/hr IV .[id number] [facility]; Protocol Last Titration: 08/29/19 06:58 Dose: 0 mg/kg/hr, 0 mls/hr Cefepime HCl 2 gm/ Sodium (Chloride) 100 mls @ 200 mls/hr IV BID [facility] Last Infusion: 08/28/19 21:45 Dose: Infused Metronidazole (Flagyl 500 Mg/100 Ml) 500 mg in 100 mls @ 100 mls/hr IV Q8H [facility] Last Infusion: 08/29/19 07:35 Dose: Infused Vancomycin HCl 0.75 gm/ Sodium (Chloride) 250 mls @ 167 mls/hr IV Q24H [facility] Insulin Human Regular (Humulin R) 3 - 11 unit SUBQ Q6HR [facility]; Protocol Last Admin: 08/29/19 06:27 Dose: Not Given Lidocaine HCl (Xylocaine Uro-Jet 2%) 2.5 ml UR Q6H PRN PRN Reason: PAIN Last Admin: 08/20/19 14:41 Dose: 2.5 ml Metoclopramide HCl (Reglan Inj) 5 mg IVP Q6HR [facility] Last Admin: 08/29/19 06:30 Dose: 5 mg Metoprolol Tartrate (Lopressor Inj) 2.5 mg IVP Q6HR [facility] Last Admin: 08/29/19 06:28 Dose: Not Given Mineral Oil (Cavilon) 1 applic TOP PRN PRN PRN Reason: Skin Care Last Admin: 08/26/19 20:09 Dose: 1 applic Morphine Sulfate (Morphine (Carpuject)) 2 mg IVP Q2HR PRN PRN Reason: PAIN Last Admin: 08/28/19 15:26 Dose: 2 mg Nitroglycerin (Nitro-Bid (Pkt)) 1 inch TOP Q8H [facility] Last Admin: 08/29/19 03:24 Dose: 1 inch Ondansetron HCl (Zofran Inj) 4 mg IVP Q6HR PRN PRN Reason: Nausea / Vomiting Last Admin: 08/28/19 15:26 Dose: 4 mg Sodium Chloride (Normal Saline Flush 0.9%) 10 ml IVP PRN PRN PRN Reason: NEEDED PER PROVIDER ORDERS Last Admin: 08/28/19 15:41 Dose: 10 ml Sodium Chloride (Normal Saline Flush 0.9%) 10 ml IVP 0100,0900,1700 [facility] Last Admin: 08/29/19 09:15 Dose: 10 ml Sodium Chloride (Normal Saline Flush 0.9%) 20 ml IVP PRN PRN PRN Reason: After Blood Draw Last Admin: 08/27/19 03:57 Dose: 20 ml Timolol Maleate (Timoptic 0.5% Ophth Drops) 1 drops EACHEYE DAILY [facility] Last Admin: 08/29/19 09:15 Dose: 1 drops Losartan [Cozaar] 100 mg PO DAILY 09/17/16 Brimonidine 0.2% Ophth Drops [Alphagan P 0.2% Ophth Drops] 1 drops EACHEYE BID 0 06/29/18 Amlodipine Besylate 10 mg PO DAILY 05/27/19 Insulin Glargine [Lantus Solostar] 10 units SQ DAILY 05/27/19 Acetaminophen [Tylenol] 650 mg PO Q6H PRN 08/19/19 Atorvastatin Calcium 10 mg DAILY 08/19/19 Carvedilol [Coreg] 6.25 mg PO BID 08/19/19 Timolol 0.5% Ophth Drops [Timoptic 0.5% Ophth Drops] 1 drops EACHEYE DAILY 08/19/19 hydroCHLOROthiazide [Hydrochlorothiazide] 25 mg DAILY 08/19/19 Objective - Vital Signs/Intake & Output Reviewed Vital Signs: Yes Vital Signs: Vital Signs Temp Pulse Pulse Resp BP BP BP 08/29/19 09:00 37 C 70 18 187/67 H 08/29/19 08:00 37.3 C 61 18 140/49 H 123/62 08/29/19 07:10 58 L 08/29/19 07:00 37.2 C 58 L 20 170/61 H 156/73 H 08/29/19 06:28 154/75 H 08/29/19 06:00 37.4 C 59 L 20 164/61 H 154/75 H 08/29/19 05:55 59 L Pulse Ox 08/29/19 09:00 98 08/29/19 08:00 99 08/29/19 07:10 08/29/19 07:00 100 08/29/19 06:28 08/29/19 06:00 100 08/29/19 05:55 Intake & Output: Intake & Output 08/26/19 08/27/19 08/28/19 08/29/19 23:59 23:59 23:59 23:59 Intake Total 4539.571 3276.500 1719.600 786.925 Output Total 1171 2866 3321 615 Balance 3368.571 410.500 -1601.400 171.925 - Objective General Appearance: positive: Other (intubated, slack facies, no response to voice) Eyes Bilateral: positive: PERRL (but sluggish) ENT: positive: Other (ET tube in place) Neck: positive: No JVD. negative: Stiff neck Respiratory: positive: Chest non-tender, No respiratory distress, Rhonchi. negative: Wheezes, Rales Cardiovascular: positive: Regular rate & rhythm, Tachycardia (slightly over a 100 but alternates with pulse in 50s), Bradycardia Abdomen: positive: Non-tender, No distention, Other (hypoactive to almost no bowel sounds. Last BM 08/27) Skin: positive: Warm, Dry Extremities: positive: Full ROM, Pedal edema, Other (anasarca is developing) Neurologic/Psychiatric: positive: Other (intubated, withdraws to pain, no spontaneous movement) - Lab Results Fish Bones: 08/27/19 04:00 08/29/19 04:50 Other Labs: Lab Results x24hrs 08/29/19 08/29/19 08/29/19 Range/Units 07:45 06:25 06:05 Bld Gas Analysis Time 0616 Sample Site A-LINE ABG pH 7.52 H (7.35-7.45) ABG pCO2 31 L (34-45) mmHg ABG pO2 107 H (80-100) mmHg ABG HCO3 24.4 (22.0-26.0) mmol/L ABG Total CO2 25.3 (21.0-29.0) MMOL/L ABG O2 Saturation 98 (94-98) % ABG Base Excess 1.5 (-2.0-3.0) mmol/L Adin Test NOT APPLICABLE VBG pH (7.31-7.41) Ionized Calcium (1.15-1.33) mmol/L Respiration Rate 20 b/min O2 Delivery Device VENTILATOR Vent Mode SIMV FiO2 0.30 Tidal Volume 450 mL PEEP 5 cmH2O Pressure Support Vent 15 cmH2O Sodium (135-145) mmol/L Potassium (3.5-5.0) mmol/L Chloride (101-111) mmol/L Carbon Dioxide (21-32) mmol/L Anion Gap (6-13) BUN (6-20) mg/dL Creatinine (0.6-1.2) mg/dL Estimated GFR (MDRD) (>89) Glucose (70-100) mg/dL POC Whole Bld Glucose 126 H (70 - 100) mg/dL Calcium (8.5-10.3) mg/dL Last Dose Date UNK Last Dose Time UNK Vancomycin Trough 16.7 (10.0-20.0) ug/mL 08/29/19 08/29/19 08/28/19 Range/Units 04:50 04:50 23:37 Bld Gas Analysis Time Sample Site ABG pH (7.35-7.45) ABG pCO2 (34-45) mmHg ABG pO2 (80-100) mmHg ABG HCO3 (22.0-26.0) mmol/L ABG Total CO2 (21.0-29.0) MMOL/L ABG O2 Saturation (94-98) % ABG Base Excess (-2.0-3.0) mmol/L Adin Test VBG pH 7.486 H (7.31-7.41) Ionized Calcium 1.11 L YES (1.15-1.33) mmol/L Respiration Rate b/min O2 Delivery Device Vent Mode FiO2 Tidal Volume mL PEEP cmH2O Pressure Support Vent cmH2O Sodium 149 H (135-145) mmol/L Potassium 4.1 (3.5-5.0) mmol/L Chloride 116 H (101-111) mmol/L Carbon Dioxide 26 (21-32) mmol/L Anion Gap 7.0 (6-13) BUN 63 H (6-20) mg/dL Creatinine 2.1 H (0.6-1.2) mg/dL Estimated GFR (MDRD) 32 L (>89) Glucose 129 H (70-100) mg/dL POC Whole Bld Glucose 134 H (70 - 100) mg/dL Calcium 7.9 L (8.5-10.3) mg/dL Last Dose Date Last Dose Time Vancomycin Trough (10.0-20.0) ug/mL 08/28/19 08/28/19 08/28/19 Range/Units 17:54 12:38 11:21 Bld Gas Analysis Time Sample Site ABG pH (7.35-7.45) ABG pCO2 (34-45) mmHg ABG pO2 (80-100) mmHg ABG HCO3 (22.0-26.0) mmol/L ABG Total CO2 (21.0-29.0) MMOL/L ABG O2 Saturation (94-98) % ABG Base Excess (-2.0-3.0) mmol/L Adin Test VBG pH (7.31-7.41) Ionized Calcium (1.15-1.33) mmol/L Respiration Rate b/min O2 Delivery Device Vent Mode FiO2 Tidal Volume mL PEEP cmH2O Pressure Support Vent cmH2O Sodium (135-145) mmol/L Potassium (3.5-5.0) mmol/L Chloride (101-111) mmol/L Carbon Dioxide (21-32) mmol/L Anion Gap (6-13) BUN (6-20) mg/dL Creatinine (0.6-1.2) mg/dL Estimated GFR (MDRD) (>89) Glucose (70-100) mg/dL POC Whole Bld Glucose 156 H 135 H (70 - 100) mg/dL Calcium (8.5-10.3) mg/dL Last Dose Date 08/27/19 Last Dose Time 1430 Vancomycin Trough 21.3 H (10.0-20.0) ug/mL Assessment/Plan - Problem List (1) Acute respiratory failure with hypoxia Impression: Vent is still required, he could not tolerate weaning the mornings of 08/27 and this am. He had 1 course of proning several days ago for presumed ARDS, the next day the CXR looked worse but his O2 demands were better. He has now been intubated for 8 days since 08/20. Usually, there would be discussion about a trach at this point, but his prognosis is poor and he is not a candidate to be transferred; The recurrent fever could be from VAP or aspiration PNA, or sinusitis. His antibx were broadened already. Daily ABGs ordered and Precedex plus Versed for sedation. But this am, taken off sedation and still not really moving. CXR worse, failed vent weaning trial this am. I will speak to both and son about poor progress. (2) Nutriton. Had emesis 08/27 and NG tube feeds stopped. Plain film of the abdomen showed a nonobstructive bowel gas pattern. No bowel dilation. Gas in the rectum. NG tube in place. Lung base opacity similar to prior x-ray showing bibasilar infiltrates.Given Zofran. Continue Pepcid iv. He is developing hypernatremia. Change IVF from 0.9 to D5. (3) Fever Assessment/Plan: Present 08/27 to 38.0 but then this am 35.8. The fever could be from VAP or aspiration PNA, or sinusitis or the natural unknown course of this COVID virus. His antibx were broadened already as seen in problem #4. (4) Pneumonia due to 2019 novel coronavirus Assessment/Plan: CXR shows worsening infiltrate since last CXR. He has a fever again, after was hypothermic intermittently. Continue supportive care, Hydroxychloroquine empiric. Azithromycin day #3 Zosyn day #5 Plaquenil day #2/5 with resumption. He was on it initially then stopped when intubated. Back on it. Flagyl day #5 Vancomycin day #1 most recent addition (5) Hypertension Assessment/Plan: BP elevated off an on to over 200 systolic. IV meds for BP continue. (6) Acute kidney injury superimposed on CKD Assessment/Plan: He started at 2.0. Peaked at 2.2. Came down to 1.8 on August 25 and is 2.1 today. continue to monitor especially bc of [facility]. (7) Heart failure with preserved ejection fraction Qualifiers: Heart failure chronicity: chronic Qualified Code(s): I50.32 - Chronic diastolic (congestive) heart failure Assessment/Plan: Starting to develop worse edema between yesterday and today. This is inspite of negative I/O yesterday and today. Continue lasix daily. (8) Anemia of chronic disease Assessment/Plan: As per Hx. He did get a transfusion early in the admission. Follow CBC daily. He was Hgb 7.6 08/27 and 7.2 today. Transfusion if Hgb <7, unless it is determined that medical care is futile or if [facility] is chosen (by his ). (9) Type 2 diabetes mellitus with complication, with long-term current use of insulin Assessment/Plan: Ng feed and ss Insulin ordered. (10) Visual impairment Assessment/Plan: As per Hx He gets eye drops for glaucoma (11) Rash fading. Assessment/Plan: Does not look like a DIC rash or a contact dermatitis rash (wher it is located). Poss of COVID rash.
[2019-08-29] MEDS: CEFEPIME 2 GM in SODIUM CHLORIDE 0.9% MINIBAG 100 ML IV SCH ×2 (09:21→20:21)
[2019-08-29] MEDS: CHLORHEXIDINE GLUCONATE 15 ML UDC PO SCH ×2 (09:28→20:20)
[2019-08-29] MEDS: VANCOMYCIN INJ 0.75 GM in SODIUM CHLORIDE 0.9% 250 ML IV SCH (09:29)
--- NOTE | 2019-08-29 09:32 | XRAY Report ---
Reason: pneumonia Procedure Date: 08/29/2019 Accession Number: [id number] / [id number] Procedure: XR - Chest 1 View X-Ray CPT Code: 86085 Final Report FULL RESULT: EXAM: CHEST RADIOGRAPHY EXAM DATE: 08/29/2019 09:16 AM. CLINICAL HISTORY: Pneumonia. COMPARISON: CHEST 1 VIEW 08/28/2019 9:06 AM. TECHNIQUE: 1 view. FINDINGS: Lungs/Pleura: Lung volumes are stable. Interval decrease in perihilar opacity. There is left pleural effusion. There is no evidence of pneumothorax. Mediastinum: Within exam limitations, the cardiomediastinal contour is normal. Other: Endotracheal tube tip is 4 cm above the fermin. Right IJ line tip projects over the low SVC. Orogastric tube tip is in the mid stomach. IMPRESSION: 1. Lines as above. 2. Mild interval decrease in perihilar opacity. 3. Relatively stable more focal opacity within the left lung base which may represent combination of airspace disease and effusion. 4. There is no evidence of pneumothorax. RADIA
[2019-08-29] MEDS: hydrALAZINE INJ 20 MG/ML VIAL IVP PRN ×2 (11:25→20:16)
[2019-08-29 12:59] LABS: ABG BASE EXCESS 1.9 mmol/L (-2.0-3.0); ABG HCO3 25.4 mmol/L (22.0-26.0); ABG PCO2 36 mmHg (34-45); ABG PH 7.47 (7.35-7.45); ABG PO2 89 mmHg (80-100); ABG TCO2 26.5 MMOL/L (21.0-29.0)
[2019-08-29 13:00] LABS: ABG OXYGEN SATURATION 97 % (94-98)
[2019-08-29] MEDS ORDERED: DEXTROSE 5% 1,000 ML IV SCH (14:00)
[2019-08-29] MEDS: ACETAMINOPHEN 650 MG SUPP PR PRN (14:35)
[2019-08-29] MEDS: MIDAZOLAM DRIP 50 MG/100 ML BAG IV SCH (16:53)
[2019-08-29] MEDS ORDERED: DEXTROSE 5% 500 ML IV SCH ×2 (18:00)
[2019-08-29] MEDS: SODIUM CHLORIDE FLUSH 0.9% 10 ML SYRINGE IVP PRN ×3 (20:19→22:59)
[2019-08-29] MEDS: MORPHINE 2 MG/ML CARPUJECT IVP PRN (20:40)
[2019-08-30] MEDS: METOPROLOL 5 MG/5 ML VIAL IVP SCH ×4 (00:08→18:08)
[2019-08-30] MEDS: METOCLOPRAMIDE 10 MG/2 ML VIAL IVP SCH ×4 (00:08→18:08)
[2019-08-30] MEDS: SODIUM CHLORIDE FLUSH 0.9% 10 ML SYRINGE IVP PRN ×6 (00:10→21:57)
[2019-08-30] MEDS: INSULIN REGULAR HUMAN 300 UNIT/3 ML VIAL SUBQ SCH ×4 (00:14→18:09)
[2019-08-30] MEDS: MORPHINE 2 MG/ML CARPUJECT IVP PRN ×3 (00:21→21:57)
[2019-08-30] MEDS: SODIUM CHLORIDE FLUSH 0.9% 10 ML SYRINGE IVP SCH ×3 (00:22→18:07)
[2019-08-30] MEDS: NITROGLYCERIN 2% PASTE TOP SCH ×3 (03:00→19:57)
[2019-08-30] MEDS: hydrALAZINE INJ 20 MG/ML VIAL IVP PRN ×2 (03:13→11:13)
[2019-08-30] MEDS: metroNIDAZOLE 500 MG/100 ML 500 MG/100 ML BAG IV SCH ×3 (07:00→22:12)
[2019-08-30 08:06] LABS: ABG BASE EXCESS 3.3 mmol/L (-2.0-3.0); ABG HCO3 27.6 mmol/L (22.0-26.0); ABG OXYGEN SATURATION 97 % (94-98); ABG PCO2 40 mmHg (34-45); ABG PH 7.45 (7.35-7.45); ABG PO2 91 mmHg (80-100); ABG TCO2 28.8 MMOL/L (21.0-29.0); ALLEN TEST POSITIVE
[2019-08-30] MEDS ORDERED: SODIUM CHLORIDE INHALATION 3 ML NEB ONE (08:07)
--- NOTE | 2019-08-30 08:39 | PROVIDER PROGRESS NOTE ---
Subjective - Prog Note Date Prog Note Date: 08/30/19 Prog Note Time: 09:08 - Subjective Subjective: he has gradually become more alert since sedation stopped yesterday. Last night I put him back on SIMV and this am he is following commands. Current Medications - Current Medications Current Medications: Active Medications Acetaminophen (Tylenol) 650 mg OH Q6HR PRN PRN Reason: Pain or Fever > 38C (100.4F) Last Admin: 08/29/19 14:35 Dose: 650 mg Albuterol/Ipratropium (Duoneb) 3 ml INH Q4HR PRN PRN Reason: Wheezing Brimonidine Tartrate (Alphagan P 0.2% Ophth Drops) 1 drops EACHEYE BID [facility] Last Admin: 08/29/19 20:40 Dose: 1 drops Chlorhexidine Gluconate (Peridex) 15 ml PO BID [facility] Last Admin: 08/29/19 20:20 Dose: 15 ml Clonidine HCl ([id number]) 1 patch TOP Q7D [facility] Last Admin: 08/24/19 22:00 Dose: 1 patch Enoxaparin Sodium (Lovenox) 40 mg SUBQ DAILY [facility] Last Admin: 08/29/19 09:19 Dose: 40 mg Famotidine (Pepcid) 10 mg IVP BID [facility] Last Admin: 08/29/19 20:20 Dose: 10 mg Furosemide (Lasix Inj 40 Mg Vial) 40 mg IVP DAILY [facility] Last Admin: 08/29/19 09:13 Dose: 40 mg Heparin Sodium (Beef Lung) () 30 - 50 unit IVP PRN PRN PRN Reason: Central Line Protocol (<24 hr) Last Admin: 08/25/19 04:12 Dose: 30 unit Hydralazine HCl (Apresoline Inj) 10 mg IVP Q6H PRN PRN Reason: Hypertensive Emergency Last Admin: 08/30/19 03:13 Dose: 10 mg Hydroxychloroquine Sulfate (Plaquenil) 200 mg PO BID [facility] Stop: 08/31/19 09:01 Last Admin: 08/29/19 20:21 Dose: 200 mg Dexmedetomidine/Sodium Chloride (Precedex Premix) 100 mls @ 9.375 mls/hr IV .[id number] [facility]; Protocol Last Titration: 08/29/19 06:59 Dose: Infused Midazolam HCl (Versed Drip) 50 mg in 100 mls @ 7.5 mls/hr IV .[id number] [facility]; Protocol Last Admin: 08/29/19 16:53 Dose: Not Given Cefepime HCl 2 gm/ Sodium (Chloride) 100 mls @ 200 mls/hr IV BID [facility] Last Infusion: 08/29/19 21:23 Dose: Infused Metronidazole (Flagyl 500 Mg/100 Ml) 500 mg in 100 mls @ 100 mls/hr IV Q8H [facility] Last Admin: 08/30/19 07:00 Dose: 100 mls/hr Vancomycin HCl 0.75 gm/ Sodium (Chloride) 250 mls @ 167 mls/hr IV Q24H [facility] Last Infusion: 08/29/19 11:34 Dose: Infused Dextrose (D5w) 500 mls @ 0 mls/hr IV Q24H [facility] Last Admin: 08/29/19 18:02 Dose: 20 mls/hr Insulin Human Regular (Humulin R) 3 - 11 unit SUBQ Q6HR [facility]; Protocol Last Admin: 08/30/19 05:36 Dose: 7 unit Lidocaine HCl (Xylocaine Uro-Jet 2%) 2.5 ml UR Q6H PRN PRN Reason: PAIN Last Admin: 08/20/19 14:41 Dose: 2.5 ml Metoclopramide HCl (Reglan Inj) 5 mg IVP Q6HR [facility] Last Admin: 08/30/19 05:37 Dose: 5 mg Metoprolol Tartrate (Lopressor Inj) 2.5 mg IVP Q6HR [facility] Last Admin: 08/30/19 05:39 Dose: 2.5 mg Mineral Oil (Cavilon) 1 applic TOP PRN PRN PRN Reason: Skin Care Last Admin: 08/26/19 20:09 Dose: 1 applic Morphine Sulfate (Morphine (Carpuject)) 2 mg IVP Q2HR PRN PRN Reason: PAIN Last Admin: 08/30/19 03:15 Dose: 2 mg Nitroglycerin (Nitro-Bid (Pkt)) 1 inch TOP Q8H [facility] Last Admin: 08/30/19 03:00 Dose: 1 inch Ondansetron HCl (Zofran Inj) 4 mg IVP Q6HR PRN PRN Reason: Nausea / Vomiting Last Admin: 08/28/19 15:26 Dose: 4 mg Sodium Chloride (Normal Saline Flush 0.9%) 10 ml IVP PRN PRN PRN Reason: NEEDED PER PROVIDER ORDERS Last Admin: 08/30/19 07:01 Dose: 10 ml Sodium Chloride (Normal Saline Flush 0.9%) 10 ml IVP 0100,0900,1700 [facility] Last Admin: 08/30/19 00:22 Dose: 10 ml Sodium Chloride (Normal Saline Flush 0.9%) 20 ml IVP PRN PRN PRN Reason: After Blood Draw Last Admin: 08/29/19 22:59 Dose: 20 ml Timolol Maleate (Timoptic 0.5% Ophth Drops) 1 drops EACHEYE DAILY [facility] Last Admin: 08/29/19 09:15 Dose: 1 drops Losartan [Cozaar] 100 mg PO DAILY 09/17/16 Brimonidine 0.2% Ophth Drops [Alphagan P 0.2% Ophth Drops] 1 drops EACHEYE BID 06/29/18 Amlodipine Besylate 10 mg PO DAILY 05/27/19 Insulin Glargine [Lantus Solostar] 10 units SQ DAILY 05/27/19 Acetaminophen [Tylenol] 650 mg PO Q6H PRN 08/19/19 Atorvastatin Calcium 10 mg DAILY 08/19/19 Carvedilol [Coreg] 6.25 mg PO BID 08/19/19 Timolol 0.5% Ophth Drops [Timoptic 0.5% Ophth Drops] 1 drops EACHEYE DAILY 08/19/19 hydroCHLOROthiazide [Hydrochlorothiazide] 25 mg DAILY 08/19/19 Objective - Vital Signs/Intake & Output Reviewed Vital Signs: Yes Vital Signs: Vital Signs Temp Pulse Pulse Resp BP BP Pulse Ox 08/30/19 08:00 94 9 L 179/79 H 98 08/30/19 07:16 97 08/30/19 07:00 37.7 C H 90 12 182/80 H 99 08/30/19 05:39 163/63 H 08/30/19 05:00 37.6 C H 95 89 17 163/63 H 98 Intake & Output: Intake & Output 08/27/19 08/28/19 08/29/19 08/30/19 23:59 23:59 23:59 23:59 Intake Total 3276.500 1192.057 9493.925 510 Output Total 2866 3321 4060 575 Balance 410.500 -1601.400 -259.075 -65 - Objective General Appearance: positive: Other (following commands. intubated. No respiratory distress. on CPAP for a few hours. Anesthesia and ASSISTANT PROFESSOR from [place] at bedside to assess.) Eyes Bilateral: positive: PERRL Neck: positive: No JVD Respiratory: positive: Chest non-tender, No respiratory distress, Rhonchi Cardiovascular: positive: Irregularly irregular. negative: Gallop/S4, Friction rub Abdomen: positive: Non-tender, No organomegaly, Nml bowel sounds, No distention Skin: positive: Warm, Dry Extremities: positive: Pedal edema (left leg/foot more edematous than right, SCDs in place. Arms and hands w edema.) Neurologic/Psychiatric: positive: Motor nml (but severe generalized weakness.), Disoriented to time, Other (nods yes/no and follows our requests) - Lab Results Fish Bones: 08/30/19 09:40 08/30/19 09:40 Other Labs: Lab Results x24hrs 08/30/19 08/30/19 08/29/19 Range/Units 07:55 05:27 23:49 Bld Gas Analysis Time 0804 Sample Site RIGHT RADIAL ABG pH 7.45 (7.35-7.45) ABG pCO2 40 (34-45) mmHg ABG pO2 91 (80-100) mmHg ABG HCO3 27.6 H (22.0-26.0) mmol/L ABG Total CO2 28.8 (21.0-29.0) MMOL/L ABG O2 Saturation 97 (94-98) % ABG Base Excess 3.3 H (-2.0-3.0) mmol/L Adin Test POSITIVE O2 Delivery Device VENTILATOR Vent Mode CPAP FiO2 25.00 PEEP 5 cmH2O Pressure Support Vent 12 cmH2O POC Whole Bld Glucose 246 H 300 H (70 - 100) mg/dL Last Dose Date Last Dose Time 08/29/19 08/29/19 08/29/19 Range/Units 17:49 12:56 11:48 Bld Gas Analysis Time 1259 Sample Site A-LINE ABG pH 7.47 H (7.35-7.45) ABG pCO2 36 (34-45) mmHg ABG pO2 89 (80-100) mmHg ABG HCO3 25.4 (22.0-26.0) mmol/L ABG Total CO2 26.5 (21.0-29.0) MMOL/L ABG O2 Saturation 97 (94-98) % ABG Base Excess 1.9 (-2.0-3.0) mmol/L Adin Test NOT APPLICABLE O2 Delivery Device VENTILATOR Vent Mode Not Reportable FiO2 25.00 PEEP 5 cmH2O Pressure Support Vent 15 cmH2O POC Whole Bld Glucose 208 H 151 H (70 - 100) mg/dL Last Dose Date Last Dose Time 08/29/19 Range/Units 07:45 Bld Gas Analysis Time Sample Site ABG pH (7.35-7.45) ABG pCO2 (34-45) mmHg ABG pO2 (80-100) mmHg ABG HCO3 (22.0-26.0) mmol/L ABG Total CO2 (21.0-29.0) MMOL/L ABG O2 Saturation (94-98) % ABG Base Excess (-2.0-3.0) mmol/L Adin Test O2 Delivery Device Vent Mode FiO2 PEEP cmH2O Pressure Support Vent cmH2O POC Whole Bld Glucose (70 - 100) mg/dL Last Dose Date UNK Last Dose Time UNK Assessment/Plan - Problem List (1) Acute respiratory failure with hypoxia Impression: Vent is still required, he could not tolerate weaning the mornings of 08/27 and 08/28. By last night his nif was -11 but not following commands. This am he has been off sedation for 24 hours and he is following commands. nif is -15. NO tachycardia, no increased respiratory effort I have a ASSISTANT PROFESSOR and anesthesia standing by. He had 1 course of proning several days ago for presumed ARDS, the next day the CXR looked worse but his O2 demands were better. He has now been intubated for 9 days since 08/20. Usually, there would be discussion about a trach at this point, but his prognosis is poor and he is not a candidate to be transferred; The recurrent fever could be from VAP or aspiration PNA, or sinusitis (he does have NG in) His antibx were broadened already. Daily ABGs ordered and Precedex plus Versed for sedation. But 08/28 am, taken off sedation slow to respond but this am appropriate. Will extubate this am. (2) moderate protein calorie malNutriton. Had emesis 08/27 and NG tube feeds stopped. Plain film of the abdomen showed a nonobstructive bowel gas pattern. No bowel dilation. Gas in the rectum. NG tube in place. Lung base opacity similar to prior x-ray showing bibasilar infiltrates.Given Zofran. Continue Pepcid iv. He is developing hypernatremia. Change IVF from 0.9 to D5. Sodium went from 149 to 147. Resume tube feeds once extubated and I did speak to Nutrition services at [facility] this morning to let them know. Consider changing NG to Yusra or Doboff (3) Fever Assessment/Plan: Present 08/27 to 38.0 but then 08/28 am 35.8. T-max was 38.0 Celsius yesterday. This morning he is 37.7. The fever could be from VAP or aspiration PNA, or sinusitis or the natural unknown course of this COVID virus. Urine blood and sputum cultures have all been negative His antibx were broadened already as seen in problem #4. (4) Pneumonia due to 2019 novel coronavirus Assessment/Plan: 08/28 CXR showed slight interval improvment from last CXR. He has a fever again, after was hypothermic intermittently. Continue supportive care, Hydroxychloroquine empiric. Azithromycin day #4 Zosyn day #6Will stop on August 31 Plaquenil day #3/ with resumption. He was on it initially then stopped when intubated. Back on it. Flagyl day #7, Will stop after today Vancomycin day #2 most recent addition (5) Hypertension Assessment/Plan: BP elevated off an on to over 200 systolic. IV meds for BP continue. (6) Acute kidney injury superimposed on CKD Assessment/Plan: He started at 2.0. Peaked at 2.2. Came down to 1.8 > 2.1> 2.1 today. continue to monitor especially bc of vanc. (7) Heart failure with preserved ejection fraction Qualifiers: Heart failure chronicity: chronic Qualified Code(s): I50.32 - Chronic diastolic (congestive) heart failure Assessment/Plan: Starting to develop worse edema between 08/27 and today. This is inspite of negative I/O Continue lasix daily. (8) Anemia of chronic disease Assessment/Plan: As per Hx. He did get a transfusion early in the admission. Follow CBC daily. He was Hgb 7.6 08/27 on 08/27> 7.2/23.9>7.9/25.7 Transfusion if Hgb <7, unless it is determined that medical care is futile or if [facility] is chosen (by his ). (9) Type 2 diabetes mellitus with complication, with long-term current use of insulin Assessment/Plan: Ng feed and ss Insulin ordered. (10) Visual impairment Assessment/Plan: As per Hx He gets eye drops for glaucoma (11) Rash fading. Assessment/Plan: Does not look like a DIC rash or a contact dermatitis rash (wher it is located). Poss of COVID rash. (12) Sacral decub Stage I developed while here. Not documented until 08/27. Stable. On frequent turns, skin care with RN
[2019-08-30 09:53] LABS: BASOPHILS % (AUTO) 0.3 %; EOSINOPHILS # (AUTO) 0.1 10^3/uL (0.0-0.7); EOSINOPHILS % (AUTO) 0.7 %; HGB - HEMOGLOBIN 7.9 g/dL (14.0-18.0); LYMPHOCYTES # (AUTO) 0.5 10^3/uL (1.5-3.5); LYMPHOCYTES % (AUTO) 4.9 %; MEAN CORPUSCULAR HEMOGLOBIN 29.2 pg (27.0-31.0); MEAN CORPUSCULAR HGB CONC 30.7 g/dL (32.0-36.0); MEAN CORPUSCULAR VOLUME 94.8 fL (80.0-94.0); MEAN PLATELET VOLUME 11.2 fL (7.4-11.4); MONOCYTES # (AUTO) 0.9 10^3/uL (0.0-1.0); MONOCYTES % (AUTO) 9.7 %; NEUTROPHILS # (AUTO) 7.8 10^3/uL (1.5-6.6); NEUTROPHILS % (AUTO) 82.3 %; PLT - PLATELET COUNT 348 10^3/uL (130-450); RED BLOOD COUNT 2.71 10^6/uL (4.70-6.10); RED CELL DISTRIBUTION WIDTH 14.3 % (12.0-15.0); WHITE BLOOD COUNT 9.4 x10^3/uL (4.8-10.8)
[2019-08-30] MEDS: VANCOMYCIN INJ 0.75 GM in SODIUM CHLORIDE 0.9% 250 ML IV SCH (09:58)
[2019-08-30] MEDS: AZITHROMYCIN 250 MG TABLET PO SCH (10:03)
[2019-08-30] MEDS: HYDROXYCHLOROQUINE 200 MG TABLET PO SCH ×2 (10:06→21:56)
[2019-08-30] MEDS: FUROSEMIDE 40 MG/4 ML VIAL IVP SCH (10:13)
[2019-08-30] MEDS: CHLORHEXIDINE GLUCONATE 15 ML UDC PO SCH (10:13)
[2019-08-30] MEDS: BRIMONIDINE 0.2% OPHTH DROPS 5 ML EACHEYE SCH ×2 (10:15→21:56)
[2019-08-30 10:16] LABS: CALCIUM 8.1 mg/dL (8.5-10.3); CREATININE 2.1 mg/dL (0.6-1.2)
[2019-08-30] MEDS: FAMOTIDINE 20 MG/2 ML VIAL IVP SCH ×2 (10:17→21:55)
[2019-08-30] MEDS: CEFEPIME 2 GM in SODIUM CHLORIDE 0.9% MINIBAG 100 ML IV SCH ×2 (10:19→21:56)
[2019-08-30] MEDS: ENOXAPARIN 40 MG/0.4 ML SYRINGE SUBQ SCH (10:22)
[2019-08-30] MEDS: timoloL maleate 0.5% OPHTH DROPS (10ML) EACHEYE SCH (10:25)
[2019-08-30] MEDS: DEXMEDETOMIDINE 400 MCG/100 ML 100 ML IV SCH (14:22)
[2019-08-30] MEDS: DEXTROSE 5% 500 ML IV SCH (16:47)
[2019-08-30] MEDS ORDERED: INSULIN GLARGINE 300 UNIT/3 ML PEN SUBQ ONE (20:00)
[2019-08-31] MEDS: METOCLOPRAMIDE 10 MG/2 ML VIAL IVP SCH ×5 (00:22→23:37)
[2019-08-31] MEDS: METOPROLOL 5 MG/5 ML VIAL IVP SCH ×5 (00:22→23:37)
[2019-08-31] MEDS: SODIUM CHLORIDE FLUSH 0.9% 10 ML SYRINGE IVP SCH ×4 (00:23→23:50)
[2019-08-31] MEDS: INSULIN REGULAR HUMAN 300 UNIT/3 ML VIAL SUBQ SCH ×5 (00:23→23:46)
[2019-08-31] MEDS: NITROGLYCERIN 2% PASTE TOP SCH ×2 (03:01→11:22)
[2019-08-31] MEDS: SODIUM CHLORIDE FLUSH 0.9% 10 ML SYRINGE IVP PRN ×2 (04:35)
[2019-08-31 04:51] LABS: BASOPHILS % (AUTO) 0.4 %; EOSINOPHILS # (AUTO) 0.1 10^3/uL (0.0-0.7); EOSINOPHILS % (AUTO) 1.1 %; HGB - HEMOGLOBIN 7.6 g/dL (14.0-18.0); LYMPHOCYTES # (AUTO) 0.7 10^3/uL (1.5-3.5); LYMPHOCYTES % (AUTO) 7.8 %; MEAN CORPUSCULAR HEMOGLOBIN 28.5 pg (27.0-31.0); MEAN CORPUSCULAR HGB CONC 29.6 g/dL (32.0-36.0); MEAN CORPUSCULAR VOLUME 96.3 fL (80.0-94.0); MEAN PLATELET VOLUME 11.8 fL (7.4-11.4); MONOCYTES # (AUTO) 0.9 10^3/uL (0.0-1.0); MONOCYTES % (AUTO) 10.6 %; NEUTROPHILS # (AUTO) 6.6 10^3/uL (1.5-6.6); NEUTROPHILS % (AUTO) 77.7 %; PLT - PLATELET COUNT 363 10^3/uL (130-450); RED BLOOD COUNT 2.67 10^6/uL (4.70-6.10); RED CELL DISTRIBUTION WIDTH 14.2 % (12.0-15.0); WHITE BLOOD COUNT 8.5 x10^3/uL (4.8-10.8)
[2019-08-31 04:58] LABS: CREATININE 2.1 mg/dL (0.6-1.2)
[2019-08-31] MEDS: metroNIDAZOLE 500 MG/100 ML 500 MG/100 ML BAG IV SCH ×3 (05:58→23:38)
[2019-08-31] MEDS: hydrALAZINE INJ 20 MG/ML VIAL IVP PRN ×2 (07:43→14:39)
--- NOTE | 2019-08-31 07:49 | PROVIDER PROGRESS NOTE ---
Subjective - Prog Note Date Prog Note Date: 08/31/19 Prog Note Time: 07:48 - Subjective Subjective: Since extubation yesterday he is very slow psychomotor status. Slack face ease. Will follow commands very slowly. Did have one episode of coughing where he had a large mucous plug. Temperature is hovering at 37.7. Heart rate is in the 90s. Blood pressure high in the 180s to 190s and requiring PRN hydralazine. Respiratory rate is not labored and he is 11-12. 2 L results and 98% sat. Did have 1 episode of reflux and he did cough up to feeds. Still has NG in place. Current Medications - Current Medications Current Medications: Active Medications Acetaminophen (Tylenol) 650 mg IA Q6HR PRN PRN Reason: Pain or Fever > 38C (100.4F) Last Admin: 08/29/19 14:35 Dose: 650 mg Albuterol/Ipratropium (Duoneb) 3 ml INH Q4HR PRN PRN Reason: Wheezing Brimonidine Tartrate (Alphagan P 0.2% Ophth Drops) 1 drops EACHEYE BID [facility] Last Admin: 08/30/19 21:56 Dose: 1 drops Clonidine HCl ([id number]) 1 patch TOP Q7D [facility] Last Admin: 08/24/19 22:00 Dose: 1 patch Enoxaparin Sodium (Lovenox) 40 mg SUBQ DAILY [facility] Last Admin: 08/30/19 10:22 Dose: 40 mg Famotidine (Pepcid) 10 mg IVP BID [facility] Last Admin: 08/30/19 21:55 Dose: 10 mg Furosemide (Lasix Inj 40 Mg Vial) 40 mg IVP DAILY [facility] Last Admin: 08/30/19 10:13 Dose: 40 mg Heparin Sodium (Beef Lung) () 30 - 50 unit IVP PRN PRN PRN Reason: Central Line Protocol (<24 hr) Last Admin: 08/25/19 04:12 Dose: 30 unit Hydralazine HCl (Apresoline Inj) 10 mg IVP Q6H PRN PRN Reason: Hypertensive Emergency Last Admin: 08/31/19 07:43 Dose: 10 mg Hydroxychloroquine Sulfate (Plaquenil) 200 mg PO BID [facility] Stop: 08/31/19 09:01 Last Admin: 08/30/19 21:56 Dose: 200 mg Cefepime HCl 2 gm/ Sodium (Chloride) 100 mls @ 200 mls/hr IV BID [facility] Last Infusion: 08/30/19 22:30 Dose: Infused Metronidazole (Flagyl 500 Mg/100 Ml) 500 mg in 100 mls @ 100 mls/hr IV Q8H [facility] Last Infusion: 08/31/19 07:06 Dose: Infused Vancomycin HCl 0.75 gm/ Sodium (Chloride) 250 mls @ 167 mls/hr IV Q24H [facility] Last Infusion: 08/30/19 11:30 Dose: Infused Dextrose (D5w) 500 mls @ 0 mls/hr IV Q24H [facility] Last Admin: 08/30/19 16:47 Dose: 20 mls/hr Insulin Glargine (Lantus Solostar) 10 unit SUBQ DAILY [facility] Insulin Human Regular (Humulin R) 3 - 11 unit SUBQ Q6HR [facility]; Protocol Last Admin: 08/31/19 06:04 Dose: 5 unit Lidocaine HCl (Xylocaine Uro-Jet 2%) 2.5 ml UR Q6H PRN PRN Reason: PAIN Last Admin: 08/20/19 14:41 Dose: 2.5 ml Metoclopramide HCl (Reglan Inj) 5 mg IVP Q6HR [facility] Last Admin: 08/31/19 06:03 Dose: 5 mg Metoprolol Tartrate (Lopressor Inj) 2.5 mg IVP Q6HR [facility] Last Admin: 08/31/19 06:08 Dose: 2.5 mg Mineral Oil (Cavilon) 1 applic TOP PRN PRN PRN Reason: Skin Care Last Admin: 08/26/19 20:09 Dose: 1 applic Morphine Sulfate (Morphine (Carpuject)) 2 mg IVP Q2HR PRN PRN Reason: PAIN Last Admin: 08/30/19 21:57 Dose: 2 mg Nitroglycerin (Nitro-Bid (Pkt)) 1 inch TOP Q8H [facility] Last Admin: 08/31/19 03:01 Dose: 1 inch Ondansetron HCl (Zofran Inj) 4 mg IVP Q6HR PRN PRN Reason: Nausea / Vomiting Last Admin: 08/28/19 15:26 Dose: 4 mg Sodium Chloride (Normal Saline Flush 0.9%) 10 ml IVP PRN PRN PRN Reason: NEEDED PER PROVIDER ORDERS Last Admin: 08/31/19 04:35 Dose: 10 ml Sodium Chloride (Normal Saline Flush 0.9%) 10 ml IVP 0100,0900,1700 [facility] Last Admin: 08/31/19 00:23 Dose: 10 ml Sodium Chloride (Normal Saline Flush 0.9%) 20 ml IVP PRN PRN PRN Reason: After Blood Draw Last Admin: 08/31/19 04:35 Dose: 20 ml Timolol Maleate (Timoptic 0.5% Ophth Drops) 1 drops EACHEYE DAILY [facility] Last Admin: 08/30/19 10:25 Dose: 1 drops Losartan [Cozaar] 100 mg PO DAILY 09/17/16 Brimonidine 0.2% Ophth Drops [Alphagan P 0.2% Ophth Drops] 1 drops EACHEYE BID 06/29/18 Amlodipine Besylate 10 mg PO DAILY 05/27/19 Insulin Glargine [Lantus Solostar] 10 units SQ DAILY 05/27/19 Acetaminophen [Tylenol] 650 mg PO Q6H PRN 08/19/19 Atorvastatin Calcium 10 mg DAILY 08/19/19 Carvedilol [Coreg] 6.25 mg PO BID 08/19/19 Timolol 0.5% Ophth Drops [Timoptic 0.5% Ophth Drops] 1 drops EACHEYE DAILY 08/19/19 hydroCHLOROthiazide [Hydrochlorothiazide] 25 mg DAILY 08/19/19 Objective - Vital Signs/Intake & Output Reviewed Vital Signs: Yes Vital Signs: Vital Signs Temp Pulse Resp BP BP Pulse Ox 08/31/19 07:43 184/93 H 08/31/19 07:00 37.5 C 97 12 188/91 H 98 08/31/19 06:08 198/95 H 08/31/19 06:00 37.6 C H 93 11 L 173/88 H 98 08/31/19 05:00 37.7 C H 101 H 12 175/87 H 97 08/31/19 04:00 37.7 C H 98 12 178/98 H 98 Intake & Output: Intake & Output 08/28/19 08/29/19 08/30/19 08/31/19 23:59 23:59 23:59 23:59 Intake Total 7811.778 6139.925 2514 775 Output Total 3515 9729 5062 1115 [facility] -[phone] Objective General Appearance: positive: No acute distress, Lethargic, Other (Disheveled, unshaven, slack facies, open mouth) Eyes Bilateral: positive: Other ( staring at the ceiling and when I ask why, he shrugs, and with very low almost inaduble voice says "nothing there." anisocoria, right large than left pupil chronic per nursing,) Eyes: OS Abnormal pupil ENT: positive: Other (bad teeth) Neck: positive: No JVD. negative: Stiff neck Respiratory: positive: Chest non-tender, No respiratory distress, Rhonchi. negative: Wheezes, Rales Cardiovascular: positive: Regular rate & rhythm. negative: Gallop/S4, Friction rub Abdomen: positive: Non-tender, No organomegaly, Nml bowel sounds, No distention Skin: positive: Warm, Dry Extremities: positive: Pedal edema (left leg larger than right. SCD in place.) Neurologic/Psychiatric: positive: Disoriented to person, Disoriented to place (sometimes knows he's in [facility] and sometimes thinks it's [facility].), Disoriented to time, Weakness (severe and generalized.), Slurred/abnml speech, Depressed mood/affect (he says to RN he never wants to do this again.) - Lab Results Fish Bones: 08/31/19 04:20 08/31/19 04:20 Other Labs: Lab Results x24hrs 08/31/19 08/31/19 08/31/19 Range/Units 05:51 04:20 04:20 WBC 8.5 (4.8-10.8) x10^3/uL RBC 2.67 L (4.70-6.10) 10^6/uL Hgb 7.6 L (14.0-18.0) g/dL Hct 25.7 L (42.0-52.0) % MCV 96.3 H (80.0-94.0) fL MCH 28.5 (27.0-31.0) pg MCHC 29.6 L (32.0-36.0) g/dL RDW 14.2 (12.0-15.0) % Plt Count 363 (130-450) 10^3/uL MPV 11.8 H (7.4-11.4) fL Neut # (Auto) 6.6 (1.5-6.6) 10^3/uL Lymph # (Auto) 0.7 L (1.5-3.5) 10^3/uL [place] # (Auto) 0.9 (0.0-1.0) 10^3/uL Eos # (Auto) 0.1 (0.0-0.7) 10^3/uL Baso # (Auto) 0.0 (0.0-0.1) 10^3/uL Absolute Nucleated RBC 0.00 x10^3/uL Nucleated RBC % 0.0 /100WBC Bld Gas Analysis Time Sample Site ABG pH (7.35-7.45) ABG pCO2 (34-45) mmHg ABG pO2 (80-100) mmHg ABG HCO3 (22.0-26.0) mmol/L ABG Total CO2 (21.0-29.0) MMOL/L ABG O2 Saturation (94-98) % ABG Base Excess (-2.0-3.0) mmol/L Adin Test O2 Delivery Device Vent Mode FiO2 PEEP cmH2O Pressure Support Vent cmH2O Sodium 149 H (135-145) mmol/L Potassium 3.8 (3.5-5.0) mmol/L Chloride 112 H (101-111) mmol/L Carbon Dioxide 29 (21-32) mmol/L Anion Gap 8.0 (6-13) BUN 59 H (6-20) mg/dL Creatinine 2.1 H (0.6-1.2) mg/dL Estimated GFR (MDRD) 32 L (>89) Glucose 237 H (70-100) mg/dL POC Whole Bld Glucose 218 H (70 - 100) mg/dL Calcium 8.0 L (8.5-10.3) mg/dL 08/30/19 08/30/19 08/30/19 Range/Units 23:39 17:32 12:11 WBC (4.8-10.8) x10^3/uL RBC (4.70-6.10) 10^6/uL Hgb (14.0-18.0) g/dL Hct (42.0-52.0) % MCV (80.0-94.0) fL MCH (27.0-31.0) pg MCHC (32.0-36.0) g/dL RDW (12.0-15.0) % Plt Count (130-450) 10^3/uL MPV (7.4-11.4) fL Neut # (Auto) (1.5-6.6) 10^3/uL Lymph # (Auto) (1.5-3.5) 10^3/uL [place] # (Auto) (0.0-1.0) 10^3/uL Eos # (Auto) (0.0-0.7) 10^3/uL Baso # (Auto) (0.0-0.1) 10^3/uL Absolute Nucleated RBC x10^3/uL Nucleated RBC % /100WBC Bld Gas Analysis Time Sample Site ABG pH (7.35-7.45) ABG pCO2 (34-45) mmHg ABG pO2 (80-100) mmHg ABG HCO3 (22.0-26.0) mmol/L ABG Total CO2 (21.0-29.0) MMOL/L ABG O2 Saturation (94-98) % ABG Base Excess (-2.0-3.0) mmol/L Adin Test O2 Delivery Device Vent Mode FiO2 PEEP cmH2O Pressure Support Vent cmH2O Sodium (135-145) mmol/L Potassium (3.5-5.0) mmol/L Chloride (101-111) mmol/L Carbon Dioxide (21-32) mmol/L Anion Gap (6-13) BUN (6-20) mg/dL Creatinine (0.6-1.2) mg/dL Estimated GFR (MDRD) (>89) Glucose (70-100) mg/dL POC Whole Bld Glucose 236 H 312 H 248 H (70 - 100) mg/dL Calcium (8.5-10.3) mg/dL 08/30/19 08/30/19 08/30/19 Range/Units 09:40 09:40 07:55 WBC 9.4 (4.8-10.8) x10^3/uL RBC 2.71 L (4.70-6.10) 10^6/uL Hgb 7.9 L (14.0-18.0) g/dL Hct 25.7 L (42.0-52.0) % MCV 94.8 H (80.0-94.0) fL MCH 29.2 (27.0-31.0) pg MCHC 30.7 L (32.0-36.0) g/dL RDW 14.3 (12.0-15.0) % Plt Count 348 (130-450) 10^3/uL MPV 11.2 (7.4-11.4) fL Neut # (Auto) 7.8 H (1.5-6.6) 10^3/uL Lymph # (Auto) 0.5 L (1.5-3.5) 10^3/uL [place] # (Auto) 0.9 (0.0-1.0) 10^3/uL Eos # (Auto) 0.1 (0.0-0.7) 10^3/uL Baso # (Auto) 0.0 (0.0-0.1) 10^3/uL Absolute Nucleated RBC 0.00 x10^3/uL Nucleated RBC % 0.0 /100WBC Bld Gas Analysis Time 0804 Sample Site RIGHT RADIAL ABG pH 7.45 (7.35-7.45) ABG pCO2 40 (34-45) mmHg ABG pO2 91 (80-100) mmHg ABG HCO3 27.6 H (22.0-26.0) mmol/L ABG Total CO2 28.8 (21.0-29.0) MMOL/L ABG O2 Saturation 97 (94-98) % ABG Base Excess 3.3 H (-2.0-3.0) mmol/L Adin Test POSITIVE O2 Delivery Device VENTILATOR Vent Mode CPAP FiO2 25.00 PEEP 5 cmH2O Pressure Support Vent 12 cmH2O Sodium 147 H (135-145) mmol/L Potassium 4.0 (3.5-5.0) mmol/L Chloride 114 H (101-111) mmol/L Carbon Dioxide 27 (21-32) mmol/L Anion Gap 6.0 (6-13) BUN 61 H (6-20) mg/dL Creatinine 2.1 H (0.6-1.2) mg/dL Estimated GFR (MDRD) 32 L (>89) Glucose 261 H (70-100) mg/dL POC Whole Bld Glucose (70 - 100) mg/dL Calcium 8.1 L (8.5-10.3) mg/dL Assessment/Plan - Problem List (1) Acute respiratory failure with hypoxia Impression: Resolved Extubated 08/29 after a prolonged weaning period where he could not tolerate weaning the mornings of 08/27 and 08/28. He was intubated 09/20 and was proned and supported. Although nif is not where I would like it to be, he has not had any respiratory distress since yesterday. Occ coughing up phlegm and tube feeds. O2 sat is 97% on 2 liters this am. Continues to have recurrent fever could be from VAP or aspiration PNA, or sinusitis (he does have NG in) His antibx were broadened already but are nearing their completion. (2) moderate protein calorie malNutriton. Had emesis 08/27 and NG tube feeds stopped. Plain film of the abdomen showed a nonobstructive bowel gas pattern. No bowel dilation. Gas in the rectum. NG tube in place. Lung base opacity similar to prior x-ray showing bibasilar infiltrates.Given Zofran. Continue Pepcid iv. He is developing hypernatremia. Changed IVF from 0.9 to D5 at a low rate. With this Sodium 149> 147>149 I will increase D5 rate. change NG to Yusra continue tube feeds Add reglan bid (3) Fever Assessment/Plan: Present 08/27 to 38.0 but then 08/28 am 35.8. 08/28 T-max was 38.0, 08/29 T max 37.7 Today T max so far is 37.7 The fever could be from VAP or aspiration PNA, or sinusitis or the natural unknown course of this COVID virus. Urine blood and sputum cultures have all been negative His antibx were broadened already as seen in problem #4. (4) Pneumonia due to 2019 novel coronavirus Assessment/Plan: 08/28 CXR showed slight interval improvment from last CXR. Now extubated 08/29 Continue supportive care, Hydroxychloroquine empiric. Finished Azithromycin 4 days Zosyn day #7 Will stop on August 31 Plaquenil day #3/ with resumption. He was on it initially then stopped when intubated. Back on it. Flagyl finishing doseing for 7 days today, Will stop after today Vancomycin day #3 most recent addition (5) Hypertension Assessment/Plan: BP elevated off an on to over 200 systolic. IV meds for BP continue. I have added NTG patch and stopped NTG paste. Added clonidine patch continue hydralazine prn (6) Acute kidney injury superimposed on CKD Assessment/Plan: He started at 2.0. Peaked at 2.2. Came down to 1.8 > 2.1> 2.1 today. continue to monitor especially bc of vanc. (7) Heart failure with preserved ejection fraction Qualifiers: Heart failure chronicity: chronic Qualified Code(s): I50.32 - Chronic diastolic (congestive) heart failure Assessment/Plan: Starting to develop worse edema between 08/27 and today. This is inspite of negative I/O Continue lasix daily. (8) Anemia of chronic disease Assessment/Plan: As per Hx. He did get a transfusion early in the admission. Follow CBC daily. He was Hgb 7.6 08/27 on 08/27> 7.2/23.9>7.9/25.7 Transfusion if Hgb <7, unless it is determined that medical care is futile or if [facility] is chosen (by his ). (9) Type 2 diabetes mellitus with complication, with long-term current use of insulin Assessment/Plan: Ng feed and ss Insulin ordered. (10) Visual impairment Assessment/Plan: As per Hx He gets eye drops for glaucoma (11) Rash fading. Assessment/Plan: Does not look like a DIC rash or a contact dermatitis rash (wher it is located). Poss of COVID rash. (12) Sacral decub Stage I developed while here. Not documented until 08/27. Stable. On frequent turns, skin care with YOLANDE
[2019-08-31] MEDS: VANCOMYCIN INJ 0.75 GM in SODIUM CHLORIDE 0.9% 250 ML IV SCH (08:00)
[2019-08-31] MEDS: ENOXAPARIN 40 MG/0.4 ML SYRINGE SUBQ SCH (08:40)
[2019-08-31] MEDS: CEFEPIME 2 GM in SODIUM CHLORIDE 0.9% MINIBAG 100 ML IV SCH ×2 (08:43→21:30)
[2019-08-31] MEDS: FAMOTIDINE 20 MG/2 ML VIAL IVP SCH ×2 (08:48→21:40)
[2019-08-31] MEDS: FUROSEMIDE 40 MG/4 ML VIAL IVP SCH (08:53)
[2019-08-31] MEDS: timoloL maleate 0.5% OPHTH DROPS (10ML) EACHEYE SCH (08:58)
[2019-08-31] MEDS: HYDROXYCHLOROQUINE 200 MG TABLET PO SCH (08:59)
[2019-08-31] MEDS: BRIMONIDINE 0.2% OPHTH DROPS 5 ML EACHEYE SCH ×2 (09:04→21:00)
[2019-08-31] MEDS: INSULIN GLARGINE 300 UNIT/3 ML PEN SUBQ SCH (09:05)
[2019-08-31] MEDS: NITROGLYCERIN 0.2 MG/HR PATCH TOP SCH (10:17)
[2019-08-31] MEDS ORDERED: CARBOXYMETHYLCELLULOSE OPHTH DROPS EACHEYE PRN (14:57)
[2019-08-31] MEDS: DEXTROSE 5% 500 ML IV SCH (17:19)
[2019-08-31] MEDS: cloNIDine 0.1 MG PATCH TOP SCH (23:37)
[2019-09-01] MEDS: hydrALAZINE INJ 20 MG/ML VIAL IVP PRN ×3 (03:09→22:23)
[2019-09-01 05:40] LABS: BASOPHILS # (AUTO) 0.1 10^3/uL (0.0-0.1); BASOPHILS % (AUTO) 0.8 %; EOSINOPHILS # (AUTO) 0.2 10^3/uL (0.0-0.7); EOSINOPHILS % (AUTO) 1.7 %; HGB - HEMOGLOBIN 8.1 g/dL (14.0-18.0); LYMPHOCYTES # (AUTO) 0.7 10^3/uL (1.5-3.5); MEAN CORPUSCULAR HEMOGLOBIN 28.7 pg (27.0-31.0); MEAN CORPUSCULAR VOLUME 95.7 fL (80.0-94.0); MEAN PLATELET VOLUME 11.7 fL (7.4-11.4); MONOCYTES # (AUTO) 0.9 10^3/uL (0.0-1.0); MONOCYTES % (AUTO) 8.5 %; NEUTROPHILS # (AUTO) 8.4 10^3/uL (1.5-6.6); PLT - PLATELET COUNT 392 10^3/uL (130-450); RED BLOOD COUNT 2.82 10^6/uL (4.70-6.10); RED CELL DISTRIBUTION WIDTH 13.9 % (12.0-15.0); WHITE BLOOD COUNT 10.5 x10^3/uL (4.8-10.8)
[2019-09-01 05:53] LABS: CALCIUM 8.3 mg/dL (8.5-10.3); CREATININE 1.9 mg/dL (0.6-1.2)
[2019-09-01] MEDS: METOPROLOL 5 MG/5 ML VIAL IVP SCH ×3 (06:05→17:37)
[2019-09-01] MEDS: metroNIDAZOLE 500 MG/100 ML 500 MG/100 ML BAG IV SCH (06:08)
[2019-09-01] MEDS: METOCLOPRAMIDE 10 MG/2 ML VIAL IVP SCH ×3 (06:11→17:27)
[2019-09-01] MEDS: INSULIN REGULAR HUMAN 300 UNIT/3 ML VIAL SUBQ SCH (06:12)
[2019-09-01 07:32] LABS: MAGNESIUM 2.3 mg/dL (1.7-2.8); PHOSPHORUS 3.3 mg/dL (2.5-4.6)
[2019-09-01] MEDS: CEFEPIME 2 GM in SODIUM CHLORIDE 0.9% MINIBAG 100 ML IV SCH (08:41)
[2019-09-01] MEDS: SODIUM CHLORIDE FLUSH 0.9% 10 ML SYRINGE IVP SCH ×2 (09:09→17:24)
[2019-09-01] MEDS: ENOXAPARIN 40 MG/0.4 ML SYRINGE SUBQ SCH (09:10)
[2019-09-01] MEDS: BRIMONIDINE 0.2% OPHTH DROPS 5 ML EACHEYE SCH ×2 (09:11→22:16)
[2019-09-01 09:13] LABS: VANCOMYCIN,TROUGH 19.6 ug/mL (10.0-20.0)
[2019-09-01] MEDS: timoloL maleate 0.5% OPHTH DROPS (10ML) EACHEYE SCH (09:14)
[2019-09-01] MEDS: NITROGLYCERIN 0.2 MG/HR PATCH TOP SCH (09:16)
[2019-09-01] MEDS: MIN OIL/DIMETHICON/COCONUT OIL 92 GM TUBE TOP PRN (09:19)
[2019-09-01] MEDS: FAMOTIDINE 20 MG/2 ML VIAL IVP SCH ×2 (09:19→22:16)
[2019-09-01] MEDS: FUROSEMIDE 40 MG/4 ML VIAL IVP SCH (09:21)
[2019-09-01] MEDS: VANCOMYCIN INJ 0.75 GM in SODIUM CHLORIDE 0.9% 250 ML IV SCH (09:26)
[2019-09-01] MEDS: INSULIN GLARGINE 300 UNIT/3 ML PEN SUBQ SCH (09:44)
[2019-09-01] MEDS: SODIUM CHLORIDE FLUSH 0.9% 10 ML SYRINGE IVP PRN (09:51)
--- NOTE | 2019-09-01 10:42 | PROVIDER PROGRESS NOTE ---
Subjective - Prog Note Date Prog Note Date: 09/01/19 Prog Note Time: 10:45 - Subjective Subjective: Has been extubated since August 29. Very slow psychomotor speaking. In speaking to 1 of the other providers on the service, he states that Mr. Rothman has a lways been like this. Very slow to speak after processing information. This is not new for him. Very weak. Just sitting up on the side of the bed yesterday wore him out. He really wants to eat solid food. Wants the NG out permanently. Current Medications - Current Medications Current Medications: Active Medications Acetaminophen (Tylenol) 650 mg MD Q6HR PRN PRN Reason: Pain or Fever > 38C (100.4F) Last Admin: 08/29/19 14:35 Dose: 650 mg Albuterol/Ipratropium (Duoneb) 3 ml INH Q4HR PRN PRN Reason: Wheezing Brimonidine Tartrate (Alphagan P 0.2% Ophth Drops) 1 drops EACHEYE BID [facility] Last Admin: 09/01/19 09:11 Dose: 1 drops Carboxymethylcellulose (Refresh 1% Ophth Drops) 1 drops EACHEYE Q4HR PRN PRN Reason: Dry Eye Clonidine HCl ([id number]) 1 patch TOP Q7D [facility] Last Admin: 08/31/19 23:37 Dose: 1 patch Enoxaparin Sodium (Lovenox) 40 mg SUBQ DAILY [facility] Last Admin: 09/01/19 09:10 Dose: 40 mg Famotidine (Pepcid) 10 mg IVP BID [facility] Last Admin: 09/01/19 09:19 Dose: 10 mg Furosemide (Lasix Inj 40 Mg Vial) 40 mg IVP DAILY [facility] Last Admin: 09/01/19 09:21 Dose: 40 mg Heparin Sodium (Beef Lung) () 30 - 50 unit IVP PRN PRN PRN Reason: Central Line Protocol (<24 hr) Last Admin: 08/25/19 04:12 Dose: 30 unit Hydralazine HCl (Apresoline Inj) 10 mg IVP Q6H PRN PRN Reason: Hypertensive Emergency Last Admin: 09/01/19 09:46 Dose: 10 mg Cefepime HCl 2 gm/ Sodium (Chloride) 100 mls @ 200 mls/hr IV BID [facility] Last Infusion: 09/01/19 09:15 Dose: Infused Metronidazole (Flagyl 500 Mg/100 Ml) 500 mg in 100 mls @ 100 mls/hr IV Q8H [facility] Last Infusion: 09/01/19 07:30 Dose: Infused Vancomycin HCl 0.75 gm/ Sodium (Chloride) 250 mls @ 167 mls/hr IV Q24H [facility] Last Admin: 09/01/19 09:26 Dose: 167 mls/hr Dextrose (D5w) 500 mls @ 0 mls/hr IV Q24H [facility] Last Admin: 08/31/19 17:19 Dose: 20 mls/hr Insulin Glargine (Lantus Solostar) 10 unit SUBQ DAILY [facility] Last Admin: 09/01/19 09:44 Dose: 10 unit Insulin Human Regular (Humulin R) 3 - 11 unit SUBQ Q6HR [facility]; Protocol Last Admin: 09/01/19 06:12 Dose: 3 unit Lidocaine HCl (Xylocaine Uro-Jet 2%) 2.5 ml UR Q6H PRN PRN Reason: PAIN Last Admin: 08/20/19 14:41 Dose: 2.5 ml Metoclopramide HCl (Reglan Inj) 5 mg IVP Q6HR [facility] Last Admin: 09/01/19 06:11 Dose: 5 mg Metoprolol Tartrate (Lopressor Inj) 2.5 mg IVP Q6HR [facility] Last Admin: 09/01/19 06:05 Dose: 2.5 mg Mineral Oil (Cavilon) 1 applic TOP PRN PRN PRN Reason: Skin Care Last Admin: 09/01/19 09:19 Dose: 1 applic Morphine Sulfate (Morphine (Carpuject)) 2 mg IVP Q2HR PRN PRN Reason: PAIN Last Admin: 08/30/19 21:57 Dose: 2 mg Nitroglycerin (Nitro-Dur) 1 patch TOP DAILY [facility] Last Admin: 09/01/19 09:16 Dose: 1 patch Ondansetron HCl (Zofran Inj) 4 mg IVP Q6HR PRN PRN Reason: Nausea / Vomiting Last Admin: 08/28/19 15:26 Dose: 4 mg Sodium Chloride (Normal Saline Flush 0.9%) 10 ml IVP PRN PRN PRN Reason: NEEDED PER PROVIDER ORDERS Last Admin: 09/01/19 09:51 Dose: 10 ml Sodium Chloride (Normal Saline Flush 0.9%) 10 ml IVP 0100,0900,1700 [facility] Last Admin: 09/01/19 09:09 Dose: 30 ml Sodium Chloride (Normal Saline Flush 0.9%) 20 ml IVP PRN PRN PRN Reason: After Blood Draw Last Admin: 08/31/19 04:35 Dose: 20 ml Timolol Maleate (Timoptic 0.5% Ophth Drops) 1 drops EACHEYE DAILY [facility] Last Admin: 09/01/19 09:14 Dose: 1 drops Losartan [Cozaar] 100 mg PO DAILY 09/17/16 Brimonidine 0.2% Ophth Drops [Alphagan P 0.2% Ophth Drops] 1 drops EACHEYE BID 06/29/18 Amlodipine Besylate 10 mg PO DAILY 05/27/19 Insulin Glargine [Lantus Solostar] 10 units SQ DAILY 05/27/19 Acetaminophen [Tylenol] 650 mg PO Q6H PRN 08/19/19 Atorvastatin Calcium 10 mg DAILY 08/19/19 Carvedilol [Coreg] 6.25 mg PO BID 08/19/19 Timolol 0.5% Ophth Drops [Timoptic 0.5% Ophth Drops] 1 drops EACHEYE DAILY 08/19/19 hydroCHLOROthiazide [Hydrochlorothiazide] 25 mg DAILY 08/19/19 Objective - Vital Signs/Intake & Output Reviewed Vital Signs: Yes Vital Signs: Vital Signs x48h Temp Pulse Resp BP BP Pulse Ox 09/01/19 09:57 79 12 179/95 H 100 09/01/19 09:32 37.3 C 95 17 190/100 H 99 09/01/19 07:00 36.8 C 89 19 185/96 H 96 09/01/19 06:05 179/91 H 09/01/19 06:00 36.9 C 94 12 179/91 H 96 09/01/19 05:00 36.9 C 91 19 170/88 H 96 09/01/19 04:00 36.8 C 94 19 183/95 H 96 09/01/19 03:39 184/98 H 09/01/19 03:00 36.8 C 90 12 203/105 H 97 Intake & Output: Intake & Output 08/29/19 08/30/19 08/31/19 09/01/19 23:59 23:59 23:59 23:59 Intake Total 3800.925 2953.333 3350.667 385 Output Total 4060 3290 4285 1645 Balance -259.075 -336.667 -934.333 -1260 - Objective General Appearance: positive: Other (slack facies, but eyes open and he follows me) Eyes: OS Abnormal pupil (large than right) Neck: positive: No JVD. negative: Stiff neck Respiratory: positive: Chest non-tender, No respiratory distress, Rhonchi, Other (slow shallow respiration w occ cough and phlegm). negative: Wheezes, Rales Cardiovascular: positive: Regular rate & rhythm. negative: Gallop/S4, Friction rub Abdomen: positive: Non-tender, No organomegaly, Nml bowel sounds, No distention Skin: positive: Warm Extremities: positive: Pedal edema (left leg > right leg but no Homans, no redness, nontender), Other (anasarca is improving overall in arms) Neurologic/Psychiatric: positive: Disoriented to time, Weakness, Slurred/abnml speech, Depressed mood/affect (he says he never wants to do this again.) - Lab Results Fish Bones: 09/01/19 05:15 09/01/19 05:15 Other Labs: Lab Results x24hrs 09/01/19 09/01/19 09/01/19 Range/Units 08:55 05:56 05:15 WBC (4.8-10.8) x10^3/uL RBC (4.70-6.10) 10^6/uL Hgb (14.0-18.0) g/dL Hct (42.0-52.0) % MCV (80.0-94.0) fL MCH (27.0-31.0) pg MCHC (32.0-36.0) g/dL RDW (12.0-15.0) % Plt Count (130-450) 10^3/uL MPV (7.4-11.4) fL Neut # (Auto) (1.5-6.6) 10^3/uL Lymph # (Auto) (1.5-3.5) 10^3/uL [place] # (Auto) (0.0-1.0) 10^3/uL Eos # (Auto) (0.0-0.7) 10^3/uL Baso # (Auto) (0.0-0.1) 10^3/uL Absolute Nucleated RBC x10^3/uL Nucleated RBC % /100WBC Sodium (135-145) mmol/L Potassium (3.5-5.0) mmol/L Chloride (101-111) mmol/L Carbon Dioxide (21-32) mmol/L Anion Gap (6-13) BUN (6-20) mg/dL Creatinine (0.6-1.2) mg/dL Estimated GFR (MDRD) (>89) Glucose (70-100) mg/dL POC Whole Bld Glucose 148 H (70 - 100) mg/dL Calcium (8.5-10.3) mg/dL Phosphorus (2.5-4.6) mg/dL Magnesium (1.7-2.8) mg/dL Albumin 2.2 L (3.2-5.5) g/dL Last Dose Date UNK Last Dose Time UNK Vancomycin Trough 19.6 (10.0-20.0) ug/mL 09/01/19 09/01/19 09/01/19 Range/Units 05:15 05:15 05:15 WBC 10.5 (4.8-10.8) x10^3/uL RBC 2.82 L (4.70-6.10) 10^6/uL Hgb 8.1 L (14.0-18.0) g/dL Hct 27.0 L (42.0-52.0) % MCV 95.7 H (80.0-94.0) fL MCH 28.7 (27.0-31.0) pg MCHC 30.0 L (32.0-36.0) g/dL RDW 13.9 (12.0-15.0) % Plt Count 392 (130-450) 10^3/uL MPV 11.7 H (7.4-11.4) fL Neut # (Auto) 8.4 H (1.5-6.6) 10^3/uL Lymph # (Auto) 0.7 L (1.5-3.5) 10^3/uL [place] # (Auto) 0.9 (0.0-1.0) 10^3/uL Eos # (Auto) 0.2 (0.0-0.7) 10^3/uL Baso # (Auto) 0.1 (0.0-0.1) 10^3/uL Absolute Nucleated RBC 0.00 x10^3/uL Nucleated RBC % 0.0 /100WBC Sodium 147 H (135-145) mmol/L Potassium 3.7 (3.5-5.0) mmol/L Chloride 110 (101-111) mmol/L Carbon Dioxide 28 (21-32) mmol/L Anion Gap 9.0 (6-13) BUN 55 H (6-20) mg/dL Creatinine 1.9 H (0.6-1.2) mg/dL Estimated GFR (MDRD) 36 L (>89) Glucose 157 H (70-100) mg/dL POC Whole Bld Glucose (70 - 100) mg/dL Calcium 8.3 L (8.5-10.3) mg/dL Phosphorus 3.3 (2.5-4.6) mg/dL Magnesium 2.3 (1.7-2.8) mg/dL Albumin (3.2-5.5) g/dL Last Dose Date Last Dose Time Vancomycin Trough (10.0-20.0) ug/mL 08/31/19 08/31/19 08/31/19 Range/Units 23:38 18:06 11:39 WBC (4.8-10.8) x10^3/uL RBC (4.70-6.10) 10^6/uL Hgb (14.0-18.0) g/dL Hct (42.0-52.0) % MCV (80.0-94.0) fL MCH (27.0-31.0) pg MCHC (32.0-36.0) g/dL RDW (12.0-15.0) % Plt Count (130-450) 10^3/uL MPV (7.4-11.4) fL Neut # (Auto) (1.5-6.6) 10^3/uL Lymph # (Auto) (1.5-3.5) 10^3/uL [place] # (Auto) (0.0-1.0) 10^3/uL Eos # (Auto) (0.0-0.7) 10^3/uL Baso # (Auto) (0.0-0.1) 10^3/uL Absolute Nucleated RBC x10^3/uL Nucleated RBC % /100WBC Sodium (135-145) mmol/L Potassium (3.5-5.0) mmol/L Chloride (101-111) mmol/L Carbon Dioxide (21-32) mmol/L Anion Gap (6-13) BUN (6-20) mg/dL Creatinine (0.6-1.2) mg/dL Estimated GFR (MDRD) (>89) Glucose (70-100) mg/dL POC Whole Bld Glucose 215 H 236 H 233 H (70 - 100) mg/dL Calcium (8.5-10.3) mg/dL Phosphorus (2.5-4.6) mg/dL Magnesium (1.7-2.8) mg/dL Albumin (3.2-5.5) g/dL Last Dose Date Last Dose Time Vancomycin Trough (10.0-20.0) ug/mL ABX Reporting Has patient been on IV antibiotics over the past 48 hours?: Yes Assessment/Plan - Problem List (1) Bilateral pneumonia Impression: The patient was getting rehabilitation at [facility]. Unfortunately he became positive with Kovic 19. He was placed in isolation due to his symptoms, had a fever of 101.8. Each day he became worse regarding symptoms and was placed on oxygen the day before admission. He was admitted August 18. By August 20 his chest x-ray had chente out and he had to be intubated for acute hypoxic respiratory failure with ARDS and transferred to the ICU. He has now been extubated for 2 days since 08/29, is still very weak, tired, but wanting to get off NG tube feeds and to try solid food. 08/28 CXR showed slight interval improvment from last CXR. Finished Azithromycin 4 days Zosyn day #7 Will stop today Plaquenil day #4/5 with resumption. He was on it initially then stopped when intubated. Back on it. Flagyl finishing doseing for 7 days 08/30. Will stop today Vancomycin day #4 most recent addition Transfer to Med Surg Status. (2) Hypertension Assessment/Plan: BP elevated off an on to over 200 systolic. IV meds for BP continue. I have added NTG patch and stopped NTG paste 08/30. Added clonidine patch continue hydralazine prn (3) Acute kidney injury superimposed on CKD Assessment/Plan: He started at 2.0. Peaked at 2.2. Came down to 1.8 > 2.1> 2.1>1.9today. continue to monitor especially bc of vanc. (4) Heart failure with preserved ejection fraction Qualifiers: Heart failure chronicity: chronic Qualified Code(s): I50.32 - Chronic diastolic (congestive) heart failure Assessment/Plan: Starting to develop worse edema between 08/27 and 08/29. This is inspite of negative I/O Continue lasix daily. (5) Anemia of chronic disease Assessment/Plan: As per Hx. He did get a transfusion early in the admission. Follow CBC daily. He was Hgb 7.6 08/27 on 08/27> 7.2/23.9>7.9/25.7>8.1 Transfusion if Hgb <7, unless it is determined that medical care is futile or if [facility] is chosen (by his ). (6) Type 2 diabetes mellitus with complication, with long-term current use of insulin Assessment/Plan: Ng feed and ss Insulin ordered until today. Will transition to clear liquids and see how he does. I had hoped to continue Yusra w tube feeds but he really wants to try and eat AND nursing can't place Yusra per policy and there is no radiologist here. Change insulin from human to humulin for eating. (7) Visual impairment Assessment/Plan: As per Hx He gets eye drops for glaucoma
[2019-09-01] MEDS: INSULIN ASPART 300 UNIT/3 ML PEN SUBQ SCH ×2 (12:26→17:24)
[2019-09-01] MEDS ORDERED: DEXTROSE 50% ABBOJECT 25 GM/50 ML SYRINGE IVP ONE (17:08)
[2019-09-01] MEDS ORDERED: DEXTROSE 50% ABBOJECT 25 GM/50 ML SYRINGE ONE (17:08)
[2019-09-01] MEDS: DEXTROSE 5% 500 ML IV SCH (17:08)
[2019-09-01] MEDS: DEXTROSE 5% 1,000 ML IV SCH (22:13)
[2019-09-02] MEDS: INSULIN REGULAR HUMAN 300 UNIT/3 ML VIAL SUBQ SCH ×4 (00:34→18:41)
[2019-09-02] MEDS: METOCLOPRAMIDE 10 MG/2 ML VIAL IVP SCH ×4 (00:41→18:30)
[2019-09-02] MEDS: SODIUM CHLORIDE FLUSH 0.9% 10 ML SYRINGE IVP SCH ×3 (00:42→17:05)
[2019-09-02] MEDS: METOPROLOL 5 MG/5 ML VIAL IVP SCH ×4 (00:42→18:32)
[2019-09-02 08:05] LABS: CALCIUM 8.5 mg/dL (8.5-10.3); CREATININE 1.9 mg/dL (0.6-1.2); MAGNESIUM 2.4 mg/dL (1.7-2.8); PHOSPHORUS 3.2 mg/dL (2.5-4.6)
[2019-09-02 08:09] LABS: BASOPHILS # (AUTO) 0.1 10^3/uL (0.0-0.1); BASOPHILS % (AUTO) 0.6 %; EOSINOPHILS # (AUTO) 0.1 10^3/uL (0.0-0.7); EOSINOPHILS % (AUTO) 0.8 %; LYMPHOCYTES # (AUTO) 0.8 10^3/uL (1.5-3.5); LYMPHOCYTES % (AUTO) 8.7 %; MEAN CORPUSCULAR HEMOGLOBIN 29.3 pg (27.0-31.0); MEAN CORPUSCULAR HGB CONC 30.8 g/dL (32.0-36.0); MEAN CORPUSCULAR VOLUME 95.2 fL (80.0-94.0); MONOCYTES # (AUTO) 0.7 10^3/uL (0.0-1.0); MONOCYTES % (AUTO) 8.1 %; NEUTROPHILS # (AUTO) 7.1 10^3/uL (1.5-6.6); PLT - PLATELET COUNT 398 10^3/uL (130-450); RED BLOOD COUNT 2.73 10^6/uL (4.70-6.10); RED CELL DISTRIBUTION WIDTH 13.9 % (12.0-15.0); WHITE BLOOD COUNT 8.8 x10^3/uL (4.8-10.8)
[2019-09-02] MEDS: FAMOTIDINE 20 MG/2 ML VIAL IVP SCH ×2 (08:36→21:03)
[2019-09-02] MEDS: FUROSEMIDE 40 MG/4 ML VIAL IVP SCH (08:36)
[2019-09-02] MEDS: hydrALAZINE INJ 20 MG/ML VIAL IVP PRN (08:37)
[2019-09-02] MEDS: ENOXAPARIN 40 MG/0.4 ML SYRINGE SUBQ SCH (08:37)
[2019-09-02] MEDS: BRIMONIDINE 0.2% OPHTH DROPS 5 ML EACHEYE SCH ×2 (08:38→21:02)
[2019-09-02] MEDS: timoloL maleate 0.5% OPHTH DROPS (10ML) EACHEYE SCH (08:39)
[2019-09-02] MEDS: NITROGLYCERIN 0.2 MG/HR PATCH TOP SCH (08:39)
[2019-09-02] MEDS: INSULIN GLARGINE 300 UNIT/3 ML PEN SUBQ SCH (08:55)
--- NOTE | 2019-09-02 11:51 | CT Report ---
Reason: Neuro deficit. Left sided weakness. Procedure Date: 09/02/2019 Accession Number: [id number] / [id number] Procedure: CT - HEAD WO CPT Code: Final Report FULL RESULT: EXAM: CT HEAD EXAM DATE: 09/02/2019 11:21 AM. CLINICAL HISTORY: Neuro deficit. Left-sided weakness. COMPARISON: HEAD W/O 06/23/2019 10:05 PM. TECHNIQUE: Multiaxial CT images were obtained from the foramen magnum to the vertex. Reformats: Sagittal and coronal. IV contrast: None. In accordance with CT protocol optimization, one or more of the following dose reduction techniques were utilized for this exam: automated exposure control, adjustment of mA and/or KV based on patient size, or use of iterative reconstructive technique. FINDINGS: Parenchyma: No intraparenchymal hemorrhage. No evidence of mass, midline shift, or CT findings of infarction. Flaherty-white differentiation is distinct. Extraaxial Spaces: There is mild prominence of the sulci in keeping with mild volume loss. No subdural or epidural collections identified. Ventricles: Normal in size and position. Sinuses and Orbits: Fluid is visible in the right mastoid air cells, which may indicate mastoiditis. Soft tissue density material is seen in the external auditory canals, which may represent cerumen. Bones: No evidence of fracture or calvarial defect. Other: None. IMPRESSION: 1. Findings suggestive of right mastoid air cell inflammation. 2. No acute intracranial hemorrhage. RADIA
[2019-09-02] MEDS: DEXTROSE 5% 1,000 ML IV SCH (12:37)
[2019-09-02] MEDS: SODIUM CHLORIDE FLUSH 0.9% 10 ML SYRINGE IVP PRN ×2 (12:39→17:06)
[2019-09-02] MEDS: SODIUM CHLORIDE 0.9% 1,000 ML IV SCH (18:42)
--- NOTE | 2019-09-02 19:04 | PROVIDER PROGRESS NOTE ---
Subjective - Prog Note Date Prog Note Date: 09/02/19 Prog Note Time: 18:10 - Subjective Pt reports feeling: Improved Subjective: Pt had acute respiratory failure from COVID 19 exposure. He was intubated in the past, now is extubated and back on the medical floor. He had swallow test and was started on pureed diet. He was able to eat without aspirating or coughing his food tonight. He is a diabetic and has sliding scale in place. He is transitioning to oral meds and increasing oral intake, still feels very weak. He has some baseline left sided weakness. Objective - Vital Signs/Intake & Output Reviewed Vital Signs: Yes Vital Signs: Vital Signs x48h Temp Pulse Resp BP BP BP Pulse Ox 09/02/19 18:45 93 157/74 H 09/02/19 18:40 90 167/72 H 09/02/19 18:35 101 H 138/99 H 09/02/19 18:32 178/91 H 09/02/19 18:30 98 171/83 H 09/02/19 16:44 36.7 C 93 16 191/94 H 95 09/02/19 11:45 37.2 C 94 20 163/83 H 94 Intake & Output: Intake & Output 08/30/19 08/31/19 09/01/19 09/02/19 23:59 23:59 23:59 23:59 Intake Total 2953.333 3350.667 2275.020 4277.867 Output Total 3290 4285 2660 2025 Balance -336.667 -934.333 -1549.867 -124.133 - Objective General Appearance: positive: No acute distress Eyes Bilateral: positive: Normal inspection Respiratory: positive: No respiratory distress Cardiovascular: positive: Regular rate & rhythm Neurologic/Psychiatric: positive: Other (left arm is contractured and does not move that as well as right side.) - Lab Results Fish Bones: 09/02/19 07:30 09/02/19 07:30 Other Labs: Lab Results x24hrs 09/02/19 09/02/19 09/02/19 Range/Units 16:40 11:37 07:30 WBC (4.8-10.8) x10^3/uL RBC (4.70-6.10) 10^6/uL Hgb (14.0-18.0) g/dL Hct (42.0-52.0) % MCV (80.0-94.0) fL MCH (27.0-31.0) pg MCHC (32.0-36.0) g/dL RDW (12.0-15.0) % Plt Count (130-450) 10^3/uL MPV (7.4-11.4) fL Neut # (Auto) (1.5-6.6) 10^3/uL Lymph # (Auto) (1.5-3.5) 10^3/uL [place] # (Auto) (0.0-1.0) 10^3/uL Eos # (Auto) (0.0-0.7) 10^3/uL Baso # (Auto) (0.0-0.1) 10^3/uL Absolute Nucleated RBC x10^3/uL Nucleated RBC % /100WBC Sodium 150 H (135-145) mmol/L Potassium 3.5 (3.5-5.0) mmol/L Chloride 112 H (101-111) mmol/L Carbon Dioxide 29 (21-32) mmol/L Anion Gap 9.0 (6-13) BUN 53 H (6-20) mg/dL Creatinine 1.9 H (0.6-1.2) mg/dL Estimated GFR (MDRD) 36 L (>89) Glucose 155 H (70-100) mg/dL POC Whole Bld Glucose 144 H 148 H (70 - 100) mg/dL Calcium 8.5 (8.5-10.3) mg/dL Phosphorus 3.2 (2.5-4.6) mg/dL Magnesium 2.4 (1.7-2.8) mg/dL 09/02/19 09/02/19 09/02/19 Range/Units 07:30 06:13 00:33 WBC 8.8 (4.8-10.8) x10^3/uL RBC 2.73 L (4.70-6.10) 10^6/uL Hgb 8.0 L (14.0-18.0) g/dL Hct 26.0 L (42.0-52.0) % MCV 95.2 H (80.0-94.0) fL MCH 29.3 (27.0-31.0) pg MCHC 30.8 L (32.0-36.0) g/dL RDW 13.9 (12.0-15.0) % Plt Count 398 (130-450) 10^3/uL MPV 12.0 H (7.4-11.4) fL Neut # (Auto) 7.1 H (1.5-6.6) 10^3/uL Lymph # (Auto) 0.8 L (1.5-3.5) 10^3/uL [place] # (Auto) 0.7 (0.0-1.0) 10^3/uL Eos # (Auto) 0.1 (0.0-0.7) 10^3/uL Baso # (Auto) 0.1 (0.0-0.1) 10^3/uL Absolute Nucleated RBC 0.00 x10^3/uL Nucleated RBC % 0.0 /100WBC Sodium (135-145) mmol/L Potassium (3.5-5.0) mmol/L Chloride (101-111) mmol/L Carbon Dioxide (21-32) mmol/L Anion Gap (6-13) BUN (6-20) mg/dL Creatinine (0.6-1.2) mg/dL Estimated GFR (MDRD) (>89) Glucose (70-100) mg/dL POC Whole Bld Glucose 140 H 102 H (70 - 100) mg/dL Calcium (8.5-10.3) mg/dL Phosphorus (2.5-4.6) mg/dL Magnesium (1.7-2.8) mg/dL 09/01/19 09/01/19 Range/Units 20:56 19:37 WBC (4.8-10.8) x10^3/uL RBC (4.70-6.10) 10^6/uL Hgb (14.0-18.0) g/dL Hct (42.0-52.0) % MCV (80.0-94.0) fL MCH (27.0-31.0) pg MCHC (32.0-36.0) g/dL RDW (12.0-15.0) % Plt Count (130-450) 10^3/uL MPV (7.4-11.4) fL Neut # (Auto) (1.5-6.6) 10^3/uL Lymph # (Auto) (1.5-3.5) 10^3/uL [place] # (Auto) (0.0-1.0) 10^3/uL Eos # (Auto) (0.0-0.7) 10^3/uL Baso # (Auto) (0.0-0.1) 10^3/uL Absolute Nucleated RBC x10^3/uL Nucleated RBC % /100WBC Sodium (135-145) mmol/L Potassium (3.5-5.0) mmol/L Chloride (101-111) mmol/L Carbon Dioxide (21-32) mmol/L Anion Gap (6-13) BUN (6-20) mg/dL Creatinine (0.6-1.2) mg/dL Estimated GFR (MDRD) (>89) Glucose (70-100) mg/dL POC Whole Bld Glucose 97 74 (70 - 100) mg/dL Calcium (8.5-10.3) mg/dL Phosphorus (2.5-4.6) mg/dL Magnesium (1.7-2.8) mg/dL Assessment/Plan - Problem List (1) Bilateral pneumonia Impression: Pt is slowly improving, he is able to take in some PO pureed foods without aspirating. (3) Moderate protein-calorie malnutrition Impression: Pt is slowly advancing diet and able to eat a little bit of pureed food.
[2019-09-02] MEDS ORDERED: INSULIN ASPART 300 UNIT/3 ML PEN SUBQ SCH (21:00)
[2019-09-02] MEDS: MIN OIL/DIMETHICON/COCONUT OIL 92 GM TUBE TOP PRN (21:01)
[2019-09-03] MEDS: METOPROLOL 5 MG/5 ML VIAL IVP SCH ×2 (01:42→06:35)
[2019-09-03] MEDS: METOCLOPRAMIDE 10 MG/2 ML VIAL IVP SCH ×4 (01:42→17:10)
[2019-09-03] MEDS: SODIUM CHLORIDE FLUSH 0.9% 10 ML SYRINGE IVP SCH ×3 (01:43→17:13)
[2019-09-03] MEDS: hydrALAZINE INJ 20 MG/ML VIAL IVP PRN (02:57)
[2019-09-03] MEDS: SODIUM CHLORIDE 0.9% 1,000 ML IV SCH ×2 (06:37→17:24)
[2019-09-03 07:58] LABS: BASOPHILS # (AUTO) 0.1 10^3/uL (0.0-0.1); EOSINOPHILS # (AUTO) 0.1 10^3/uL (0.0-0.7); EOSINOPHILS % (AUTO) 1.7 %; HGB - HEMOGLOBIN 7.4 g/dL (14.0-18.0); LYMPHOCYTES # (AUTO) 0.9 10^3/uL (1.5-3.5); LYMPHOCYTES % (AUTO) 12.2 %; MEAN CORPUSCULAR HEMOGLOBIN 29.1 pg (27.0-31.0); MEAN CORPUSCULAR HGB CONC 30.7 g/dL (32.0-36.0); MEAN CORPUSCULAR VOLUME 94.9 fL (80.0-94.0); MEAN PLATELET VOLUME 11.8 fL (7.4-11.4); MONOCYTES # (AUTO) 0.7 10^3/uL (0.0-1.0); MONOCYTES % (AUTO) 9.8 %; NEUTROPHILS # (AUTO) 5.3 10^3/uL (1.5-6.6); NEUTROPHILS % (AUTO) 74.6 %; PLT - PLATELET COUNT 375 10^3/uL (130-450); RED BLOOD COUNT 2.54 10^6/uL (4.70-6.10); RED CELL DISTRIBUTION WIDTH 13.9 % (12.0-15.0); WHITE BLOOD COUNT 7.1 x10^3/uL (4.8-10.8)
[2019-09-03 08:08] LABS: CREATININE 1.9 mg/dL (0.6-1.2); MAGNESIUM 2.5 mg/dL (1.7-2.8); PHOSPHORUS 2.9 mg/dL (2.5-4.6)
[2019-09-03] MEDS ORDERED: POTASSIUM CHLORIDE 20 MEQ/15 ML UDC PO ONE (10:00)
[2019-09-03] MEDS: INSULIN ASPART 300 UNIT/3 ML PEN SUBQ SCH ×4 (10:03→21:09)
[2019-09-03] MEDS: hydrALAZINE 25 MG TABLET PO SCH ×3 (10:20→21:09)
[2019-09-03] MEDS: amLODIPine 5 MG TABLET PO SCH (10:20)
[2019-09-03] MEDS: INSULIN GLARGINE 300 UNIT/3 ML PEN SUBQ SCH (10:20)
[2019-09-03] MEDS: carvediloL 12.5 MG TABLET PO SCH ×2 (10:20→21:09)
[2019-09-03] MEDS: FUROSEMIDE 40 MG/4 ML VIAL IVP SCH (10:27)
[2019-09-03] MEDS: FAMOTIDINE 20 MG/2 ML VIAL IVP SCH ×2 (10:30→21:08)
[2019-09-03] MEDS: NITROGLYCERIN 0.2 MG/HR PATCH TOP SCH (10:32)
[2019-09-03] MEDS: BRIMONIDINE 0.2% OPHTH DROPS 5 ML EACHEYE SCH ×2 (10:36→21:10)
[2019-09-03] MEDS: timoloL maleate 0.5% OPHTH DROPS (10ML) EACHEYE SCH (10:37)
[2019-09-03] MEDS: ENOXAPARIN 40 MG/0.4 ML SYRINGE SUBQ SCH (10:39)
--- NOTE | 2019-09-03 13:41 | PROVIDER PROGRESS NOTE ---
Subjective - Prog Note Date Prog Note Date: 09/03/19 - Subjective Pt reports feeling: Improved Subjective: Pt has been able to eat and drink more. His only complaint is he does not like the taste of the potassium liquid. He is improving everyday. BP has been higher, but with medications adjusted, BP is improved and controlled Objective - Vital Signs/Intake & Output Reviewed Vital Signs: Yes Vital Signs: Vital Signs x48h Temp Pulse Pulse Resp BP BP Pulse Ox 09/03/19 12:57 105 H 142/68 H 09/03/19 11:42 37.2 C 81 18 160/84 H 95 09/03/19 08:45 37.0 C 88 18 187/94 H 93 09/03/19 06:50 83 195/97 H 09/03/19 06:45 88 196/90 H 09/03/19 06:40 91 192/93 H 09/03/19 06:35 184/90 H 09/03/19 05:39 37.0 C 95 18 182/86 H 95 Intake & Output: Intake & Output 08/31/19 09/01/19 09/02/19 09/03/19 23:59 23:59 23:59 23:59 Intake Total 3350.667 4166.334 1963.533 1661.386 Output Total 4285 2660 2925 1675 Balance -934.333 -1549.867 -552.467 -13.614 - Objective General Appearance: positive: No acute distress, Alert Eyes Bilateral: positive: Normal inspection Neck: positive: Other (right neck - central line in place) Respiratory: positive: Chest non-tender Cardiovascular: positive: Regular rate & rhythm Abdomen: positive: Non-tender Extremities: positive: Other (left arm has chronic contracture) Neurologic/Psychiatric: positive: Oriented x3 - Lab Results Fish Bones: 09/03/19 07:40 09/03/19 07:40 Other Labs: Lab Results x24hrs 09/03/19 09/03/19 09/03/19 Range/Units 11:21 07:42 07:40 WBC (4.8-10.8) x10^3/uL RBC (4.70-6.10) 10^6/uL Hgb (14.0-18.0) g/dL Hct (42.0-52.0) % MCV (80.0-94.0) fL MCH (27.0-31.0) pg MCHC (32.0-36.0) g/dL RDW (12.0-15.0) % Plt Count (130-450) 10^3/uL MPV (7.4-11.4) fL Neut # (Auto) (1.5-6.6) 10^3/uL Lymph # (Auto) (1.5-3.5) 10^3/uL [place] # (Auto) (0.0-1.0) 10^3/uL Eos # (Auto) (0.0-0.7) 10^3/uL Baso # (Auto) (0.0-0.1) 10^3/uL Absolute Nucleated RBC x10^3/uL Nucleated RBC % /100WBC Sodium 144 (135-145) mmol/L Potassium 3.1 L (3.5-5.0) mmol/L Chloride 111 (101-111) mmol/L Carbon Dioxide 25 (21-32) mmol/L Anion Gap 8.0 (6-13) BUN 49 H (6-20) mg/dL Creatinine 1.9 H (0.6-1.2) mg/dL Estimated GFR (MDRD) 36 L (>89) Glucose 170 H (70-100) mg/dL POC Whole Bld Glucose 222 H 105 H (70 - 100) mg/dL Calcium 8.0 L (8.5-10.3) mg/dL Phosphorus 2.9 (2.5-4.6) mg/dL Magnesium 2.5 (1.7-2.8) mg/dL 09/03/19 09/02/19 09/02/19 Range/Units 07:40 20:41 16:40 WBC 7.1 (4.8-10.8) x10^3/uL RBC 2.54 L (4.70-6.10) 10^6/uL Hgb 7.4 L (14.0-18.0) g/dL Hct 24.1 L (42.0-52.0) % MCV 94.9 H (80.0-94.0) fL MCH 29.1 (27.0-31.0) pg MCHC 30.7 L (32.0-36.0) g/dL RDW 13.9 (12.0-15.0) % Plt Count 375 (130-450) 10^3/uL MPV 11.8 H (7.4-11.4) fL Neut # (Auto) 5.3 (1.5-6.6) 10^3/uL Lymph # (Auto) 0.9 L (1.5-3.5) 10^3/uL [place] # (Auto) 0.7 (0.0-1.0) 10^3/uL Eos # (Auto) 0.1 (0.0-0.7) 10^3/uL Baso # (Auto) 0.1 (0.0-0.1) 10^3/uL Absolute Nucleated RBC 0.00 x10^3/uL Nucleated RBC % 0.0 /100WBC Sodium (135-145) mmol/L Potassium (3.5-5.0) mmol/L Chloride (101-111) mmol/L Carbon Dioxide (21-32) mmol/L Anion Gap (6-13) BUN (6-20) mg/dL Creatinine (0.6-1.2) mg/dL Estimated GFR (MDRD) (>89) Glucose (70-100) mg/dL POC Whole Bld Glucose 199 H 144 H (70 - 100) mg/dL Calcium (8.5-10.3) mg/dL Phosphorus (2.5-4.6) mg/dL Magnesium (1.7-2.8) mg/dL Assessment/Plan - Problem List (1) Bilateral pneumonia Impression: COVID viral pneumonia - Improving daily off of ventilator, continuing to gain strength when discussing with PT (3) Moderate protein-calorie malnutrition Impression: Pt is eating pureed diet without issue, drinking plenty of fluids (5) Hypokalemia Impression: Replaced with oral potassium, will monitor (6) Anemia of chronic disease Impression: Stable for now
[2019-09-03] MEDS: DOCUSATE SODIUM 250 MG CAPSULE PO SCH (17:13)
[2019-09-03] MEDS: polyethylene glycoL 3350 17 GM PACKET PO SCH (17:13)
[2019-09-03] MEDS: SENNA 8.6 MG TABLET PO SCH (17:13)
[2019-09-04] MEDS: METOCLOPRAMIDE 10 MG/2 ML VIAL IVP SCH ×3 (01:05→12:43)
[2019-09-04] MEDS: SODIUM CHLORIDE FLUSH 0.9% 10 ML SYRINGE IVP PRN (01:06)
[2019-09-04] MEDS: SODIUM CHLORIDE FLUSH 0.9% 10 ML SYRINGE IVP SCH ×2 (01:06→09:05)
[2019-09-04] MEDS: hydrALAZINE INJ 20 MG/ML VIAL IVP PRN (01:08)
[2019-09-04] MEDS: hydrALAZINE 25 MG TABLET PO SCH ×2 (05:09→14:42)
[2019-09-04 06:02] LABS: BASOPHILS # (AUTO) 0.1 10^3/uL (0.0-0.1); EOSINOPHILS # (AUTO) 0.2 10^3/uL (0.0-0.7); EOSINOPHILS % (AUTO) 2.9 %; HGB - HEMOGLOBIN 7.1 g/dL (14.0-18.0); LYMPHOCYTES # (AUTO) 1.1 10^3/uL (1.5-3.5); LYMPHOCYTES % (AUTO) 16.8 %; MEAN CORPUSCULAR HEMOGLOBIN 28.7 pg (27.0-31.0); MEAN CORPUSCULAR HGB CONC 30.7 g/dL (32.0-36.0); MEAN CORPUSCULAR VOLUME 93.5 fL (80.0-94.0); MONOCYTES # (AUTO) 0.7 10^3/uL (0.0-1.0); NEUTROPHILS # (AUTO) 4.3 10^3/uL (1.5-6.6); NEUTROPHILS % (AUTO) 67.5 %; PLT - PLATELET COUNT 344 10^3/uL (130-450); RED BLOOD COUNT 2.47 10^6/uL (4.70-6.10); RED CELL DISTRIBUTION WIDTH 13.7 % (12.0-15.0); WHITE BLOOD COUNT 6.3 x10^3/uL (4.8-10.8)
[2019-09-04 06:21] LABS: CALCIUM 7.8 mg/dL (8.5-10.3); CREATININE 1.8 mg/dL (0.6-1.2)
[2019-09-04 06:22] LABS: PHOSPHORUS 2.4 mg/dL (2.5-4.6)
[2019-09-04] MEDS: INSULIN ASPART 300 UNIT/3 ML PEN SUBQ SCH ×2 (08:58→12:44)
[2019-09-04] MEDS: SENNA 8.6 MG TABLET PO SCH (09:01)
[2019-09-04] MEDS: carvediloL 12.5 MG TABLET PO SCH (09:01)
[2019-09-04] MEDS: DOCUSATE SODIUM 250 MG CAPSULE PO SCH (09:01)
[2019-09-04] MEDS: amLODIPine 5 MG TABLET PO SCH (09:01)
[2019-09-04] MEDS: NITROGLYCERIN 0.2 MG/HR PATCH TOP SCH (09:02)
[2019-09-04] MEDS: INSULIN GLARGINE 300 UNIT/3 ML PEN SUBQ SCH (09:03)
[2019-09-04] MEDS: BRIMONIDINE 0.2% OPHTH DROPS 5 ML EACHEYE SCH (09:03)
[2019-09-04] MEDS: timoloL maleate 0.5% OPHTH DROPS (10ML) EACHEYE SCH (09:03)
[2019-09-04] MEDS: polyethylene glycoL 3350 17 GM PACKET PO SCH (09:04)
[2019-09-04] MEDS: ENOXAPARIN 40 MG/0.4 ML SYRINGE SUBQ SCH (09:04)
[2019-09-04] MEDS ORDERED: ACETAMINOPHEN 325 MG TABLET PO PRN (12:01)
[2019-09-04] MEDS ORDERED: LACTOBACILLUS RHAMNOSUS GG CAPSULE PO SCH (13:00)
[2019-09-04] MEDS ORDERED: MULTIVITAMIN W/MINERALS TABLET PO SCH (13:00)
--- NOTE | 2019-09-04 13:14 | Discharge Plan ---
"Discharge Plan for SNF / [facility] - Discharge Plan And Transition Orders Problem Reviewed?: Yes Disposition: 03 SNF DC/Xfer Condition: Stable Allergies and Adverse Reactions: Allergies Allergy/AdvReac Type Severity Reaction Status Date / Time No Known Drug Allergies Allergy Verified 08/19/19 05:24 Health Concerns: Recent diagnosis of Covid-19, will need to be retested if need by facility. (Can be done by facility after d/c, if needed per protocol.) - SNF / PENITENTI[facility] Transition Orders Admit to (Facility): Carriage Discharge Diagnosis: Viral Pneumonia, Covid-19 Medicare Certification Statement: I certify that [facility] is medically necessary on a continuing basis for any of the conditions for which she/he is receiving care during hospitalization. Notify PCP of admission and forward orders to primary provider for signature. Weight on admission and: Weekly Other Notification Orders: Call PCP immediately if patient develops dyspnea, chest pain/tightness or edema. House Bowel Program: Yes Additional Bowel Program Orders: If no BM after 2 days, nurse may give M.O.M. 30ml PO PRN and/or ducolax Supp 1 IN and/or JORGE LUIS 250mg P.O., and/or senna 1-2 tabs PO. On day 3 nurse may give repeat above order until residents constipation is resolved. Annual Influenza Vaccine (between Jan 29 and August 28): Yes Two-step PPD per [facility] [id number] or approved exception documents: Yes Medication Orders: PLEASE REFER TO THE DISCHARGE MEDICATION LIST. - Therapies | Activity Therapy: Evaluation | Treat if indicated: PT, OT, Swallowing / ST Rehabilitation Potential: Maximize functional status Activity: No Restrictions Weight Bearing: Full Weight Follow Up: With PCP via telemedicine in 1 week."
[2019-09-04 13:21] VITALS: BP 136/69
[2019-09-04] MEDS ORDERED: hydrALAZINE 25 MG TABLET PO SCH (14:00)
[2019-09-04] MEDS ORDERED: INSULIN ASPART 300 UNIT/3 ML PEN SUBQ SCH (17:00)
[2019-09-05] MEDS ORDERED: hydroCHLOROthiazide 25 MG TABLET PO SCH (09:00)
[2019-09-05] MEDS ORDERED: NON FORMULARY MED (Amlodipine Besylate [Amlodipine Besylate] 10 MG) PO SCH (09:00)
[2019-09-05] MEDS ORDERED: ATORVASTATIN 10 MG TABLET PO SCH (09:00)
--- NOTE | 2019-09-05 18:15 | DISCHARGE SUMMARY ---
Discharge Summary Admit Date: 08/19/19 Discharge Date: 09/04/19 Discharging Provider: Tavo Latif MD Primary Care Provider: Leyda Montano MD Code Status: Attempt Resuscitation Condition at Discharge: Good Discharge Disposition: 03 SNF DC/Xfer - DIAGNOSES Admission Diagnoses: Bilateral pneumonia secondary to 2019 coronavirus Acute respiratory failure with hypoxia Chest pain Elevated troponin CON Chronic congestive heart failure with preserved ejection fraction Type 2 diabetes Glaucoma Hypertension Moderate protein calorie malnutrition Weakness Anemia of chronic disease Discharge Diagnoses with Status of Each Condition: Covid-19 Bilateral pneumonia: Pneumonia resolved, patient successfully extubated. Maintained on room air for several days prior to discharge. Repeat testing demonstrating a negative coronavirus test was not done prior to discharge due to timing and will be done at the nursing facility after discharge. Hypertension: Hypertension resolved with active medical management Acute kidney injury: Resolved Heart failure with preserved ejection fraction: Stable at discharge Anemia of chronic disease: Stable at discharge Type 2 diabetes mellitus: Stable at discharge - HPI History of Present Illness: The patient was brought in early this morning from [facility] for concerns of the novel smith virus, which a sample was sent on 08/15/2019. Imagi ng shows bilateral pneumonia. The patient is hypoxic requiring 2-3L nasal cannula with a baseline of room air, & for ongoing fevers. For the past few weeks, the patient states that his oxygen saturation was noted to be low, with shortness of breath. On Wednesday, while at [facility] rehab the patient was placed on isolation due to his symptoms, a fever of 101.8 F. Each day became worse regarding symptoms, and last night the patient states, "it was the worst feeling in the world, not being able to breath". He was put on oxygen, but he normally is not oxygen dependent. Initially, the patient states that he had chest pain related to being so short of breath. He described this as it was like, "somet bronson was on my chest and I could just not get air in". The patient has great suspicion of COVID given the course of illness, fever, cough, hypoxia and imaging to confirm bilateral pneumonia. He confirms his code status as FULL. He has been admitted to inpatient and we are awaiting the final COVID testing results.Dr. Katherine Ortega - CONSULTS | PROCEDURES Procedures: Intubation and mechanical ventilation - HOSPITAL COURSE Hospital Course: The patient was getting rehabilitation at [facility], a local senior living facility. Unfortunately he became positive with Kovic 19. He was placed in isolation due to his symptoms, had a fever of 101.8. Each day he became worse regarding symptoms and was placed on oxygen the day before admission. He was admitted August 18. By August 20 his chest x-ray had chente out and he had to be intubated for acute hypoxic respiratory failure with ARDS and transferred to the ICU. He was been extubated on 08/29, is still very weak, tired, but was able to get off NG tube feeds now on dysphagia diet. He was treated empirically with azithromycin x4 days, Zosyn x7 days, vancomycin x4 days, Plaquenil x4 days, Flagyl x7 days. 08/28 CXR showed slight interval improvment from last CXR. - ALLERGIES Allergies/Adverse Reactions: Allergies Allergy/AdvReac Type Severity Reaction Status Date / Time No Known Drug Allergies Allergy Verified 08/19/19 05:24 - MEDICATIONS Home Medications: Ambulatory Orders Medication Instructions Recorded Confirmed Losartan [Cozaar] 100 mg PO DAILY 09/17/16 08/19/19 Brimonidine 0.2% Ophth Drops 1 drops EACHEYE BID 06/29/18 08/19/19 [Alphagan P 0.2% Ophth Drops] Amlodipine Besylate 10 mg PO DAILY 05/27/19 08/19/19 Insulin Glargine [Lantus Solostar] 10 units SQ DAILY 05/27/19 08/19/19 Insulin Aspart [NovoLOG] 1 - 9 unit SUBQ 06/01/19 08/19/19 0800,1200,1700,2100 #2 pen Lactobacillus Rhamnosus GG 1 cap PO DAILY #14 capsule 06/01/19 08/19/19 [Culturelle] Multivitamin W/Minerals [Theragran 1 tab PO DAILY@1200 #30 tablet 06/01/19 08/19/19 M] hydrALAZINE [Apresoline] 25 mg PO TID #90 tablet 06/26/19 08/19/19 Acetaminophen [Tylenol] 650 mg PO Q6H PRN 08/19/19 08/19/19 Atorvastatin Calcium 10 mg DAILY 08/19/19 08/19/19 Carvedilol [Coreg] 6.25 mg PO BID 08/19/19 08/19/19 Timolol 0.5% Ophth Drops [Timoptic 1 drops EACHEYE DAILY 08/19/19 08/19/19 0.5% Ophth Drops] hydroCHLOROthiazide 25 mg DAILY 08/19/19 08/19/19 [Hydrochlorothiazide] - PHYSICAL EXAM AT DISCHARGE General Appearance: positive: No acute distress Eyes Bilateral: positive: Normal inspection ENT: positive: ENT inspection nml Neck: positive: Nml inspection, Thyroid nml, No JVD Respiratory: positive: Chest non-tender, No respiratory distress, Breath sounds nml Cardiovascular: positive: Regular rate & rhythm, No murmur, No gallop Abdomen: positive: Non-tender, No organomegaly, Nml bowel sounds Skin: positive: Color nml Extremities: positive: Pedal edema Neurologic/Psychiatric: positive: Oriented x3, Sensation nml - LABS Result Diagrams: 09/04/19 04:55 09/04/19 04:55 - DIAGNOSTIC IMAGING Diagnostic Imaging Results: Final report reviewed - FOLLOW UP Follow Up: PCP Via phone conference - TIME SPENT Time Spent in Discharge (Minutes): 36
== END 2019-09-04 14:10 | DRG 207 ==
LOC: EDBD → EDUNIT# → ED 05:07 → MS2 06:27 → ICU 08-21 09:23 → MS2 09-01 15:11
PROVIDERS: ADMIT Internal Medicine; ATTEND Family Medicine Sports Medicine
PROC: 30233N1 Transfusion of Nonautologous Red Blood Cells into Peripheral Vein, Percutaneous Approach (ICD-10-PCS; 2019-08-20)
PROC: 5A1955Z Respiratory Ventilation, Greater than 96 Consecutive Hours (ICD-10-PCS; principal; 2019-08-21)
PROC: 0BH17EZ Insertion of Endotracheal Airway into Trachea, Via Natural or Artificial Opening (ICD-10-PCS; 2019-08-21)
PROC: 03HY32Z Insertion of Monitoring Device into Upper Artery, Percutaneous Approach (ICD-10-PCS; 2019-08-21)
PROC: 02HV33Z Insertion of Infusion Device into Superior Vena Cava, Percutaneous Approach (ICD-10-PCS; 2019-08-21)
PROC: B548ZZA Ultrasonography of Superior Vena Cava, Guidance (ICD-10-PCS; 2019-08-21)
DX: J18.9 Pneumonia, unspecified organism (principal); U07.1 COVID-19; I50.9 Heart failure, unspecified; I13.0 Hypertensive heart and chronic kidney disease with heart failure and stage 1 through stage 4 chronic kidney disease, or unspecified chronic kidney disease; J12.89 Other viral pneumonia; N18.3 Chronic kidney disease, stage 3 (moderate); N18.6 End stage renal disease; J80 Acute respiratory distress syndrome; I50.33 Acute on chronic diastolic (congestive) heart failure; N17.9 Acute kidney failure, unspecified; I13.2 Hypertensive heart and chronic kidney disease with heart failure and with stage 5 chronic kidney disease, or end stage renal disease; E44.0 Moderate protein-calorie malnutrition; R64 Cachexia; E87.0 Hyperosmolality and hypernatremia; L89.151 Pressure ulcer of sacral region, stage 1; D63.8 Anemia in other chronic diseases classified elsewhere; E11.22 Type 2 diabetes mellitus with diabetic chronic kidney disease; E11.42 Type 2 diabetes mellitus with diabetic polyneuropathy; E11.51 Type 2 diabetes mellitus with diabetic peripheral angiopathy without gangrene; E11.319 Type 2 diabetes mellitus with unspecified diabetic retinopathy without macular edema; Z68.22 Body mass index [BMI] 22.0-22.9, adult; E87.6 Hypokalemia; R63.0 Anorexia; N40.1 Benign prostatic hyperplasia with lower urinary tract symptoms; R35.1 Nocturia; R35.0 Frequency of micturition; R39.15 Urgency of urination; K21.9 Gastro-esophageal reflux disease without esophagitis; R79.89 Other specified abnormal findings of blood chemistry; K59.00 Constipation, unspecified; F40.240 Claustrophobia; H40.89 Other specified glaucoma; H35.30 Unspecified macular degeneration; F03.90 Unspecified dementia, unspecified severity, without behavioral disturbance, psychotic disturbance, mood disturbance, and anxiety; M19.90 Unspecified osteoarthritis, unspecified site; Z77.22 Contact with and (suspected) exposure to environmental tobacco smoke (acute) (chronic); Z78.1 Physical restraint status; Z79.4 Long term (current) use of insulin; Z79.899 Other long term (current) drug therapy; Z59.1 Inadequate housing
CPT/HCPCS: 36415; 36600; 70450; 71045; 74018; 80048; 80053; 80076; 80202; 81001; 82040; 82330; 82803; 83036; 83605; 83690; 83735; 83880; 84100; 84134; 84443; 84484; 85025; 85610; 85730; 86850; 86900; 86901; 86920; 87040; 87070; 87086; 87150; 87205; 93005; 93306; 94002; 94003; 94640; 96365; 96375; 97163; 97167; 97530; 99285; 99291; A6250; A9270; J0131; J1650; J1815; J1940; J2765; J3370; J3490; J7120; P9016; 80306; 80320; 81003; 90670; 90686; 94770

== ENCOUNTER 2019-09-04 14:11 | Outpatient (CLI) | payer MEDICARE | END 2019-09-04 14:12 | disposition home or self-care (01) | LOC: EMS 14:11 | PROVIDERS: ATTEND Surgery | DX: U07.1 COVID-19 (principal); J12.89 Other viral pneumonia | CPT/HCPCS: A0425; A0428 ==

== ENCOUNTER 2019-09-11 14:50 | Outpatient (CLI) | payer MEDICARE ==
[2019-09-11 15:41] LABS: BASOPHILS % (AUTO) 0.9 %; EOSINOPHILS # (AUTO) 0.2 10^3/uL (0.0-0.7); EOSINOPHILS % (AUTO) 3.5 %; LYMPHOCYTES # (AUTO) 0.7 10^3/uL (1.5-3.5); MEAN CORPUSCULAR HGB CONC 30.5 g/dL (32.0-36.0); MEAN CORPUSCULAR VOLUME 91.8 fL (80.0-94.0); MEAN PLATELET VOLUME 12.1 fL (7.4-11.4); MONOCYTES # (AUTO) 0.5 10^3/uL (0.0-1.0); MONOCYTES % (AUTO) 11.8 %; NEUTROPHILS # (AUTO) 2.9 10^3/uL (1.5-6.6); NEUTROPHILS % (AUTO) 67.6 %; PLT - PLATELET COUNT 329 10^3/uL (130-450); RED BLOOD COUNT 2.32 10^6/uL (4.70-6.10); RED CELL DISTRIBUTION WIDTH 15.3 % (12.0-15.0); WHITE BLOOD COUNT 4.3 x10^3/uL (4.8-10.8)
[2019-09-11 15:48] LABS: HGB - HEMOGLOBIN 6.5 g/dL (14.0-18.0)
[2019-09-11 16:14] LABS: PLATELET MORPHOLOGY NORMAL APPEARANCE (NORMAL)
[2019-09-11 16:15] LABS: PLATELET ESTIMATE, MANUAL NORMAL (130-450,000) (NORMAL)
== END 2019-09-11 23:59 | disposition home or self-care (01) ==
LOC: LAB.R 14:50
PROVIDERS: ATTEND Family Medicine
DX: D50.9 Iron deficiency anemia, unspecified (principal); E11.9 Type 2 diabetes mellitus without complications; E86.0 Dehydration
CPT/HCPCS: 80048; 85025

== ENCOUNTER 2019-09-12 11:28 | Outpatient (CLI) | payer MEDICARE | END 2019-09-12 11:29 | disposition critical access hospital (66) | LOC: EMS 11:28 | PROVIDERS: ATTEND Surgery | DX: R53.1 Weakness (principal); U07.1 COVID-19 ==

== ENCOUNTER 2019-09-12 21:52 | Outpatient (CLI) | payer MEDICARE | END 2019-09-12 23:59 | disposition home or self-care (01) | LOC: EMS 21:52 | PROVIDERS: ATTEND Surgery | DX: U07.1 COVID-19 (principal); R53.1 Weakness | CPT/HCPCS: A0425; A0428; A0429 ==

== ENCOUNTER 2019-09-13 08:00 | Outpatient (CLI) | payer MEDICARE ==
[2019-09-13 17:40] LABS: BASOPHILS # (AUTO) 0.1 10^3/uL (0.0-0.1); EOSINOPHILS # (AUTO) 0.2 10^3/uL (0.0-0.7); EOSINOPHILS % (AUTO) 4.3 %; HGB - HEMOGLOBIN 9.9 g/dL (14.0-18.0); LYMPHOCYTES # (AUTO) 0.7 10^3/uL (1.5-3.5); LYMPHOCYTES % (AUTO) 13.4 %; MEAN CORPUSCULAR HEMOGLOBIN 30.5 pg (27.0-31.0); MEAN CORPUSCULAR VOLUME 92.3 fL (80.0-94.0); MEAN PLATELET VOLUME 11.9 fL (7.4-11.4); MONOCYTES # (AUTO) 0.6 10^3/uL (0.0-1.0); MONOCYTES % (AUTO) 12.4 %; NEUTROPHILS # (AUTO) 3.4 10^3/uL (1.5-6.6); NEUTROPHILS % (AUTO) 68.5 %; PLT - PLATELET COUNT 345 10^3/uL (130-450); RED BLOOD COUNT 3.25 10^6/uL (4.70-6.10); RED CELL DISTRIBUTION WIDTH 15.3 % (12.0-15.0); WHITE BLOOD COUNT 4.9 x10^3/uL (4.8-10.8)
[2019-09-13 17:56] LABS: CALCIUM 8.1 mg/dL (8.5-10.3); CREATININE 1.6 mg/dL (0.6-1.2)
== END 2019-09-13 23:59 | disposition home or self-care (01) ==
LOC: LAB.R 08:00
DX: E11.69 Type 2 diabetes mellitus with other specified complication (principal)
CPT/HCPCS: 80048; 85025

== ENCOUNTER 2019-09-30 08:50 | Outpatient (CLI) | payer MEDICARE, MEDICAID ==
[2019-09-30 12:08] LABS: BASOPHILS # (AUTO) 0.1 10^3/uL (0.0-0.1); BASOPHILS % (AUTO) 1.1 %; EOSINOPHILS # (AUTO) 0.2 10^3/uL (0.0-0.7); EOSINOPHILS % (AUTO) 3.7 %; HGB - HEMOGLOBIN 9.9 g/dL (14.0-18.0); LYMPHOCYTES # (AUTO) 1.2 10^3/uL (1.5-3.5); LYMPHOCYTES % (AUTO) 20.8 %; MEAN CORPUSCULAR HEMOGLOBIN 30.4 pg (27.0-31.0); MEAN PLATELET VOLUME 11.8 fL (7.4-11.4); MONOCYTES # (AUTO) 0.7 10^3/uL (0.0-1.0); MONOCYTES % (AUTO) 11.9 %; NEUTROPHILS # (AUTO) 3.5 10^3/uL (1.5-6.6); NEUTROPHILS % (AUTO) 62.1 %; PLT - PLATELET COUNT 319 10^3/uL (130-450); RED BLOOD COUNT 3.26 10^6/uL (4.70-6.10); RED CELL DISTRIBUTION WIDTH 14.9 % (12.0-15.0); WHITE BLOOD COUNT 5.6 x10^3/uL (4.8-10.8)
[2019-09-30 12:12] LABS: BILIRUBIN,URINE NEGATIVE (NEGATIVE); CLARITY,URINE CLOUDY (CLEAR); GLUCOSE, URINE (UA) NEGATIVE (NEGATIVE); KETONES,URINE (UA) NEGATIVE (NEGATIVE); LEUKOCYTE ESTERASE, URINE LARGE (NEGATIVE); NITRITE,URINE NEGATIVE (NEGATIVE); OCCULT BLOOD,URINE TRACE-INTA (NEGATIVE); PROTEIN,URINE 100 mg/dL (NEGATIVE); UROBILINOGEN,URINE 0.2 (NORMAL) E.U./dL (NORMAL)
[2019-09-30 12:14] LABS: CALCIUM 8.6 mg/dL (8.5-10.3); CREATININE 1.4 mg/dL (0.6-1.2)
[2019-09-30 12:19] LABS: BACTERIA,URINE Rare /HPF (None Seen); RBC,URINE None Seen /HPF (0-5); SQUAMOUS EPITHELIAL CELL,UR NONE SEEN (<= Few)
== END 2019-09-30 23:59 | disposition home or self-care (01) ==
LOC: LAB.R 08:50
DX: D64.9 Anemia, unspecified (principal); E11.9 Type 2 diabetes mellitus without complications; I50.32 Chronic diastolic (congestive) heart failure; C11.9 Malignant neoplasm of nasopharynx, unspecified; R30.0 Dysuria
CPT/HCPCS: 80048; 81001; 81003; 85025; 87086

== ENCOUNTER 2019-10-13 19:35 | Outpatient (CLI) | payer MEDICARE, MEDICAID ==
[2019-10-13 20:34] LABS: BASOPHILS # (AUTO) 0.1 10^3/uL (0.0-0.1); EOSINOPHILS # (AUTO) 0.3 10^3/uL (0.0-0.7); EOSINOPHILS % (AUTO) 3.7 %; HGB - HEMOGLOBIN 8.6 g/dL (14.0-18.0); LYMPHOCYTES # (AUTO) 1.2 10^3/uL (1.5-3.5); LYMPHOCYTES % (AUTO) 15.2 %; MEAN CORPUSCULAR HEMOGLOBIN 31.3 pg (27.0-31.0); MEAN CORPUSCULAR VOLUME 94.9 fL (80.0-94.0); MEAN PLATELET VOLUME 11.9 fL (7.4-11.4); MONOCYTES # (AUTO) 0.9 10^3/uL (0.0-1.0); MONOCYTES % (AUTO) 10.7 %; NEUTROPHILS # (AUTO) 5.5 10^3/uL (1.5-6.6); NEUTROPHILS % (AUTO) 68.9 %; PLT - PLATELET COUNT 328 10^3/uL (130-450); RED BLOOD COUNT 2.75 10^6/uL (4.70-6.10); RED CELL DISTRIBUTION WIDTH 15.6 % (12.0-15.0); WHITE BLOOD COUNT 7.9 x10^3/uL (4.8-10.8)
[2019-10-13 20:39] LABS: CALCIUM 8.4 mg/dL (8.5-10.3); CREATININE 1.6 mg/dL (0.6-1.2)
== END 2019-10-13 23:59 | disposition home or self-care (01) ==
LOC: LAB.R 19:35
PROVIDERS: ATTEND Family Medicine
DX: E11.9 Type 2 diabetes mellitus without complications (principal); D50.9 Iron deficiency anemia, unspecified
CPT/HCPCS: 80048; 85025

== ENCOUNTER 2019-10-18 13:00 | Outpatient (CLI) | payer MEDICARE, MEDICAID ==
[2019-10-18 13:43] LABS: BASOPHILS # (AUTO) 0.1 10^3/uL (0.0-0.1); BASOPHILS % (AUTO) 1.2 %; EOSINOPHILS # (AUTO) 0.2 10^3/uL (0.0-0.7); EOSINOPHILS % (AUTO) 2.7 %; LYMPHOCYTES % (AUTO) 12.5 %; MEAN CORPUSCULAR HEMOGLOBIN 30.9 pg (27.0-31.0); MEAN CORPUSCULAR HGB CONC 32.9 g/dL (32.0-36.0); MEAN CORPUSCULAR VOLUME 93.8 fL (80.0-94.0); MEAN PLATELET VOLUME 12.1 fL (7.4-11.4); MONOCYTES # (AUTO) 0.8 10^3/uL (0.0-1.0); MONOCYTES % (AUTO) 10.7 %; NEUTROPHILS # (AUTO) 5.6 10^3/uL (1.5-6.6); NEUTROPHILS % (AUTO) 72.5 %; PLT - PLATELET COUNT 255 10^3/uL (130-450); RED BLOOD COUNT 2.59 10^6/uL (4.70-6.10); RED CELL DISTRIBUTION WIDTH 15.9 % (12.0-15.0); WHITE BLOOD COUNT 7.8 x10^3/uL (4.8-10.8)
[2019-10-18 14:16] LABS: CALCIUM 8.4 mg/dL (8.5-10.3); CREATININE 1.6 mg/dL (0.6-1.2); CRP - C-REACTIVE PROTEIN 1.1 mg/dL (0-1.0)
== END 2019-10-18 23:59 | disposition home or self-care (01) ==
LOC: LAB.R 13:00
DX: D64.9 Anemia, unspecified (principal); I74.3 Embolism and thrombosis of arteries of the lower extremities; E87.6 Hypokalemia; R26.2 Difficulty in walking, not elsewhere classified; E11.69 Type 2 diabetes mellitus with other specified complication
CPT/HCPCS: 80048; 83090; 83921; 85025; 85651; 86140

== ENCOUNTER 2019-10-20 15:44 | Outpatient (CLI) | payer MEDICARE, MEDICAID ==
--- NOTE | 2019-10-20 21:26 | XRAY Report ---
Reason: GREAT TOES (BILAT) Procedure Date: 10/20/2019 Accession Number: [id number] / [id number] Procedure: XR - Toe(s) BILAT CPT Code: Final Report FULL RESULT: EXAM: BILATERAL TOE RADIOGRAPHY EXAM DATE: 10/20/2019 05:05 PM. CLINICAL HISTORY: Toe pain, suspect osteomyelitis. COMPARISON: None. TECHNIQUE: One view each. FINDINGS: Bones: Normal. No fracture or bone lesion. Joints: Mild hallux valgus noted bilaterally. No subluxations. Soft Tissues: Vascular calcifications are present. No soft tissue swelling. IMPRESSION: Mild hallux valgus with vascular calcifications noted. No acute fracture. RADIA
--- NOTE | 2019-10-23 09:30 | Ultrasound Report ---
Reason: EMBOLISM AND THROMBOSIS OF ARTERIES LWR EX Procedure Date: 10/20/2019 Accession Number: [id number] / [id number] Procedure: US - Duplex Lwr Ext Arterial Bilat CPT Code: Final Report FULL RESULT: EXAM: BILATERAL LOWER EXTREMITY ARTERIAL DOPPLER ULTRASOUND EXAM DATE: 10/20/2019 07:19 PM. CLINICAL HISTORY: Embolism and thrombosis of arteries lower extremities. COMPARISON: None. TECHNIQUE: Real-time sonographic vascular imaging was performed by the community representative, utilizing color-flow, Doppler flow, and spectral analysis. Multiple account manager sales representative static images were saved for review. FINDINGS: Right Leg: STABLE ATTENDANT: PSV 128 cm/sec. Biphasic waveform. PSFA: PSV 81 cm/sec. Biphasic waveform. MSFA: PSV 87 cm/sec. Biphasic waveform. DSFA: PSV 83 cm/sec. Biphasic waveform. PFA: PSV 167 cm/sec. Biphasic waveform. POP: PSV 52 cm/sec. Biphasic waveform. KIT: PSV 12 cm/sec. Monophasic waveform. ASPHALT PATCHER: PSV 27 cm/sec. Monophasic waveform. PER: PSV 39 cm/sec. Monophasic waveform. DPA: PSV 39 cm/sec. Monophasic waveform. Left Leg: STABLE ATTENDANT: PSV 114 cm/sec. Biphasic waveform. PSFA: PSV 172 cm/sec. Biphasic waveform. MSFA: PSV 78 cm/sec. Triphasic waveform. DSFA: PSV 80 cm/sec. Triphasic waveform. PFA: PSV 92 cm/sec. Triphasic waveform. POP: PSV 103 cm/sec. Monophasic waveform. KIT: PSV 21 cm/sec. Monophasic waveform. ASPHALT PATCHER: PSV 49 cm/sec. Monophasic waveform. PER: PSV 23 cm/sec. Monophasic waveform. DPA: PSV 60 cm/sec. Monophasic waveform. Diffuse atherosclerotic plaquing bilaterally. IMPRESSION: 1. Hemodynamically significant (> 50%) stenosis right profunda femoris artery. 2. Mild to moderate (<50%) stenosis proximal left superficial femoral artery. 3. Monophasic flow in the calf vessels bilaterally. RADIA
== END 2019-10-20 15:45 | disposition home or self-care (01) ==
LOC: DI 15:44
PROVIDERS: ATTEND Family Medicine
DX: I70.203 Unspecified atherosclerosis of native arteries of extremities, bilateral legs (principal); M20.12 Hallux valgus (acquired), left foot; M20.11 Hallux valgus (acquired), right foot
CPT/HCPCS: 73660; 93925

== ENCOUNTER 2019-11-10 16:45 | Outpatient (CLI) | payer MEDICARE, MEDICAID ==
[2019-11-10 17:53] LABS: ALBUMIN 3.1 g/dL (3.2-5.5); ALBUMIN/GLOBULIN RATIO 0.9 (1.0-2.2); BILIRUBIN,TOTAL 0.5 mg/dL (0.2-1.0); CALCIUM 8.3 mg/dL (8.5-10.3); CREATININE 1.6 mg/dL (0.6-1.2); TOTAL PROTEIN 6.4 g/dL (6.7-8.2)
[2019-11-10 17:58] LABS: BASOPHILS # (AUTO) 0.1 10^3/uL (0.0-0.1); BASOPHILS % (AUTO) 1.4 %; EOSINOPHILS # (AUTO) 0.3 10^3/uL (0.0-0.7); EOSINOPHILS % (AUTO) 4.6 %; HGB - HEMOGLOBIN 7.7 g/dL (14.0-18.0); LYMPHOCYTES # (AUTO) 0.8 10^3/uL (1.5-3.5); LYMPHOCYTES % (AUTO) 11.4 %; MEAN CORPUSCULAR HEMOGLOBIN 30.2 pg (27.0-31.0); MEAN CORPUSCULAR HGB CONC 31.6 g/dL (32.0-36.0); MEAN CORPUSCULAR VOLUME 95.7 fL (80.0-94.0); MEAN PLATELET VOLUME 12.4 fL (7.4-11.4); MONOCYTES # (AUTO) 0.7 10^3/uL (0.0-1.0); MONOCYTES % (AUTO) 9.6 %; NEUTROPHILS # (AUTO) 5.3 10^3/uL (1.5-6.6); NEUTROPHILS % (AUTO) 72.5 %; PLT - PLATELET COUNT 328 10^3/uL (130-450); RED BLOOD COUNT 2.55 10^6/uL (4.70-6.10); RED CELL DISTRIBUTION WIDTH 16.6 % (12.0-15.0); WHITE BLOOD COUNT 7.4 x10^3/uL (4.8-10.8)
== END 2019-11-10 23:59 | disposition home or self-care (01) ==
LOC: LAB.R 16:45
PROVIDERS: ATTEND Family Medicine
DX: R63.4 Abnormal weight loss (principal); R79.89 Other specified abnormal findings of blood chemistry; D50.9 Iron deficiency anemia, unspecified; R68.89 Other general symptoms and signs; R70.0 Elevated erythrocyte sedimentation rate
CPT/HCPCS: 80053; 82728; 85025; 85651